=== PATIENT | female | born 1935 | race Caucasian/White ===

== ENCOUNTER 2017-05-27 10:27 | Emergency (ER) | payer MEDICARE, OTHER ==
[~2017-05-27] VITALS: Ht 160 cm; Wt 75.7 kg
[~2017-05-27 10:27] MED LIST: ADVA250A INH; CALC600T44 PO; CIPR500T4 PO; DUONSOL2 NEB; FURO1TAB93 PO; LISI-363 PO; METO50TA11 PO; MONT10TA2 PO; NORV10TA PO; OMEP20TA PO; OSTETAB3 PO; PROZ20CA11 PO; RIVA15 PO; SIMV40TA PO; TAB-TAB PO; WAL-10TA2 PO
[2017-05-27 10:38] VITALS: BP 129/72; PULSE 102; RESP 18; TEMP 97.6; O2SAT 96
[2017-05-27] MEDS ORDERED: MULT1TAB46 PO (11:02)
[2017-05-27] MEDS ORDERED: WARF-58 PO (11:02)
[2017-05-27] MEDS ORDERED: ALBU.5I NEB (11:02)
[2017-05-27] MEDS ORDERED: FLUO20CA12 PO (11:02)
[2017-05-27] MEDS ORDERED: OMEP20TA93 PO (11:02)
[2017-05-27] MEDS ORDERED: BUME2TAB PO (11:02)
[2017-05-27] MEDS ORDERED: DILT120C50 PO (11:02)
[2017-05-27] MEDS ORDERED: DOXY1CAP74 PO (11:02)
[2017-05-27] MEDS ORDERED: HUMIBIDDM PO (11:02)
[2017-05-27] MEDS ORDERED: CARV6.252 PO (11:02)
[2017-05-27] MEDS ORDERED: VITA1000 PO (11:02)
--- NOTE | 2017-05-27 12:09 | RADRPT ---
EXAM DATE/TIME: 05/27/2017 11:22 [facility] COMPARISON: No previous studies available for comparison. INDICATIONS : Left posterior shoulder pain, no known injury. MEDICAL HISTORY : None. SURGICAL HISTORY : bone and muscle resection left shoulder ENCOUNTER: Initial ACUITY: 3 weeks PAIN SCORE: 8/10 LOCATION: Left posterior shoulder FINDINGS: Multiple view examination of the left shoulder demonstrates no evidence of fracture or dislocation. T the distal clavicle has been resected previously. Pacemaker in good position.. There is normal range of motion between internal and external rotation. Bony mineralization is normal. CONCLUSION: Negative for an acute process.. Benson Villegas MD FACR on May 27, 2017 at 12:06 Board Certified Radiologist. This report was verified electronically.
[2017-05-27] MEDS ORDERED: TRAM50 PO (12:13)
--- NOTE | 2017-05-27 12:14 | PD ---
HPI Chief Complaint: Musculoskeletal Complaint Time Seen by Provider: 11:04 Travel History International Travel<30 days: No Contact w/Intl Traveler<30days: No Traveled to known affect area: No PFSH Past Medical History Arthritis: Yes (shoulders) Asthma: Yes Atrial Fibrillation: Yes Autoimmune Disease: No Blood Disorders: No Anxiety: No Depression: No Heart Rhythm Problems: Yes (EPISODE OF AFIB) Cancer: No Cardiovascular Problems: Yes (rapid pulse, afib, dizziness, asystole) High Cholesterol: Yes Chemotherapy: No Chest Pain: No Congestive Heart Failure: No COPD: Yes Cerebrovascular Accident: No Diabetes: No Diminished Hearing: No Endocrine: No Gastrointestinal Disorders: Yes GERD: Yes Glaucoma: No Genitourinary: No Headaches: Yes (regular headaches secondary to sinus issues) Hepatitis: No Hiatal Hernia: No Hypertension: Yes Immune Disorder: No Implanted Vascular Access Dvce: Yes Kidney Stones: No Musculoskeletal: Yes (shoulders-rotator cuffs ) Neurologic: No Psychiatric: No (HAVE ON PROZAC, R/T CHANGE OF LIFE) Reproductive: No (hysterectomy) Respiratory: Yes (COPD SLEEP APNEA) Immunizations Current: Yes Migraines: No Myocardial Infarction: No Radiation Therapy: No Renal Failure: No Seizures: No Sickle Cell Disease: No Sleep Apnea: Yes (CPAP AT HOME AND O2 AT HOME) Thyroid Disease: No Ulcer: No Tetanus Vaccination: < 5 Years Influenza Vaccination: Yes PNEUMOCCOCAL Vaccine (Year): 2010 ?: Not Past Surgical History Abdominal Surgery: Yes (above) AICD: No Appendectomy: Yes Arteriovenous Shunt: No Cardiac Surgery: Yes (pacer 04/07/13) Section: Yes ( 1956;1962) Cholecystectomy: No Ear Surgery: No Endocrine Surgery: No Eye Surgery: Yes (RT & LT EYES CATARACTS REMOVED ' ) Genitourinary Surgery: No Gynecologic Surgery: Yes (HYSTERECTOMY 02/12/1970 and c-sections x2) Hysterectomy: Yes Insulin Pump: No Joint Replacement: No Neurologic Surgery: No Oral Surgery: Yes (DENTAL EXTRACTIONS) Pacemaker: Yes (pacer 04/07/13) Thoracic Surgery: No Tonsillectomy: Yes Other Surgery: Yes (C-SECTIONS, BILAT SHOULDER SURGERY ,) Social History Alcohol Use: Yes (social) Tobacco Use: No (SMOKED FOR 30YEARS) Substance Use: No Allergies-Medications (Allergen,Severity, Reaction): Coded Allergies: codeine (Unverified Allergy, Severe, GI UPSET, 05/27/17) sulfamethoxazole (Unverified Allergy, Severe, CONFIRM REACTION: SIDE EFFECT VS ALLERGY., 05/27/17) trimethoprim (Unverified Allergy, Severe, CONFIRM REACTION: SIDE EFFECT VS ALLERGY., 05/27/17) lansoprazole (Unverified Allergy, Mild, DIARRHEA, 05/27/17) Reported Meds & Prescriptions Reported Meds & Active Scripts Active Reported Warfarin 3 Mg Tab 3 Mg PO DAILY Multi Vitamin Daily (Multiple Vitamin) 1 Tab Tab 1 Tab PO DAILY Vitamin D-1000 (Cholecalciferol) 1,000 Unit Tab 1,000 Units PO DAILY Doxycycline 40 Mg Cap 100 Mg PO DAILY Albuterol Neb (Albuterol Sulfate) 2.5 Mg/0.5 Ml Neb 2.5 Mg NEB Q4HR NEB Note: The Albuterol Sulfate Inhalation Solution is concentrated and must be diluted. Read complete instructions carefully before using. Mucinex DM (Dextromethorphan-Guaifenesin) 30-600 Mg Tab 2 Tab PO BID PRN Diltiazem CD 24 HR 120 Mg Caper 180 Mg PO DAILY Carvedilol 6.25 Mg Tab 6.25 Mg PO BID Bumetanide 2 Mg Tab 2 Mg PO DAILY Fluoxetine (Fluoxetine HCl) 20 Mg Capsule 20 Mg PO DAILY Omeprazole 20 Mg Tab 20 Mg PO DAILY Data Data Last Documented VS Vital Signs Date Time Temp Pulse Resp B/P (MAP) Pulse Ox O2 Delivery O2 Flow Rate FiO2 05/27/17 10:38 97.6 102 18 129/72 (91) 96 Orders Orders Shoulder, Complete (>2vws) (05/27/17 ) [facility] Medical Decision Making Medical Screen Exam Complete: Yes Emergency Medical Condition: Yes Differential Diagnosis Shoulder pain: Arthritis, rotator cuff injury, fracture Narrative Course 81-year-old female here with left shoulder pain for the last 3 weeks. The pain is reproducible to palpation of the proximal humerus and with range of motion. The extremity is neurovascularly intact. She has no cardiac symptoms. She has had previous surgery on the shoulder due to arthritis. X-rays negative for fracture. She will be put into a sling for comfort. Ultram as needed for pain. Follow-up with orthopedic. She agrees to this plan Diagnosis Primary Impression: Shoulder pain Qualified Codes: M25.512 - Pain in left shoulder Referrals: Ehsan Beck MD Orthopedist Additional Instructions: Sling as needed for comfort. Ultram as needed for pain. Follow-up with orthopedic. Scripts Tramadol (Ultram) 50 Mg Tab 50 MG PO Q6H Y for PAIN, #12 TAB 0 Refills Prov: Yasmine Mart 05/27/17 Disposition: 01 DISCHARGE HOME Condition: Stable Yasmine Mart May 27, 2017 12:14
== END 2017-05-27 12:26 | disposition home or self-care (01) ==
LOC: PHEFT 10:27
DX: M25.512 Pain in left shoulder (principal); M19.012 Primary osteoarthritis, left shoulder; M19.011 Primary osteoarthritis, right shoulder; I48.91 Unspecified atrial fibrillation; E78.00 Pure hypercholesterolemia, unspecified; J44.9 Chronic obstructive pulmonary disease, unspecified; Z87.891 Personal history of nicotine dependence; Z95.0 Presence of cardiac pacemaker
CPT/HCPCS: 73030; 99283

== ENCOUNTER 2017-05-29 06:04 | Observation (INO) | payer MEDICARE, OTHER ==
[2017-05-29] VITALS (9 sets, daily range): BP systolic 106–134; BP diastolic 53–85; PULSE 70–122; RESP 17–18; TEMP 98.1–98.5; O2SAT 95–98
[~2017-05-29] VITALS: Ht 160 cm; Wt 75.0 kg
[~2017-05-29 06:04] MED LIST changes: -ADVA250A INH; +ALBU.5I NEB; +BUME2TAB PO; -CALC600T44 PO; +CARV6.252 PO; -CIPR500T4 PO; +DILT120C50 PO; +DOXY1CAP74 PO; -DUONSOL2 NEB; +FLUO20CA12 PO; -FURO1TAB93 PO; +HUMIBIDDM PO; -LISI-363 PO; -METO50TA11 PO; -MONT10TA2 PO; +MULT1TAB46 PO; -NORV10TA PO; -OMEP20TA PO; +OMEP20TA93 PO; -OSTETAB3 PO; -PROZ20CA11 PO; -RIVA15 PO; -SIMV40TA PO; -TAB-TAB PO; +TRAM50 PO; +VITA1000 PO; -WAL-10TA2 PO; +WARF-58 PO
[2017-05-29] MEDS ORDERED: guaiFENesin E.R. 600 MG TAB PO ONE (06:30)
[2017-05-29] MEDS ORDERED: SODIUM CHLORIDE 0.9% FLUSH 10 ML FLUSH IVF PRN (06:30)
--- NOTE | 2017-05-29 06:39 | PD ---
HPI . Shortness of breath Chief Complaint: Respiratory Symptoms Time Seen by Provider: 06:15 Travel History International Travel<30 days: No Contact w/Intl Traveler<30days: No Traveled to known affect area: No History of Present Illness HPI This is a patient from [place] who is here visiting family he has a history of COPD on home oxygen who presents to us with acute exacerbation of shortness of breath. She states that she had a little bit of a cough last night but nothing significant. She awakened at about 2 AM with dyspnea. She had a coughing spell and the dyspnea became worse. She inadvertently left her nebulizer machine at home in [place]. She states that she has a cough productive of suarez sputum. She has no known fever. She was treated in route here by [facility] with Solu-Medrol and nebulizer treatment. She reports very little relief of her shortness of breath with this treatment. PFSH Past Medical History Arthritis: Yes (shoulders) Asthma: Yes Atrial Fibrillation: Yes Autoimmune Disease: No Blood Disorders: No Anxiety: No Depression: No Heart Rhythm Problems: Yes (EPISODE OF AFIB) Cancer: No Cardiovascular Problems: Yes (rapid pulse, afib, dizziness, asystole) High Cholesterol: Yes Chemotherapy: No Chest Pain: No Congestive Heart Failure: No COPD: Yes Cerebrovascular Accident: No Diabetes: No Diminished Hearing: No Endocrine: No Gastrointestinal Disorders: Yes GERD: Yes Glaucoma: No Genitourinary: No Headaches: Yes (regular headaches secondary to sinus issues) Hepatitis: No Hiatal Hernia: No Hypertension: Yes Immune Disorder: No Implanted Vascular Access Dvce: Yes Kidney Stones: No Musculoskeletal: Yes (shoulders-rotator cuffs ) Neurologic: No Psychiatric: No (HAVE ON PROZAC, R/T CHANGE OF LIFE) Reproductive: No (hysterectomy) Respiratory: Yes (COPD SLEEP APNEA) Immunizations Current: Yes Migraines: No Myocardial Infarction: No Radiation Therapy: No Renal Failure: No Seizures: No Sickle Cell Disease: No Sleep Apnea: Yes (CPAP AT HOME AND O2 AT HOME) Thyroid Disease: No Ulcer: No Tetanus Vaccination: > 5 Years Influenza Vaccination: Yes PNEUMOCCOCAL Vaccine (Year): 2010 Past Surgical History Abdominal Surgery: Yes (above) AICD: No Appendectomy: Yes Arteriovenous Shunt: No Cardiac Surgery: Yes (pacer 04/07/13) Section: Yes ( 1956;1962) Cholecystectomy: No Ear Surgery: No Endocrine Surgery: No Eye Surgery: Yes (RT & LT EYES CATARACTS REMOVED '09 ) Genitourinary Surgery: No Gynecologic Surgery: Yes (HYSTERECTOMY 02/12/1970 and c-sections x2) Hysterectomy: Yes Insulin Pump: No Joint Replacement: No Neurologic Surgery: No Oral Surgery: Yes (DENTAL EXTRACTIONS) Pacemaker: Yes (pacer 04/07/13) Thoracic Surgery: No Tonsillectomy: Yes Other Surgery: Yes (C-SECTIONS, BILAT SHOULDER SURGERY ,) Social History Alcohol Use: Yes (social) Tobacco Use: No (SMOKED FOR 30YEARS) Substance Use: No Allergies-Medications (Allergen,Severity, Reaction): Coded Allergies: codeine (Unverified Allergy, Severe, GI UPSET, 05/29/17) sulfamethoxazole (Unverified Allergy, Severe, CONFIRM REACTION: SIDE EFFECT VS ALLERGY., 05/29/17) trimethoprim (Unverified Allergy, Severe, CONFIRM REACTION: SIDE EFFECT VS ALLERGY., 05/29/17) lansoprazole (Unverified Allergy, Mild, DIARRHEA, 05/29/17) Reported Meds & Prescriptions Reported Meds & Active Scripts Active Ultram (Tramadol HCl) 50 Mg Tab 50 Mg PO Q6H PRN Reported Warfarin 3 Mg Tab 3 Mg PO DAILY Multi Vitamin Daily (Multiple Vitamin) 1 Tab Tab 1 Tab PO DAILY Vitamin D-1000 (Cholecalciferol) 1,000 Unit Tab 1,000 Units PO DAILY Albuterol Neb (Albuterol Sulfate) 2.5 Mg/0.5 Ml Neb 2.5 Mg NEB Q4HR NEB Note: The Albuterol Sulfate Inhalation Solution is concentrated and must be diluted. Read complete instructions carefully before using. Mucinex DM (Dextromethorphan-Guaifenesin) 30-600 Mg Tab 2 Tab PO BID PRN Diltiazem CD 24 HR 120 Mg Caper 180 Mg PO DAILY Carvedilol 6.25 Mg Tab 6.25 Mg PO BID Bumetanide 2 Mg Tab 2 Mg PO DAILY Fluoxetine (Fluoxetine HCl) 20 Mg Capsule 20 Mg PO DAILY Omeprazole 20 Mg Tab 20 Mg PO DAILY Review of Systems Except as stated in HPI: all other systems reviewed are Neg General / Constitutional: No: Fever, Chills Respiratory: Positive: Cough, Shortness of Breath Physical Exam Narrative GENERAL: Awake and alert and in no acute distress. She is able to speak to me without respiratory distress. SKIN: warm/dry. HEAD: Normocephalic. Atraumatic. EYES: Pupils equal and round. No scleral icterus. No injection or drainage. ENT: No nasal bleeding or discharge. Mucous membranes pink and moist. NECK: Trachea midline. Full range of motion without pain.. CARDIOVASCULAR: Regular rate and rhythm. Heart sounds normal. RESPIRATORY: No accessory muscle use. Diminished air movement with some coarse expiratory wheezing. Breath sounds equal bilaterally. MUSCULOSKELETAL: No obvious deformities. NEUROLOGICAL: Awake and alert. No obvious cranial nerve deficits. Motor grossly within normal limits. Normal speech. PSYCHIATRIC: Appropriate mood and affect; insight and judgment normal. Data Data Last Documented VS Vital Signs Date Time Temp Pulse Resp B/P (MAP) Pulse Ox O2 Delivery O2 Flow Rate FiO2 05/29/17 07:40 102 18 124/67 (86) 97 Nasal Cannula 2.00 05/29/17 06:18 98.5 Orders Orders Complete Blood Count With Diff (05/29/17 06:29) Basic Metabolic Panel (Bmp) (05/29/17 06:29) Electrocardiogram (05/29/17 06:29) Ecg Monitoring (05/29/17 06:29) Oximetry (05/29/17 06:29) Oxygen Administration (05/29/17 06:29) Chest, Single Ap (05/29/17 06:29) Sodium Chloride 0.9% Flush (Ns Flush) (05/29/17 06:30) Albuterol-Ipratropium Neb (Duoneb Neb) (05/29/17 06:30) Guaifenesin Er (Mucinex Er) (05/29/17 06:30) Troponin I (05/29/17 07:27) Prothrombin Time / Inr (Pt) (05/29/17 07:27) Act Partial Throm Time (Ptt) (05/29/17 07:27) Albuterol Neb (Albuterol Neb) (05/29/17 07:45) Nitroglycerin Sl (Nitrostat Sl) (05/29/17 07:45) Diltiazem Cd (Cardizem Cd) (05/29/17 08:30) Admit Order (Ed Use Only) (05/29/17 09:01) Labs Laboratory Tests Test 05/29/17 06:40 05/29/17 07:35 White Blood Count 6.9 TH/MM3 Red Blood Count 3.84 MIL/MM3 Hemoglobin 13.0 GM/DL Hematocrit 37.9 % Mean Corpuscular Volume 98.7 FL Mean Corpuscular Hemoglobin 33.9 PG Mean Corpuscular Hemoglobin Concent 34.4 % Red Cell Distribution Width 14.8 % Platelet Count 256 TH/MM3 Mean Platelet Volume 8.8 FL Neutrophils (%) (Auto) 46.6 % Lymphocytes (%) (Auto) 37.0 % Monocytes (%) (Auto) 12.2 % Eosinophils (%) (Auto) 3.0 % Basophils (%) (Auto) 1.2 % Neutrophils # (Auto) 3.2 TH/MM3 Lymphocytes # (Auto) 2.6 TH/MM3 Monocytes # (Auto) 0.8 TH/MM3 Eosinophils # (Auto) 0.2 TH/MM3 Basophils # (Auto) 0.1 TH/MM3 CBC Comment DIFF FINAL Differential Comment Blood Urea Nitrogen 28 MG/DL Creatinine 1.40 MG/DL Random Glucose 102 MG/DL Calcium Level 8.9 MG/DL Sodium Level 138 MEQ/L Potassium Level 3.8 MEQ/L Chloride Level 101 MEQ/L Carbon Dioxide Level 26.9 MEQ/L Anion Gap 10 MEQ/L Estimat Glomerular Filtration Rate 36 ML/MIN Troponin I LESS THAN 0.02 NG/ML Prothrombin Time 17.2 SEC Prothromb Time International Ratio 1.7 RATIO Activated Partial Thromboplast Time 27.9 SEC MDM Medical Decision Making Medical Screen Exam Complete: Yes Emergency Medical Condition: Yes Differential Diagnosis Differential diagnosis of dyspnea includes but is not limited to congestive heart failure, pneumonia, wheezing, pneumothorax, pulmonary embolism Narrative Course This is a patient with a history of COPD who is on home oxygen who presents with acute onset of increased shortness of breath. She also has a cough productive of suarez sputum but no fever. She has had Solu-Medrol per EMS. I have ordered stacked nebs. She will be workup for possible pneumonia with a chest x-ray and routine labs. Her care is being turned over to the oncoming provider at 7 AM pending her workup. Diagnosis Primary Impression: Dyspnea Qualified Codes: R06.00 - Dyspnea, unspecified Additional Impressions: Productive cough COPD (chronic obstructive pulmonary disease) Qualified Codes: J44.1 - Chronic obstructive pulmonary disease with (acute) exacerbation Condition: Stable Oeters,Lorri Sheila MD May 29, 2017 06:39
[2017-05-29] MEDS: RESP: ALBUTEROL 2.5 MG/IPRATROPIUM 0.5 MG NEB (SCH) INH ×2 (06:41→06:42)
[2017-05-29 06:54] LABS: AUTOMATED NEUTROPHIL # 3.2 TH/MM3 (1.8-7.7); BASOPHIL # 0.1 TH/MM3 (0-0.2); BASOPHIL % 1.2 % (0.0-2.0); EOSINOPHIL # 0.2 TH/MM3 (0-0.4); HEMATOCRIT 37.9 % (35.0-46.0); LYMPHOCYTE # 2.6 TH/MM3 (1.0-4.8); MEAN CELL VOLUME 98.7 FL (80.0-100.0); MEAN CORPUSCULAR HEMOGLOBIN 33.9 PG (27.0-34.0); MEAN CORPUSCULAR HGB CONC 34.4 % (32.0-36.0); MEAN PLATELET VOLUME 8.8 FL (7.0-11.0); MONO % 12.2 % (0.0-8.0); MONOCYTE # 0.8 TH/MM3 (0-0.9); NEUT % 46.6 % (16.0-70.0); PLATELET COUNT 256 TH/MM3 (150-450); RED BLOOD COUNT 3.84 MIL/MM3 (4.00-5.30); RED CELL DISTRIBUTION WIDTH 14.8 % (11.6-17.2); WHITE BLOOD COUNT 6.9 TH/MM3 (4.0-11.0)
--- NOTE | 2017-05-29 07:21 | PD ---
Physical Exam Narrative Received sign out from previous team to follow up labs, CXR and reevaluate. Please see previous provider's note for further details. 81yo F with PMH of COPD on 2L [place] home O2, afib on coumadin, pacemaker here with c/o sob and chest pain since 2am this morning. Pt was given solumedrol by [facility] and 3 duonebs prior to my evaluation. Pt said she feels a little better but still sob. She informs me that she had midsternal chest pain since 2am that radiated to her left arm. Said it is pressure like and she normally does not have chest pain when she has COPD exacerbation. Associated with nausea. 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 She said she saw Dr. Mas years ago year and he place pacemaker but she has no preference on who she sees. Pt denies any cardiac stress test. Denies any vomiting, abdominal pain, focal weakness or numbness. EKG and troponin added after my evaluation. Will give another nebulizer and sublingual nitro as well since pt is currently having chest pain. Pt is saturating at 92% on 2L NC and has mild end expiratory wheezing bilaterally. Pt 's heart rate is fluctuating between 90s to low 110s and pt has not taken her diltiazem 180mg PO yet so will give a dose now. Labs reviewed, no leukocytosis. H/H normal. Troponin negative. Pt reevaluated at bedside after the fourth nebulizer treatment and states she is feeling better. O2 sat is 99% on 2L NC. Lung exam revealed expiratory wheezing bilaterally. Pt said she still feel that her breathing is strained. I would like to admit patient to chest pain center for further evaluation of her chest pain which is not usually associated with her COPD. However, since pt is still wheezing and also has COPD exacerbation, will discuss with hospitalist. Discussed with Dr. Ellison and accepted to his service. Data Data Last Documented VS Vital Signs Date Time Temp Pulse Resp B/P (MAP) Pulse Ox O2 Delivery O2 Flow Rate FiO2 05/29/17 07:40 102 18 124/67 (86) 97 Nasal Cannula 2.00 05/29/17 06:18 98.5 Orders Orders Complete Blood Count With Diff (05/29/17 06:29) Basic Metabolic Panel (Bmp) (05/29/17 06:29) Electrocardiogram (05/29/17 06:29) Ecg Monitoring (05/29/17 06:29) Oximetry (05/29/17 06:29) Oxygen Administration (05/29/17 06:29) Chest, Single Ap (05/29/17 06:29) Sodium Chloride 0.9% Flush (Ns Flush) (05/29/17 06:30) Albuterol-Ipratropium Neb (Duoneb Neb) (05/29/17 06:30) Guaifenesin Er (Mucinex Er) (05/29/17 06:30) Troponin I (05/29/17 07:27) Prothrombin Time / Inr (Pt) (05/29/17 07:27) Act Partial Throm Time (Ptt) (05/29/17 07:27) Albuterol Neb (Albuterol Neb) (05/29/17 07:45) Nitroglycerin Sl (Nitrostat Sl) (05/29/17 07:45) Diltiazem Cd (Cardizem Cd) (05/29/17 08:30) Admit Order (Ed Use Only) (05/29/17 09:01) Labs Laboratory Tests Test 05/29/17 06:40 05/29/17 07:35 White Blood Count 6.9 TH/MM3 Red Blood Count 3.84 MIL/MM3 Hemoglobin 13.0 GM/DL Hematocrit 37.9 % Mean Corpuscular Volume 98.7 FL Mean Corpuscular Hemoglobin 33.9 PG Mean Corpuscular Hemoglobin Concent 34.4 % Red Cell Distribution Width 14.8 % Platelet Count 256 TH/MM3 Mean Platelet Volume 8.8 FL Neutrophils (%) (Auto) 46.6 % Lymphocytes (%) (Auto) 37.0 % Monocytes (%) (Auto) 12.2 % Eosinophils (%) (Auto) 3.0 % Basophils (%) (Auto) 1.2 % Neutrophils # (Auto) 3.2 TH/MM3 Lymphocytes # (Auto) 2.6 TH/MM3 Monocytes # (Auto) 0.8 TH/MM3 Eosinophils # (Auto) 0.2 TH/MM3 Basophils # (Auto) 0.1 TH/MM3 CBC Comment DIFF FINAL Differential Comment Blood Urea Nitrogen 28 MG/DL Creatinine 1.40 MG/DL Random Glucose 102 MG/DL Calcium Level 8.9 MG/DL Sodium Level 138 MEQ/L Potassium Level 3.8 MEQ/L Chloride Level 101 MEQ/L Carbon Dioxide Level 26.9 MEQ/L Anion Gap 10 MEQ/L Estimat Glomerular Filtration Rate 36 ML/MIN Troponin I LESS THAN 0.02 NG/ML Prothrombin Time 17.2 SEC Prothromb Time International Ratio 1.7 RATIO Activated Partial Thromboplast Time 27.9 SEC MDM Supervised Visit with KASSY: No Interpretation(s) EKG: Afib at 109bpm. LAD. No significant ST segment elevation or depression. Diagnosis Primary Impression: Chest pain Qualified Codes: R07.9 - Chest pain, unspecified Additional Impression: COPD exacerbation Admitting Information Admitting Physician Requests: Observation Condition: Stable Asuncion Covington DO May 29, 2017 07:21
[2017-05-29 07:41] LABS: BICARBONATE 26.9 MEQ/L (21.0-32.0); CALCIUM 8.9 MG/DL (8.5-10.1); CREATININE 1.4 MG/DL (0.50-1.00)
[2017-05-29] MEDS ORDERED: NITROGLYCERIN 0.4 MG SL 25 TABS/BTL SL PRN (07:45)
[2017-05-29] MEDS ORDERED: RESP: ALBUTEROL 2.5 MG/3 ML NEB (SCH) NEB ONE (07:45)
[2017-05-29 08:08] LABS: INTERNATIONAL NORMALIZED RATIO 1.7 RATIO; PROTHROMBIN TIME - PATIENT 17.2 SEC (9.8-11.6)
[2017-05-29] MEDS ORDERED: DILTIAZEM-CD 180 MG CAP ER PO ONE (08:30)
--- NOTE | 2017-05-29 09:19 | RADRPT ---
EXAM DATE/TIME: 05/29/2017 06:38 [facility] COMPARISON: No previous studies available for comparison. INDICATIONS : Short of breath MEDICAL HISTORY : Hypertension. Chronic obstructive pulmonary disease. Hypercholesterolemia. a-fib. SURGICAL HISTORY : Pacemaker. bone and muscle resection left shoulder ENCOUNTER: Initial ACUITY: 1 day PAIN SCORE: 0/10 LOCATION: chest FINDINGS: A single view of the chest demonstrates the lungs to be symmetrically aerated without evidence of mas s, infiltrate or effusion. The cardiomediastinal contours are unremarkable. Osseous structures are intact. Dual lead pacing device overlying the left chest. CONCLUSION: No acute disease. Michael Aponte Jr., MD on May 29, 2017 at 9:15 Board Certified Radiologist. This report was verified electronically.
[2017-05-29] MEDS ORDERED: ACETAMINOPHEN 325 MG TAB PO PRN (10:30)
[2017-05-29] MEDS ORDERED: SODIUM CHLORIDE 0.9% FLUSH 10 ML FLUSH IV FLUSH PRN (10:30)
[2017-05-29] MEDS ORDERED: MAGNESIUM HYDROXIDE SUSP 30 ML CUP PO PRN (10:30)
[2017-05-29] MEDS ORDERED: LACTULOSE SYRUP 20 GM/30 ML CUP PO PRN (10:30)
[2017-05-29] MEDS ORDERED: BISACODYL 10 MG SUPP RECTAL PRN (10:30)
[2017-05-29] MEDS ORDERED: SENNOSIDES 8.6 MG TAB PO PRN (10:30)
[2017-05-29] MEDS ORDERED: NALOXONE HCL 0.4 MG/ML AMP IV PUSH PRN (10:30)
[2017-05-29] MEDS ORDERED: ONDANSETRON HCL 4 MG/2 ML VIAL IVP PRN (10:30)
[2017-05-29] MEDS: LEVOFLOXACIN 750 MG PREMIX INJ 150 ML IV SCH (11:14)
[2017-05-29] MEDS: methylPREDNISolone SOD SUCC 40 MG/1 ML VIAL IV PUSH SCH ×2 (11:15→18:17)
[2017-05-29] MEDS ORDERED: HEPARIN SODIUM - SQ 10,000 UNITS/ML VIAL SQ SCH (12:00)
[2017-05-29 16:14] LABS: TROPONIN I LESS THAN 0.02 NG/ML (0.02-0.05)
[2017-05-29] MEDS ORDERED: DEXTROMETHORPHAN SYRUP 7.5MG/5ML UDC PO PRN (18:15)
[2017-05-29] MEDS ORDERED: traMADol HCL 50 MG TAB PO PRN (18:15)
[2017-05-29] MEDS ORDERED: RESP: ALBUTEROL 2.5 MG/IPRATROPIUM 0.5 MG NEB (PRN) NEB (18:15)
[2017-05-29] MEDS ORDERED: guaiFENesin/DEXTROMETHORPHAN 200 MG/20 MG/10 ML CUP PO PRN ×2 (18:45→19:00)
[2017-05-29] MEDS ORDERED: guaiFENesin E.R. 600 MG TAB PO PRN ×3 (18:45→19:00)
--- NOTE | 2017-05-29 19:21 | HHI.HP ---
HPI Service [facility] Hospitalists Primary Care Physician Non-Staff Admission Diagnosis Chest pain, COPD exacerbation Diagnoses: Chief Complaint: Shortness of breath, chest pain Travel History International Travel<30 Days: No Contact w/Intl Traveler <30 Da: No Traveled to Known Affected Are: No History of Present Illness This is a 81-year-old female with past medical history of COPD on home oxygen, atrial fibrillation on chronic articulation with warfarin, hypertension, depression/anxiety, osteoarthritis who presents to [facility] complaining of increasing shortness of breath and cough which started approximately 3 days ago. The patient states that she had a coughing spell and soon after had some chest pain which felt like a heavy sensation over the substernal region which radiated to the left arm. The patient states that the pain lasted for several hours and it subsided with medication that she was administered in the emergency department. The patient denies any aggravating factor. The patient is currently chest pain-free. However she states that she has been wheezing feeling more short of breath, with increased cough and sputum production of yellowish phlegm. The patient was in the emergency department, administered nebulizer. First set of troponin negative, chest x-ray without acute disease. Review of Systems As per HPI, other systems reviewed by me and negative Past Family Social History Past Medical History 1. Atrial fibrillation on chronic and correlation. 2. Hypertension. 3. COPD on home O2. 4. Osteoarthritis. 5. Cedillo's esophagus. 6. Depression/anxiety. 7. Endometrial cancer Past Surgical History 1. Tonsillectomy 2. Adenoidectomy 3. Appendectomy 4. Endometrial cancer treated with total abdominal hysterectomy with bilateral salpingo-oophorectomy 1969. 5. Bilateral pH ACO and intraocular lens implantation. 6. Liposuction plan 7. History of reduction of arms and face. 8. Facelift. 9. Bilateral shoulder surgery. 10. Surgery of the right shoulder for a rotator cuff tear. 11. 2 C-sections. Reported Medications Reported Meds & Active Scripts Active Ultram (Tramadol HCl) 50 Mg Tab 50 Mg PO Q6H PRN Reported Warfarin 3 Mg Tab 3 Mg PO DAILY Multi Vitamin Daily (Multiple Vitamin) 1 Tab Tab 1 Tab PO DAILY Vitamin D-1000 (Cholecalciferol) 1,000 Unit Tab 1,000 Units PO DAILY Albuterol Neb (Albuterol Sulfate) 2.5 Mg/0.5 Ml Neb 2.5 Mg NEB Q4HR NEB Note: The Albuterol Sulfate Inhalation Solution is concentrated and must be diluted. Read complete instructions carefully before using. Mucinex DM (Dextromethorphan-Guaifenesin) 30-600 Mg Tab 2 Tab PO BID PRN Diltiazem CD 24 HR 120 Mg Caper 180 Mg PO DAILY Carvedilol 6.25 Mg Tab 6.25 Mg PO BID Bumetanide 2 Mg Tab 2 Mg PO DAILY Fluoxetine (Fluoxetine HCl) 20 Mg Capsule 20 Mg PO DAILY Omeprazole 20 Mg Tab 20 Mg PO DAILY Allergies: Coded Allergies: codeine (Unverified Allergy, Severe, GI UPSET, 05/29/17) sulfamethoxazole (Unverified Allergy, Severe, CONFIRM REACTION: SIDE EFFECT VS ALLERGY., 05/29/17) trimethoprim (Unverified Allergy, Severe, CONFIRM REACTION: SIDE EFFECT VS ALLERGY., 05/29/17) lansoprazole (Unverified Allergy, Mild, DIARRHEA, 05/29/17) Active Ordered Medications Current Medications Medications (Trade) Dose Ordered Sig/Mandi Route Start Time Stop Time Status Last Admin (Nitrostat Sl) 0.4 mg Q5M PRN SL 05/29/17 07:45 (NS Flush) 2 ml UNSCH PRN IV FLUSH 05/29/17 10:30 (NS Flush) 2 ml BID IV FLUSH 05/29/17 21:00 (Tylenol) 650 mg Q4H PRN PO 05/29/17 10:30 (Zofran Inj) 4 mg Q6H PRN IVP 05/29/17 10:30 (Heparin Inj) 5,000 units Q8H SQ 05/29/17 12:00 05/29/17 11:11 (Narcan Inj) 0.4 mg UNSCH PRN IV PUSH 05/29/17 10:30 (Radha-Colace) 1 tab BID PO 05/29/17 21:00 (Milk Of Magnesia Liq) 30 ml Q12H PRN PO 05/29/17 10:30 (Senokot) 17.2 mg Q12H PRN PO 05/29/17 10:30 (Dulcolax Supp) 10 mg DAILY PRN RECTAL 05/29/17 10:30 (Lactulose Liq) 30 ml DAILY PRN PO 05/29/17 10:30 (SoluMEDROL INJ) 40 mg Q6HR IV PUSH 05/29/17 12:00 05/29/17 18:17 Levofloxacin/ Dextrose 150 ml @ 100 mls/hr Q48H IV 05/29/17 11:00 05/29/17 11:14 (Duoneb Neb) 1 ampule Q4HR WHILE AWAKE NEB NEB 05/29/17 20:00 (Duoneb Neb) 1 ampule Q2HR NEB PRN NEB 05/29/17 18:15 (Bumetanide) 2 mg DAILY PO 05/30/17 09:00 (Coreg) 6.25 mg BID PO 05/29/17 21:00 (Vitamin D3) 1,000 units DAILY PO 05/30/17 09:00 (Cardizem Cd) 180 mg DAILY PO 05/30/17 09:00 (PROzac) 20 mg DAILY PO 05/30/17 09:00 (Ultram) 50 mg Q6H PRN PO 05/29/17 18:15 (Coumadin) 3 mg DAILY@1600 PO 05/30/17 16:00 (Theragran) 1 tab DAILY PO 05/30/17 09:00 (Protonix) 20 mg DAILY PO 05/30/17 09:00 (Robitussin Dm 200-20 Mg/10 ml Liq) 30 ml BID PRN PO 05/29/17 19:00 (Mucinex Er) 600 mg BID PRN PO 05/29/17 19:00 Family History Patient's father is at age 57 from lung cancer. Mother at 87 years of senescence. Patient has a daughter and a son who are healthy. Social History The patient is a former smoker quit smoking in 1979. The patient drinks 1-2 glasses of wine a day. The patient denies illicit drug use. The patient is and she was born and currently lives in [place]. The patient is retired. Physical Exam Vital Signs Vital Signs Date Time Temp Pulse Resp B/P (MAP) Pulse Ox O2 Delivery O2 Flow Rate FiO2 05/29/17 17:42 98.1 107 18 128/69 (88) 96 05/29/17 15:12 109 18 106/53 (70) 95 Nasal Cannula 2.00 05/29/17 11:22 110 18 120/85 (97) 95 Nasal Cannula 2.00 05/29/17 07:40 102 18 124/67 (86) 97 Nasal Cannula 2.00 05/29/17 06:45 95 Nasal Cannula 2.00 05/29/17 06:45 98 Nasal Cannula 05/29/17 06:18 98.5 70 18 131/67 (88) 98 05/29/17 06:14 24 97 Nasal Cannula 2.00 Physical Exam GENERAL: This is a well-nourished, well-developed patient, in no apparent distress. SKIN: No rashes, ecchymoses or lesions. Cool and dry. HEAD: Atraumatic. Normocephalic. No temporal or scalp tenderness. EYES: Pupils equal round and reactive. Extraocular motions intact. No scleral icterus. No injection or drainage. ENT: Nose without bleeding, purulent drainage or septal hematoma. Throat without erythema, tonsillar hypertrophy or exudate. Uvula midline. Airway patent. NECK: Trachea midline. No JVD or lymphadenopathy. Supple, nontender, no meningeal signs. CARDIOVASCULAR: Regular rate and rhythm without murmurs, gallops, or rubs. RESPIRATORY: Decreased breath sounds in bilateral lung elizalde with diffuse expiratory wheezing, no rhonchi or rales auscultated. GASTROINTESTINAL: Abdomen soft, non-tender, nondistended. No hepato-splenomegaly , or palpable masses. No guarding. MUSCULOSKELETAL: Extremities without clubbing, cyanosis, or edema. No joint tenderness, effusion, or edema noted. No calf tenderness. Negative Homans sign bilaterally. NEUROLOGICAL: Awake and alert. Cranial nerves II through XII intact. Motor and sensory grossly within normal limits. Five out of 5 muscle strength in all muscle groups. Normal speech. Laboratory Laboratory Tests Test 05/29/17 06:40 05/29/17 07:35 05/29/17 13:25 White Blood Count 6.9 Red Blood Count 3.84 Hemoglobin 13.0 Hematocrit 37.9 Mean Corpuscular Volume 98.7 Mean Corpuscular Hemoglobin 33.9 Mean Corpuscular Hemoglobin Concent 34.4 Red Cell Distribution Width 14.8 Platelet Count 256 Mean Platelet Volume 8.8 Neutrophils (%) (Auto) 46.6 Lymphocytes (%) (Auto) 37.0 Monocytes (%) (Auto) 12.2 Eosinophils (%) (Auto) 3.0 Basophils (%) (Auto) 1.2 Neutrophils # (Auto) 3.2 Lymphocytes # (Auto) 2.6 Monocytes # (Auto) 0.8 Eosinophils # (Auto) 0.2 Basophils # (Auto) 0.1 CBC Comment DIFF FINAL Differential Comment Blood Urea Nitrogen 28 Creatinine 1.40 Random Glucose 102 Calcium Level 8.9 Sodium Level 138 Potassium Level 3.8 Chloride Level 101 Carbon Dioxide Level 26.9 Anion Gap 10 Estimat Glomerular Filtration Rate 36 Troponin I LESS THAN 0.02 LESS THAN 0.02 Prothrombin Time 17.2 Prothromb Time International Ratio 1.7 Activated Partial Thromboplast Time 27.9 Total Creatine Kinase 67 Result Diagram: 05/29/1763905/29/17639 Imaging Last Impressions Chest X-Ray 05/29/17628 Signed Impressions: Service Date/Time: Monday, May 29, 2017 06:38 - CONCLUSION: No acute disease. Michael Aponte Jr., MD Capghassan VTE Risk Assessment Caprini VTE Risk Assessment: Mod/High Risk (score >= 2) Caprini Risk Assessment Model Point Value = 1 Point Value = 2 Point Value = 3 Point Value = 5 Age 41-60 Minor surgery BMI > 25 kg/m2 Swollen legs Varicose veins or History of unexplained or recurrent spontaneous Oral contraceptives or hormone replacement Sepsis (< 1 month) Serious lung disease, including pneumonia (< 1 month) Abnormal pulmonary function Acute myocardial infarction Congestive heart failure (< 1 month) History of inflammatory bowel disease Medical patient at bed rest Age 61-74 Arthroscopic surgery Major open surgery (> 45 min) Laparoscopic surgery (> 45 min) Malignancy Confined to bed (> 72 hours) Immobilizing plaster cast Central venous access Age >= 75 History of VTE Family history of VTE Factor V Leiden Prothrombin [id number] Lupus anticoagulant Anticardiolipin antibodies Elevated serum homocysteine Heparin-induced thrombocytopenia Other congenital or acquired thrombophilia Stroke (< 1 month) Elective arthroplasty Hip, pelvis, or leg fracture Acute spinal cord injury (< 1 month) Prophylaxis Regimen Total Risk Factor Score Risk Level Prophylaxis Regimen 0-1 Low Early ambulation 2 Moderate Order ONE of the following: *Sequential Compression Device (SCD) *Heparin 5000 units SQ BID 3-4 Higher Order ONE of the following medications: *Heparin 5000 units SQ TID *Enoxaparin/Lovenox 40 mg SQ daily (WT < 150 kg, CrCl > 30 mL/min) *Enoxaparin/Lovenox 30 mg SQ daily (WT < 150 kg, CrCl > 10-29 mL/min) *Enoxaparin/Lovenox 30 mg SQ BID (WT < 150 kg, CrCl > 30 mL/min) AND/OR *Sequential Compression Device (SCD) 5 or more Highest Order ONE of the following medications: *Heparin 5000 units SQ TID (Preferred with Epidurals) *Enoxaparin/Lovenox 40 mg SQ daily (WT < 150 kg, CrCl > 30 mL/min) *Enoxaparin/Lovenox 30 mg SQ daily (WT < 150 kg, CrCl > 10-29 mL/min) *Enoxaparin/Lovenox 30 mg SQ BID (WT < 150 kg, CrCl > 30 mL/min) AND *Sequential Compression Device (SCD) Assessment and Plan Problem List: (1) COPD exacerbation ICD Code: J44.1 - Chronic obstructive pulmonary disease with (acute) exacerbation Plan: Placed the patient on outpatient observation Start the patient IV Solu-Medrol 60 mg IV every 6 hours. Start the patient IV Levaquin Consult pulmonology. The patient follows up with Dr. Britt. (2) Chronic respiratory failure ICD Code: J96.10 - Chronic respiratory failure, unspecified whether with hypoxia or hypercapnia Plan: Continue with supplemental oxygen to keep oxygen saturation more than 92% . The patient is usually on 2 L nasal cannula at home. (3) HTN (hypertension) ICD Code: I10 - Essential (primary) hypertension Plan: Blood pressure seems to be stable, continue home antihypertensive medications which include carvedilol, diltiazem CD. (4) Chest pain ICD Code: R07.9 - Chest pain, unspecified Plan: Patient describes substernal chest pain radiating to the left arm. Troponin negative 2. Consult cardiology (5) Atrial fibrillation ICD Code: I48.91 - Unspecified atrial fibrillation Plan: EKG reviewed by me shows atrial fibrillation at a ventricular rate of 109 bpm, no ST-T changes suggestive of active ischemia. Continue diltiazem and Coumadin. INR is slightly subtherapeutic at 1.7. We will consult pharmacy to help with dosing and INR monitoring. (6) Subtherapeutic international normalized ratio (INR) ICD Code: R79.1 - Abnormal coagulation profile Plan: Continue Coumadin. Consult pharmacy as above. Assessment and Plan GI prophylaxis: Continue PPI. DVT prophylaxis: SCDs, heparin subcutaneously given 1 given that patient's INR subtherapeutic. Discussed Condition With ED physician, patient. Problem Qualifiers (1) HTN (hypertension): Qualified Codes: I10 - Essential (primary) hypertension (2) Chest pain: Jakub Lundy MD May 29, 2017 19:21
[2017-05-29] MEDS: RESP: ALBUTEROL 2.5 MG/IPRATROPIUM 0.5 MG NEB (SCH) NEB (19:26)
--- NOTE | 2017-05-29 19:55 | EKG ---
Date Performed: 05/29/2017 Time Performed: 07:30:38 PTAGE: 81 years EKG: ATRIAL FIBRILLATION WITH RAPID VENTRICULAR RESPONSE BORDERLINE LEFT AXIS DEVIATION Since pr evious tracing, no significant change noted ABNORMAL RHYTHM ECG PREVIOUS TRACING : 04/07/2013 09.13 DOCTOR: Shayne Aldana Interpretating Date/Time 05/29/2017 19:52:33
[2017-05-29] MEDS: SODIUM CHLORIDE 0.9% FLUSH 10 ML FLUSH IV FLUSH SCH (22:05)
[2017-05-29] MEDS: CARVEDILOL 6.25 MG TAB PO SCH (22:05)
[2017-05-29] MEDS: DOCUSATE SODIUM 50 MG/SENNA 8.6 MG TAB PO SCH (22:06)
[2017-05-29 22:34] LABS: TROPONIN I LESS THAN 0.02 NG/ML (0.02-0.05)
[2017-05-30] VITALS (10 sets, daily range): BP systolic 116–128; BP diastolic 69–79; PULSE 100–123; RESP 16–18; TEMP 97.9–98.7; O2SAT 93–97
[2017-05-30] MEDS: methylPREDNISolone SOD SUCC 125 MG/2 ML VIAL IV PUSH SCH ×4 (00:44→17:24)
[2017-05-30] MEDS: RESP: ALBUTEROL 2.5 MG/IPRATROPIUM 0.5 MG NEB (SCH) NEB ×4 (07:31→20:13)
--- NOTE | 2017-05-30 08:26 | HHI.PR ---
Subjective Remarks Follow-up COPD exacerbation, chest pain. Patient reports chest pressure, cough , shortness of breath. States that she uses 2 L of oxygen at night at home, and also uses it as needed when she feels short of breath. States that she feels better today than she did yesterday. Objective Vitals Vital Signs Date Time Temp Pulse Resp B/P (MAP) Pulse Ox O2 Delivery O2 Flow Rate FiO2 05/30/17 03:22 98.0 104 17 116/72 (87) 95 05/30/17 00:56 97.9 102 17 120/70 (87) 95 05/29/17 23:55 122 05/29/17 20:38 98.4 113 17 134/75 (94) 05/29/17 20:00 98 Nasal Cannula 2.50 05/29/17 17:42 98.1 107 18 128/69 (88) 96 05/29/17 15:12 109 18 106/53 (70) 95 Nasal Cannula 2.00 05/29/17 11:22 110 18 120/85 (97) 95 Nasal Cannula 2.00 I/O 05/29/17 05/29/17 05/29/17 05/30/17 05/30/17 05/30/17 07:00 15:00 23:00 07:00 15:00 23:00 # Voids 1 Result Diagram: 05/29/17 0640 05/29/17 0640 Imaging Last Impressions Chest X-Ray 05/29/17 0629 Signed Impressions: Service Date/Time: Monday, May 29, 2017 06:38 - CONCLUSION: No acute disease. Michael Aponte Jr., MD Objective Remarks General: No acute distress. Heart: Irregular rhythm. Tachycardic. No murmur. Lungs: Diffuse expiratory wheezing. Breathing is nonlabored. Abdomen: Soft, nontender, nondistended. Extremities: No lower extremity edema. Psych: Alert and oriented. Procedures None Urinary Catheter: No Vascular Central Line Catheter: No A/P Problem List: (1) COPD exacerbation ICD Code: J44.1 - Chronic obstructive pulmonary disease with (acute) exacerbation (2) Chronic respiratory failure ICD Code: J96.10 - Chronic respiratory failure, unspecified whether with hypoxia or hypercapnia (3) HTN (hypertension) ICD Code: I10 - Essential (primary) hypertension (4) Chest pain ICD Code: R07.9 - Chest pain, unspecified (5) Atrial fibrillation ICD Code: I48.91 - Unspecified atrial fibrillation (6) Subtherapeutic international normalized ratio (INR) ICD Code: R79.1 - Abnormal coagulation profile Assessment and Plan 1. COPD exacerbation: Continue steroids, antibiotics, bronchodilators, supplemental oxygen. Pulmonology consultation is pending. 2. Chronic respiratory failure: Patient on home oxygen at night and as needed, usually for about an hour every day. Continue supplemental oxygen. 3. Hypertension: Continue home antihypertensive medications (carvedilol, diltiazem). 4. Atrial fibrillation: Continue diltiazem, carvedilol. On Coumadin for anticoagulation. INR is subtherapeutic. Rate is elevated, likely secondary to bronchodilators. 5. Chest pain: Patient reports substernal chest pressure that has radiated to the left arm. The discomfort is worse with activity, but this may be because she develops coughing fits with activity. Cardiology consultation is pending. Serial cardiac enzymes are negative. 6. GI prophylaxis: PPI. 7. Acute kidney injury: Repeat labs are pending this morning. Add gentle IV fluid hydration. 8. DVT prophylaxis: SCDs, Coumadin. Pharmacy to dose Coumadin. Discharge Planning Pending further clinical improvement. Problem Qualifiers (1) HTN (hypertension): Qualified Codes: I10 - Essential (primary) hypertension (2) Chest pain: Atul Scales MD May 30, 2017 08:26
[2017-05-30] MEDS ORDERED: NS + KCL 20 MEQ INJ 1,000 ML IV SCH (08:30)
[2017-05-30] MEDS: FLUoxetine HCL 20 MG CAP PO SCH (09:05)
[2017-05-30] MEDS: CARVEDILOL 6.25 MG TAB PO SCH (09:05)
[2017-05-30] MEDS: DILTIAZEM-CD 180 MG CAP ER PO SCH (09:05)
[2017-05-30] MEDS: CHOLECALCIFEROL (VIT D3) 1000 UNIT TAB PO SCH (09:06)
[2017-05-30] MEDS: MULTIVITAMIN TAB PO SCH (09:06)
[2017-05-30] MEDS: DOCUSATE SODIUM 50 MG/SENNA 8.6 MG TAB PO SCH ×2 (09:06→21:18)
[2017-05-30] MEDS: PANTOPRAZOLE SOD 20 MG DELAYED RELEASE TAB PO SCH (09:06)
[2017-05-30] MEDS: BUMETANIDE 1 MG TAB PO SCH (09:06)
[2017-05-30] MEDS: SODIUM CHLORIDE 0.9% FLUSH 10 ML FLUSH IV FLUSH SCH ×2 (09:07→21:18)
[2017-05-30 11:02] LABS: AUTOMATED NEUTROPHIL # 10.2 TH/MM3 (1.8-7.7); BASOPHIL % 0.1 % (0.0-2.0); EOSINOPHIL % 0.1 % (0.0-4.0); HEMATOCRIT 36.7 % (35.0-46.0); HEMOGLOBIN 12.6 GM/DL (11.6-15.3); LYMPH % 5.9 % (9.0-44.0); LYMPHOCYTE # 0.7 TH/MM3 (1.0-4.8); MEAN CELL VOLUME 100.9 FL (80.0-100.0); MEAN CORPUSCULAR HEMOGLOBIN 34.7 PG (27.0-34.0); MEAN CORPUSCULAR HGB CONC 34.4 % (32.0-36.0); MEAN PLATELET VOLUME 8.6 FL (7.0-11.0); MONO % 1.7 % (0.0-8.0); MONOCYTE # 0.2 TH/MM3 (0-0.9); NEUT % 92.2 % (16.0-70.0); PLATELET COUNT 239 TH/MM3 (150-450); RED BLOOD COUNT 3.63 MIL/MM3 (4.00-5.30); RED CELL DISTRIBUTION WIDTH 14.8 % (11.6-17.2); WHITE BLOOD COUNT 11.1 TH/MM3 (4.0-11.0)
[2017-05-30 11:05] LABS: INTERNATIONAL NORMALIZED RATIO 1.6 RATIO; PROTHROMBIN TIME - PATIENT 15.9 SEC (9.8-11.6)
[2017-05-30 11:20] LABS: ALBUMIN 3.1 GM/DL (3.4-5.0); ALT (GPT) 14 U/L (10-53); AST (GOT) 16 U/L (15-37); BICARBONATE 27.4 MEQ/L (21.0-32.0); BLOOD UREA NITROGEN 27 MG/DL (7-18); CALCIUM 8.7 MG/DL (8.5-10.1); CHLORIDE 101 MEQ/L (98-107); CREATININE 1.19 MG/DL (0.50-1.00); GLOMERULAR FILTRATION RATE 44 ML/MIN (>89); GLUCOSE,RANDOM 197 MG/DL (74-106); SODIUM (NA) 138 MEQ/L (136-145)
[2017-05-30 11:23] LABS: ALKALINE PHOSPHATASE 67 U/L (45-117); TOTAL BILIRUBIN ADULT 0.3 MG/DL (0.2-1.0); TOTAL PROTEIN 7.1 GM/DL (6.4-8.2)
--- NOTE | 2017-05-30 12:03 | MB ---
cc: Nahun Ryaa MD DATE: 05/30/2017 REASON FOR CONSULTATION: Chest pain. HISTORY OF PRESENT ILLNESS: The patient is a very pleasant 81-year-old woman [place] who presents with a central chest/epigastric pain with perhaps some pain in her left arm, though she admits to sleeping on it and having some degree of chronic left shoulder/arm pain. She presented to the emergency department and was ruled out for CT. She is currently asymptomatic, denying any residual chest pain, shortness of breath, lightheadedness or dizziness. PAST MEDICAL HISTORY: 1. Chronic atrial fibrillation, on warfarin. 2. History of permanent pacemaker. 3. COPD, on home oxygen. 4. Hypertension. 5. Depression. 6. Anxiety. 7. Osteoarthritis. CURRENT MEDICATIONS: 1. Warfarin. 2. Bumex. 3. Cardizem 180 mg daily. 4. Prozac. 5. Protonix 20 mg daily. 6. Carvedilol 6.25 mg b.i.d. ALLERGIES: CODEINE. LANSOPRAZOLE. SULFAMETHOXAZOLE/TRIMETHOPRIM. PHYSICAL EXAMINATION: VITAL SIGNS: Afebrile, pulse 114, respiratory rate 16, BP 126/69, sating 94 percent. GENERAL: Pleasant, well-appearing woman, in no distress. NECK: No JVD. LUNGS: Clear to auscultation bilaterally. CARDIOVASCULAR: Slightly irregular rate and rhythm with a slightly rapid rate. No murmurs appreciated. ABDOMEN: Benign. EXTREMITIES: No edema. LABORATORY DATA: Sodium 138, potassium 3.8, chloride 101, bicarbonate 26.9, BUN 20, creatinine 1.4, glucose 102. Cardiac enzymes are negative x3. INR is 1.6. White count 11.1, hematocrit 36.7, platelets 239. EKG shows atrial fibrillation at a rate of 109, with minor nonspecific ST changes. ASSESSMENT AND PLAN: 1. Chest pain. The patient had chest pain with mixed typical and atypical features. I will have her undergo a nuclear stress test to rule out significant coronary artery disease. 2. Atrial fibrillation. She is maintained on warfarin (although slightly subtherapeutic currently). I will increase her carvedilol slightly given she is slightly tachycardic. Further recommendations will be based on her nuclear stress test. Unfortunately, this will have to be done tomorrow. She has already had caffeine today. Thank you again for the opportunity to participate in this patient's care. MD ADIEL Galvez/MINDY , 11:27 AM , 12:02 PM
--- NOTE | 2017-05-30 13:22 | MB ---
cc: Lauri Burnett MD DATE: 05/30/2017 REASON FOR CONSULTATION: COPD exacerbation. HISTORY OF PRESENT ILLNESS: The patient is a 81-year-old female who is known to have COPD on home oxygen with atrial fibrillation, hypertension, came to the hospital because she was having increased shortness of breath and coughing that has been there for about 3 days. The patient was diagnosed with COPD exacerbation, started on intravenous steroids and antibiotics. She is much better today ,about 40% better. She continues to be coughing and short of breath. She continues to have some wheezing. 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 PAST MEDICAL HISTORY: Reviewed in detail, as mentioned in the HPI. PAST SURGICAL HISTORY: Reviewed in detail as well. MEDICATIONS: All reviewed in detail, outpatient and inpatient medications. REVIEW OF SYSTEMS: Negative except what is mentioned in the HPI. FAMILY HISTORY: Positive for lung cancer in her father and her mother at age 87 from old age. SOCIAL HISTORY: Ex-smoker, quit in 1979. She drinks wine, 1-2 glasses a day. PHYSICAL EXAMINATION: VITAL SIGNS: Shows temperature 98.7, pulse 105, respiratory rate 18, blood pressure 120/69, saturating 96% on room air. HEENT: Atraumatic, normocephalic. NECK: Trachea midline. LUNGS: Bilateral expiratory wheezing. CARDIOVASCULAR: Normal S1, S2. ABDOMEN: Soft, nontender, slightly obese. EXTREMITIES: No significant edema or cyanosis. NEUROLOGIC: Alert, oriented x 3. Moves all extremities. LABORATORY DATA: Reviewed. WBC 11.1, hemoglobin 12.6, platelets 239. Sodium 138, potassium 4.3, BUN 27, creatinine 1.19. IMAGING STUDIES: Chest x-ray did not show any acute disease. ASSESSMENT AND PLAN: 1. Acute chronic obstructive pulmonary disease exacerbation. 2. Atrial fibrillation. 3. Chronic hypoxia. I do believe overall the patient is doing well. She is improving. I agree with the intravenous steroids and the antibiotics. I would recommend to continue bronchodilators to be used on an as-needed basis. Wean off FiO2 for O2 saturation more than or equal to 89%. There is a good chance the patient will be able to go home in 1-2 days. She will need to have an outpatient followup. MD YOLI Obrien , 01:04 PM , 01:21 PM
[2017-05-30] MEDS ORDERED: WARFARIN SOD 3 MG TAB PO SCH (16:00)
[2017-05-30] MEDS: CARVEDILOL 12.5 MG TAB PO SCH (21:18)
[2017-05-31] MEDS: methylPREDNISolone SOD SUCC 125 MG/2 ML VIAL IV PUSH SCH ×3 (00:51→12:53)
[2017-05-31 04:07] VITALS: BP 123/63; PULSE 60; RESP 18; TEMP 98.1; O2SAT 98
[2017-05-31 05:23] LABS: AUTOMATED NEUTROPHIL # 11.4 TH/MM3 (1.8-7.7); BASOPHIL % 0.1 % (0.0-2.0); HEMATOCRIT 35.8 % (35.0-46.0); HEMOGLOBIN 12.1 GM/DL (11.6-15.3); LYMPH % 6.2 % (9.0-44.0); LYMPHOCYTE # 0.8 TH/MM3 (1.0-4.8); MEAN CELL VOLUME 100.6 FL (80.0-100.0); MEAN CORPUSCULAR HGB CONC 33.8 % (32.0-36.0); MEAN PLATELET VOLUME 8.7 FL (7.0-11.0); MONO % 1.8 % (0.0-8.0); MONOCYTE # 0.2 TH/MM3 (0-0.9); NEUT % 91.9 % (16.0-70.0); PLATELET COUNT 232 TH/MM3 (150-450); RED BLOOD COUNT 3.55 MIL/MM3 (4.00-5.30); RED CELL DISTRIBUTION WIDTH 14.9 % (11.6-17.2); WHITE BLOOD COUNT 12.4 TH/MM3 (4.0-11.0)
[2017-05-31 05:44] LABS: INTERNATIONAL NORMALIZED RATIO 1.5 RATIO; PROTHROMBIN TIME - PATIENT 15.4 SEC (9.8-11.6)
[2017-05-31 05:49] LABS: BICARBONATE 27.3 MEQ/L (21.0-32.0); CALCIUM 8.6 MG/DL (8.5-10.1); CREATININE 1.26 MG/DL (0.50-1.00); MAGNESIUM 2.3 MG/DL (1.5-2.5)
[2017-05-31 07:28] VITALS: O2SAT 98
[2017-05-31] MEDS: RESP: ALBUTEROL 2.5 MG/IPRATROPIUM 0.5 MG NEB (SCH) NEB ×2 (07:28→12:05)
[2017-05-31] MEDS ORDERED: REGADENOSON INJ 0.4 MG/5 ML SYR ONE (08:30)
[2017-05-31] MEDS: DILTIAZEM-CD 180 MG CAP ER PO SCH (10:02)
[2017-05-31] MEDS: MULTIVITAMIN TAB PO SCH (10:02)
[2017-05-31] MEDS: FLUoxetine HCL 20 MG CAP PO SCH (10:02)
--- NOTE | 2017-05-31 10:02 | RADRPT ---
EXAM DATE/TIME: 05/30/2017 15:53 [facility] COMPARISON: No previous studies available for comparison. INDICATIONS : Chest pain. Angina. DOSE: 30.1 mCi Tc99m Myoview at stress. 30.1 mCi Tc99m Myoview at rest. 0.4 mg Lexiscan STRESS SYMPTOMS: Shortness of breath. EJECTION FRACTION: 68% MEDICAL HISTORY : Hypertension. Gastroesophageal reflux disease. Chronic obstructive pulmonary disease. SURGICAL HISTORY : Pacemaker. Appendectomy. Hysterectomy. section, tonsillectomy. ENCOUNTER: Initial ACUITY: 1 day PAIN SCALE: 3/10 LOCATION: chest TECHNIQUE: The patient underwent pharmacologic stress with infusion of prescribed dose. Continuous ECG tracing was monitored during stress. Gated SPECT imaging was performed after stress and conventional SPECT i maging was performed at rest. The examination was performed on a SPECT/CT scanner, both attenuation and non-corrected datasets were reviewed. FINDINGS: The gated cineloop images demonstrate no focal wall motion noted. The left ventricular ejection fract ion is calculated at 68%. The cardiac SPECT stress and rest images demonstrate fixed defects involving the lateral wall and to a lesser degree the apex and inferolateral wall suggesting infarcts in the LCx and possibly LAD and R CA distributions. No reversible defects are noted to suggest ischemia. CONCLUSION: Fixed defects involving the lateral wall and to a lesser extent the apex and inferolateral wall sugge sting infarcts in the LCx and possibly LAD and RCA distributions. Clinical correlation is recommended . No reversible defects to suggest ischemia. No focal wall motion abnormality. RISK CATEGORY: Low risk (less than 1% annual mortality rate). Arian Robin MD on May 31, 2017 at 9:55 Board Certified Radiologist. This report was verified electronically.
[2017-05-31] MEDS: CARVEDILOL 12.5 MG TAB PO SCH (10:03)
[2017-05-31] MEDS: BUMETANIDE 1 MG TAB PO SCH (10:03)
[2017-05-31] MEDS: PANTOPRAZOLE SOD 20 MG DELAYED RELEASE TAB PO SCH (10:03)
[2017-05-31] MEDS: DOCUSATE SODIUM 50 MG/SENNA 8.6 MG TAB PO SCH (10:03)
[2017-05-31] MEDS: CHOLECALCIFEROL (VIT D3) 1000 UNIT TAB PO SCH (10:03)
[2017-05-31] MEDS: SODIUM CHLORIDE 0.9% FLUSH 10 ML FLUSH IV FLUSH SCH (10:04)
[2017-05-31] MEDS: LEVOFLOXACIN 750 MG PREMIX INJ 150 ML IV SCH (10:05)
--- NOTE | 2017-05-31 11:12 | PD.CARD.PN ---
Subjective Subjective Remarks Pt still notes epigastric pressure but no chest pain; now s/p non-ischemic nuc stress. Objective Medications Current Medications Medications (Trade) Dose Ordered Sig/Mandi Route Start Time Stop Time Status Last Admin (Nitrostat Sl) 0.4 mg Q5M PRN SL 05/29/17 07:45 (NS Flush) 2 ml UNSCH PRN IV FLUSH 05/29/17 10:30 (NS Flush) 2 ml BID IV FLUSH 05/29/17 21:00 05/31/17 10:04 (Tylenol) 650 mg Q4H PRN PO 05/29/17 10:30 (Zofran Inj) 4 mg Q6H PRN IVP 05/29/17 10:30 (Narcan Inj) 0.4 mg UNSCH PRN IV PUSH 05/29/17 10:30 (Radha-Colace) 1 tab BID PO 05/29/17 21:00 05/31/17 10:03 (Milk Of Magnesia Liq) 30 ml Q12H PRN PO 05/29/17 10:30 (Senokot) 17.2 mg Q12H PRN PO 05/29/17 10:30 (Dulcolax Supp) 10 mg DAILY PRN RECTAL 05/29/17 10:30 (Lactulose Liq) 30 ml DAILY PRN PO 05/29/17 10:30 Levofloxacin/ Dextrose 150 ml @ 100 mls/hr Q48H IV 05/29/17 11:00 05/31/17 10:05 (Duoneb Neb) 1 ampule Q4HR WHILE AWAKE NEB NEB 05/29/17 20:00 05/31/17 07:28 (Duoneb Neb) 1 ampule Q2HR NEB PRN NEB 05/29/17 18:15 05/30/17 00:21 (Bumetanide) 2 mg DAILY PO 05/30/17 09:00 05/31/17 10:03 (Vitamin D3) 1,000 units DAILY PO 05/30/17 09:00 05/31/17 10:03 (Cardizem Cd) 180 mg DAILY PO 05/30/17 09:00 05/31/17 10:02 (PROzac) 20 mg DAILY PO 05/30/17 09:00 05/31/17 10:02 (Ultram) 50 mg Q6H PRN PO 05/29/17 18:15 (Coumadin) 3 mg DAILY@1600 PO 05/30/17 16:00 05/30/17 17:25 (Theragran) 1 tab DAILY PO 05/30/17 09:00 05/31/17 10:02 (Protonix) 20 mg DAILY PO 05/30/17 09:00 05/31/17 10:03 (Robitussin Dm 200-20 Mg/10 ml Liq) 30 ml BID PRN PO 05/29/17 19:00 05/30/17 00:53 (Mucinex Er) 600 mg BID PRN PO 05/29/17 19:00 (SoluMEDROL INJ) 60 mg Q6HR IV PUSH 05/30/17 00:00 05/31/17 05:56 Pharmacy Profile Note 0 ml @ 0 mls/hr UNSCH OTHER 05/29/17 19:30 (Coreg) 12.5 mg BID PO 05/30/17 21:00 05/31/17 10:03 Vital Signs / I&O Vital Signs Date Time Temp Pulse Resp B/P (MAP) Pulse Ox O2 Delivery O2 Flow Rate FiO2 05/31/17 07:28 98 Nasal Cannula 2.00 05/31/17 04:07 98.1 60 18 123/63 (83) 98 05/30/17 23:22 98.1 113 18 123/79 (94) 97 05/30/17 20:57 98.4 123 18 128/76 (93) 96 05/30/17 20:39 122 05/30/17 20:15 94 Nasal Cannula 2.00 05/30/17 16:30 98.6 100 18 128/74 (92) 93 05/30/17 11:38 98.7 105 18 121/69 (86) 96 I/O 05/30/17 05/30/17 05/30/17 05/31/17 05/31/17 05/31/17 07:00 15:00 23:00 07:00 15:00 23:00 Intake Total 600 ml Balance 600 ml Intake Oral 600 ml # Voids 1 Physical Exam GENERAL: This is a well-nourished, well-developed patient, in no apparent distress. CARDIOVASCULAR: Regular rate and rhythm without murmurs, gallops, or rubs. RESPIRATORY: Clear to auscultation. Breath sounds equal bilaterally. No wheezes , rales, or rhonchi. GASTROINTESTINAL: Abdomen soft, non-tender, nondistended. Normal active bowel sounds MUSCULOSKELETAL: Extremities without clubbing, cyanosis, or edema. NEURO: Alert & Oriented x4 to person, place, time, situation. Moves all ext x4 Laboratory Laboratory Tests Test 05/31/17 05:01 White Blood Count 12.4 TH/MM3 Red Blood Count 3.55 MIL/MM3 Hemoglobin 12.1 GM/DL Hematocrit 35.8 % Mean Corpuscular Volume 100.6 FL Mean Corpuscular Hemoglobin 34.0 PG Mean Corpuscular Hemoglobin Concent 33.8 % Red Cell Distribution Width 14.9 % Platelet Count 232 TH/MM3 Mean Platelet Volume 8.7 FL Neutrophils (%) (Auto) 91.9 % Lymphocytes (%) (Auto) 6.2 % Monocytes (%) (Auto) 1.8 % Eosinophils (%) (Auto) 0.0 % Basophils (%) (Auto) 0.1 % Neutrophils # (Auto) 11.4 TH/MM3 Lymphocytes # (Auto) 0.8 TH/MM3 Monocytes # (Auto) 0.2 TH/MM3 Eosinophils # (Auto) 0.0 TH/MM3 Basophils # (Auto) 0.0 TH/MM3 CBC Comment DIFF FINAL Differential Comment Prothrombin Time 15.4 SEC Prothromb Time International Ratio 1.5 RATIO Blood Urea Nitrogen 37 MG/DL Creatinine 1.26 MG/DL Random Glucose 157 MG/DL Calcium Level 8.6 MG/DL Magnesium Level 2.3 MG/DL Sodium Level 140 MEQ/L Potassium Level 4.3 MEQ/L Chloride Level 104 MEQ/L Carbon Dioxide Level 27.3 MEQ/L Anion Gap 9 MEQ/L Estimat Glomerular Filtration Rate 41 ML/MIN Imaging Last Impressions Chest X-Ray 05/29/17 0629 Signed Impressions: Service Date/Time: Monday, May 29, 2017 06:38 - CONCLUSION: No acute disease. Michael Aponte Jr., MD Assessment and Plan Problem List: (1) Chest pain ICD Codes: R07.9 - Chest pain, unspecified Plan: atypical; s/p non-ischemic nuclear stress, she presses her abdm/ epigastric region when she notes her pressure, may need GI workup as outpt. (2) Atrial fibrillation ICD Codes: I48.91 - Unspecified atrial fibrillation Plan: Good rates, on warfarin Assessment and Plan Ok to d/c home from cardiac standpoint, would be happy to see her when she finishes moving to the area. Problem Qualifiers (1) Chest pain: Nahun Raya MD May 31, 2017 11:12
--- NOTE | 2017-05-31 12:05 | HHI.PR ---
Subjective Remarks better less sob no wheezing just had cardiac stress test Objective Vital Signs Date Time Temp Pulse Resp B/P (MAP) Pulse Ox O2 Delivery O2 Flow Rate FiO2 05/31/17 07:28 98 Nasal Cannula 2.00 05/31/17 04:07 98.1 60 18 123/63 (83) 98 05/30/17 23:22 98.1 113 18 123/79 (94) 97 05/30/17 20:57 98.4 123 18 128/76 (93) 96 05/30/17 20:39 122 05/30/17 20:15 94 Nasal Cannula 2.00 05/30/17 16:30 98.6 100 18 128/74 (92) 93 I/O 05/30/17 05/30/17 05/30/17 05/31/17 05/31/17 05/31/17 07:00 15:00 23:00 07:00 15:00 23:00 Intake Total 600 ml Balance 600 ml Intake Oral 600 ml # Voids 1 Result Diagram: 05/31/17 0501 05/31/17 0501 Objective Remarks PHYSICAL EXAMINATION: VITAL SIGNS: Shows temperature 98.7, pulse 105, respiratory rate 18, blood pressure 120/69, saturating 96% on room air. HEENT: Atraumatic, normocephalic. NECK: Trachea midline. LUNGS: mild Bilateral expiratory wheezing. CARDIOVASCULAR: Normal S1, S2. ABDOMEN: Soft, nontender, slightly obese. EXTREMITIES: No significant edema or cyanosis. NEUROLOGIC: Alert, oriented x 3. Moves all extremities. Assessment and Plan Assessment and Plan 1. Acute chronic obstructive pulmonary disease exacerbation. 2. Atrial fibrillation. 3. Chronic hypoxia. better I recommend to switch to oral steroids and abx ok to go home from my perspective she will need outpxt follow up I answered all her questions to her satisfaction . Lauri Burnett MD May 31, 2017 12:05
[2017-05-31 12:07] VITALS: O2SAT 95
[2017-05-31 12:39] VITALS: BP 120/58; PULSE 95; RESP 20; TEMP 97.8; O2SAT 96
[2017-05-31] MEDS ORDERED: IPRASOL INH (12:51)
[2017-05-31] MEDS ORDERED: CARV12.5 PO (12:51)
[2017-05-31] MEDS ORDERED: PRED5PAK PO (12:51)
[2017-05-31] MEDS ORDERED: LEVO750T3 PO (12:51)
[2017-05-31] MEDS ORDERED: ALBU0.08 NEB (12:51)
--- NOTE | 2017-05-31 12:51 | HHI.DCPOC ---
Discharge Care Plan Diagnosis: (1) Subtherapeutic international normalized ratio (INR) (2) COPD exacerbation (3) HTN (hypertension) (4) Chest pain (5) Atrial fibrillation Goals to Promote Your Health * To prevent worsening of your condition and complications * To maintain your health at the optimal level Directions to Meet Your Goals Take your medications as prescribed Follow your dietary instruction Follow activity as directed Keep your appointments as scheduled Take your immunizations and boosters as scheduled If your symptoms worsen call your PCP, if no PCP go to Urgent Care Center or Emergency Room Smoking is Dangerous to Your Health. Avoid second hand smoke Call the 24-hour hour crisis hotline for domestic abuse at Atul Scales MD May 31, 2017 12:51
--- NOTE | 2017-05-31 13:00 | HHI.PR ---
Subjective Remarks Follow-up chest pain, COPD exacerbation. Patient states that she feels better today. Breathing is better. She is currently on room air. Objective Vitals Vital Signs Date Time Temp Pulse Resp B/P (MAP) Pulse Ox O2 Delivery O2 Flow Rate FiO2 05/31/17 12:39 97.8 95 20 120/58 (78) 96 05/31/17 12:07 95 05/31/17 07:28 98 Nasal Cannula 2.00 05/31/17 04:07 98.1 60 18 123/63 (83) 98 05/30/17 23:22 98.1 113 18 123/79 (94) 97 05/30/17 20:57 98.4 123 18 128/76 (93) 96 05/30/17 20:39 122 05/30/17 20:15 94 Nasal Cannula 2.00 05/30/17 16:30 98.6 100 18 128/74 (92) 93 I/O 05/30/17 05/30/17 05/30/17 05/31/17 05/31/17 05/31/17 07:00 15:00 23:00 07:00 15:00 23:00 Intake Total 600 ml Balance 600 ml Intake Oral 600 ml # Voids 1 Result Diagram: 05/31/17 0501 05/31/17 0501 Imaging Last Impressions Chest X-Ray 05/29/17 0629 Signed Impressions: Service Date/Time: Monday, May 29, 2017 06:38 - CONCLUSION: No acute disease. Michael Aponte Jr., MD Objective Remarks General: No acute distress. Heart: Irregular rhythm. Tachycardic. No murmur. Lungs: Mild expiratory wheeze diffusely, improved from yesterday. Breathing is nonlabored. Abdomen: Soft, nontender, nondistended. Extremities: No lower extremity edema. Psych: Alert and oriented. Procedures None Urinary Catheter: No Vascular Central Line Catheter: No A/P Problem List: (1) COPD exacerbation ICD Code: J44.1 - Chronic obstructive pulmonary disease with (acute) exacerbation (2) Chronic respiratory failure ICD Code: J96.10 - Chronic respiratory failure, unspecified whether with hypoxia or hypercapnia (3) HTN (hypertension) ICD Code: I10 - Essential (primary) hypertension (4) Chest pain ICD Code: R07.9 - Chest pain, unspecified (5) Atrial fibrillation ICD Code: I48.91 - Unspecified atrial fibrillation (6) Subtherapeutic international normalized ratio (INR) ICD Code: R79.1 - Abnormal coagulation profile Assessment and Plan 1. COPD exacerbation: Continue steroids, antibiotics, bronchodilators, supplemental oxygen. Improved clinically. Appreciate pulmonology recommendations. 2. Chronic respiratory failure: Patient on home oxygen at night and as needed, usually for about an hour every day. Continue supplemental oxygen. Follow-up as outpatient with pulmonology. 3. Hypertension: Continue home antihypertensive medications (carvedilol, diltiazem). 4. Atrial fibrillation: Continue diltiazem, carvedilol. On Coumadin for anticoagulation. INR is subtherapeutic. Rate is improved with increased dose of Coreg. 5. Chest pain: Patient reports substernal chest pressure that has radiated to the left arm. The discomfort is worse with activity, but this may be because she develops coughing fits with activity. Serial cardiac enzymes are negative. Appreciate cardiology recommendations. Nuclear stress test done this morning. Cleared for discharge by cardiology. 6. GI prophylaxis: PPI. 7. Acute kidney injury: Slightly improved from admission. Follow-up as outpatient. 8. DVT prophylaxis: SCDs, Coumadin. Pharmacy to dose Coumadin. Discharge Planning Cleared for discharge by pulmonology, cardiology. Discharge home in stable condition. Heart healthy diet. Activity as tolerated. Follow-up as outpatient with PCP, pulmonology, cardiology. Problem Qualifiers (1) HTN (hypertension): Qualified Codes: I10 - Essential (primary) hypertension (2) Chest pain: Atul Scales MD May 31, 2017 13:00
[2017-05-31] MEDS ORDERED: WARFARIN SOD 5 MG TAB PO ONE (16:00)
[2017-06-01] MEDS ORDERED: WARFARIN SOD 4 MG TAB PO SCH (16:00)
== END 2017-05-31 16:45 | disposition home or self-care (01) ==
LOC: NEPE 06:04 → NEDA 09:02 → NEPFCDU 16:57
PROVIDERS: ADMIT Family Medicine; ATTEND Family Medicine
DX: J44.1 Chronic obstructive pulmonary disease with (acute) exacerbation (principal); J96.11 Chronic respiratory failure with hypoxia; I10 Essential (primary) hypertension; R07.2 Precordial pain; I48.2 Chronic atrial fibrillation; E78.00 Pure hypercholesterolemia, unspecified; K21.9 Gastro-esophageal reflux disease without esophagitis; G47.30 Sleep apnea, unspecified; R94.31 Abnormal electrocardiogram [ECG] [EKG]; M79.602 Pain in left arm; R79.1 Abnormal coagulation profile; N17.9 Acute kidney failure, unspecified; F41.9 Anxiety disorder, unspecified; F32.9 Major depressive disorder, single episode, unspecified; M19.90 Unspecified osteoarthritis, unspecified site; Z99.81 Dependence on supplemental oxygen; Z85.42 Personal history of malignant neoplasm of other parts of uterus; Z87.891 Personal history of nicotine dependence; Z79.01 Long term (current) use of anticoagulants; Z79.899 Other long term (current) drug therapy
CPT/HCPCS: 71045; 78452; 80048; 80053; 82550; 83735; 84484; 85025; 85610; 85730; 93005; 93017; 94640; 94664; 96365; 96375; 96376; 97162; 99285; A9502; G0378; G8987; G8988; J1644; J1956; J2785; J2920; J2930; J3480; J7613

== ENCOUNTER 2017-09-07 12:43 | Observation (INO) ==
--- NOTE | 2017-09-07 15:05 | ED ---
HPI General Chief complaint: Respiratory Symptoms Stated complaint: Coughing up blood/Vomitting Time Seen by Provider: 09/07/17 14:14 Source: patient Mode of arrival: ambulatory Limitations: no limitations History of Present Illness HPI narrative: 81-year-old female presents to the emergency department for evaluation of hemoptysis. Patient states she started coughing up blood on Thursday and has been worsening. She reports chronic cough and chronic shortness of breath due to COPD. She is on home O2 at night only. Patient reports some intermittent dizziness. No headache. She denies any pain at this time. No chest pain. No abdominal pain. No nausea, vomiting, diarrhea. Patient is on Coumadin for atrial fibrillation. Patient states she has never had hemoptysis in the past. She denies any syncope. No exacerbating or alleviating factors. Moderate severity. Onset (ago): day(s) (3) Relieving factors: none Exacerbating factors: none Associated symptoms: cough and shortness of breath Related Data Home Medications Medication Instructions Recorded Confirmed albuterol sulfate 2.5 mg INHALATION BID 09/07/17 09/07/17 alendronate [Fosamax] 70 mg PO QWEEK 09/07/17 09/07/17 bumetanide 2 mg PO DAILY 09/07/17 09/07/17 carvedilol 6.25 mg PO BID 09/07/17 09/07/17 cholecalciferol (vitamin D3) 1,000 unit PO DAILY 09/07/17 09/07/17 [Vitamin D3] diltiazem HCl 180 mg PO DAILY 09/07/17 09/07/17 doxycycline hyclate 100 mg PO DAILY 09/07/17 09/07/17 fluoxetine 20 mg PO DAILY 09/07/17 09/07/17 guaifenesin [Mucinex] 600 mg PO Q12H 09/07/17 09/07/17 multivitamin [Multiple Vitamins] 1 tab PO DAILY 09/07/17 09/07/17 omeprazole 20 mg PO BID 09/07/17 09/07/17 warfarin 5 mg PO DAILY 09/07/17 09/07/17 Allergies Allergy/AdvReac Type Severity Reaction Status Date / Time codeine Allergy Severe GI UPSET Unverified 05/29/17 06:14 sulfamethoxazole Allergy Severe CONFIRM Unverified 05/29/17 06:14 REACTION: SIDE EFFECT VS ALLERGY. trimethoprim Allergy Severe CONFIRM Unverified 05/29/17 06:14 REACTION: SIDE EFFECT VS ALLERGY. lansoprazole Allergy Mild DIARRHEA Unverified 05/29/17 06:14 Review of Systems ROS Unobtainable All other systems reviewed negative except as stated in HPI [facility] Medical History Medical History Asthma (Acute) Atrial fibrillation (Acute) [place] esophagus (Acute) COPD (chronic obstructive pulmonary disease) (Acute) H/O: hysterectomy (Acute) Hypertension (Acute) Pacemaker (Acute) Sleep apnea (Acute) Surgical History Surgical History H/O section (Acute) H/O shoulder surgery (Acute) Social History Social History Substance History: No History of Abuse Second Hand Smoke Exposure: No Smoking Status: Former smoker Tobacco Type: Cigarettes How Often Do You Have a Drink Containing Alcohol: 4 or more times a week Recent Travel in [facility] within the Last 8 Weeks: No Recent Out of Country Travel within the Last 8 Weeks: No Immunization History Tetanus Immunization: <5 Years Hx Influenza Vaccine This Season: Yes Exam Const General: cooperative, healthy appearing and comfortable Nutritional Appearance: average body habitus Orientation: alert, awake and oriented x3 HENMT Head: normal to inspection Ears: hearing grossly normal bilaterally, TM normal on the right and TM normal on the left Mouth: oral mucosae normal Eyes General: appearance normal, both eyes and all related structures Neck Neck: normal visual inspection Chest Chest: normal inspection of the chest Resp Effort & Inspection: normal respiratory effort, able to speak in complete sentences and cough Auscultation: wheezes Cardio Rate: regular rate Rhythm: abnormal rhythm Pulses: radial pulses present and dorsalis pedis present GI Inspection: normal to inspection Palpation: soft and nontender Skin General: no rashes or lesions noted Trauma: no lacerations or abrasions Neuro General: alert, awake and oriented x3 Speech: speech normal Motor: muscle tone normal throughout Sensory Exam: no sensory deficits noted Extrem General: normal to inspection Psych Appearance: grossly normal Mental Status: mental status grossly normal Speech and Movement: speech and movement normal Judgment: judgment good Course Initial Documented Vital Signs Temperature 97.5 F L 09/07/17 12:53 Pulse Rate 88 09/07/17 12:53 Respiratory Rate 18 09/07/17 12:53 Blood Pressure 129/57 L 09/07/17 12:53 Pulse Oximetry 96 09/07/17 12:53 Last Documented Vital Signs Temperature 97.5 F L 09/07/17 12:53 Pulse Rate 84 09/07/17 15:21 Respiratory Rate 19 09/07/17 14:26 Blood Pressure 115/56 L 09/07/17 14:26 Pulse Oximetry 98 09/07/17 14:56 Medical Decision Making MDM Narrative Medical decision making narrative: 81-year-old female presents to the emergency department for evaluation of hemoptysis. Patient has expiratory wheezes noted on exam. She reports chronic wheezing and shortness of breath due to COPD. Patient is given DuoNeb 1. She declined steroids. EKG, CBC, CMP, CK, troponin , magnesium, BNP, PTT, PT/INR, chest x-ray are ordered and pending. EKG shows atrial fibrillation, HR 85. CBC shows no acute abnormalities. CMP shows hypokalemia of 3.2, creatinine of 1.19. CK is 47. Troponin is less than 0.02. Magnesium is 2.0. BNP is 122. PTT is 33.2. PT/INR is 14.7/1.5. Chest x-ray shows stable chest with no acute disease. CTA is done which shows no evidence of PPE, patchy infiltrates in both lung bases, left greater than right suggestive of PNA. Resident, Dr. Warner, accepted admission. Differential Diagnosis Differential Diagnosis: Elevated INR level versus COPD exacerbation versus URI versus PE versus ACS Medical Records Medical records reviewed: Yes I reviewed the patient's medical records. Lab Data Result diagrams: 09/07/17 15:15 09/07/17 15:15 Lab Results 09/07/17 09/07/17 09/07/17 Range/Units 15:15 15:15 15:15 WBC 10.8 (4.0-11.0) th/mm3 RBC 3.85 L (4.00-5.30) mil/mm3 Hgb 13.1 (11.6-15.3) gm/dL Hct 39.7 (35.0-46.0) % MCV 103.1 H (80.0-100.0) fL MCH 34.0 (27.0-34.0) pg MCHC 33.0 (32.0-36.0) % RDW 13.7 (11.6-17.2) % Plt Count 295 (150-450) th/mm3 MPV 8.9 (7.0-11.0) fL Neut % (Auto) 71.2 H (16.0-70.0) % Lymph % (Auto) 17.8 (9.0-44.0) % Price % (Auto) 8.8 H (0.0-8.0) % Eos % (Auto) 1.6 (0.0-4.0) % Baso % (Auto) 0.6 (0.0-2.0) % Neut # (Auto) 7.7 (1.8-7.7) th/mm3 Lymph # (Auto) 1.9 (1.0-4.8) th/mm3 Price # (Auto) 0.9 (0.0-0.9) th/mm3 Eos # (Auto) 0.2 (0.0-0.4) th/mm3 Baso # (Auto) 0.1 (0.0-0.2) th/mm3 WBC Differential . Differential Comment Auto diff final PT 14.7 H (9.8-11.6) sec INR 1.5 Ratio APTT 33.2 H (24.3-30.1) sec Sodium 137 (136-145) meq/L Potassium 3.2 L (3.5-5.1) meq/L Chloride 98 (98-107) meq/L Carbon Dioxide 26.9 (21.0-32.0) meq/L Anion Gap 12 (5-15) meq/L BUN 18 (7-18) mg/dL Creatinine 1.19 H (0.50-1.00) mg/dL Estimated GFR 44 L (>89) mL/min Random Glucose 90 (74-106) mg/dL Calcium 9.1 (8.5-10.1) mg/dL Magnesium 2.0 (1.5-2.5) mg/dL Total Bilirubin 0.5 (0.2-1.0) mg/dL AST 15 (15-37) U/L ALT 15 (10-53) U/L Alkaline Phosphatase 75 (45-117) U/L Total Creatine Kinase 47 (26-192) U/L Troponin I Less than 0.02 L (0.02-0.05) ng/mL B-Natriuretic Peptide (0-100) pg/mL Total Protein 7.7 (6.4-8.2) g/dL Albumin 3.6 (3.4-5.0) g/dL 09/07/17 Range/Units 15:15 WBC (4.0-11.0) th/mm3 RBC (4.00-5.30) mil/mm3 Hgb (11.6-15.3) gm/dL Hct (35.0-46.0) % MCV (80.0-100.0) fL MCH (27.0-34.0) pg MCHC (32.0-36.0) % RDW (11.6-17.2) % Plt Count (150-450) th/mm3 MPV (7.0-11.0) fL Neut % (Auto) (16.0-70.0) % Lymph % (Auto) (9.0-44.0) % Price % (Auto) (0.0-8.0) % Eos % (Auto) (0.0-4.0) % Baso % (Auto) (0.0-2.0) % Neut # (Auto) (1.8-7.7) th/mm3 Lymph # (Auto) (1.0-4.8) th/mm3 Price # (Auto) (0.0-0.9) th/mm3 Eos # (Auto) (0.0-0.4) th/mm3 Baso # (Auto) (0.0-0.2) th/mm3 WBC Differential Differential Comment PT (9.8-11.6) sec INR Ratio APTT (24.3-30.1) sec Sodium (136-145) meq/L Potassium (3.5-5.1) meq/L Chloride (98-107) meq/L Carbon Dioxide (21.0-32.0) meq/L Anion Gap (5-15) meq/L BUN (7-18) mg/dL Creatinine (0.50-1.00) mg/dL Estimated GFR (>89) mL/min Random Glucose (74-106) mg/dL Calcium (8.5-10.1) mg/dL Magnesium (1.5-2.5) mg/dL Total Bilirubin (0.2-1.0) mg/dL AST (15-37) U/L ALT (10-53) U/L Alkaline Phosphatase (45-117) U/L Total Creatine Kinase (26-192) U/L Troponin I (0.02-0.05) ng/mL B-Natriuretic Peptide 122 H (0-100) pg/mL Total Protein (6.4-8.2) g/dL Albumin (3.4-5.0) g/dL Imaging Data Radiologist's impression: ITS Impressions Chest X-Ray 09/07/17 14:43 CONCLUSION: Stable chest with no acute disease Chest CTA 09/07/17 16:11 CONCLUSION: 1. No evidence of pulmonary embolism. 2. There are patchy infiltrates in both lung bases, left greater than right suggestive of pneumonia. 3. There is bilateral chronic interstitial lung disease with some bullous changes and bronchiectasis in the right upper lung. 4. Nonspecific mildly prominent lymph nodes are seen throughout the mediastinum. Discharge Plan Discharge Disposition Patient Disposition: 30 Still Patient Physicians Team ED Provider: Milady Wyatt ED Midlevel Provider: Marti Carter Primary Care Provider: Primary Care AdamiGermaine Rxs /Orders / Referrals /Forms Prescriptions: No Action omeprazole 20 mg Capsule,Delayed Release(Dr/Ec) 20 mg PO BID RF: 0 multivitamin [Multiple Vitamins] Tablet 1 tab PO DAILY RF: 0 carvedilol 6.25 mg Tablet 6.25 mg PO BID RF: 0 doxycycline hyclate 100 mg Capsule 100 mg PO DAILY RF: 0 bumetanide 2 mg Tablet 2 mg PO DAILY RF: 0 diltiazem HCl 180 mg Capsule,Extended Release 24 Hr 180 mg PO DAILY RF: 0 alendronate [Fosamax] 70 mg Tablet 70 mg PO QWEEK RF: 0 warfarin 5 mg Tablet 5 mg PO DAILY RF: 0 fluoxetine 20 mg Capsule 20 mg PO DAILY RF: 0 cholecalciferol (vitamin D3) [Vitamin D3] 1,000 unit Capsule 1,000 unit PO DAILY RF: 0 albuterol sulfate 2.5 mg/0.5 mL Solution For Nebulization 2.5 mg INHALATION BID RF: 0 guaifenesin [Mucinex] 600 mg Tablet Extended Release 12hr 600 mg PO Q12H RF: 0 Discharge Interventions Interventions: Vital Signs Last Done: 09/07/17 14:26 Status ED Status: With Doctor
--- NOTE | 2017-09-07 15:07 | XR ---
EXAM DATE: 09/07/2017 2:56 PM EDT AGE/SEX: 81 years / Female INDICATIONS: Coughing up blood. CLINICAL DATA: This is the patient's initial encounter. Patient reports that signs and symptoms have been present for 1 day and indicates a pain score of 0/10. MEDICAL/SURGICAL HISTORY: Hypertension. Asthma. Pacemaker. COMPARISON: [facility] [place], CHEST SINGLE AP, 05/29/2017. . FINDINGS: A pacing implement is present with control pack over left upper chest. Lungs are focally clear. No pl eural effusion is evident. Cardiac contours are stable. CONCLUSION: Stable chest with no acute disease Electronically signed by: Valente Madden MD 09/07/2017 3:06 PM EDT
[2017-09-07 15:52] LABS: Baso # (Auto) 0.1 th/mm3 (0.0-0.2); Baso % (Auto) 0.6 % (0.0-2.0); Eos # (Auto) 0.2 th/mm3 (0.0-0.4); Eos % (Auto) 1.6 % (0.0-4.0); Hematocrit 39.7 % (35.0-46.0); Hemoglobin 13.1 gm/dL (11.6-15.3); Lymph # (Auto) 1.9 th/mm3 (1.0-4.8); Lymph % (Auto) 17.8 % (9.0-44.0); Mean Corpuscular Volume 103.1 fL (80.0-100.0); Mean Platelet Volume 8.9 fL (7.0-11.0); Mono # (Auto) 0.9 th/mm3 (0.0-0.9); Mono % (Auto) 8.8 % (0.0-8.0); Neut # (Auto) 7.7 th/mm3 (1.8-7.7); Neut % (Auto) 71.2 % (16.0-70.0); Platelet Count 295 th/mm3 (150-450); Red Blood Count 3.85 mil/mm3 (4.00-5.30); Red Cell Distribution Width 13.7 % (11.6-17.2); White Blood Count 10.8 th/mm3 (4.0-11.0)
[2017-09-07 16:05] LABS: Activated Partial Thrombo Time 33.2 sec (24.3-30.1); INR 1.5 Ratio; Prothrombin Time 14.7 sec (9.8-11.6)
[2017-09-07 16:08] LABS: Albumin 3.6 g/dL (3.4-5.0); Anion Gap 12 meq/L (5-15); Aspartate Aminotransferase 15 U/L (15-37); Blood Urea Nitrogen 18 mg/dL (7-18); Calcium 9.1 mg/dL (8.5-10.1); Carbon Dioxide 26.9 meq/L (21.0-32.0); Chloride 98 meq/L (98-107); Glomerular Filtration Rate 44 mL/min (>89); Glucose,Random 90 mg/dL (74-106); Potassium 3.2 meq/L (3.5-5.1); Sodium 137 meq/L (136-145)
[2017-09-07 16:13] LABS: Alanine Aminotransferase 15 U/L (10-53); Alkaline Phosphatase 75 U/L (45-117); Total Protein 7.7 g/dL (6.4-8.2)
[2017-09-07 16:17] LABS: Creatine Kinase 47 U/L (26-192)
[2017-09-07] MEDS ORDERED: Azithromycin Inj 500 MG in Sodium Chlor 0.9% Inj 250 ML IV.SIG ONE (17:17)
--- NOTE | 2017-09-07 18:15 | P.HPFP ---
<Jose Warner - Last Filed: 09/07/17 22:16> History of Present Illness Primary Care Physician: No Primary Care Physician History of Present Illness: Mrs. Sims is a 81 y/o F presenting to the ED with hemoptysis. Patient states that she had a cough that started on Thursday. She took "red Robitussin" cough syrup, but this did not subside her symptoms. She then started to have chills, subjective fevers, and nausea with vomiting. Then early in the morning on Thursday she started having hemoptysis which she initially thought was the cough syrup. She quantifies the amount as less than a tablespoon of "really bright red blood." Since then her cough has continued with intermittent streaks of blood as well as her chills. When her sputum is not blood stained, she states it is a dark yellow/green. Today she had an episode where she coughed up "greater than a tablespoon" amount of blood." She reports that she does have COPD and has a cough at her baseline. Upon further discussion she does have a history of atrial fibrillation and is anticoagulated on Coumadin 3mg per day for months. She does report that her INR has been "hard to control" and has not had it checked since June when she moved to [place]. She does not have a PCP currently. On ROS, she states that she has had chest pressure everyday for "years." She scores the pressure at a 7/10 and describes the pressure dull going across her entire chest. Her pressure has increased over the last "month or so." She denies any radiation, diaphoresis, or other associated symptoms. She has been diagnosed with CHF and atrial fibrillation, but has not had any "heart attacks. " She has had a nuclear stress test that was negative "a couple months ago" while hospitalized at [facility]. - Diagnosis (1) Bilateral pneumonia (2) Chest pressure (3) COPD (chronic obstructive pulmonary disease) (4) Atrial fibrillation (5) Hypertension (6) CHF (congestive heart failure) (7) Acid reflux (8) Nutrition, metabolism, and development symptoms (9) DVT prophylaxis - Inpatient Certification If this patient has been admitted as an Inpatient: I certify that the inpatient services were ordered in accordance with Medicare regulations governing the order. This includes certification that hospital inpatient services are reasonable and necessary and in the case of services not specified as inpatient-only under 42 CFR 419.22(n), that they are appropriately provided as inpatient services in accordance to with the 2-midnight benchmark under 43 CFR 412.3(e) Review of Systems Constitutional: Reports chills, Reports fever(s) (subjective ) Eyes: Denies blurry vision, Denies double vision Ears, Nose, Mouth, and Throat: Denies nasal discharge, Denies sore throat Cardiovascular: Reports chest pain, Reports irregular heart rhythm, Reports shortness of breath Respiratory: Reports change in phlegm color, Reports cough, Reports coughing up blood, Reports shortness of breath Gastrointestinal: Reports constipation, Reports nausea, Reports vomiting, Denies abdominal pain, Denies vomiting blood Genitourinary: Denies blood in urine, Denies painful urination Musculoskeletal: Reports back pain, Reports body aches Skin/Breast: Denies rash, Denies sores Neurologic: Denies abnormal speech, Denies dizziness Psychiatric: Denies mood swings Hematologic/Lymphatic: Reports easy bruising PMFSH - History History Provided By: Patient - Medical History Medical History: Medical History (Last Reviewed 09/07/17 @ 15:02 by ROSARIO Cespedes) Asthma Atrial fibrillation Cedillo esophagus COPD (chronic obstructive pulmonary disease) H/O: hysterectomy Hypertension Pacemaker Sleep apnea - Surgical History Surgical History: Surgical History (Last Reviewed 09/07/17 @ 15:02 by ROSARIO Cespedes) H/O section H/O shoulder surgery - Tobacco History Second Hand Smoke Exposure: No Tobacco Use In Past 30 Days: No (Quit 1979; 15 years with <1/2 PPD) Smoking Status: Former smoker Tobacco Type: Cigarettes - Alcohol History How Often Do You Have a Drink Containing Alcohol: 4 or more times a week - Substance Use History Substance History: No History of Abuse - Travel History Recent Travel in the [place] Within the Last 8 Weeks: No Recent Travel Out of the Country Within the Last 8 Weeks: No - Immunization History Tetanus Immunization: <5 Years Hx Influenza Vaccine This Season: Yes Medications and Allergies Allergies Allergy/AdvReac Type Severity Reaction Status Date / Time codeine Allergy Severe GI UPSET Verified 09/07/17 18:46 sulfamethoxazole Allergy Severe CONFIRM Verified 09/07/17 18:46 REACTION: SIDE EFFECT VS ALLERGY. trimethoprim Allergy Severe CONFIRM Verified 09/07/17 18:46 REACTION: SIDE EFFECT VS ALLERGY. lansoprazole Allergy Mild DIARRHEA Verified 09/07/17 18:46 Home Medications Medication Instructions Recorded Confirmed Type albuterol sulfate 2.5 mg INHALATION BID 09/07/17 09/07/17 History alendronate [Fosamax] 70 mg PO QWEEK 09/07/17 09/07/17 History bumetanide 2 mg PO DAILY 09/07/17 09/07/17 History carvedilol 6.25 mg PO BID 09/07/17 09/07/17 History cholecalciferol (vitamin D3) 1,000 unit PO DAILY 09/07/17 09/07/17 History [Vitamin D3] diltiazem HCl 180 mg PO DAILY 09/07/17 09/07/17 History doxycycline hyclate 100 mg PO DAILY 09/07/17 09/07/17 History fluoxetine 20 mg PO DAILY 09/07/17 09/07/17 History guaifenesin [Mucinex] 600 mg PO Q12H 09/07/17 09/07/17 History multivitamin [Multiple Vitamins] 1 tab PO DAILY 09/07/17 09/07/17 History omeprazole 20 mg PO BID 09/07/17 09/07/17 History warfarin 5 mg PO DAILY 09/07/17 09/07/17 History Active Medications: Active Medications Azithromycin 500 mg/ Sodium (Chloride) 250 mls @ 250 mls/hr IV.SIG ONCE ONE Stop: 09/07/17 18:16 Exam Vital signs: Vital Signs 09/07/17 12:53 09/07/17 14:26 09/07/17 14:56 Temperature 97.5 F L Pulse Rate 88 83 Respiratory Rate 18 19 Blood Pressure 129/57 L 115/56 L Pulse Oximetry 96 98 98 09/07/17 15:21 Temperature Pulse Rate 84 Respiratory Rate Blood Pressure Pulse Oximetry Intake & Output 09/06/17 09/07/17 09/07/17 18:59 06:59 18:59 Weight 74.843 kg Narrative: GENERAL: Well-nourished, well-developed elderly female lying in bed in no acute distress. SKIN: Warm and dry. No rash. Senile purpura appreciated in all 4 extremities. HEENT: Atraumatic, normocephalic with extraocular motions intact. No rhinorrhea. Oropharynx clear without erythema or exudate. No palpable LAD, JVD , or thyroid abnormality appreciated. CARDIOVASCULAR: Irregular rate and rhythm without obvious MGR appreciated. 2+ pulses in all 4 extremities. RESPIRATORY: Inspiratory and expiratory wheezing bilaterally with crackles appreciated at the bilateral bases. No increased work of breathing on room air. Patient able to converse in full complete sentences. GASTROINTESTINAL: Abdomen soft, non-tender, nondistended with positive bowel sounds. No masses appreciated. MUSCULOSKELETAL: No cyanosis or edema. No calf tenderness. NEURO/PSYCH: Afocal. Awake, alert, and oriented x3. Normal speech and judgement. Results - Labs Result diagrams: 09/07/17 21:14 09/07/17 15:15 Abnormal lab results 09/07/17 09/07/17 09/07/17 Range/Units 15:15 15:15 15:15 RBC 3.85 L (4.00-5.30) mil/mm3 MCV 103.1 H (80.0-100.0) fL Neut % (Auto) 71.2 H (16.0-70.0) % Ballard % (Auto) 8.8 H (0.0-8.0) % PT 14.7 H (9.8-11.6) sec APTT 33.2 H (24.3-30.1) sec Potassium 3.2 L (3.5-5.1) meq/L Creatinine 1.19 H (0.50-1.00) mg/dL Estimated GFR 44 L (>89) mL/min Troponin I Less than 0.02 L (0.02-0.05) ng/mL B-Natriuretic Peptide (0-100) pg/mL 09/07/17 Range/Units 15:15 RBC (4.00-5.30) mil/mm3 MCV (80.0-100.0) fL Neut % (Auto) (16.0-70.0) % Ballard % (Auto) (0.0-8.0) % PT (9.8-11.6) sec APTT (24.3-30.1) sec Potassium (3.5-5.1) meq/L Creatinine (0.50-1.00) mg/dL Estimated GFR (>89) mL/min Troponin I (0.02-0.05) ng/mL B-Natriuretic Peptide 122 H (0-100) pg/mL Short CBC 09/07/17 Range/Units 15:15 WBC 10.8 (4.0-11.0) th/mm3 Hgb 13.1 (11.6-15.3) gm/dL Hct 39.7 (35.0-46.0) % Plt Count 295 (150-450) th/mm3 BMP 09/07/17 15:15 Sodium 137 Potassium 3.2 L Chloride 98 Carbon Dioxide 26.9 BUN 18 Creatinine 1.19 H Calcium 9.1 Cardiac Enzymes 09/07/17 Range/Units 15:15 Total Creatine Kinase 47 (26-192) U/L Troponin I Less than 0.02 L (0.02-0.05) ng/mL Liver Function 09/07/17 Range/Units 15:15 Total Bilirubin 0.5 (0.2-1.0) mg/dL AST 15 (15-37) U/L ALT 15 (10-53) U/L Alkaline Phosphatase 75 (45-117) U/L Albumin 3.6 (3.4-5.0) g/dL - Imaging Impressions Chest X-Ray 09/07/17 14:43 CONCLUSION: Stable chest with no acute disease Chest CTA 09/07/17 16:11 CONCLUSION: 1. No evidence of pulmonary embolism. 2. There are patchy infiltrates in both lung bases, left greater than right suggestive of pneumonia. 3. There is bilateral chronic interstitial lung disease with some bullous changes and bronchiectasis in the right upper lung. 4. Nonspecific mildly prominent lymph nodes are seen throughout the mediastinum. Caprini VTE Risk Assessment Caprini VTE Risk Assessment: Moderate/High Risk (score >= 2) Caprini Risk Assessment Model: Point Value = 1 Point Value = 2 Point Value = 3 Point Value = 5 Age 41-60 Minor surgery BMI > 25 kg/m2 Swollen legs Varicose veins or History of unexplained or recurrent spontaneous Oral contraceptives or hormone replacement Sepsis (< 1 month) Serious lung disease, including pneumonia (< 1 month) Abnormal pulmonary function Acute myocardial infarction Congestive heart failure (< 1 month) History of inflammatory bowel disease Medical patient at bed rest Age 61-74 Arthroscopic surgery Major open surgery (> 45 min) Laparoscopic surgery (> 45 min) Malignancy Confined to bed (> 72 hours) Immobilizing plaster cast Central venous access Age >= 75 History of VTE Family history of VTE Factor V Leiden Prothrombin [id number] Lupus anticoagulant Anticardiolipin antibodies Elevated serum homocysteine Heparin-induced thrombocytopenia Other congenital or acquired thrombophilia Stroke (< 1 month) Elective arthroplasty Hip, pelvis, or leg fracture Acute spinal cord injury (< 1 month) Prophylaxis Regimen: Total Risk Factor Score Risk Level Prophylaxis Regimen 0-1 Low Early ambulation 2 Moderate Order ONE of the following: *Sequential Compression Device (SCD) *Heparin 5000 units SQ BID 3-4 Higher Order ONE of the following medications: *Heparin 5000 units SQ TID *Enoxaparin/Lovenox 40 mg SQ daily (WT < 150 kg, CrCl > 30 mL/min) *Enoxaparin/Lovenox 30 mg SQ daily (WT < 150 kg, CrCl > 10-29 mL/min) *Enoxaparin/Lovenox 30 mg SQ BID (WT < 150 kg, CrCl > 30 mL/min) AND/OR *Sequential Compression Device (SCD) 5 or more Highest Order ONE of the following medications: *Heparin 5000 units SQ TID (Preferred with Epidurals) *Enoxaparin/Lovenox 40 mg SQ daily (WT < 150 kg, CrCl > 30 mL/min) *Enoxaparin/Lovenox 30 mg SQ daily (WT < 150 kg, CrCl > 10-29 mL/min) *Enoxaparin/Lovenox 30 mg SQ BID (WT < 150 kg, CrCl > 30 mL/min) AND *Sequential Compression Device (SCD) Assessment and Plan - Assessment (1) Bilateral pneumonia Code(s): J18.9 - Pneumonia, unspecified organism Status: Acute Plan: Patient presenting with hemoptysis and productive cough concerning for bilateral pneumonia on CT. Patient prophylactically treated with doxycycline by her beta tester monthly placing the patient at higher risk for atypical, MRSA, and Pseudomonal infections. -Upon admission patient did not meet SIRS/sepsis criteria -CXR shows stable chest with no acute disease. -Pulmonary CTA: No evidence of PE, patchy infiltrates in both lung bases (left greater than right) suggestive of pneumonia, bilateral chronic interstitial lung disease with some bilious changes and bronchiectasis in the right upper lung, nonspecific mildly prominent lymph nodes are seen throughout the mediastinum -WBC 10.8, neutrophil 71.2% -H/H 13.1/39.7, continue to trend for hemoptysis -Blood cultures: Pending -Sputum cultures pending -Legionella/pneumococcal urinary antigens: Pending -Flu/RSV: Pending Medications: -Vancomycin for gram positives and MRSA coverage. Pharmacy consulted. -Zosyn 3.375 g IV every 6 hours for coverage of gram negatives and Pseudomonas. -Azithromycin 500 mg p.o. daily to cover atypicals. -Mucinex twice daily for congestion. -Duonebs Q 6 hours scheduled and every 4 hours as needed for shortness of breath /wheezing -Supplemental O2 and pulse ox monitoring. -Acapella, incentive spirometer, respiratory CPT -Tylenol, Tessalon available as PRNs. (2) Chest pressure Code(s): R07.89 - Other chest pain Status: Acute Plan: Patient presenting to the ED complaining of chest pressure with increasing symptoms over the last month. -Previous ECHO on 11/2010 showed normal wall thickness and function. Ejection fraction 60-65%. Grade 1 diastolic dysfunction..Previous EKG on 8 showed atrial fibrillation without acute abnormality. Previous stress test negative per patient, 2017. -EKG showed atrial fibrillation with rate of [address] elevation/ depression's appreciated. No interval abnormalities. (Per medical team read) -CXR as above -Initial Trop less than 0.02. Trend Susan and EKGs x 2. If 2nd trop. is sig. increased, notify cardology and possibly start Heparin drip. -Supplemental O2. Daily aspirin. PPI.. -Nitroglycerin as needed for chest pain -Continue home carvedilol -Tele. -AM BMP + Mg to detect/correct electrolyte abnormalities that could lower arrythmia threshold. (3) COPD (chronic obstructive pulmonary disease) Code(s): J44.9 - Chronic obstructive pulmonary disease, unspecified Status: Chronic Plan: Patient with long-standing history of COPD. Patient states she was previously managed by beta tester. -Respiratory therapy consulted to assist with CPAP at night Medications: -Solu-Medrol 40 mg twice daily; plan to transition with prednisone taper -Hold home doxycycline -See plan as above for pneumonia (4) Atrial fibrillation Code(s): I48.91 - Unspecified atrial fibrillation Status: Chronic Plan: Patient with history of chronic atrial fibrillation -See above for chest pressure plan -INR subtherapeutic at 1.5; continue home medication at this time as hemoptysis seems to be subsiding, however we will continue to monitor bleeding with serial H/H Medications: -Continue home diltiazem, carvedilol, and Coumadin (5) Hypertension Code(s): I10 - Essential (primary) hypertension Status: Chronic Plan: Patient with history of chronic hypertension Medications: -Continue home carvedilol, bumetanide -Clonidine as needed for blood pressure greater than 180/110 (6) CHF (congestive heart failure) Code(s): I50.9 - Heart failure, unspecified Status: Chronic Plan: Patient with history of CHF previously managed by unknown contract processor -Per chart review, most recent echo as above Medications: -Continue home carvedilol, bumetanide (7) Acid reflux Code(s): K21.9 - Gastro-esophageal reflux disease without esophagitis Status: Chronic Plan: Patient with history of acid reflux disease Medications: -Continue home omeprazole (8) Nutrition, metabolism, and development symptoms Code(s): R63.8 - Other symptoms and signs concerning food and fluid intake Status: Acute Plan: -Fluids: Patient appears well-hydrated, monitor for overload with history of CHF /A. fib -Electrolytes: Within normal limits, continue to monitor -Diet: Heart healthy diet with sodium and fluid restriction -Prophylaxis: Clonidine as needed for blood pressure greater than 180/110, Tessalon Perles as needed for cough, Mucinex for congestion, DuoNeb's as needed for shortness of breath/wheezing, calcium carbonate as needed for reflux, Tylenol as needed for fever/pain, nitroglycerin as needed for chest pain -Physical therapy consulted -Respiratory therapy consulted to assist with CPAP (9) DVT prophylaxis Status: Acute Plan: -SCDs -Patient anticoagulated on Coumadin <Carmela Dallas - Last Filed: 09/08/17 11:18> History of Present Illness Primary Care Physician: No Primary Care Physician - Diagnosis (1) Bilateral pneumonia (2) Chest pressure (3) COPD (chronic obstructive pulmonary disease) (4) Atrial fibrillation (5) Hypertension (6) CHF (congestive heart failure) (7) Acid reflux (8) Nutrition, metabolism, and development symptoms (9) DVT prophylaxis - Inpatient Certification If this patient has been admitted as an Inpatient: I certify that the inpatient services were ordered in accordance with Medicare regulations governing the order. This includes certification that hospital inpatient services are reasonable and necessary and in the case of services not specified as inpatient-only under 42 CFR 419.22(n), that they are appropriately provided as inpatient services in accordance to with the 2-midnight benchmark under 43 CFR 412.3(e) FORMERLY [facility], [facility] - Medical History Medical History: Medical History (Last Reviewed 09/07/17 @ 15:02 by ROSARIO Cespedes) Asthma Atrial fibrillation Cedillo esophagus COPD (chronic obstructive pulmonary disease) H/O: hysterectomy Hypertension Pacemaker Sleep apnea - Surgical History Surgical History: Surgical History (Last Reviewed 09/07/17 @ 15:02 by ROSARIO Cespedes) H/O section H/O shoulder surgery Medications and Allergies Active Medications: Active Medications Acetaminophen (Tylenol) 650 mg PO Q4H PRN PRN Reason: TEMPERATURE > 101 F Albuterol (Duoneb Neb (Prn)) 1 ampul NEB Q4HR NEB PRN PRN Reason: SHORTNESS OF BREATH/WHEEZING Albuterol (Duoneb Neb (Mandi)) 1 ampul NEB Q6HR NEB [facility] Last Admin: 09/08/17 10:32 Dose: 1 ampul Azithromycin (Zithromax) 500 mg PO Q24H MANDI Benzonatate (Tessalon Perles) 200 mg PO Q8H PRN PRN Reason: COUGH Last Admin: 09/07/17 22:10 Dose: 200 mg Bumetanide (Bumex) 2 mg PO BID [facility] Last Admin: 09/08/17 09:24 Dose: 2 mg Carvedilol (Coreg) 6.25 mg PO BID [facility] Last Admin: 09/08/17 09:23 Dose: 6.25 mg Clonidine HCl (Catapres) 0.1 mg PO Q6H PRN PRN Reason: BP > 180/110 Diltiazem HCl (Cardizem Cd 24hr) 180 mg PO BID [facility] Last Admin: 09/08/17 09:25 Dose: 180 mg Fluoxetine HCl (Prozac) 20 mg PO DAILY [facility] Last Admin: 09/08/17 09:23 Dose: 20 mg Guaifenesin (Mucinex Er) 600 mg PO BID [facility] Last Admin: 09/08/17 09:23 Dose: 600 mg Vancomycin HCl 1,000 mg/ (Sodium Chloride) 250 mls @ 250 mls/hr IV.SIG Q24H [facility] Last Admin: 09/07/17 22:12 Dose: 250 mls/hr Piperacillin/Tazobactam/Dextrose (Zosyn 3.375 Gm Premix) 50 mls @ 100 mls/hr IV.SIG Q6H [facility] Last Admin: 09/08/17 06:39 Dose: 100 mls/hr Methylprednisolone Sodium Succinate (Solumedrol Inj) 40 mg IV.PUSH Q12H [facility] Last Admin: 09/08/17 09:22 Dose: 40 mg Miscellaneous Information ([facility]dered [facility] Info) 0 each OTHER ONCE ONE Stop: 09/10/17 22:46 Multivitamins (Theragran) 1 tab PO DAILY [facility] Last Admin: 09/08/17 09:24 Dose: 1 tab Nitroglycerin (Nitrostat Sl) 0.4 mg SL Q5M PRN PRN Reason: CHEST PAIN Ondansetron HCl (Zofran Inj) 4 mg IV.PUSH Q6H PRN PRN Reason: NAUSEA OR VOMITING Pantoprazole Sodium (Protonix) 20 mg PO BID [facility] Last Admin: 09/08/17 09:24 Dose: 20 mg Pharmacy Profile Note (Vancomycin Consult Pharmacy) 1 each OTHER [facility] Vitamin D (Vitamin D3) 1,000 unit PO DAILY [facility] Last Admin: 09/08/17 09:26 Dose: 1,000 unit Warfarin Sodium (Coumadin) 3 mg PO DAILY@1600 [facility] Last Admin: 09/07/17 22:10 Dose: 3 mg Exam Vital signs: Vital Signs 09/07/17 12:53 09/07/17 14:26 09/07/17 14:56 Temperature 97.5 F L Pulse Rate 88 83 Respiratory Rate 18 19 Blood Pressure 129/57 L 115/56 L Pulse Oximetry 96 98 98 09/07/17 15:21 09/07/17 18:45 09/07/17 19:59 Temperature 98.0 F Pulse Rate 84 89 93 H Respiratory Rate 19 15 Blood Pressure 126/62 131/70 Pulse Oximetry 96 96 09/07/17 23:39 09/08/17 03:06 09/08/17 04:01 Temperature 98.1 F 98.1 F Pulse Rate 83 90 78 Respiratory Rate 16 16 18 Blood Pressure 128/69 121/59 L Pulse Oximetry 93 L 96 09/08/17 04:06 09/08/17 07:10 09/08/17 07:47 Temperature 98.2 F Pulse Rate 79 109 H 94 H Respiratory Rate 18 14 Blood Pressure 126/65 Pulse Oximetry 96 09/08/17 10:36 Temperature Pulse Rate 106 H Respiratory Rate 16 Blood Pressure Pulse Oximetry Intake & Output 09/07/17 09/08/17 09/08/17 18:59 06:59 18:59 Intake Total 50 / 50 Output Total 400 / 400 Balance -350 / -350 Weight 74.843 kg Intake: IV 50 / 50 Zosyn 3.375 GM Premix 50 ML @ 50 / 50 100 mls/hr IV.SIG Q6H MANDI Rx#: [id number] Output: Urine 400 / 400 Results - Labs Result diagrams: 09/08/17 04:43 09/08/17 04:43 Abnormal lab results 09/07/17 09/07/17 09/07/17 Range/Units 15:15 15:15 15:15 RBC 3.85 L (4.00-5.30) mil/mm3 MCV 103.1 H (80.0-100.0) fL MCH (27.0-34.0) pg Neut % (Auto) 71.2 H (16.0-70.0) % Lymph % (Auto) (9.0-44.0) % Ballard % (Auto) 8.8 H (0.0-8.0) % Lymph # (Auto) (1.0-4.8) th/mm3 PT 14.7 H (9.8-11.6) sec APTT 33.2 H (24.3-30.1) sec Potassium 3.2 L (3.5-5.1) meq/L Creatinine 1.19 H (0.50-1.00) mg/dL Estimated GFR 44 L (>89) mL/min Random Glucose (74-106) mg/dL AST (15-37) U/L Troponin I Less than 0.02 L (0.02-0.05) ng/mL B-Natriuretic Peptide (0-100) pg/mL Albumin (3.4-5.0) g/dL Ur Leukocyte Esterase (Negative) Urine WBC (0-5) /hpf 09/07/17 09/07/17 09/07/17 Range/Units 15:15 16:15 20:51 RBC (4.00-5.30) mil/mm3 MCV (80.0-100.0) fL MCH (27.0-34.0) pg Neut % (Auto) (16.0-70.0) % Lymph % (Auto) (9.0-44.0) % Ballard % (Auto) (0.0-8.0) % Lymph # (Auto) (1.0-4.8) th/mm3 PT (9.8-11.6) sec APTT (24.3-30.1) sec Potassium (3.5-5.1) meq/L Creatinine (0.50-1.00) mg/dL Estimated GFR (>89) mL/min Random Glucose (74-106) mg/dL AST (15-37) U/L Troponin I Less than 0.02 L (0.02-0.05) ng/mL B-Natriuretic Peptide 122 H (0-100) pg/mL Albumin (3.4-5.0) g/dL Ur Leukocyte Esterase Trace H (Negative) Urine WBC 6 H (0-5) /hpf 09/08/17 09/08/17 09/08/17 Range/Units 00:43 04:43 04:43 RBC 3.58 L (4.00-5.30) mil/mm3 MCV 102.2 H (80.0-100.0) fL MCH 35.5 H (27.0-34.0) pg Neut % (Auto) 89.4 H (16.0-70.0) % Lymph % (Auto) 8.0 L (9.0-44.0) % Ballard % (Auto) (0.0-8.0) % Lymph # (Auto) 0.7 L (1.0-4.8) th/mm3 PT (9.8-11.6) sec APTT (24.3-30.1) sec Potassium (3.5-5.1) meq/L Creatinine (0.50-1.00) mg/dL Estimated GFR 59 L (>89) mL/min Random Glucose 139 H (74-106) mg/dL AST 12 L (15-37) U/L Troponin I Less than 0.02 L (0.02-0.05) ng/mL B-Natriuretic Peptide (0-100) pg/mL Albumin 3.2 L (3.4-5.0) g/dL Ur Leukocyte Esterase (Negative) Urine WBC (0-5) /hpf Short CBC 09/07/17 09/07/17 09/08/17 Range/Units 15:15 21:14 04:43 WBC 10.8 8.2 (4.0-11.0) th/mm3 Hgb 13.1 11.8 12.7 (11.6-15.3) gm/dL Hct 39.7 35.1 36.6 (35.0-46.0) % Plt Count 295 284 (150-450) th/mm3 BMP 09/07/17 09/08/17 15:15 04:43 Sodium 137 141 Potassium 3.2 L 3.7 Chloride 98 105 Carbon Dioxide 26.9 27.7 BUN 18 12 Creatinine 1.19 H 0.92 Calcium 9.1 8.6 Cardiac Enzymes 09/07/17 09/07/17 09/08/17 Range/Units 15:15 20:51 00:43 Total Creatine Kinase 47 39 45 (26-192) U/L Troponin I Less than 0.02 L Less than 0.02 L Less than 0.02 L (0.02-0.05) ng/mL Liver Function 09/07/17 09/08/17 Range/Units 15:15 04:43 Total Bilirubin 0.5 0.6 (0.2-1.0) mg/dL AST 15 12 L (15-37) U/L ALT 15 14 (10-53) U/L Alkaline Phosphatase 75 69 (45-117) U/L Albumin 3.6 3.2 L (3.4-5.0) g/dL Urine 09/07/17 Range/Units 16:15 Urine Color Yellow (Yellw/Straw) Urine Clarity Clear (Clear) Urine pH 6.0 (5.0-8.5) Ur Specific [place] 1.033 (1.002-1.035) Urine Protein Negative (Neg-Trace) mg/dL Urine Glucose (UA) Negative (Negative) mg/dL - Imaging Impressions Chest X-Ray 09/07/17 14:43 CONCLUSION: Stable chest with no acute disease Chest CTA 09/07/17 16:11 CONCLUSION: 1. No evidence of pulmonary embolism. 2. There are patchy infiltrates in both lung bases, left greater than right suggestive of pneumonia. 3. There is bilateral chronic interstitial lung disease with some bullous changes and bronchiectasis in the right upper lung. 4. Nonspecific mildly prominent lymph nodes are seen throughout the mediastinum. Caprini VTE Risk Assessment Caprini Risk Assessment Model: Point Value = 1 Point Value = 2 Point Value = 3 Point Value = 5 Age 41-60 Minor surgery BMI > 25 kg/m2 Swollen legs Varicose veins or History of unexplained or recurrent spontaneous Oral contraceptives or hormone replacement Sepsis (< 1 month) Serious lung disease, including pneumonia (< 1 month) Abnormal pulmonary function Acute myocardial infarction Congestive heart failure (< 1 month) History of inflammatory bowel disease Medical patient at bed rest Age 61-74 Arthroscopic surgery Major open surgery (> 45 min) Laparoscopic surgery (> 45 min) Malignancy Confined to bed (> 72 hours) Immobilizing plaster cast Central venous access Age >= 75 History of VTE Family history of VTE Factor V Leiden Prothrombin [id number] Lupus anticoagulant Anticardiolipin antibodies Elevated serum homocysteine Heparin-induced thrombocytopenia Other congenital or acquired thrombophilia Stroke (< 1 month) Elective arthroplasty Hip, pelvis, or leg fracture Acute spinal cord injury (< 1 month) Prophylaxis Regimen: Total Risk Factor Score Risk Level Prophylaxis Regimen 0-1 Low Early ambulation 2 Moderate Order ONE of the following: *Sequential Compression Device (SCD) *Heparin 5000 units SQ BID 3-4 Higher Order ONE of the following medications: *Heparin 5000 units SQ TID *Enoxaparin/Lovenox 40 mg SQ daily (WT < 150 kg, CrCl > 30 mL/min) *Enoxaparin/Lovenox 30 mg SQ daily (WT < 150 kg, CrCl > 10-29 mL/min) *Enoxaparin/Lovenox 30 mg SQ BID (WT < 150 kg, CrCl > 30 mL/min) AND/OR *Sequential Compression Device (SCD) 5 or more Highest Order ONE of the following medications: *Heparin 5000 units SQ TID (Preferred with Epidurals) *Enoxaparin/Lovenox 40 mg SQ daily (WT < 150 kg, CrCl > 30 mL/min) *Enoxaparin/Lovenox 30 mg SQ daily (WT < 150 kg, CrCl > 10-29 mL/min) *Enoxaparin/Lovenox 30 mg SQ BID (WT < 150 kg, CrCl > 30 mL/min) AND *Sequential Compression Device (SCD) Assessment and Plan - Assessment (1) Bilateral pneumonia Code(s): J18.9 - Pneumonia, unspecified organism Status: Acute (2) Chest pressure Code(s): R07.89 - Other chest pain Status: Acute (3) COPD (chronic obstructive pulmonary disease) Code(s): J44.9 - Chronic obstructive pulmonary disease, unspecified Status: Chronic (4) Atrial fibrillation Code(s): I48.91 - Unspecified atrial fibrillation Status: Chronic (5) Hypertension Code(s): I10 - Essential (primary) hypertension Status: Chronic (6) CHF (congestive heart failure) Code(s): I50.9 - Heart failure, unspecified Status: Chronic (7) Acid reflux Code(s): K21.9 - Gastro-esophageal reflux disease without esophagitis Status: Chronic (8) Nutrition, metabolism, and development symptoms Code(s): R63.8 - Other symptoms and signs concerning food and fluid intake Status: Acute (9) DVT prophylaxis Status: Acute - Attending Attestation I reviewed and agree with the findings presented, the assessment and plan. 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 Qualified Code(s): J43.9 - Emphysema, unspecified (4) Atrial fibrillation Qualifiers: Atrial fibrillation type: chronic Qualified Code(s): I48.2 - Chronic atrial fibrillation (5) Hypertension Qualifiers: Hypertension type: essential hypertension Qualified Code(s): I10 - Essential (primary) hypertension (6) CHF (congestive heart failure) Qualifiers: Heart failure type: diastolic Heart failure chronicity: unspecified Qualified Code(s): I50.30 - Unspecified diastolic (congestive) heart failure (7) Acid reflux Qualifiers: Esophagitis presence: without esophagitis Qualified Code(s): K21.9 - Gastro- esophageal reflux disease without esophagitis <Carmela Dallas - Last Filed: 09/08/17 11:18> (1) Bilateral pneumonia Qualifiers: Pneumonia type: due to unspecified organism Lung location: unspecified part of lung Qualified Code(s): J18.9 - Pneumonia, unspecified organism (3) 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 Qualified Code(s): J43.9 - Emphysema, unspecified (4) Atrial fibrillation Qualifiers: Atrial fibrillation type: chronic Qualified Code(s): I48.2 - Chronic atrial fibrillation (5) Hypertension Qualifiers: Hypertension type: essential hypertension Qualified Code(s): I10 - Essential (primary) hypertension (6) CHF (congestive heart failure) Qualifiers: Heart failure type: diastolic Heart failure chronicity: unspecified Qualified Code(s): I50.30 - Unspecified diastolic (congestive) heart failure (7) Acid reflux Qualifiers: Esophagitis presence: without esophagitis Qualified Code(s): K21.9 - Gastro- esophageal reflux disease without esophagitis
[2017-09-07] MEDS ORDERED: Piperacil/Tazo 4.5 GM Premix 4.5 GM/100 ML BAG IV.SIG SCH (19:15)
[2017-09-07] MEDS ORDERED: Vancomycin Consult Pharmacy OTHER ONE (19:27)
[2017-09-07] MEDS ORDERED: Benzonatate 100 MG Capsule PO PRN (19:59)
[2017-09-07] MEDS ORDERED: Non-Formulary Drug (Bumetanide [Bumetanide] 2 MG) PO SCH (21:00)
[2017-09-07] MEDS ORDERED: Non-Formulary Drug (Diltiazem Hcl [Diltiazem Hcl] 180 MG) PO SCH (21:00)
[2017-09-07] MEDS: Carvedilol 6.25 MG Tablet PO SCH (21:27)
[2017-09-07] MEDS: Pantoprazole Sodium 20 MG DR Tablet PO SCH (21:27)
[2017-09-07 21:49] LABS: Hematocrit 35.1 % (35.0-46.0); Hemoglobin 11.8 gm/dL (11.6-15.3)
[2017-09-07] MEDS: Vancomycin Inj 1,000 MG in Sodium Chlor 0.9% Inj 250 ML IV.SIG SCH (22:12)
[2017-09-07] MEDS ORDERED: Potassium Chloride 10 MEQ ER Capsule PO ONE (22:13)
[2017-09-07] MEDS ORDERED: Vancomycin Consult Pharmacy OTHER SCH (22:15)
[2017-09-07 22:21] LABS: Creatine Kinase 39 U/L (26-192)
[2017-09-08] MEDS: Piperacil/Tazo 3.375 GM Premix 50 ML IV.SIG SCH ×4 (00:13→16:49)
[2017-09-08] MEDS: dilTIAZem CD 180 MG Capsule PO SCH ×3 (00:13→21:38)
[2017-09-08] MEDS: MethylPREDNISolone Sod Succinate Inj 40 MG/ML Vial IV.PUSH SCH ×3 (00:13→21:40)
[2017-09-08] MEDS: guaiFENesin 600 MG ER Tablet PO SCH ×3 (00:13→21:37)
[2017-09-08 05:10] LABS: Baso % (Auto) 0.4 % (0.0-2.0); Eos % (Auto) 0.2 % (0.0-4.0); Hematocrit 36.6 % (35.0-46.0); Hemoglobin 12.7 gm/dL (11.6-15.3); Lymph # (Auto) 0.7 th/mm3 (1.0-4.8); Mean Corpuscular HGB Conc 34.7 % (32.0-36.0); Mean Corpuscular Hemoglobin 35.5 pg (27.0-34.0); Mean Corpuscular Volume 102.2 fL (80.0-100.0); Mean Platelet Volume 8.3 fL (7.0-11.0); Mono # (Auto) 0.2 th/mm3 (0.0-0.9); Neut # (Auto) 7.3 th/mm3 (1.8-7.7); Neut % (Auto) 89.4 % (16.0-70.0); Platelet Count 284 th/mm3 (150-450); Red Blood Count 3.58 mil/mm3 (4.00-5.30); Red Cell Distribution Width 13.2 % (11.6-17.2); White Blood Count 8.2 th/mm3 (4.0-11.0)
[2017-09-08 05:19] LABS: Alanine Aminotransferase 14 U/L (10-53); Albumin 3.2 g/dL (3.4-5.0); Anion Gap 8 meq/L (5-15); Aspartate Aminotransferase 12 U/L (15-37); Blood Urea Nitrogen 12 mg/dL (7-18); Calcium 8.6 mg/dL (8.5-10.1); Carbon Dioxide 27.7 meq/L (21.0-32.0); Chloride 105 meq/L (98-107); Glomerular Filtration Rate 59 mL/min (>89); Glucose,Random 139 mg/dL (74-106); Magnesium 2.1 mg/dL (1.5-2.5); Potassium 3.7 meq/L (3.5-5.1); Sodium 141 meq/L (136-145)
[2017-09-08 05:22] LABS: Creatine Kinase 45 U/L (26-192)
[2017-09-08 05:22] LABS: Alkaline Phosphatase 69 U/L (45-117); Total Protein 6.9 g/dL (6.4-8.2)
[2017-09-08 08:16] LABS: Bilirubin,Urine Negative (Negative); Clarity,Urine Clear (Clear); Color,Urine Yellow (Yellw/Straw); Glucose,Urine (UA) Negative (Negative); Leukocyte Esterase,Urine Trace (Negative); Nitrite,Urine Negative (Negative); Specific Gravity,Urine 1.033 (1.002-1.035); Squamous Epithelial Cell,Urine 1 /hpf (0-5)
[2017-09-08] MEDS: FLUoxetine 20 MG Capsule PO SCH (09:23)
[2017-09-08] MEDS: Carvedilol 6.25 MG Tablet PO SCH ×2 (09:23→21:38)
[2017-09-08] MEDS: Pantoprazole Sodium 20 MG DR Tablet PO SCH ×2 (09:24→21:37)
--- NOTE | 2017-09-08 12:27 | ECG ---
Date Performed: 09/07/2017 Time Performed: 17:27:52 PTAGE: 81 years EKG: ATRIAL FIBRILLATION WITH CONTROLLED V RATE POOR R WAVE PROGRESSION CANNOT EXCLUDE OLD ANTER OSEPTAL INFARCT Since the previous tracing, no significant change noted ABNORMAL ECG PREVIOUS TRACING : 05/29/2017 07.30 DOCTOR: Anthony Wolf Interpretating Date/Time 09/08/2017 12:25:25
--- NOTE | 2017-09-08 12:27 | ECG ---
Date Performed: 09/07/2017 Time Performed: 22:48:55 PTAGE: 81 years EKG: ATRIAL FIBRILLATION WITH VENTRICULAR DEMAND PACING BASELINE ARTIFACT POOR R WAVE PROGRESSIO N Since the PREVIOUS TRACING , no significant change noted PREVIOUS TRACIN09/07/2017 17.27 DOCTOR: Anthony Wolf Interpretating Date/Time 09/08/2017 12:25:53
--- NOTE | 2017-09-08 12:27 | ECG ---
Date Performed: 09/08/2017 Time Performed: 03:45:52 PTAGE: 81 years EKG: ATRIAL FIBRILLATION WITH CONTROLLED V RATE POOR R WAVE PROGRESSION CANNOT EXCLUDE OLD ANTER OSEPTAL INFARCT Since the PREVIOUS TRACING , no significant change noted PREVIOUS TRACIN09/07/2017 22.48 DOCTOR: Anthony Wolf Interpretating Date/Time 09/08/2017 12:26:24
--- NOTE | 2017-09-08 13:58 | P.PNADD ---
Addendum to Inpatient Note Reason for Addendum: Additional Documentation Additional information: Please see resident H/P for complete documentation regarding the patients history. Patient was admitted for hemoptysis thought to be secondary to underlying pnuemonia. She has chronic lung disease and start outpatient doxycycline prior to admission and continued to worsen. She states since admission she has improved. She states the SOB is better, she feels more comfortable. She does continue to cough and the sputum is streaked with scant amount of blood. No more episodes of large amounts of hemoptysis. Vital Signs Temp Pulse Resp BP Pulse Ox 09/08/17 12:04 95 H 09/08/17 11:47 98.6 F 84 18 115/68 94 L 09/08/17 10:36 106 H 16 09/08/17 07:47 94 H 09/08/17 07:10 98.2 F 109 H 14 126/65 96 09/08/17 04:06 79 18 09/08/17 04:01 78 18 09/08/17 03:06 98.1 F 90 16 121/59 L 96 09/07/17 23:39 98.1 F 83 16 128/69 93 L 09/07/17 19:59 98.0 F 93 H 15 131/70 96 09/07/17 18:45 89 19 126/62 96 09/07/17 15:21 84 09/07/17 14:56 98 09/07/17 14:26 83 19 115/56 L 98 Intake and Output 09/07/17 09/08/17 09/08/17 22:59 06:59 14:59 Intake Total 50 / 50 50 / 50 Output Total 400 / 400 Balance -400 / -400 50 / 50 50 / 50 Intake: IV 50 / 50 50 / 50 Zosyn 3.375 GM Premix 50 ML @ 50 / 50 50 / 50 100 mls/hr IV.SIG Q6H JEWELS Rx#: [id number] Output: Urine 400 / 400 Impressions Chest X-Ray 09/07/17 14:43 CONCLUSION: Stable chest with no acute disease Chest CTA 09/07/17 16:11 CONCLUSION: 1. No evidence of pulmonary embolism. 2. There are patchy infiltrates in both lung bases, left greater than right suggestive of pneumonia. 3. There is bilateral chronic interstitial lung disease with some bullous changes and bronchiectasis in the right upper lung. 4. Nonspecific mildly prominent lymph nodes are seen throughout the mediastinum. Abnormal Lab Results 09/07/17 09/07/17 09/07/17 15:15 15:15 15:15 WBC 10.8 RBC 3.85 L Hgb 13.1 Hct 39.7 MCV 103.1 H MCH 34.0 MCHC 33.0 RDW 13.7 Plt Count 295 MPV 8.9 Neut % (Auto) 71.2 H Lymph % (Auto) 17.8 [place] % (Auto) 8.8 H Eos % (Auto) 1.6 Baso % (Auto) 0.6 Neut # (Auto) 7.7 Lymph # (Auto) 1.9 [place] # (Auto) 0.9 Eos # (Auto) 0.2 Baso # (Auto) 0.1 WBC Differential . Differential Comment Auto diff final PT 14.7 H INR 1.5 APTT 33.2 H Sodium 137 Potassium 3.2 L Chloride 98 Carbon Dioxide 26.9 Anion Gap 12 BUN 18 Creatinine 1.19 H Estimated GFR 44 L Random Glucose 90 Lactic Acid Calcium 9.1 Magnesium 2.0 Total Bilirubin 0.5 AST 15 ALT 15 Alkaline Phosphatase 75 Total Creatine Kinase 47 Troponin I Less than 0.02 L B-Natriuretic Peptide Total Protein 7.7 Albumin 3.6 Urine Color Urine Clarity Urine pH Ur Specific [place] Urine Protein Urine Glucose (UA) Urine Ketones Urine Occult Blood Urine Nitrate Urine Bilirubin Urine Urobilinogen Ur Leukocyte Esterase Urine RBC Urine WBC Ur Squamous Epith Cells Micro UA Comment Urine Culture Comments 09/07/17 09/07/17 09/07/17 15:15 16:15 17:55 WBC RBC Hgb Hct MCV MCH MCHC RDW Plt Count MPV Neut % (Auto) Lymph % (Auto) [place] % (Auto) Eos % (Auto) Baso % (Auto) Neut # (Auto) Lymph # (Auto) [place] # (Auto) Eos # (Auto) Baso # (Auto) WBC Differential Differential Comment PT INR APTT Sodium Potassium Chloride Carbon Dioxide Anion Gap BUN Creatinine Estimated GFR Random Glucose Lactic Acid 1.3 Calcium Magnesium Total Bilirubin AST ALT Alkaline Phosphatase Total Creatine Kinase Troponin I B-Natriuretic Peptide 122 H Total Protein Albumin Urine Color Yellow Urine Clarity Clear Urine pH 6.0 Ur Specific [place] 1.033 Urine Protein Negative Urine Glucose (UA) Negative Urine Ketones Negative Urine Occult Blood Negative Urine Nitrate Negative Urine Bilirubin Negative Urine Urobilinogen Less than 2 Ur Leukocyte Esterase Trace H Urine RBC Less than 1 Urine WBC 6 H Ur Squamous Epith Cells 1 Micro UA Comment Cath-culture ind Urine Culture Comments Cath-cult indicated 09/07/17 09/07/17 09/08/17 20:51 21:14 00:43 WBC RBC Hgb 11.8 Hct 35.1 MCV MCH MCHC RDW Plt Count MPV Neut % (Auto) Lymph % (Auto) [place] % (Auto) Eos % (Auto) Baso % (Auto) Neut # (Auto) Lymph # (Auto) [place] # (Auto) Eos # (Auto) Baso # (Auto) WBC Differential Differential Comment PT INR APTT Sodium Potassium Chloride Carbon Dioxide Anion Gap BUN Creatinine Estimated GFR Random Glucose Lactic Acid Calcium Magnesium Total Bilirubin AST ALT Alkaline Phosphatase Total Creatine Kinase 39 45 Troponin I Less than 0.02 L Less than 0.02 L B-Natriuretic Peptide Total Protein Albumin Urine Color Urine Clarity Urine pH Ur Specific [place] Urine Protein Urine Glucose (UA) Urine Ketones Urine Occult Blood Urine Nitrate Urine Bilirubin Urine Urobilinogen Ur Leukocyte Esterase Urine RBC Urine WBC Ur Squamous Epith Cells Micro UA Comment Urine Culture Comments 09/08/17 09/08/17 04:43 04:43 WBC 8.2 RBC 3.58 L Hgb 12.7 Hct 36.6 MCV 102.2 H MCH 35.5 H MCHC 34.7 RDW 13.2 Plt Count 284 MPV 8.3 Neut % (Auto) 89.4 H Lymph % (Auto) 8.0 L [place] % (Auto) 2.0 Eos % (Auto) 0.2 Baso % (Auto) 0.4 Neut # (Auto) 7.3 Lymph # (Auto) 0.7 L [place] # (Auto) 0.2 Eos # (Auto) 0.0 Baso # (Auto) 0.0 WBC Differential . Differential Comment Auto diff final PT INR APTT Sodium 141 Potassium 3.7 Chloride 105 Carbon Dioxide 27.7 Anion Gap 8 BUN 12 Creatinine 0.92 Estimated GFR 59 L Random Glucose 139 H Lactic Acid Calcium 8.6 Magnesium 2.1 Total Bilirubin 0.6 AST 12 L ALT 14 Alkaline Phosphatase 69 Total Creatine Kinase Troponin I B-Natriuretic Peptide Total Protein 6.9 D Albumin 3.2 L Urine Color Urine Clarity Urine pH Ur Specific [place] Urine Protein Urine Glucose (UA) Urine Ketones Urine Occult Blood Urine Nitrate Urine Bilirubin Urine Urobilinogen Ur Leukocyte Esterase Urine RBC Urine WBC Ur Squamous Epith Cells Micro UA Comment Urine Culture Comments GENERAL: SKIN: Warm and dry, no rashes or lesions HEAD: Atraumatic. Normocephalic. EYES: Pupils equal and round. No scleral icterus. No injection or drainage. ENT: No nasal bleeding or discharge. Mucous membranes pink and moist. NECK: Trachea midline. No JVD. CARDIOVASCULAR: Regular rate and rhythm. RESPIRATORY: No accessory muscle use. She has bilateral expiratory wheezing, bilateral crackles scattered throughout, Breath sounds equal bilaterally. GASTROINTESTINAL: Abdomen soft, non-tender, nondistended. Hepatic and splenic margins not palpable. MUSCULOSKELETAL: Extremities without clubbing, cyanosis, or edema. No obvious deformities. NEUROLOGICAL: Awake and alert. No obvious cranial nerve deficits. Motor grossly within normal limits. Five out of 5 muscle strength in the arms and legs. Normal speech. PSYCHIATRIC: Appropriate mood and affect; insight and judgment normal. AP 1. Hemoptysis likely secondary to underlying CAP that has failed outpatient therapy. Due to underlying COPD she is at higher risk. Continue broad spectrum antibiotics -- vanc/zosyn/zithromax. Follow cultures. Supportive care with solumedrol, nebs, oxygen. She is on CPAP at night at home and did not receive this last night. Will need to make sure this is in place for the patient during her hospital stay. 2. Cardiac - Afib, HTN, CHF - this appears to be relatively stable. Continue her home meds. Her INR is subtherapeutic. At this time as her hemoptysis is resolving and H/H stable will cautiously titrate up the Coumadin to get patient in a therapeutic range. No evidence for ACS as patients cardiac enzymes and EKG showed nothing acute. Patient seen and dw the resident team -- Dr. Knutson, Dr. Boland and Dr. Warner
[2017-09-08] MEDS: Azithromycin 250 MG Tablet PO SCH (16:48)
[2017-09-08] MEDS: Vancomycin Inj 1,000 MG in Sodium Chlor 0.9% Inj 250 ML IV.SIG SCH (23:46)
[2017-09-09] MEDS: Piperacil/Tazo 3.375 GM Premix 50 ML IV.SIG SCH ×5 (01:01→23:00)
[2017-09-09] MEDS: Acetaminophen 325 MG Tablet PO PRN ×2 (01:06→15:11)
[2017-09-09 05:17] LABS: Baso % (Auto) 0.2 % (0.0-2.0); Hematocrit 39.5 % (35.0-46.0); Hemoglobin 13.2 gm/dL (11.6-15.3); Lymph # (Auto) 0.9 th/mm3 (1.0-4.8); Lymph % (Auto) 6.5 % (9.0-44.0); Mean Corpuscular HGB Conc 33.4 % (32.0-36.0); Mean Corpuscular Hemoglobin 34.1 pg (27.0-34.0); Mean Corpuscular Volume 102.3 fL (80.0-100.0); Mono # (Auto) 0.3 th/mm3 (0.0-0.9); Neut # (Auto) 12.2 th/mm3 (1.8-7.7); Neut % (Auto) 91.3 % (16.0-70.0); Platelet Count 315 th/mm3 (150-450); Red Blood Count 3.86 mil/mm3 (4.00-5.30); Red Cell Distribution Width 13.2 % (11.6-17.2); White Blood Count 13.3 th/mm3 (4.0-11.0)
[2017-09-09 05:41] LABS: Calcium 8.9 mg/dL (8.5-10.1); Carbon Dioxide 24.1 meq/L (21.0-32.0); Potassium 3.5 meq/L (3.5-5.1)
[2017-09-09] MEDS: guaiFENesin 600 MG ER Tablet PO SCH ×2 (09:56→21:15)
[2017-09-09] MEDS: Carvedilol 6.25 MG Tablet PO SCH ×2 (09:56→21:17)
[2017-09-09] MEDS: Pantoprazole Sodium 20 MG DR Tablet PO SCH ×2 (09:57→21:15)
[2017-09-09] MEDS: FLUoxetine 20 MG Capsule PO SCH (09:57)
[2017-09-09] MEDS: dilTIAZem CD 180 MG Capsule PO SCH ×2 (09:59→21:20)
[2017-09-09] MEDS: MethylPREDNISolone Sod Succinate Inj 40 MG/ML Vial IV.PUSH SCH ×2 (09:59→21:16)
[2017-09-09 10:22] LABS: INR 1.8 Ratio; Prothrombin Time 18.5 sec (9.8-11.6)
[2017-09-09] MEDS ORDERED: Sodium Chlor 0.9% Inj 500 ML IV.SIG SCH (15:17)
--- NOTE | 2017-09-09 15:23 | P.PNFP ---
Subjective Interval history: Patient seen and examined this afternoon. She states that she feels better, she just gets winded when she got up to go to the restroom. She is still feeling some chest pressure that she describes as different from her [place] in the past due to the location. She attributes this to the pna. She is also still coughing up some blood, but not as much as before. No fever chills, no chest pain, no abdominal pain, no trouble stooling. <Little Knutson G - 09/09/17 15:23> Results - Labs Result diagrams: 09/10/17 04:25 09/10/17 04:25 <Carmela Zimmer R - 09/10/17 07:50> Abnormal lab results 09/09/17 09/10/17 09/10/17 Range/Units 09:20 04:25 04:25 WBC 12.4 H (4.0-11.0) th/mm3 RBC 3.61 L (4.00-5.30) mil/mm3 MCV 101.5 H (80.0-100.0) fL MCH 34.6 H (27.0-34.0) pg Neut % (Auto) 92.0 H (16.0-70.0) % Lymph % (Auto) 5.7 L (9.0-44.0) % Neut # (Auto) 11.4 H (1.8-7.7) th/mm3 Lymph # (Auto) 0.7 L (1.0-4.8) th/mm3 PT 18.5 H (9.8-11.6) sec Potassium 3.4 L (3.5-5.1) meq/L BUN 27 H (7-18) mg/dL Creatinine 1.10 H (0.50-1.00) mg/dL Estimated GFR 48 L (>89) mL/min Random Glucose 152 H (74-106) mg/dL Short CBC 09/10/17 Range/Units 04:25 WBC 12.4 H (4.0-11.0) th/mm3 Hgb 12.5 (11.6-15.3) gm/dL Hct 36.6 (35.0-46.0) % Plt Count 317 (150-450) th/mm3 BMP 09/10/17 04:25 Sodium 143 Potassium 3.4 L Chloride 104 Carbon Dioxide 25.6 BUN 27 H Creatinine 1.10 H Calcium 8.8 <Carmela Zimmer - 09/10/17 07:50> Abnormal lab results 09/09/17 09/09/17 09/09/17 Range/Units 04:06 04:06 09:20 WBC 13.3 H D (4.0-11.0) th/mm3 RBC 3.86 L (4.00-5.30) mil/mm3 MCV 102.3 H (80.0-100.0) fL MCH 34.1 H (27.0-34.0) pg Neut % (Auto) 91.3 H (16.0-70.0) % Lymph % (Auto) 6.5 L (9.0-44.0) % Neut # (Auto) 12.2 H (1.8-7.7) th/mm3 Lymph # (Auto) 0.9 L (1.0-4.8) th/mm3 PT 18.5 H (9.8-11.6) sec BUN 22 H (7-18) mg/dL Creatinine 1.37 H (0.50-1.00) mg/dL Estimated GFR 37 L (>89) mL/min Random Glucose 151 H (74-106) mg/dL Short CBC 09/09/17 Range/Units 04:06 WBC 13.3 H D (4.0-11.0) th/mm3 Hgb 13.2 (11.6-15.3) gm/dL Hct 39.5 (35.0-46.0) % Plt Count 315 (150-450) th/mm3 [facility] 09/09/17 04:06 Sodium 141 Potassium 3.5 Chloride 104 Carbon Dioxide 24.1 BUN 22 H Creatinine 1.37 H Calcium 8.9 <Little Knutson G - 09/09/17 15:23> - Imaging Impressions Chest X-Ray 09/09/17 00:00 CONCLUSION: Mild basilar atelectasis. Cardiomegaly. <Carmela Zimmer - 09/10/17 07:50> Impressions Chest CTA 09/07/17 16:11 CONCLUSION: 1. No evidence of pulmonary embolism. 2. There are patchy infiltrates in both lung bases, left greater than right suggestive of pneumonia. 3. There is bilateral chronic interstitial lung disease with some bullous changes and bronchiectasis in the right upper lung. 4. Nonspecific mildly prominent lymph nodes are seen throughout the mediastinum. <Little Knutson G - 09/09/17 15:23> Physical Exam Vital signs: Vital Signs 09/09/17 08:25 09/09/17 09:00 09/09/17 09:05 Temperature 98.4 F Pulse Rate 92 H 86 Respiratory Rate 16 Blood Pressure 118/58 L Pulse Oximetry 95 96 09/09/17 12:02 09/09/17 16:00 09/09/17 16:14 Temperature 97.9 F 97.6 F Pulse Rate 92 H 92 H 92 H Respiratory Rate 24 18 24 Blood Pressure 115/64 135/61 Pulse Oximetry 96 96 09/09/17 20:00 09/09/17 20:17 09/09/17 23:27 Temperature 97.5 F L 98 F Pulse Rate 98 H 92 H 96 H Respiratory Rate 16 24 18 Blood Pressure 106/62 129/63 Pulse Oximetry 96 97 09/10/17 03:01 09/10/17 07:46 Temperature 98.2 F 98.0 F Pulse Rate 90 85 Respiratory Rate 16 16 Blood Pressure 121/61 138/63 Pulse Oximetry 97 96 Intake & Output 09/09/17 09/10/17 09/10/17 18:59 06:59 18:59 Intake Total 700 / 700 100 / 100 550 / 550 Balance 700 / 700 100 / 100 550 / 550 Intake: IV 700 / 700 100 / 100 550 / 550 Zosyn 3.375 GM Premix 50 ML @ 100 / 100 100 / 100 50 / 50 100 mls/hr IV.SIG Q6H [facility] Rx#: [id number] Vancomycin Inj 1,000 MG In NS 250 / 250 Inj 250 ML @ 250 mls/hr IV.SIG Q24H [facility] Rx#:[id number] Other: # Voids 4 Date of Last Bowel Movement 09/08/17 <Carmela Zimmer - 09/10/17 07:50> Vital Signs 09/08/17 16:00 09/08/17 16:24 09/08/17 16:41 Temperature 97.8 F Pulse Rate 101 H 98 H 99 H Respiratory Rate 16 16 Blood Pressure 147/87 H Pulse Oximetry 95 09/08/17 19:18 09/08/17 20:37 07/04/18 00:00 Temperature 97.8 F 97.9 F Pulse Rate 107 H 96 H 93 H Respiratory Rate 18 18 16 Blood Pressure 117/56 L 131/65 Pulse Oximetry 94 L 98 94 L 09/09/17 03:45 09/09/17 08:25 09/09/17 09:00 Temperature 98.4 F Pulse Rate 89 92 H 86 Respiratory Rate 18 16 Blood Pressure 118/58 L Pulse Oximetry 95 09/09/17 09:05 09/09/17 12:02 Temperature 97.9 F Pulse Rate 92 H Respiratory Rate 24 Blood Pressure 115/64 Pulse Oximetry 96 96 Intake & Output 09/08/17 09/09/17 09/09/17 18:59 06:59 18:59 Intake Total 150 / 150 50 / 50 700 / 700 Balance 150 / 150 50 / 50 700 / 700 Intake: IV 150 / 150 50 / 50 700 / 700 Zosyn 3.375 GM Premix 50 ML @ 150 / 150 50 / 50 100 / 100 100 mls/hr IV.SIG Q6H [facility] Rx#: [id number] Vancomycin Inj 1,000 MG In NS 250 / 250 Inj 250 ML @ 250 mls/hr IV.SIG Q24H [facility] Rx#:[id number] Other: Date of Last Bowel Movement 09/08/17 09/08/17 <Little Knutson - 09/09/17 15:23> Assessment and Plan - Assessment (1) Bilateral pneumonia Code(s): J18.9 - Pneumonia, unspecified organism Status: Acute (2) Acute kidney injury Code(s): N17.9 - Acute kidney failure, unspecified Status: Acute (3) Chest pressure Code(s): R07.89 - Other chest pain Status: Acute (4) COPD (chronic obstructive pulmonary disease) Code(s): J44.9 - Chronic obstructive pulmonary disease, unspecified Status: Chronic (5) Atrial fibrillation Code(s): I48.91 - Unspecified atrial fibrillation Status: Chronic (6) Hypertension Code(s): I10 - Essential (primary) hypertension Status: Chronic (7) CHF (congestive heart failure) Code(s): I50.9 - Heart failure, unspecified Status: Chronic (8) Acid reflux Code(s): K21.9 - Gastro-esophageal reflux disease without esophagitis Status: Chronic (9) Nutrition, metabolism, and development symptoms Code(s): R63.8 - Other symptoms and signs concerning food and fluid intake Status: Acute (10) DVT prophylaxis Status: Acute <Carmela Zimmer - 09/10/17 07:50> (1) Bilateral pneumonia Code(s): J18.9 - Pneumonia, unspecified organism Status: Acute Plan: Patient presenting with hemoptysis and productive cough concerning for bilateral pneumonia on CT. Patient prophylactically treated with doxycycline by her senior infrastructure architect monthly placing the patient at higher risk for atypical, MRSA, and Pseudomonal infections. -Upon admission patient did not meet SIRS/sepsis criteria -CXR shows stable chest with no acute disease. -Pulmonary CTA: No evidence of PE, patchy infiltrates in both lung bases (left greater than right) suggestive of pneumonia, bilateral chronic interstitial lung disease with some bilious changes and bronchiectasis in the right upper lung, nonspecific mildly prominent lymph nodes are seen throughout the mediastinum -WBC 10.8, neutrophil 71.2% -H/H 13.1/39.7, continue to trend for hemoptysis -Blood cultures: NGTD -Sputum cultures immature growth, re-incubating on 09/09 -Legionella/pneumococcal urinary antigens: negative -Flu/RSV: negative Medications: -Vancomycin for gram positives and MRSA coverage. Pharmacy consulted. ([facility] on 09/09 due to FRANK) -Zosyn 3.375 g IV every 6 hours for coverage of gram negatives and Pseudomonas. -Azithromycin 500 mg p.o. daily to cover atypicals. -Mucinex twice daily for congestion. -Duonebs Q 6 hours scheduled and every 4 hours as needed for shortness of breath /wheezing -Pulse ox monitoring. -Acapella, incentive spirometer, respiratory CPT -Tylenol, Tessalon available as PRNs. (2) Acute kidney injury Code(s): N17.9 - Acute kidney failure, unspecified Status: Acute Plan: Cr increased from 0.92 to 1.37. This is likely due to vancomycin -hold vanc -NS 500ml at 50mls/hr (3) Chest pressure Code(s): R07.89 - Other chest pain Status: Acute Plan: Patient presenting to the ED complaining of chest pressure with increasing symptoms over the last month. -Previous ECHO on 11/2010 showed normal wall thickness and function. Ejection fraction 60-65%. Grade 1 diastolic dysfunction..Previous EKG on 8 showed atrial fibrillation without acute abnormality. Previous stress test negative per patient, 2018. -EKG showed atrial fibrillation with rate of [address] elevation/ depression's appreciated. No interval abnormalities. No changes on subsequent EKGs -CXR as above -Troponins negative x 3 -Daily aspirin. PPI. -Nitroglycerin as needed for chest pain -Continue home carvedilol (4) COPD (chronic obstructive pulmonary disease) Code(s): J44.9 - Chronic obstructive pulmonary disease, unspecified Status: Chronic Plan: Patient with long-standing history of COPD. Patient states she was previously managed by senior infrastructure architect. -Respiratory therapy consulted to assist with CPAP at night Medications: -Solu-Medrol 40 mg twice daily; plan to transition with prednisone taper -Hold home doxycycline -See plan as above for pneumonia (5) Atrial fibrillation Code(s): I48.91 - Unspecified atrial fibrillation Status: Chronic Plan: Patient with history of chronic atrial fibrillation -See above for chest pressure plan -INR subtherapeutic at 1.5; continue home medication at this time as hemoptysis seems to be subsiding, however we will continue to monitor bleeding with serial H/H Medications: -Continue home diltiazem, carvedilol, and Coumadin (6) Hypertension Code(s): I10 - Essential (primary) hypertension Status: Chronic Plan: Patient with history of chronic hypertension Medications: -Continue home carvedilol, bumetanide -Clonidine as needed for blood pressure greater than 180/110 (7) CHF (congestive heart failure) Code(s): I50.9 - Heart failure, unspecified Status: Chronic Plan: Patient with history of CHF previously managed by unknown program proposals coordinator -Per chart review, most recent echo as above Medications: -Continue home carvedilol, bumetanide (8) Acid reflux Code(s): K21.9 - Gastro-esophageal reflux disease without esophagitis Status: Chronic Plan: Patient with history of acid reflux disease Medications: -Continue home omeprazole (9) Nutrition, metabolism, and development symptoms Code(s): R63.8 - Other symptoms and signs concerning food and fluid intake Status: Acute Plan: -Fluids: Patient appears well-hydrated, monitor for overload with history of CHF /A. fib -Electrolytes: Within normal limits, continue to monitor -Diet: Heart healthy diet with sodium and fluid restriction -Prophylaxis: Clonidine as needed for blood pressure greater than 180/110, Tessalon Perles as needed for cough, Mucinex for congestion, DuoNeb's as needed for shortness of breath/wheezing, calcium carbonate as needed for reflux, Tylenol as needed for fever/pain, nitroglycerin as needed for chest pain -Physical therapy consulted -Respiratory therapy consulted to assist with CPAP (10) DVT prophylaxis Status: Acute Plan: -SCDs -Patient anticoagulated on Coumadin <Little Knutson - 09/09/17 15:11> - Attending Attestation The exam, history, and the medical decision-making described in the above note were completed with the assistance of the resident physician. I reviewed and agree with the findings presented. I attest that I had a [id number] encounter with the patient on the same day, and personally performed and documented my assessment and findings in the medical record. 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 Qualified Code(s): J43.9 - Emphysema, unspecified (5) Atrial fibrillation Qualifiers: Atrial fibrillation type: chronic Qualified Code(s): I48.2 - Chronic atrial fibrillation (6) Hypertension Qualifiers: Hypertension type: essential hypertension Qualified Code(s): I10 - Essential (primary) hypertension (7) CHF (congestive heart failure) Qualifiers: Heart failure type: diastolic Heart failure chronicity: unspecified Qualified Code(s): I50.30 - Unspecified diastolic (congestive) heart failure (8) Acid reflux Qualifiers: Esophagitis presence: without esophagitis Qualified Code(s): K21.9 - Gastro- esophageal reflux disease without esophagitis <Carmela Zimmer R - Last Filed: 09/10/17 07:50> (1) Bilateral pneumonia Qualifiers: Pneumonia type: due to unspecified organism Lung location: unspecified part of lung Qualified Code(s): J18.9 - Pneumonia, unspecified organism (4) 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 Qualified Code(s): J43.9 - Emphysema, unspecified (5) Atrial fibrillation Qualifiers: Atrial fibrillation type: chronic Qualified Code(s): I48.2 - Chronic atrial fibrillation (6) Hypertension Qualifiers: Hypertension type: essential hypertension Qualified Code(s): I10 - Essential (primary) hypertension (7) CHF (congestive heart failure) Qualifiers: Heart failure type: diastolic Heart failure chronicity: unspecified Qualified Code(s): I50.30 - Unspecified diastolic (congestive) heart failure (8) Acid reflux Qualifiers: Esophagitis presence: without esophagitis Qualified Code(s): K21.9 - Gastro- esophageal reflux disease without esophagitis <Little Knutson - Last Filed: 09/09/17 15:11> (1) Bilateral pneumonia Qualifiers: Pneumonia type: due to unspecified organism Lung location: unspecified part of lung Qualified Code(s): J18.9 - Pneumonia, unspecified organism (4) 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 Qualified Code(s): J43.9 - Emphysema, unspecified (5) Atrial fibrillation Qualifiers: Atrial fibrillation type: chronic Qualified Code(s): I48.2 - Chronic atrial fibrillation (6) Hypertension Qualifiers: Hypertension type: essential hypertension Qualified Code(s): I10 - Essential (primary) hypertension (7) CHF (congestive heart failure) Qualifiers: Heart failure type: diastolic Heart failure chronicity: unspecified Qualified Code(s): I50.30 - Unspecified diastolic (congestive) heart failure (8) Acid reflux Qualifiers: Esophagitis presence: without esophagitis Qualified Code(s): K21.9 - Gastro- esophageal reflux disease without esophagitis <Carmela Zimmer - Last Filed: 09/10/17 07:50> (1) Bilateral pneumonia Qualifiers: Pneumonia type: due to unspecified organism Lung location: unspecified part of lung Qualified Code(s): J18.9 - Pneumonia, unspecified organism (4) 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 Qualified Code(s): J43.9 - Emphysema, unspecified (5) Atrial fibrillation Qualifiers: Atrial fibrillation type: chronic Qualified Code(s): I48.2 - Chronic atrial fibrillation (6) Hypertension Qualifiers: Hypertension type: essential hypertension Qualified Code(s): I10 - Essential (primary) hypertension (7) CHF (congestive heart failure) Qualifiers: Heart failure type: diastolic Heart failure chronicity: unspecified Qualified Code(s): I50.30 - Unspecified diastolic (congestive) heart failure (8) Acid reflux Qualifiers: Esophagitis presence: without esophagitis Qualified Code(s): K21.9 - Gastro- esophageal reflux disease without esophagitis
--- NOTE | 2017-09-09 16:19 | XR ---
EXAM DATE: 09/09/2017 3:49 PM EDT AGE/SEX: 81 years / Female INDICATIONS: Chest pain and pressure. CLINICAL DATA: This is the patient's initial encounter. Patient reports that signs and symptoms have been present for 1 week and indicates a pain score of 4/10. MEDICAL/SURGICAL HISTORY: Chronic obstructive pulmonary disease. Cardiovascular disease. Hyper tension. Asthma. Cedillo's esophagus Hysterectomy. Pacemaker. COMPARISON: [facility] [place] 1[place] SINGLE AP, 09/07/2017. . FINDINGS: Cardiomegaly present. Pacer leads overlie right H and right ventricle. Mild basilar atelectasis. No e ffusion or pneumothorax. CONCLUSION: Mild basilar atelectasis. Cardiomegaly. Electronically signed by: Slick Mcdonough MD 09/09/2017 4:18 PM EDT
[2017-09-09] MEDS: Azithromycin 250 MG Tablet PO SCH (19:00)
[2017-09-10 04:47] LABS: Baso % (Auto) 0.1 % (0.0-2.0); Hematocrit 36.6 % (35.0-46.0); Hemoglobin 12.5 gm/dL (11.6-15.3); Lymph # (Auto) 0.7 th/mm3 (1.0-4.8); Lymph % (Auto) 5.7 % (9.0-44.0); Mean Corpuscular HGB Conc 34.1 % (32.0-36.0); Mean Corpuscular Hemoglobin 34.6 pg (27.0-34.0); Mean Corpuscular Volume 101.5 fL (80.0-100.0); Mono # (Auto) 0.3 th/mm3 (0.0-0.9); Mono % (Auto) 2.2 % (0.0-8.0); Neut # (Auto) 11.4 th/mm3 (1.8-7.7); Platelet Count 317 th/mm3 (150-450); Red Blood Count 3.61 mil/mm3 (4.00-5.30); Red Cell Distribution Width 13.5 % (11.6-17.2); White Blood Count 12.4 th/mm3 (4.0-11.0)
[2017-09-10 05:10] LABS: Calcium 8.8 mg/dL (8.5-10.1); Carbon Dioxide 25.6 meq/L (21.0-32.0); Potassium 3.4 meq/L (3.5-5.1)
[2017-09-10 05:13] LABS: Vancomycin,Random 6.6 Comment
[2017-09-10] MEDS: Piperacil/Tazo 3.375 GM Premix 50 ML IV.SIG SCH ×2 (05:13→11:09)
[2017-09-10] MEDS: FLUoxetine 20 MG Capsule PO SCH (08:27)
[2017-09-10] MEDS: guaiFENesin 600 MG ER Tablet PO SCH (08:27)
[2017-09-10] MEDS: dilTIAZem CD 180 MG Capsule PO SCH (08:27)
[2017-09-10] MEDS: Carvedilol 6.25 MG Tablet PO SCH (08:27)
[2017-09-10] MEDS: Pantoprazole Sodium 20 MG DR Tablet PO SCH (08:27)
[2017-09-10] MEDS: MethylPREDNISolone Sod Succinate Inj 40 MG/ML Vial IV.PUSH SCH (11:08)
[2017-09-10 12:21] LABS: INR 2.3 Ratio; Prothrombin Time 22.9 sec (9.8-11.6)
--- NOTE | 2017-09-10 14:34 | P.PNFP ---
Subjective Interval history: Patient seen and examined. Patient has no complaints at this time. Denies chest pain, shortness of breath, fever, chills, nausea, vomiting, abdominal pain or leg pain. Patient is medically stable and would like to return home. Discussed plan to switch to PO antibiotics and to be placed on a steroid taper. She is agreeable with plan. <Maria Elena Boland - 09/10/17 17:38> Results - Labs Result diagrams: 09/10/17 04:25 09/10/17 04:25 <Carmela Zimmer - 09/11/17 16:37> Abnormal lab results 09/10/17 09/10/17 09/10/17 Range/Units 04:25 04:25 11:44 WBC 12.4 H (4.0-11.0) th/mm3 RBC 3.61 L (4.00-5.30) mil/mm3 MCV 101.5 H (80.0-100.0) fL MCH 34.6 H (27.0-34.0) pg Neut % (Auto) 92.0 H (16.0-70.0) % Lymph % (Auto) 5.7 L (9.0-44.0) % Neut # (Auto) 11.4 H (1.8-7.7) th/mm3 Lymph # (Auto) 0.7 L (1.0-4.8) th/mm3 PT 22.9 H (9.8-11.6) sec Potassium 3.4 L (3.5-5.1) meq/L BUN 27 H (7-18) mg/dL Creatinine 1.10 H (0.50-1.00) mg/dL Estimated GFR 48 L (>89) mL/min Random Glucose 152 H (74-106) mg/dL Short CBC 09/10/17 Range/Units 04:25 WBC 12.4 H (4.0-11.0) th/mm3 Hgb 12.5 (11.6-15.3) gm/dL Hct 36.6 (35.0-46.0) % Plt Count 317 (150-450) th/mm3 BMP 09/10/17 04:25 Sodium 143 Potassium 3.4 L Chloride 104 Carbon Dioxide 25.6 BUN 27 H Creatinine 1.10 H Calcium 8.8 <Maria Elena Boland - 09/10/17 14:34> - Imaging Impressions Chest X-Ray 09/09/17 00:00 CONCLUSION: Mild basilar atelectasis. Cardiomegaly. <Maria Elena Boland - 09/10/17 14:34> Physical Exam Vital signs: Intake & Output 09/10/17 09/11/17 09/11/17 18:59 06:59 18:59 Intake Total 1100 / 1100 Balance 1100 / 1100 Intake: IV 600 / 600 Zosyn 3.375 GM Premix 50 ML @ 100 / 100 100 mls/hr IV.SIG Q6H JEWELS Rx#: [id number] Oral 500 / 500 Other: # Voids 5 <Carmela Zimmer - 09/11/17 16:37> Vital Signs 09/09/17 16:00 09/09/17 16:14 09/09/17 20:00 Temperature 97.6 F 97.5 F L Pulse Rate 92 H 92 H 98 H Respiratory Rate 18 24 16 Blood Pressure 135/61 106/62 Pulse Oximetry 96 96 09/09/17 20:17 09/09/17 23:27 09/10/17 03:01 Temperature 98 F 98.2 F Pulse Rate 92 H 96 H 90 Respiratory Rate 24 18 16 Blood Pressure 129/63 121/61 Pulse Oximetry 97 97 09/10/17 07:46 09/10/17 11:28 Temperature 98.0 F 98.0 F Pulse Rate 85 87 Respiratory Rate 16 14 Blood Pressure 138/63 143/82 H Pulse Oximetry 96 97 Intake & Output 09/09/17 09/10/17 09/10/17 18:59 06:59 18:59 Intake Total 700 / 700 100 / 100 1100 / 1100 Balance 700 / 700 100 / 100 1100 / 1100 Intake: IV 700 / 700 100 / 100 600 / 600 Zosyn 3.375 GM Premix 50 ML @ 100 / 100 100 / 100 100 / 100 100 mls/hr IV.SIG Q6H JEWELS Rx#: [id number] Vancomycin Inj 1,000 MG In NS 250 / 250 Inj 250 ML @ 250 mls/hr IV.SIG Q24H JEWELS Rx#:[id number] Oral 500 / 500 Other: # Voids 4 5 Date of Last Bowel Movement 09/08/17 <Maria Elena Boland - 09/10/17 14:34> - Constitutional no acute distress <[facility] 09/10/17 14:34> - Routine HEENT Exam Head: Present: normocephalic, atraumatic <[facility] 09/10/17 14:34> Eye: Present: EOMI. Absent: scleral injection <[facility] 09/10/17 14: 34> - Routine Respiratory Exam Present: wheezes. Absent: accessory muscle use, crackles <[facility] 09/10/17 14:34> - Routine Cardiovascular Exam Present: RRR. Absent: murmur <[facility] 09/10/17 15:22> - Routine Abdominal Exam Present: soft, normoactive bowel sounds. Absent: tenderness <[facility] 09/10/17 15:22> - Routine Extremities Exam Present: pulses intact. Absent: edema, calf tenderness <[facility] 07/24 15:22> - Routine Skin Exam Present: dry, warm <[facility] 09/10/17 15:22> - Routine Neurological Exam Present: alert, oriented X3 <[facility] 09/10/17 15:22> Assessment and Plan - Assessment (1) Bilateral pneumonia Code(s): J18.9 - Pneumonia, unspecified organism Status: Acute (2) Acute kidney injury Code(s): N17.9 - Acute kidney failure, unspecified Status: Acute (3) Chest pressure Code(s): R07.89 - Other chest pain Status: Acute (4) COPD (chronic obstructive pulmonary disease) Code(s): J44.9 - Chronic obstructive pulmonary disease, unspecified Status: Chronic (5) Atrial fibrillation Code(s): I48.91 - Unspecified atrial fibrillation Status: Chronic (6) Hypertension Code(s): I10 - Essential (primary) hypertension Status: Chronic (7) CHF (congestive heart failure) Code(s): I50.9 - Heart failure, unspecified Status: Chronic (8) Acid reflux Code(s): K21.9 - Gastro-esophageal reflux disease without esophagitis Status: Chronic (9) Nutrition, metabolism, and development symptoms Code(s): R63.8 - Other symptoms and signs concerning food and fluid intake Status: Acute (10) DVT prophylaxis Status: Acute <Carmela Zimmer - 09/11/17 16:37> (1) Bilateral pneumonia Code(s): J18.9 - Pneumonia, unspecified organism Status: Acute Plan: Patient presenting with hemoptysis and productive cough concerning for bilateral pneumonia on CT. Patient prophylactically treated with doxycycline by her luster applicator monthly placing the patient at higher risk for atypical, MRSA, and Pseudomonal infections. -Upon admission patient did not meet SIRS/sepsis criteria -CXR shows stable chest with no acute disease. -Pulmonary CTA: No evidence of PE, patchy infiltrates in both lung bases (left greater than right) suggestive of pneumonia, bilateral chronic interstitial lung disease with some bilious changes and bronchiectasis in the right upper lung, nonspecific mildly prominent lymph nodes are seen throughout the mediastinum -WBC 10.8, neutrophil 71.2% -H/H stable -Blood cultures: NGTD -Sputum cultures immature growth, re-incubated on 09/09, NGTD -Legionella/pneumococcal urinary antigens: negative -Flu/RSV: negative Medications: -Vancomycin for gram positives and MRSA coverage. Pharmacy consulted. ([facility] on 09/09 due to FRANK) -Antibiotics: Zosyn 3.375 g IV every 6 hours for coverage of gram negatives and Pseudomonas. Azithromycin 500 mg p.o. daily to cover atypicals. Will switch IV antibiotics to PO. Amoxicillin 1g daily by mouth and Azithromycin 500 mg three times daily by mouth for discharge. -Mucinex twice daily for congestion. -Duonebs Q 6 hours scheduled and every 4 hours as needed for shortness of breath /wheezing -Pulse ox monitoring. -Acapella, incentive spirometer, respiratory CPT -Tylenol, Tessalon available as PRNs. (2) Acute kidney injury Code(s): N17.9 - Acute kidney failure, unspecified Status: Acute Plan: Cr decreased from 1.37 to 1.10. Currently resolving. -vancomycin held (3) Chest pressure Code(s): R07.89 - Other chest pain Status: Acute Plan: Patient presenting to the ED complaining of chest pressure with increasing symptoms over the last month. -Previous ECHO on 11/2010 showed normal wall thickness and function. Ejection fraction 60-65%. Grade 1 diastolic dysfunction..Previous EKG on 8 showed atrial fibrillation without acute abnormality. Previous stress test negative per patient, 2018. -EKG showed atrial fibrillation with rate of [address] elevation/ depression's appreciated. No interval abnormalities. No changes on subsequent EKGs -CXR as above -Troponins negative x 3 -Daily aspirin. PPI. -Nitroglycerin as needed for chest pain -Continue home carvedilol (4) COPD (chronic obstructive pulmonary disease) Code(s): J44.9 - Chronic obstructive pulmonary disease, unspecified Status: Chronic Plan: Patient with long-standing history of COPD. Patient states she was previously managed by luster applicator. -Respiratory therapy consulted to assist with CPAP at night Medications: -Solu-Medrol 40 mg twice daily; will transition with prednisone taper due to diffuse expiratory wheeze noted on exam -Hold home doxycycline -See plan as above for pneumonia (5) Atrial fibrillation Code(s): I48.91 - Unspecified atrial fibrillation Status: Chronic Plan: Patient with history of chronic atrial fibrillation -See above for chest pressure plan -INR subtherapeutic at 1.5; continue home medication at this time as hemoptysis seems to be subsiding, however we will continue to monitor bleeding with serial H/H Medications: -Continue home diltiazem, carvedilol, and Coumadin (6) Hypertension Code(s): I10 - Essential (primary) hypertension Status: Chronic Plan: Patient with history of chronic hypertension Medications: -Continue home carvedilol, bumetanide -Clonidine as needed for blood pressure greater than 180/110 (7) CHF (congestive heart failure) Code(s): I50.9 - Heart failure, unspecified Status: Chronic Plan: Patient with history of CHF previously managed by unknown emergency department manager -Per chart review, most recent echo as above Medications: -Continue home carvedilol, bumetanide (8) Acid reflux Code(s): K21.9 - Gastro-esophageal reflux disease without esophagitis Status: Chronic Plan: Patient with history of acid reflux disease Medications: -Continue home omeprazole (9) Nutrition, metabolism, and development symptoms Code(s): R63.8 - Other symptoms and signs concerning food and fluid intake Status: Acute Plan: -Fluids: Patient appears well-hydrated, monitor for overload with history of CHF /A. fib -Electrolytes: Within normal limits, continue to monitor -Diet: Heart healthy diet with sodium and fluid restriction -Prophylaxis: Clonidine as needed for blood pressure greater than 180/110, Tessalon Perles as needed for cough, Mucinex for congestion, DuoNeb's as needed for shortness of breath/wheezing, calcium carbonate as needed for reflux, Tylenol as needed for fever/pain, nitroglycerin as needed for chest pain -Physical therapy consulted -Respiratory therapy consulted to assist with CPAP (10) DVT prophylaxis Status: Acute Plan: -SCDs -Patient anticoagulated on Coumadin <Maria Elena Boland - 09/10/17 17:34> - Attending Attestation The exam, history, and the medical decision-making described in the above note were completed with the assistance of the resident physician. I reviewed and agree with the findings presented. I attest that I had a [id number] encounter with the patient on the same day, and personally performed and documented my assessment and findings in the medical record. 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 Qualified Code(s): J43.9 - Emphysema, unspecified (5) Atrial fibrillation Qualifiers: Atrial fibrillation type: chronic Qualified Code(s): I48.2 - Chronic atrial fibrillation (6) Hypertension Qualifiers: Hypertension type: essential hypertension Qualified Code(s): I10 - Essential (primary) hypertension (7) CHF (congestive heart failure) Qualifiers: Heart failure type: diastolic Heart failure chronicity: unspecified Qualified Code(s): I50.30 - Unspecified diastolic (congestive) heart failure (8) Acid reflux Qualifiers: Esophagitis presence: without esophagitis Qualified Code(s): K21.9 - Gastro- esophageal reflux disease without esophagitis <JeannettebernabelupesanjayCarmela R - Last Filed: 09/11/17 16:37> (1) Bilateral pneumonia Qualifiers: Pneumonia type: due to unspecified organism Lung location: unspecified part of lung Qualified Code(s): J18.9 - Pneumonia, unspecified organism (4) 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 Qualified Code(s): J43.9 - Emphysema, unspecified (5) Atrial fibrillation Qualifiers: Atrial fibrillation type: chronic Qualified Code(s): I48.2 - Chronic atrial fibrillation (6) Hypertension Qualifiers: Hypertension type: essential hypertension Qualified Code(s): I10 - Essential (primary) hypertension (7) CHF (congestive heart failure) Qualifiers: Heart failure type: diastolic Heart failure chronicity: unspecified Qualified Code(s): I50.30 - Unspecified diastolic (congestive) heart failure (8) Acid reflux Qualifiers: Esophagitis presence: without esophagitis Qualified Code(s): K21.9 - Gastro- esophageal reflux disease without esophagitis <Maria Elena Boland - Last Filed: 09/10/17 17:34> (1) Bilateral pneumonia Qualifiers: Pneumonia type: due to unspecified organism Lung location: unspecified part of lung Qualified Code(s): J18.9 - Pneumonia, unspecified organism (4) 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 Qualified Code(s): J43.9 - Emphysema, unspecified (5) Atrial fibrillation Qualifiers: Atrial fibrillation type: chronic Qualified Code(s): I48.2 - Chronic atrial fibrillation (6) Hypertension Qualifiers: Hypertension type: essential hypertension Qualified Code(s): I10 - Essential (primary) hypertension (7) CHF (congestive heart failure) Qualifiers: Heart failure type: diastolic Heart failure chronicity: unspecified Qualified Code(s): I50.30 - Unspecified diastolic (congestive) heart failure (8) Acid reflux Qualifiers: Esophagitis presence: without esophagitis Qualified Code(s): K21.9 - Gastro- esophageal reflux disease without esophagitis <Carmela Zimmer - Last Filed: 09/11/17 16:37> (1) Bilateral pneumonia Qualifiers: Pneumonia type: due to unspecified organism Lung location: unspecified part of lung Qualified Code(s): J18.9 - Pneumonia, unspecified organism (4) 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 Qualified Code(s): J43.9 - Emphysema, unspecified (5) Atrial fibrillation Qualifiers: Atrial fibrillation type: chronic Qualified Code(s): I48.2 - Chronic atrial fibrillation (6) Hypertension Qualifiers: Hypertension type: essential hypertension Qualified Code(s): I10 - Essential (primary) hypertension (7) CHF (congestive heart failure) Qualifiers: Heart failure type: diastolic Heart failure chronicity: unspecified Qualified Code(s): I50.30 - Unspecified diastolic (congestive) heart failure (8) Acid reflux Qualifiers: Esophagitis presence: without esophagitis Qualified Code(s): K21.9 - Gastro- esophageal reflux disease without esophagitis
[2017-09-10] MEDS ORDERED: Pharmacy Ordered Lab Info OTHER ONE (22:45)
--- NOTE | 2017-09-27 11:27 | P.DS ---
Date of admission: 09/07/17 17:36 Primary care physician: No Primary Care Physician Brief History from admission: Mrs. Sims is a 81 y/o F presenting to the ED with hemoptysis. Patient states that she had a cough that started on Thursday. She took "red Robitussin" cough syrup, but this did not subside her symptoms. She then started to have chills, subjective fevers, and nausea with vomiting. Then early in the morning on Thursday she started having hemoptysis which she initially thought was the cough syrup. She quantifies the amount as less than a tablespoon of "really bright red blood." Since then her cough has continued with intermittent streaks of blood as well as her chills. When her sputum is not blood stained, she states it is a dark yellow/green. Today she had an episode where she coughed up "greater than a tablespoon" amount of blood." She reports that she does have COPD and has a cough at her baseline. Upon further discussion she does have a history of atrial fibrillation and is anticoagulated on Coumadin 3mg per day for months. She does report that her INR has been "hard to control" and has not had it checked since June when she moved to [place]. She does not have a PCP currently. On ROS, she states that she has had chest pressure everyday for "years." She scores the pressure at a 7/10 and describes the pressure dull going across her entire chest. Her pressure has increased over the last "month or so." She denies any radiation, diaphoresis, or other associated symptoms. She has been diagnosed with CHF and atrial fibrillation, but has not had any "heart attacks. " She has had a nuclear stress test that was negative "a couple months ago" while hospitalized at [facility]. DS: Diagnosis - Discharge Diagnosis (1) Bilateral pneumonia Status: Acute (2) Acute kidney injury Status: Acute (3) Chest pressure Status: Acute (4) COPD (chronic obstructive pulmonary disease) Status: Chronic (5) Atrial fibrillation Status: Chronic (6) Hypertension Status: Chronic (7) CHF (congestive heart failure) Status: Chronic (8) Acid reflux Status: Chronic (9) Nutrition, metabolism, and development symptoms Status: Acute (10) DVT prophylaxis Status: Acute DS: Medications - Discharge Medications Prescriptions: prednisone See Taper PO DIRECTED #20 each warfarin [Coumadin] 3 mg PO DAILY@1600 30 Days tab DS: Summary Hospital Course: Mrs. Sims is a 81 y/o F with a PMH of COPD, A fib who presented to the ED with hemoptysis. Pulmonary CTA: No evidence of PE, patchy infiltrates in both lung bases (left greater than right) suggestive of pneumonia, bilateral chronic interstitial lung disease with some bilious changes and bronchiectasis in the right upper lung, nonspecific mildly prominent lymph nodes are seen throughout the mediastinum. She was started on Vancomycin for gram positives and MRSA coverage, Zosyn 3.375 g IV every 6 hours for coverage of gram negatives and Pseudomonas, and Azithromycin 500 mg p.o. daily to cover atypicals. Pt also had chest pressure on admission. ACS was ruled out. Pt developed FRANK on 09/09 due the Vancomycin, which was subsequently held, Cr was 1.10 on d/c. She was discharged home on 09/10 on po Amoxicillin 1g daily, Azithromycin 500 mg three times daily, and a prednisone taper. - Time Spent with Patient Total time spent providing and/or coordinating discharge services: - Quality: VTE Deep Vein Thrombosis/Pulmonary Embolism Present on Admission: No Results Procedures completed during hospitalization: none - Impressions ITS Impressions Chest CTA 09/07/17 16:11 CONCLUSION: 1. No evidence of pulmonary embolism. 2. There are patchy infiltrates in both lung bases, left greater than right suggestive of pneumonia. 3. There is bilateral chronic interstitial lung disease with some bullous changes and bronchiectasis in the right upper lung. 4. Nonspecific mildly prominent lymph nodes are seen throughout the mediastinum. Chest X-Ray 09/09/17 00:00 CONCLUSION: Mild basilar atelectasis. Cardiomegaly. Discharge Plan - Discharge Disposition Patient Disposition: Discharge Home - Discharge Condition Condition: Stable - Discharge Order Discharge Orders: Discharge Order (Routine); Ordered 09/10/17 Ordered By: Little Knutson - Discharge Details Anticipated Discharge Date: 09/10/17 - Physicians Team Primary Care Provider: Primary Care Que,Germaine Attending Provider: Carmela Zimmer
== END 2017-09-10 16:05 | disposition home or self-care (01) ==
LOC: NEPGCP 12:43 → NEPC 12:43 → NEDA 12:43 → NEPGCP 19:38
PROVIDERS: ADMIT Family Medicine; ATTEND Family Medicine

== ENCOUNTER 2018-02-18 15:35 | Inpatient (IN) ==
[2018-02-18] MEDS ORDERED: MethylPREDNISolone Sod Succinate Inj 125 MG/2 ML Vial IV.PUSH ONE (16:00)
[2018-02-18] MEDS ORDERED: Azithromycin Inj 500 MG in Sodium Chlor 0.9% Inj 250 ML IV.SIG STA (16:02)
[2018-02-18] MEDS ORDERED: Sod Chloride 0.9% Inj 400 ML IV.SIG SCH (16:15)
[2018-02-18] MEDS ORDERED: Sod Chloride 0.9% Inj 1,000 ML IV.SIG SCH ×2 (16:15)
[2018-02-18 16:40] LABS: Baso % (Auto) 0.1 % (0.0-2.0); Hematocrit 37.4 % (35.0-46.0); Hemoglobin 12.7 gm/dL (11.6-15.3); Lymph # (Auto) 0.9 th/mm3 (1.0-4.8); Lymph % (Auto) 4.6 % (9.0-44.0); Mean Corpuscular HGB Conc 33.9 % (32.0-36.0); Mean Corpuscular Hemoglobin 35.4 pg (27.0-34.0); Mean Corpuscular Volume 104.3 fL (80.0-100.0); Mean Platelet Volume 8.1 fL (7.0-11.0); Mono # (Auto) 1.1 th/mm3 (0.0-0.9); Mono % (Auto) 5.3 % (0.0-8.0); Neut # (Auto) 18.5 th/mm3 (1.8-7.7); Platelet Count 227 th/mm3 (150-450); Red Blood Count 3.58 mil/mm3 (4.00-5.30); Red Cell Distribution Width 14.2 % (11.6-17.2); White Blood Count 20.5 th/mm3 (4.0-11.0)
[2018-02-18 16:49] LABS: INR 2.2 Ratio
[2018-02-18 17:05] LABS: Alanine Aminotransferase 14 U/L (10-53); Albumin 3.1 g/dL (3.4-5.0); Anion Gap 9 meq/L (5-15); Aspartate Aminotransferase 16 U/L (15-37); Blood Urea Nitrogen 19 mg/dL (7-18); Calcium 8.3 mg/dL (8.5-10.1); Carbon Dioxide 26.5 meq/L (21.0-32.0); Chloride 104 meq/L (98-107); Glomerular Filtration Rate 40 mL/min (>89); Glucose,Random 114 mg/dL (74-106); Potassium 3.7 meq/L (3.5-5.1); Sodium 139 meq/L (136-145)
--- NOTE | 2018-02-18 17:05 | ED ---
HPI General Chief Complaint: Respiratory Symptoms Stated Complaint: Spitting up blood, cough Time Seen by Provider: 02/18/18 15:52 Source: patient and family Limitations: no limitations History of Present Illness Patient is a 82-year-old female, past medical history significant for COPD, who presents with complaint of hemoptysis, cough, shortness of breath over the last several days. She has not had a fever and is not sure if she has had chills or not. She did recently take a long trip and cruise. No chest pain. No new leg swelling that she is aware of. No abdominal pain, nausea, vomiting, diarrhea. MD Complaint: Reports shortness of breath and cough Onset (ago): day(s) Severity: moderate Consistency/Duration: constant Relieving factors: nothing Exacerbating factors: nothing Known history of: Reports COPD Associated symptoms: Reports cough Treatment prior to arrival: Reports none Related Data Home oxygen amount: 2 liters Home Medications Medication Instructions Recorded Confirmed albuterol sulfate 2.5 mg INHALATION BID 09/07/17 02/18/18 alendronate [Fosamax] 70 mg PO QWEEK 09/07/17 02/18/18 bumetanide 2 mg PO DAILY 09/07/17 02/18/18 carvedilol 6.25 mg PO BID 09/07/17 02/18/18 cholecalciferol (vitamin D3) 1,000 unit PO DAILY 09/07/17 02/18/18 [Vitamin D3] diltiazem HCl 180 mg PO DAILY 09/07/17 02/18/18 fluoxetine 20 mg PO DAILY 09/07/17 02/18/18 guaifenesin [Mucinex] 600 mg PO Q12H 09/07/17 02/18/18 multivitamin [Multiple Vitamins] 1 tab PO DAILY 09/07/17 02/18/18 omeprazole 20 mg PO BID 09/07/17 02/18/18 warfarin [Coumadin] 3 mg PO DAILY 02/18/18 02/18/18 Allergies Allergy/AdvReac Type Severity Reaction Status Date / Time codeine Allergy Severe GI UPSET Verified 02/18/18 16:08 sulfamethoxazole Allergy Severe CONFIRM Verified 02/18/18 16:08 REACTION: SIDE EFFECT VS ALLERGY. trimethoprim Allergy Severe CONFIRM Verified 02/18/18 16:08 REACTION: SIDE EFFECT VS ALLERGY. lansoprazole Allergy Mild DIARRHEA Verified 02/18/18 16:08 Review of Systems ROS: all other systems reviewed are negative [facility] Medical History Medical History Asthma (Acute) Atrial fibrillation (Acute) [place] esophagus (Acute) COPD (chronic obstructive pulmonary disease) (Acute) H/O: hysterectomy (Acute) Hypertension (Acute) Pacemaker (Acute) Sleep apnea (Acute) Surgical History Surgical History H/O section (Acute) H/O shoulder surgery (Acute) Social History Social History Substance History: No History of Abuse Second Hand Smoke Exposure: Yes Smoking Status: Former smoker Tobacco Type: Cigarettes How Often Do You Have a Drink Containing Alcohol: 4 or more times a week Recent Travel in [facility] within the Last 8 Weeks: No Recent Out of Country Travel within the Last 8 Weeks: No Immunization History Tetanus Immunization: <5 Years Exam Narrative Exam Narrative: GENERAL: Well-appearing female in no acute distress SKIN: Focused skin assessment warm/dry. HEAD: Atraumatic. Normocephalic. EYES: Pupils equal and round. No scleral icterus. No injection or drainage. ENT: No nasal bleeding or discharge. Mucous membranes pink and moist. NECK: Trachea midline. No JVD. CARDIOVASCULAR: Tachycardic and irregular. No murmur appreciated. Intact and equal peripheral pulses. RESPIRATORY: No accessory muscle use. Coarse wheezes throughout with some rhonchi. GASTROINTESTINAL: Abdomen soft, non-tender, nondistended. Hepatic and splenic margins not palpable. MUSCULOSKELETAL: No obvious deformities. No clubbing. No cyanosis. No edema. NEUROLOGICAL: Awake and alert. No obvious cranial nerve deficits. Motor grossly within normal limits. Normal speech. PSYCHIATRIC: Appropriate mood and affect; insight and judgment normal. Course Initial Documented Vital Signs Temperature 97 F L 02/18/18 15:44 Pulse Rate 117 H 02/18/18 15:44 Respiratory Rate 24 02/18/18 15:44 Blood Pressure 135/56 L 02/18/18 15:44 Pulse Oximetry 90 L 02/18/18 15:44 Last Documented Vital Signs Temperature 97 F L 02/18/18 15:44 Pulse Rate 106 H 02/18/18 19:02 Respiratory Rate 20 02/18/18 19:02 Blood Pressure 122/64 02/18/18 19:02 Pulse Oximetry 95 02/18/18 19:02 Medical Decision Making MDM Narrative Medical decision making narrative: Patient is an 82-year-old female who presents with complaint of hemoptysis and dyspnea. She has coarse wheezes with rhonchi on exam and is both tachypneic and tachycardic. Sepsis protocol was initiated and she was given fluids and antibiotics to cover for presumed pneumonia. Chest x-ray does show increased interstitial markings concerning for consolidation. Patient started to feel better after fluids and DuoNeb. CTA ordered to rule out pulmonary embolism which showed consolidation but no embolism. She has been admitted for further evaluation and management. Medical Screen Exam Complete: Yes Emergency Medical Condition: Yes Differential Diagnosis Differential Diagnosis: Differential diagnosis includes but is not limited to COPD exacerbation, pneumonia, pulmonary embolism. Medical Records Medical records reviewed: Yes I reviewed the patient's medical records. Lab Data Lab results reviewed: Yes I reviewed the patient's lab results. Result diagrams: 02/18/18 16:20 02/18/18 16:20 Lab Results 02/18/18 02/18/18 02/18/18 Range/Units 16:20 16:20 16:20 WBC 20.5 H (4.0-11.0) th/mm3 RBC 3.58 L (4.00-5.30) mil/mm3 Hgb 12.7 (11.6-15.3) gm/dL Hct 37.4 (35.0-46.0) % MCV 104.3 H (80.0-100.0) fL MCH 35.4 H (27.0-34.0) pg MCHC 33.9 (32.0-36.0) % RDW 14.2 (11.6-17.2) % Plt Count 227 (150-450) th/mm3 MPV 8.1 (7.0-11.0) fL Prelim Diff (Auto) Slide review pending Neut % (Auto) 90.0 H (16.0-70.0) % Lymph % (Auto) 4.6 L (9.0-44.0) % [place] % (Auto) 5.3 (0.0-8.0) % Eos % (Auto) 0.0 (0.0-4.0) % Baso % (Auto) 0.1 (0.0-2.0) % Neut # (Auto) 18.5 H (1.8-7.7) th/mm3 Lymph # (Auto) 0.9 L (1.0-4.8) th/mm3 [place] # (Auto) 1.1 H (0.0-0.9) th/mm3 Eos # (Auto) 0.0 (0.0-0.4) th/mm3 Baso # (Auto) 0.0 (0.0-0.2) th/mm3 WBC Differential Manual diff final Seg Neuts % (Manual) 68 (16-70) % Band Neuts % (Manual) 19 H (0-6) % Lymphocytes % (Manual) 4 L (9-44) % Monocytes % (Manual) 5 (0-8) % Metamyelocytes % (Man) 4 H (0-1) % Abs Neuts (Manual) 18.7 H (1.8-7.7) th/mm3 Differential Comment . Toxic Vacuolation Present H (None) Platelet Estimate Normal (Normal) Platelet Morphology Normal (Normal) RBC Morphology Normal (Normal) PT 22.0 H (9.8-11.6) sec INR 2.2 Ratio Sodium 139 (136-145) meq/L Potassium 3.7 (3.5-5.1) meq/L Chloride 104 (98-107) meq/L Carbon Dioxide 26.5 (21.0-32.0) meq/L Anion Gap 9 (5-15) meq/L BUN 19 H (7-18) mg/dL Creatinine 1.28 H (0.50-1.00) mg/dL Estimated GFR 40 L (>89) mL/min Random Glucose 114 H (74-106) mg/dL Lactic Acid (0.4-2.0) mmol/L Calcium 8.3 L (8.5-10.1) mg/dL Total Bilirubin 0.7 (0.2-1.0) mg/dL AST 16 (15-37) U/L ALT 14 (10-53) U/L Alkaline Phosphatase 59 (45-117) U/L Troponin I Less than 0.02 L (0.02-0.05) ng/mL B-Natriuretic Peptide (0-100) pg/mL Total Protein 6.7 (6.4-8.2) g/dL Albumin 3.1 L (3.4-5.0) g/dL 02/18/18 02/18/18 Range/Units 16:20 16:25 WBC (4.0-11.0) th/mm3 RBC (4.00-5.30) mil/mm3 Hgb (11.6-15.3) gm/dL Hct (35.0-46.0) % MCV (80.0-100.0) fL MCH (27.0-34.0) pg MCHC (32.0-36.0) % RDW (11.6-17.2) % Plt Count (150-450) th/mm3 MPV (7.0-11.0) fL Prelim Diff (Auto) Neut % (Auto) (16.0-70.0) % Lymph % (Auto) (9.0-44.0) % [place] % (Auto) (0.0-8.0) % Eos % (Auto) (0.0-4.0) % Baso % (Auto) (0.0-2.0) % Neut # (Auto) (1.8-7.7) th/mm3 Lymph # (Auto) (1.0-4.8) th/mm3 [place] # (Auto) (0.0-0.9) th/mm3 Eos # (Auto) (0.0-0.4) th/mm3 Baso # (Auto) (0.0-0.2) th/mm3 WBC Differential Seg Neuts % (Manual) (16-70) % Band Neuts % (Manual) (0-6) % Lymphocytes % (Manual) (9-44) % Monocytes % (Manual) (0-8) % Metamyelocytes % (Man) (0-1) % Abs Neuts (Manual) (1.8-7.7) th/mm3 Differential Comment Toxic Vacuolation (None) Platelet Estimate (Normal) Platelet Morphology (Normal) RBC Morphology (Normal) PT (9.8-11.6) sec INR Ratio Sodium (136-145) meq/L Potassium (3.5-5.1) meq/L Chloride (98-107) meq/L Carbon Dioxide (21.0-32.0) meq/L Anion Gap (5-15) meq/L BUN (7-18) mg/dL Creatinine (0.50-1.00) mg/dL Estimated GFR (>89) mL/min Random Glucose (74-106) mg/dL Lactic Acid 2.5 H (0.4-2.0) mmol/L Calcium (8.5-10.1) mg/dL Total Bilirubin (0.2-1.0) mg/dL AST (15-37) U/L ALT (10-53) U/L Alkaline Phosphatase (45-117) U/L Troponin I (0.02-0.05) ng/mL B-Natriuretic Peptide 410 H (0-100) pg/mL Total Protein (6.4-8.2) g/dL Albumin (3.4-5.0) g/dL Imaging Data Attestation: I personally reviewed and interpreted this imaging study as follows : My impression: Increased interstitial markings. Radiologist's impression: Chest CTA 02/18/18 16:00 CONCLUSION: Scratch that new infiltrate with consolidative changes probably right lower lobe. Negative for central pulmonary emboli No pleural effusion Inflammatory process suspected. Chest X-Ray 02/18/18 16:00 CONCLUSION: Increased interstitial markings bilaterally suggestive of pulmonary edema versus pneumonia. ECG Data EKG Prior to Arrival: No Attestation: I personally reviewed and interpreted this ECG as follows: (Atrial fibrillation at a rate of [address] or T wave changes.) Discharge Plan Discharge Disposition Patient Disposition: ED Admit(ED Internal Use Only) Discharge Condition Condition: Stable Discharge Order Discharge Orders: ED Use Only Admit Order (Routine); Ordered 02/18/18 Ordered By: Jemma Alarcon Discharge Details Diagnosis: Pneumonia, Sepsis, Acute exacerbation of chronic obstructive pulmonary disease (COPD) Physicians Team ED Provider: Jemma Alarcon Primary Care Provider: UNKNOWN, Rxs /Orders / Referrals /Forms Prescriptions: No Action omeprazole 20 mg Capsule,Delayed Release(Dr/Ec) 20 mg PO BID RF: 0 multivitamin [Multiple Vitamins] Tablet 1 tab PO DAILY RF: 0 carvedilol 6.25 mg Tablet 6.25 mg PO BID RF: 0 bumetanide 2 mg Tablet 2 mg PO DAILY RF: 0 diltiazem HCl 180 mg Capsule,Extended Release 24 Hr 180 mg PO DAILY RF: 0 alendronate [Fosamax] 70 mg Tablet 70 mg PO QWEEK RF: 0 fluoxetine 20 mg Capsule 20 mg PO DAILY RF: 0 cholecalciferol (vitamin D3) [Vitamin D3] 1,000 unit Capsule 1,000 unit PO DAILY RF: 0 albuterol sulfate 2.5 mg/0.5 mL Solution For Nebulization 2.5 mg INHALATION BID RF: 0 guaifenesin [Mucinex] 600 mg Tablet Extended Release 12hr 600 mg PO Q12H RF: 0 warfarin [Coumadin] 3 mg Tablet 3 mg PO DAILY RF: 0 Status ED Status: With Doctor
[2018-02-18 17:07] LABS: Lymphocytes 4 % (9-44); Metamyelocytes 4 % (0-1); Monocytes 5 % (0-8)
[2018-02-18 17:08] LABS: Platelet Estimate Normal (Normal); Platelet Morphology Normal (Normal); RBC Morphology Normal (Normal); Toxic Vacuolation Present
[2018-02-18 17:09] LABS: Alkaline Phosphatase 59 U/L (45-117); Total Protein 6.7 g/dL (6.4-8.2)
--- NOTE | 2018-02-18 17:28 | XR ---
EXAM DATE: 02/18/2018 5:23 PM EST AGE/SEX: 82 years / Female INDICATIONS: . Coughing up blood. Shortness of breath. CLINICAL DATA: This is the patient's initial encounter. Patient reports that signs and symptoms have been present for 1 day and indicates a pain score of 0/10. MEDICAL/SURGICAL HISTORY: Chronic obstructive pulmonary disease. Hypertension. Pacemaker. COMPARISON: C, CHEST 1V SINGLE AP, 09/07/2017. . FINDINGS: There appears to be some increased interstitial markings bilaterally compared to the prior study. The heart size is upper limits of normal but stable. No definite pleural effusions are demonstrated. The re is a pacemaker overlying the left chest. The bony structures are stable and grossly intact. CONCLUSION: Increased interstitial markings bilaterally suggestive of pulmonary edema versus pneumonia. Electronically signed by: Quincy Bryant MD Board Certified Radiologist 02/18/2018 5:27 PM EST
--- NOTE | 2018-02-18 19:57 | CT ---
EXAM DATE: 02/18/2018 7:52 PM EST AGE/SEX: 82 years / Female INDICATIONS: Shortness of breath, cough. CLINICAL DATA: This is the patient's initial encounter. Patient reports that signs and symptoms have been present for 1 day and indicates a pain score of 0/10. MEDICAL/SURGICAL HISTORY: Asthma. Chronic obstructive pulmonary disease. A-Fib. Pacemaker. Hyst erectomy. RADIATION DOSE: 10.95 CTDI (mGy) COMPARISON: POI, CT CHEST W/O CONTRAST, 10/21/2017. . TECHNIQUE: Volumetric scanning was performed using a multi-row detector CT scanner during bolus infu jose of 50 ml Omnipaque 350 (iohexol) nonionic water-soluble contrast as a single exam dose. The suresh a was post processed with a variety of visualization algorithms including full volume maximum intensi ty projection and sliding thin slab reformation. Using automated exposure control and adjustment of t he mA and/or kV according to patient size, radiation dose was kept as low as reasonably achievable to obtain optimal diagnostic quality images. DICOM format image data is available electronically for r eview and comparison. FINDINGS: Pulmonary Arteries: Pacemaker implanted in the left chest. Chronic interstitial changes in both lung s with patchy consolidation in the right lower lobe and right upper lobe, worse in the lower lobe. Mo derate emphysematous changes with minimal bleb. Stable noncalcified nodule anteriorly in the right mi ddle lobe. No significant pleural effusion. There is no evidence for central pulmonary emboli. Mediastinum: There is no axillary or mediastinal adenopathy. Minimal right hilar adenopathy is prese nt, nonspecific. Mild/moderate LAD calcifications. CONCLUSION: Scratch that new infiltrate with consolidative changes probably right lower lobe. Negative for central pulmonary emboli No pleural effusion Inflammatory process suspected. Electronically signed by: Benson Villegas MD Board Certified Radiologist 02/18/2018 7:56 PM EST
[2018-02-18] MEDS ORDERED: Bisacodyl 10 MG Supp RECTAL PRN (20:32)
[2018-02-18] MEDS: Sod Chloride 0.9% Inj 1,000 ML IV.CONT SCH (21:44)
[2018-02-18] MEDS: Carvedilol 6.25 MG Tablet PO SCH (21:44)
[2018-02-19] MEDS: MethylPREDNISolone Sod Succinate Inj 40 MG/ML Vial IV.PUSH SCH ×4 (00:24→16:23)
--- NOTE | 2018-02-19 01:24 | P.HPIM ---
History of Present Illness Service: [facility] hospitalists . Primary Care Physician: UNKNOWN Chief Complaint: Cough with blood-tinged sputum and shortness of breath History of Present Illness: Ms. Sims is a very pleasant 82-year-old female with a history of COPD, asthma , atrial fibrillation, Cedillo's esophagus, sleep apnea, and hypertension who presented to the emergency room on 02/18/2018 complaining of a nearly week-long history of shortness of breath progressively worsening and accompanied by cough with hemoptysis. The patient was found to have pneumonia on chest x-ray and was admitted to the hospitalist service for medical medical management. The patient is seen in her hospital room on 7 N. She reports that she has been in good health up until about a week ago when she started to get short of breath with exertion. Her shortness of breath progressed over time and became accompanied by cough with yellow sputum. She reports that over the past couple of days she has noted some blood in her sputum. She is on 2 L of supplemental oxygen via nasal cannula at home due to COPD. She denies any fever, chills, nausea, vomiting, or diarrhea. She reports feeling better since arriving in the emergency room and receiving breathing treatments, IV antibiotics, a and IV steroids. . Inpatient Certification: I certify that the inpatient services were ordered in accordance with Medicare regulations governing the order. This includes certification that hospital inpatient services are reasonable and necessary and in the case of services not specified as inpatient-only under 42 CFR 419.22(n), that they are appropriately provided as inpatient services in accordance to with the 2-midnight benchmark under 43 CFR 412.3(e) Estimated Total Length of Stay (Days): 3 Plans for Post Hospital Care: Not yet determined Review of Systems All other systems reviewed negative except as stated in [facility]PI [facility] - History History Provided By: Patient - Medical History Medical History: Medical History (Last Updated 02/19/18 @ 00:39 by ROSARIO Us) History of hysterectomy Asthma Atrial fibrillation Cedillo esophagus COPD (chronic obstructive pulmonary disease) Hypertension Sleep apnea - Surgical History Surgical History: Surgical History (Last Updated 02/19/18 @ 00:39 by ROSARIO Us) History of section History of shoulder surgery Pacemaker - Family History Family History: Family History (Last Updated 02/19/18 @ 03:29 by ROSARIO Us) Mother Heart disease Father Black lung disease Other Diabetes mellitus - Tobacco History Second Hand Smoke Exposure: No Smoking Status: Former smoker Tobacco Type: Cigarettes - Alcohol History How Often Do You Have a Drink Containing Alcohol: 4 or more times a week - Substance Use History Substance History: No History of Abuse - Travel History Recent Travel in the [place] Within the Last 8 Weeks: No Recent Travel Out of the Country Within the Last 8 Weeks: No - Immunization History Tetanus Immunization: <5 Years Hx Influenza Vaccine This Season: Yes Medications and Allergies Active Medications: Active Medications Acetaminophen (Tylenol) 650 mg PO Q4H PRN PRN Reason: Temp > 100.4 Al Hydroxide/Mg Hydroxide (Milk Of Magnesia Liq) 30 ml PO Q12H PRN PRN Reason: Mild Constipation Albuterol (Albuterol Neb (Prn)) 2.5 mg NEB Q2HR NEB PRN PRN Reason: SHORTNESS OF BREATH Albuterol (Duoneb Neb (Mandi)) 1 ampul NEB Q4HR NEB MANDI Last Admin: 02/18/18 23:47 Dose: 1 ampul Azithromycin (Zithromax) 500 mg PO DAILY [facility] Stop: 02/21/18 09:01 Bisacodyl (Dulcolax Supp) 10 mg RECTAL DAILY PRN PRN Reason: SEVERE CONSITIPATION Bumetanide (Bumex) 2 mg PO DAILY [facility] Carvedilol (Coreg) 6.25 mg PO BID [facility] Last Admin: 02/18/18 21:44 Dose: 6.25 mg Diltiazem HCl (Cardizem Cd 24hr) 180 mg PO DAILY [facility] Fluoxetine HCl (Prozac) 20 mg PO DAILY [facility] Sodium Chloride (Ns Inj) 1,000 mls @ 0 mls/hr IV.SIG .Q0M MANDI Last Infusion: 02/18/18 21:08 Dose: Infused Sodium Chloride (Ns Inj) 1,000 mls @ 0 mls/hr IV.SIG .Q0M MANDI Last Infusion: 02/18/18 21:08 Dose: Infused Sodium Chloride (Ns Inj) 400 mls @ 0 mls/hr IV.SIG .Q0M MANDI Sodium Chloride (Ns Inj) 1,000 mls @ 100 mls/hr IV.CONT .Q10H MANDI Last Admin: 02/18/18 21:44 Dose: 100 mls/hr Lactulose (Lactulose Liq) 30 ml PO DAILY PRN PRN Reason: SEVERE CONSITIPATION Levofloxacin (Levaquin) 750 mg PO Q48H [facility] Methylprednisolone Sodium Succinate (Solumedrol Inj) 60 mg IV.PUSH Q6H [facility] Last Admin: 02/19/18 00:24 Dose: 60 mg Ondansetron HCl (Zofran Inj) 4 mg IV.PUSH Q6H PRN PRN Reason: NAUSEA OR VOMITING Pantoprazole Sodium (Protonix) 20 mg PO BID [facility] Sennosides (Senokot) 17.2 mg PO Q12H PRN PRN Reason: Moderate Constipation Sodium Chloride (Ns Flush) 2 ml IV.FLUSH BID [facility] Last Admin: 02/18/18 21:44 Dose: 2 ml Sodium Chloride (Ns Flush) 2 ml IV.FLUSH PRN PRN PRN Reason: FLUSH AFTER USING IV ACCESS Allergies Allergy/AdvReac Type Severity Reaction Status Date / Time codeine Allergy Severe GI UPSET Verified 02/18/18 16:08 sulfamethoxazole Allergy Severe CONFIRM Verified 02/18/18 16:08 REACTION: SIDE EFFECT VS ALLERGY. trimethoprim Allergy Severe CONFIRM Verified 02/18/18 16:08 REACTION: SIDE EFFECT VS ALLERGY. lansoprazole Allergy Mild DIARRHEA Verified 02/18/18 16:08 Home Medications Medication Instructions Recorded Confirmed Type albuterol sulfate 2.5 mg INHALATION BID 09/07/17 02/18/18 History alendronate [Fosamax] 70 mg PO QWEEK 09/07/17 02/18/18 History bumetanide 2 mg PO DAILY 09/07/17 02/18/18 History carvedilol 6.25 mg PO BID 09/07/17 02/18/18 History cholecalciferol (vitamin D3) 1,000 unit PO DAILY 09/07/17 02/18/18 History [Vitamin D3] diltiazem HCl 180 mg PO DAILY 09/07/17 02/18/18 History fluoxetine 20 mg PO DAILY 09/07/17 02/18/18 History guaifenesin [Mucinex] 600 mg PO Q12H 09/07/17 02/18/18 History multivitamin [Multiple Vitamins] 1 tab PO DAILY 09/07/17 02/18/18 History omeprazole 20 mg PO BID 09/07/17 02/18/18 History warfarin [Coumadin] 3 mg PO DAILY 02/18/18 02/18/18 History Exam Vital signs: Vital Signs 02/18/18 15:44 02/18/18 16:05 02/18/18 16:15 Temperature 97 F L Pulse Rate 117 H 115 H 120 H Respiratory Rate 24 18 Blood Pressure 135/56 L 109/69 Pulse Oximetry 90 L 92 L 92 L 02/18/18 16:48 02/18/18 16:49 02/18/18 18:40 Temperature Pulse Rate 109 H 114 H 106 H Respiratory Rate 15 18 18 Blood Pressure 118/56 L 120/59 L Pulse Oximetry 97 95 93 L 02/18/18 19:02 02/18/18 21:04 02/18/18 21:43 Temperature 97.6 F Pulse Rate 106 H 102 H 113 H Respiratory Rate 20 19 18 Blood Pressure 122/64 134/58 L 122/73 Pulse Oximetry 95 95 92 L 02/18/18 22:08 02/18/18 23:48 02/19/18 00:00 Temperature 98.5 F Pulse Rate 113 H 104 H 71 Respiratory Rate 18 20 18 Blood Pressure 140/90 Pulse Oximetry 91 L 95 Intake & Output 02/18/18 02/18/18 02/19/18 06:59 18:59 06:59 Intake Total 350 / 350 1999 Balance 350 / 350 1999 Weight 72.575 kg Intake: IV 350 / 350 1999 Azithromycin Inj 500 MG In NS 250 / 250 Inj 250 ML @ 250 mls/hr IV.SIG STAT STA Rx#:[id number] NS Inj 1,000 ML @ Wide Open IV. 1999 SIG .Q0M [facility] Rx#:[id number] Rocephin Inj 2,000 MG In NS Inj 100 / 100 100 ML @ 200 mls/hr IV.SIG STAT STA Rx#:[id number] Narrative: GENERAL: This is a well-nourished, well-developed patient, in no apparent distress. SKIN: No rashes, ecchymoses or lesions. Cool and dry. HEAD: Atraumatic. Normocephalic. EYES: No scleral icterus. No injection or drainage. ENT: Nose without bleeding, purulent drainage. NECK: Trachea midline. No JVD. CARDIOVASCULAR: Irregularly irregular without murmurs, gallops, or rubs. RESPIRATORY: Patient is not utilizing any accessory muscles. Respirations are even and unlabored. She has expiratory wheezing auscultated scattered in upper airways and bilateral coarse rhonchi throughout bases. GASTROINTESTINAL: Abdomen soft, non-tender, nondistended. No guarding. MUSCULOSKELETAL: Extremities without clubbing, cyanosis, or edema. No calf tenderness. NEUROLOGICAL: Awake and alert. Motor and sensory grossly within normal limits. Normal speech. . Results - Labs CBC & Chem 7: 02/18/18 16:20 02/18/18 16:20 Labs: Short CBC 02/18/18 Range/Units 16:20 WBC 20.5 H (4.0-11.0) th/mm3 Hgb 12.7 (11.6-15.3) gm/dL Hct 37.4 (35.0-46.0) % Plt Count 227 (150-450) th/mm3 BMP 02/18/18 16:20 Sodium 139 Potassium 3.7 Chloride 104 Carbon Dioxide 26.5 BUN 19 H Creatinine 1.28 H Calcium 8.3 L Cardiac Enzymes 02/18/18 Range/Units 16:20 Troponin I Less than 0.02 L (0.02-0.05) ng/mL Liver Function 02/18/18 Range/Units 16:20 Total Bilirubin 0.7 (0.2-1.0) mg/dL AST 16 (15-37) U/L ALT 14 (10-53) U/L Alkaline Phosphatase 59 (45-117) U/L Albumin 3.1 L (3.4-5.0) g/dL - Imaging Impressions Chest CTA 02/18/18 16:00 CONCLUSION: Scratch that new infiltrate with consolidative changes probably right lower lobe. Negative for central pulmonary emboli No pleural effusion Inflammatory process suspected. Chest X-Ray 02/18/18 16:00 CONCLUSION: Increased interstitial markings bilaterally suggestive of pulmonary edema versus pneumonia. Caprini VTE Risk Assessment Caprini VTE Risk Assessment: Moderate/High Risk (score >= 2) Caprini Risk Assessment Model: Point Value = 1 Point Value = 2 Point Value = 3 Point Value = 5 Age 41-60 Minor surgery BMI > 25 kg/m2 Swollen legs Varicose veins or History of unexplained or recurrent spontaneous Oral contraceptives or hormone replacement Sepsis (< 1 month) Serious lung disease, including pneumonia (< 1 month) Abnormal pulmonary function Acute myocardial infarction Congestive heart failure (< 1 month) History of inflammatory bowel disease Medical patient at bed rest Age 61-74 Arthroscopic surgery Major open surgery (> 45 min) Laparoscopic surgery (> 45 min) Malignancy Confined to bed (> 72 hours) Immobilizing plaster cast Central venous access Age >= 75 History of VTE Family history of VTE Factor V Leiden Prothrombin [id number] Lupus anticoagulant Anticardiolipin antibodies Elevated serum homocysteine Heparin-induced thrombocytopenia Other congenital or acquired thrombophilia Stroke (< 1 month) Elective arthroplasty Hip, pelvis, or leg fracture Acute spinal cord injury (< 1 month) Prophylaxis Regimen: Total Risk Factor Score Risk Level Prophylaxis Regimen 0-1 Low Early ambulation 2 Moderate Order ONE of the following: *Sequential Compression Device (SCD) *Heparin 5000 units SQ BID 3-4 Higher Order ONE of the following medications: *Heparin 5000 units SQ TID *Enoxaparin/Lovenox 40 mg SQ daily (WT < 150 kg, CrCl > 30 mL/min) *Enoxaparin/Lovenox 30 mg SQ daily (WT < 150 kg, CrCl > 10-29 mL/min) *Enoxaparin/Lovenox 30 mg SQ BID (WT < 150 kg, CrCl > 30 mL/min) AND/OR *Sequential Compression Device (SCD) 5 or more Highest Order ONE of the following medications: *Heparin 5000 units SQ TID (Preferred with Epidurals) *Enoxaparin/Lovenox 40 mg SQ daily (WT < 150 kg, CrCl > 30 mL/min) *Enoxaparin/Lovenox 30 mg SQ daily (WT < 150 kg, CrCl > 10-29 mL/min) *Enoxaparin/Lovenox 30 mg SQ BID (WT < 150 kg, CrCl > 30 mL/min) AND *Sequential Compression Device (SCD) Assessment and Plan - Plan Ms. Sims is a very pleasant 82-year-old female with a history of COPD, asthma , atrial fibrillation, Cedillo's esophagus, sleep apnea, and hypertension who presented to the emergency room on 02/18/2018 complaining of a nearly week-long history of shortness of breath progressively worsening and accompanied by cough with hemoptysis. The patient was found to have pneumonia on chest x-ray and was admitted to the hospitalist service for medical medical management. Right lower lobe pneumonia -Chest x-ray shows increased interstitial markings bilaterally suggestive of pulmonary edema versus pneumonia -recently reviewed chest x-ray and findings seem consistent with pneumonia -Chest CTA is negative for central pulmonary emboli, new infiltrate with consolidative changes in right lower lobe, no pleural effusion, inflammatory process suspected -Negative for influenza a and B -Antibiotics: Levaquin and azithromycin p.o. -Await results of blood cultures and adjust treatments as needed -Solu-Medrol 60 mg IV push every 6 hours -Supplemental oxygen as needed titrated to maintain oxygen saturation greater than 92% -Monitor vital signs and pulse oximetry at least every 4 hours Leukocytosis -WBC 20.5 with left shift secondary to pneumonia -Monitor white blood count routinely -anticipate return to normal with adequate treatment Atrial fibrillation on Coumadin with therapeutic INR of 2.2 -Pharmacy consultation for Coumadin therapeutic monitoring and dosing -Continue home medications: Coumadin, carvedilol, and diltiazem -Continuous cardiac telemetry to monitor rate and rhythm DVT prophylaxis -on Coumadin with therapeutic level H&P: Quality - VTE Deep Vein Thrombosis/Pulmonary Embolism Present on Admission: No
[2018-02-19] MEDS ORDERED: Warfarin Consult Pharmacy OTHER PRN (03:42)
[2018-02-19 05:47] LABS: Baso % (Auto) 0.1 % (0.0-2.0); Hematocrit 34.1 % (35.0-46.0); Hemoglobin 11.4 gm/dL (11.6-15.3); Lymph # (Auto) 0.8 th/mm3 (1.0-4.8); Lymph % (Auto) 4.3 % (9.0-44.0); Mean Corpuscular HGB Conc 33.4 % (32.0-36.0); Mean Corpuscular Hemoglobin 35.4 pg (27.0-34.0); Mean Corpuscular Volume 105.8 fL (80.0-100.0); Mean Platelet Volume 8.5 fL (7.0-11.0); Mono # (Auto) 0.3 th/mm3 (0.0-0.9); Mono % (Auto) 1.6 % (0.0-8.0); Neut # (Auto) 16.7 th/mm3 (1.8-7.7); Platelet Count 183 th/mm3 (150-450); Red Blood Count 3.22 mil/mm3 (4.00-5.30); Red Cell Distribution Width 13.7 % (11.6-17.2); White Blood Count 17.7 th/mm3 (4.0-11.0)
[2018-02-19 06:36] LABS: Alanine Aminotransferase 12 U/L (10-53); Albumin 2.6 g/dL (3.4-5.0); Alkaline Phosphatase 51 U/L (45-117); Anion Gap 10 meq/L (5-15); Aspartate Aminotransferase 13 U/L (15-37); Blood Urea Nitrogen 15 mg/dL (7-18); Calcium 7.7 mg/dL (8.5-10.1); Carbon Dioxide 23.4 meq/L (21.0-32.0); Chloride 112 meq/L (98-107); Glomerular Filtration Rate 67 mL/min (>89); Glucose,Random 147 mg/dL (74-106); Potassium 3.8 meq/L (3.5-5.1); Sodium 145 meq/L (136-145)
[2018-02-19] MEDS: Acetaminophen 325 MG Tablet PO PRN (08:46)
[2018-02-19] MEDS: Azithromycin 250 MG Tablet PO SCH (08:46)
[2018-02-19] MEDS: Carvedilol 6.25 MG Tablet PO SCH ×2 (08:47→21:33)
[2018-02-19] MEDS: FLUoxetine 20 MG Capsule PO SCH (08:47)
[2018-02-19] MEDS: Sod Chloride 0.9% Inj 1,000 ML IV.CONT SCH ×2 (08:47→16:24)
[2018-02-19] MEDS: dilTIAZem CD 180 MG Capsule PO SCH (08:47)
[2018-02-19] MEDS: Pantoprazole Sodium 20 MG DR Tablet PO SCH ×2 (08:47→21:33)
--- NOTE | 2018-02-19 10:52 | ECG ---
Date Performed: 02/18/2018 Time Performed: 17:37:36 PTAGE: 82 years EKG: ATRIAL FIBRILLATION WITH RAPID VENTRICULAR RESPONSE LEFT AXIS DEVIATION LOW QRS VOLTAGE IN PRECORDIAL LEADS POSSIBLE ANTERIOR MYOCARDIAL INFARCTION ABNORMAL ECG PREVIOUS TRACING : 09/08/2017 03.45 No significant change from previous tracing noted. DOCTOR: Jim Doyle Interpretating Date/Time 02/19/2018 10:50:43
--- NOTE | 2018-02-19 13:53 | MB ---
cc: Dev Krishnamurthy MD DATE: 02/19/2018 REASON FOR CONSULTATION: Cough and hemoptysis. HISTORY OF PRESENT ILLNESS: This is an 82-year-old lady with a past history of asthma and chronic bronchitis as well as Cedillo esophagus and obstructive sleep apnea who has been on anticoagulation for a history of chronic atrial fibrillation. The patient also has hypertension. She has been experiencing shortness of breath, cough, congestion and mild hemoptysis and came to the emergency room where a chest CT was done which showed increased interstitial markings as well as a right lower lobe infiltrate, but no lung masses. The patient also stated that she vomited twice and it was dark material. The patient denies any significant chest pains. She has had no fevers, chills or recent weight loss and denies leg or calf muscle pains. PAST MEDICAL HISTORY: Significant for asthma, chronic bronchitis, obstructive lung disease, obstructive sleep apnea for which she uses CPAP mask nightly, history of hypertension and atrial fibrillation. PAST SURGICAL HISTORY: Includes , permanent pacemaker placement and shoulder repair. She had a hysterectomy in the past. HABITS: The patient smoked remotely a pack a day for about 20 years and quit, but she was exposed to secondhand smoke all her life from her parents and her , who , and her sister as well. Alcohol use, occasional. ALLERGIES: SULFA. FAMILY HISTORY: Significant for chronic lung disease. REVIEW OF SYSTEMS: The patient has no chest pain. She has had hemoptysis. The patient has had no weight loss. She denies any headaches or blackouts. She has some sinus drainage. She has wheezing and cough. She has nausea and had vomiting. She has had reflux symptoms and abdominal pain. No urinary symptoms. Denies any joint pains. She has mild leg swelling. MEDICATION LIST: Included: 1. Bumex 2 mg daily. 2. Carvedilol 6.25 mg b.i.d. 3. Diltiazem 180 mg a day. 4. Fluoxetine 20 mg daily. 5. Mucinex 600 mg b.i.d. 6. Omeprazole 20 mg b.i.d. 7. Coumadin 3 mg a day. 8. Fosamax 70 mg weekly. PHYSICAL EXAMINATION: GENERAL: This is a moderately obese elderly lady in no acute distress. Mild pallor. No cyanosis or icterus. No lymphadenopathy. VITAL SIGNS: Blood pressure 130/70, pulse 95, respirations 16, temperature 97.8. HEENT: Head is normocephalic. Pupils are reactive and equal. Tongue is moist. Throat is mildly injected. Nasal mucosa is clear. NECK: Supple. No bruits, thyroid enlargement or lymphadenopathy. CHEST: Equal movements with distant breath sounds and a few coarse wheezes throughout both lung elizalde. HEART: Irregular. S1 and S2 with no definite murmur. No S3. ABDOMEN: Protuberant with mild epigastric tenderness. Bowel sounds are active. EXTREMITIES: Mild varicosities and decreased peripheral pulses. No edema. NEUROLOGIC: Reflexes are 1+ with no gross motor deficits. Cranial nerves are grossly intact. SKIN: No lesions noted. IMPRESSION: 1. Hemoptysis, etiology to be determined. 2. Pulmonary edema versus right basal pneumonia. 3. Atrial fibrillation, chronic. 4. Hypertension. 5. Chronic obstructive pulmonary disease with chronic bronchitis and asthma with acute exacerbation. 6. Obstructive sleep apnea syndrome. PLAN: The patient is presently off anticoagulation. We will continue with antibiotic coverage for possible pneumonia, which includes Zithromax 500 mg daily and Rocephin 2 grams IV daily. Sputum will be sent for cytology and cultures. Nebulized DuoNeb solution added t.i.d. p.r.n. PFTs to be done at the bedside. If the hemoptysis subsides, we could observe her. If there is persistent hemoptysis, we will schedule her for a bronchoscopy to evaluate the lower airways. This was discussed with the patient. For the sleep apnea, she will continue using her CPAP mask from home. We will also add Symbicort 160/4.5 two puffs twice daily. O2 supplementation at 2 liters nasal cannula. Thank you, Dr. Machado, for this consultation. MD FRANCISCA Martin/lynette , 12:48 PM , 01:06 PM
[2018-02-19] MEDS: levoFLOXacin 750 MG Tablet PO SCH (21:33)
[2018-02-20] MEDS: MethylPREDNISolone Sod Succinate Inj 40 MG/ML Vial IV.PUSH SCH ×5 (01:08→21:03)
[2018-02-20] MEDS: Sod Chloride 0.9% Inj 1,000 ML IV.CONT SCH ×3 (06:21→22:28)
[2018-02-20 07:51] LABS: INR 1.9 Ratio; Prothrombin Time 19.5 sec (9.8-11.6)
[2018-02-20 07:52] LABS: Baso % (Auto) 0.1 % (0.0-2.0); Eos % (Auto) 0.1 % (0.0-4.0); Hematocrit 32.9 % (35.0-46.0); Hemoglobin 11.2 gm/dL (11.6-15.3); Lymph # (Auto) 0.7 th/mm3 (1.0-4.8); Lymph % (Auto) 5.9 % (9.0-44.0); Mean Corpuscular HGB Conc 34.2 % (32.0-36.0); Mean Corpuscular Hemoglobin 35.7 pg (27.0-34.0); Mean Corpuscular Volume 104.4 fL (80.0-100.0); Mean Platelet Volume 8.8 fL (7.0-11.0); Mono # (Auto) 0.3 th/mm3 (0.0-0.9); Mono % (Auto) 2.3 % (0.0-8.0); Neut # (Auto) 11.3 th/mm3 (1.8-7.7); Neut % (Auto) 91.6 % (16.0-70.0); Platelet Count 185 th/mm3 (150-450); Red Blood Count 3.15 mil/mm3 (4.00-5.30); Red Cell Distribution Width 14.1 % (11.6-17.2); White Blood Count 12.4 th/mm3 (4.0-11.0)
[2018-02-20 08:10] LABS: Calcium 7.4 mg/dL (8.5-10.1); Potassium 3.4 meq/L (3.5-5.1)
[2018-02-20 08:20] LABS: Albumin 2.6 g/dL (3.4-5.0); Calcium-Albumin Corrected 8.5 mg/dL (8.5-10.1)
[2018-02-20] MEDS: Azithromycin 250 MG Tablet PO SCH (09:14)
[2018-02-20] MEDS: dilTIAZem CD 180 MG Capsule PO SCH (09:14)
[2018-02-20] MEDS: Carvedilol 6.25 MG Tablet PO SCH ×2 (09:15→20:40)
[2018-02-20] MEDS: Pantoprazole Sodium 20 MG DR Tablet PO SCH ×2 (09:15→20:40)
[2018-02-20] MEDS: FLUoxetine 20 MG Capsule PO SCH (09:15)
[2018-02-20] MEDS: Acetaminophen 325 MG Tablet PO PRN ×2 (12:16→22:28)
--- NOTE | 2018-02-20 15:00 | P.PN ---
Subjective Interval history: She has some dark sputum now. On O2 2 l Had some SOB last nite. Physical Exam Vital signs: Vital Signs 02/19/18 16:00 02/19/18 16:37 02/19/18 20:00 Temperature 97.6 F 98.2 F Pulse Rate 108 H 81 102 H Respiratory Rate 17 16 17 Blood Pressure 129/78 143/58 H Pulse Oximetry 92 L 96 02/19/18 21:53 02/20/18 00:00 02/20/18 08:00 Temperature 98.2 F 97.6 F Pulse Rate 93 H 112 H 104 H Respiratory Rate 20 18 17 Blood Pressure 142/70 H 155/99 H Pulse Oximetry 94 L 96 93 L 02/20/18 08:28 02/20/18 12:00 Temperature 98.1 F Pulse Rate 123 H 110 H Respiratory Rate 23 18 Blood Pressure 132/76 Pulse Oximetry 94 L 90 L Intake & Output 02/19/18 02/20/18 02/20/18 18:59 06:59 18:59 Intake Total 1300 / 1300 1580 / 1580 Balance 1300 / 1300 1580 / 1580 Weight 79 kg 79 kg Intake: IV 1300 / 1300 1000 / 1000 NS Inj 1,000 ML @ 100 mls/hr IV 1300 / 1300 1000 / 1000 .CONT .Q10H [facility] Rx#:[id number] Oral 580 / 580 Other: # Voids 3 Weight On Admission 79.4 kg Narrative: GENERAL: This is a well-nourished, well-developed patient, in no apparent distress. SKIN: No rashes, ecchymoses or lesions. Cool and dry. HEAD: Atraumatic. Normocephalic. EYES: No scleral icterus. No injection or drainage. ENT: Nose without bleeding, purulent drainage. NECK: Trachea midline. No JVD. CARDIOVASCULAR: Irregularly irregular without murmurs, gallops, or rubs. RESPIRATORY: She has expiratory wheezing in upper chest . GASTROINTESTINAL: Abdomen soft, non-tender, nondistended. No guarding. MUSCULOSKELETAL: Extremities without clubbing, cyanosis, or edema. No calf tenderness. NEUROLOGICAL: Awake and alert. Motor and sensory grossly within normal limits. Normal speech. . Results - Labs CBC & Chem 7: 02/20/18 07:20 02/20/18 07:20 Laboratory Results - last 24 hr 02/20/18 02/20/18 02/20/18 07:00 07:20 07:20 WBC 12.4 H RBC 3.15 L Hgb 11.2 L Hct 32.9 L MCV 104.4 H MCH 35.7 H MCHC 34.2 RDW 14.1 Plt Count 185 MPV 8.8 Neut % (Auto) 91.6 H Lymph % (Auto) 5.9 L [place] % (Auto) 2.3 Eos % (Auto) 0.1 Baso % (Auto) 0.1 Neut # (Auto) 11.3 H Lymph # (Auto) 0.7 L [place] # (Auto) 0.3 Eos # (Auto) 0.0 Baso # (Auto) 0.0 WBC Differential . Differential Comment Auto diff final PT 19.5 H INR 1.9 Sodium 144 Potassium 3.4 L Chloride 112 H Carbon Dioxide 23.0 Anion Gap 9 BUN 17 Creatinine 0.80 Estimated GFR 69 L Random Glucose 148 H Calcium 7.4 L* Calcium Adj for Albumin 8.5 Albumin 2.6 L Microbiology 02/18/18 16:25 Blood - Peripheral Aerobic Blood Culture - Preliminary No growth in 2 days 02/18/18 16:25 Blood - Peripheral Anaerobic Blood Culture - Preliminary No growth in 2 days 02/18/18 16:20 Blood - Peripheral Aerobic Blood Culture - Preliminary No growth in 2 days 02/18/18 16:20 Blood - Peripheral Anaerobic Blood Culture - Preliminary No growth in 2 days Assessment and Plan - Assessment (1) Hemoptysis Code(s): R04.2 - Hemoptysis Status: Acute (2) Bilateral pneumonia Code(s): J18.9 - Pneumonia, unspecified organism Status: Acute (3) Hypertension Code(s): I10 - Essential (primary) hypertension Status: Chronic (4) COPD (chronic obstructive pulmonary disease) Code(s): J44.9 - Chronic obstructive pulmonary disease, unspecified Status: Chronic (5) Atrial fibrillation Code(s): I48.91 - Unspecified atrial fibrillation Status: Chronic (6) CHF (congestive heart failure) Code(s): I50.9 - Heart failure, unspecified Status: Chronic (7) Acid reflux Code(s): K21.9 - Gastro-esophageal reflux disease without esophagitis Status: Chronic (8) DVT prophylaxis Status: Acute - Plan 1. Hold coumadin. 2. Will schedule Bronchoscopy on thursday 3. Continue Antibiotics. 4. O2 2 L. 5. Coag Profile in am and CBC 6. Symbicort 160/4.5 mcg, 2puffs BID (2) Bilateral pneumonia Qualifiers: Pneumonia type: due to unspecified organism Lung location: unspecified part of lung Qualified Code(s): J18.9 - Pneumonia, unspecified organism (3) Hypertension Qualifiers: Hypertension type: essential hypertension Qualified Code(s): I10 - Essential (primary) hypertension (4) 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 Qualified Code(s): J43.9 - Emphysema, unspecified (5) Atrial fibrillation Qualifiers: Atrial fibrillation type: chronic Qualified Code(s): I48.2 - Chronic atrial fibrillation (6) CHF (congestive heart failure) Qualifiers: Heart failure type: diastolic Heart failure chronicity: unspecified Qualified Code(s): I50.30 - Unspecified diastolic (congestive) heart failure (7) Acid reflux Qualifiers: Esophagitis presence: without esophagitis Qualified Code(s): K21.9 - Gastro- esophageal reflux disease without esophagitis
--- NOTE | 2018-02-20 15:25 | P.PN ---
Subjective Interval history: In bed , still with some sob, wheezing. No fever ro chills. Still with streaks of blood when she is coughing. However says cough is less. No n/v/d/c. Physical Exam Vital signs: Vital Signs 02/19/18 16:00 02/19/18 16:37 02/19/18 20:00 Temperature 97.6 F 98.2 F Pulse Rate 108 H 81 102 H Respiratory Rate 17 16 17 Blood Pressure 129/78 143/58 H Pulse Oximetry 92 L 96 02/19/18 21:53 02/20/18 00:00 02/20/18 08:00 Temperature 98.2 F 97.6 F Pulse Rate 93 H 112 H 104 H Respiratory Rate 20 18 17 Blood Pressure 142/70 H 155/99 H Pulse Oximetry 94 L 96 93 L 02/20/18 08:28 02/20/18 12:00 Temperature 98.1 F Pulse Rate 123 H 110 H Respiratory Rate 23 18 Blood Pressure 132/76 Pulse Oximetry 94 L 90 L Intake & Output 02/19/18 02/20/18 02/20/18 18:59 06:59 18:59 Intake Total 1300 / 1300 1580 / 1580 Balance 1300 / 1300 1580 / 1580 Weight 79 kg 79 kg Intake: IV 1300 / 1300 1000 / 1000 NS Inj 1,000 ML @ 100 mls/hr IV 1300 / 1300 1000 / 1000 .CONT .Q10H [facility] Rx#:[id number] Oral 580 / 580 Other: # Voids 3 Weight On Admission 79.4 kg Narrative: GENERAL: This is a very pleasant 82 yo female, well-nourished, well-developed, with some sob. SKIN: No rashes, ecchymoses or lesions. Cool and dry. CARDIOVASCULAR: Irregularly irregular without murmurs, gallops, or rubs. RESPIRATORY: Decreased breath sounds, expiratory wheezing in upper chest left side > right side. GASTROINTESTINAL: Abdomen soft, non-tender, nondistended. No guarding. MUSCULOSKELETAL: Extremities without clubbing, cyanosis, or edema. No calf tenderness. NEUROLOGICAL: Awake and alert. Motor and sensory grossly within normal limits. Normal speech. . Results - Labs CBC & Chem 7: 02/20/18 07:20 02/20/18 07:20 Laboratory Results - last 24 hr 02/20/18 02/20/18 02/20/18 07:00 07:20 07:20 WBC 12.4 H RBC 3.15 L Hgb 11.2 L Hct 32.9 L MCV 104.4 H MCH 35.7 H MCHC 34.2 RDW 14.1 Plt Count 185 MPV 8.8 Neut % (Auto) 91.6 H Lymph % (Auto) 5.9 L [place] % (Auto) 2.3 Eos % (Auto) 0.1 Baso % (Auto) 0.1 Neut # (Auto) 11.3 H Lymph # (Auto) 0.7 L [place] # (Auto) 0.3 Eos # (Auto) 0.0 Baso # (Auto) 0.0 WBC Differential . Differential Comment Auto diff final PT 19.5 H INR 1.9 Sodium 144 Potassium 3.4 L Chloride 112 H Carbon Dioxide 23.0 Anion Gap 9 BUN 17 Creatinine 0.80 Estimated GFR 69 L Random Glucose 148 H Calcium 7.4 L* Calcium Adj for Albumin 8.5 Albumin 2.6 L Microbiology 02/18/18 16:25 Blood - Peripheral Aerobic Blood Culture - Preliminary No growth in 2 days 02/18/18 16:25 Blood - Peripheral Anaerobic Blood Culture - Preliminary No growth in 2 days 02/18/18 16:20 Blood - Peripheral Aerobic Blood Culture - Preliminary No growth in 2 days 02/18/18 16:20 Blood - Peripheral Anaerobic Blood Culture - Preliminary No growth in 2 days Assessment and Plan - Plan Ms. Sims is a very pleasant 82-year-old female with a history of COPD, asthma , atrial fibrillation, Cedillo's esophagus, sleep apnea, and hypertension who presented to the emergency room on 02/18/2018 complaining of a nearly week-long history of shortness of breath progressively worsening and accompanied by cough with hemoptysis. The patient was found to have pneumonia on chest x-ray and was admitted to the hospitalist service for medical medical management. Right lower lobe pneumonia -Chest x-ray shows increased interstitial markings bilaterally suggestive of pulmonary edema versus pneumonia -recently reviewed chest x-ray and findings seem consistent with pneumonia -Chest CTA is negative for central pulmonary emboli, new infiltrate with consolidative changes in right lower lobe, no pleural effusion, inflammatory process suspected -Negative for influenza a and B. Sputum cultures -Antibiotics: Levaquin and azithromycin p.o. -Await results of blood cultures and adjust treatments as needed -Solu-Medrol 60 mg IV push every 6 hours, will taper as tolerated -Supplemental oxygen as needed titrated to maintain oxygen saturation greater than 92% -Monitor vital signs and pulse oximetry at least every 4 hours - Add IS/ EZPAP/ Acapella - Plan for bronchoscopy on Thursday or Thursday Leukocytosis -WBC 20.5 with left shift secondary to pneumonia -Monitor white blood count routinely -anticipate return to normal with adequate treatment Atrial fibrillation on Coumadin with therapeutic INR of 2.2 -Pharmacy consultation for Coumadin therapeutic monitoring and dosing -Continue home medications: carvedilol, and diltiazem DC Coumadin in light of procedure. Monitor INR Also patient says she doesn't want to take Coumadin anymore. Discussed regarding other options for antoicoagualtion patient decided for Eliquis, Will start Eliquis after procedure -Continuous cardiac telemetry to monitor rate and rhythm DVT prophylaxis -SCD/TEDS was on coumadin, will give eliquis after procedure Plan for bronch on Thursday or Thursday Discussed with the patient, nurse, Dr Yessy lyles DC plan: pending improvement and clearance from pulm. Plan for bronch on Thu or Thu
[2018-02-20 16:39] LABS: Baso % (Auto) 0.1 % (0.0-2.0); Hemoglobin 11.4 gm/dL (11.6-15.3); Lymph # (Auto) 0.8 th/mm3 (1.0-4.8); Mean Corpuscular HGB Conc 33.5 % (32.0-36.0); Mean Corpuscular Hemoglobin 35.3 pg (27.0-34.0); Mean Corpuscular Volume 105.2 fL (80.0-100.0); Mean Platelet Volume 8.7 fL (7.0-11.0); Mono # (Auto) 0.4 th/mm3 (0.0-0.9); Mono % (Auto) 2.7 % (0.0-8.0); Neut # (Auto) 13.9 th/mm3 (1.8-7.7); Neut % (Auto) 92.2 % (16.0-70.0); Platelet Count 189 th/mm3 (150-450); Red Blood Count 3.23 mil/mm3 (4.00-5.30); Red Cell Distribution Width 13.9 % (11.6-17.2); White Blood Count 15.1 th/mm3 (4.0-11.0)
[2018-02-20 16:48] LABS: INR 1.9 Ratio; Prothrombin Time 19.6 sec (9.8-11.6)
[2018-02-20 17:22] LABS: Lymphocytes 5 % (9-44); Monocytes 5 % (0-8); Myelocytes 2 % (0-0); Platelet Estimate Normal (Normal); Platelet Morphology Normal (Normal); RBC Morphology Normal (Normal)
[2018-02-20] MEDS: Magnesium Oxide 400 MG Tablet PO SCH (17:36)
[2018-02-20] MEDS: Dextrose 5%/NaCl 0.45% Inj 1,000 ML IV.CONT SCH (17:43)
[2018-02-20] MEDS: Budesonide-Formoterol 160/4.5 MCG 6 GM Inhaler INH SCH (20:40)
[2018-02-21] MEDS: MethylPREDNISolone Sod Succinate Inj 40 MG/ML Vial IV.PUSH SCH ×4 (04:16→22:15)
[2018-02-21] MEDS: Carvedilol 6.25 MG Tablet PO SCH ×2 (08:18→20:23)
[2018-02-21] MEDS: dilTIAZem CD 180 MG Capsule PO SCH (08:18)
[2018-02-21] MEDS: FLUoxetine 20 MG Capsule PO SCH (08:18)
[2018-02-21] MEDS: Pantoprazole Sodium 20 MG DR Tablet PO SCH ×2 (08:18→20:23)
[2018-02-21] MEDS: Azithromycin 250 MG Tablet PO SCH (08:19)
[2018-02-21] MEDS: Magnesium Oxide 400 MG Tablet PO SCH (08:19)
[2018-02-21] MEDS: Budesonide-Formoterol 160/4.5 MCG 6 GM Inhaler INH SCH ×2 (08:20→20:24)
[2018-02-21 09:32] LABS: Baso % (Auto) 0.1 % (0.0-2.0); Hematocrit 34.1 % (35.0-46.0); Hemoglobin 11.9 gm/dL (11.6-15.3); Lymph # (Auto) 0.8 th/mm3 (1.0-4.8); Lymph % (Auto) 8.9 % (9.0-44.0); Mean Corpuscular HGB Conc 34.8 % (32.0-36.0); Mean Corpuscular Hemoglobin 36.3 pg (27.0-34.0); Mean Corpuscular Volume 104.2 fL (80.0-100.0); Mean Platelet Volume 8.8 fL (7.0-11.0); Mono # (Auto) 0.3 th/mm3 (0.0-0.9); Mono % (Auto) 2.9 % (0.0-8.0); Neut # (Auto) 8.2 th/mm3 (1.8-7.7); Neut % (Auto) 88.1 % (16.0-70.0); Platelet Count 189 th/mm3 (150-450); Red Blood Count 3.28 mil/mm3 (4.00-5.30); White Blood Count 9.3 th/mm3 (4.0-11.0)
[2018-02-21 09:41] LABS: INR 1.7 Ratio; Prothrombin Time 17.4 sec (9.8-11.6)
[2018-02-21 09:54] LABS: Calcium 7.5 mg/dL (8.5-10.1); Carbon Dioxide 21.1 meq/L (21.0-32.0); Potassium 3.7 meq/L (3.5-5.1)
[2018-02-21 10:33] LABS: Lymphocytes 6 % (9-44); Metamyelocytes 1 % (0-1); Monocytes 3 % (0-8); Myelocytes 2 % (0-0)
[2018-02-21 10:34] LABS: Platelet Estimate Normal (Normal); Platelet Morphology Normal (Normal)
[2018-02-21] MEDS: Sod Chloride 0.9% Inj 1,000 ML IV.CONT SCH ×3 (10:39→20:24)
--- NOTE | 2018-02-21 10:43 | P.PN ---
Subjective Interval history: She feels a little bit improved today however still with shortness of breath and wheezing. Did cough today with chunks of blood x2. No fever chills overnight. Plan for bronchoscopy tomorrow. Says she is using incentive spirometry and Acapella and feels is helping. Physical Exam Vital signs: Vital Signs 02/20/18 12:00 02/20/18 16:00 02/20/18 16:19 Temperature 98.1 F 97.7 F Pulse Rate 110 H 116 H 105 H Respiratory Rate 18 17 22 Blood Pressure 132/76 134/86 Pulse Oximetry 90 L 91 L 02/20/18 20:00 02/20/18 20:17 02/20/18 22:32 Temperature 98.3 F Pulse Rate 96 H 79 Respiratory Rate 22 18 Blood Pressure 134/80 Pulse Oximetry 93 L 96 93 L 02/20/18 23:48 02/21/18 00:00 02/21/18 03:22 Temperature 97.1 F L Pulse Rate 63 122 H 107 H Respiratory Rate 16 18 18 Blood Pressure 144/89 H Pulse Oximetry 95 02/21/18 08:00 02/21/18 09:39 Temperature 97.1 F L Pulse Rate 94 H 94 H Respiratory Rate 16 20 Blood Pressure 163/77 H Pulse Oximetry 98 Intake & Output 02/20/18 02/21/18 02/21/18 18:59 06:59 18:59 Intake Total 2710 / 2710 250 / 250 Balance 2710 / 2710 250 / 250 Weight 80.3 kg Intake: IV 1750 / 1750 250 / 250 NS Inj 1,000 ML @ 100 mls/hr IV 1750 / 1750 250 / 250 .CONT .Q10H [facility] Rx#:[id number] Oral 960 / 960 Other: # Voids 6 Narrative: GENERAL: This is a very pleasant 82 yo female, well-nourished, well-developed, with some sob. SKIN: No rashes, ecchymoses or lesions. Cool and dry. CARDIOVASCULAR: Irregularly irregular without murmurs, gallops, or rubs. RESPIRATORY: Decreased breath sounds, expiratory wheezing in upper chest left side > right side. GASTROINTESTINAL: Abdomen soft, non-tender, nondistended. No guarding. MUSCULOSKELETAL: Extremities without clubbing, cyanosis, or edema. No calf tenderness. NEUROLOGICAL: Awake and alert. Motor and sensory grossly within normal limits. Normal speech. . Results - Labs CBC & Chem 7: 02/21/18 08:03 02/21/18 08:03 Laboratory Results - last 24 hr 02/20/18 02/20/18 02/21/18 15:23 15:23 08:03 WBC 15.1 H RBC 3.23 L Hgb 11.4 L Hct 34.0 L MCV 105.2 H MCH 35.3 H MCHC 33.5 RDW 13.9 Plt Count 189 MPV 8.7 Prelim Diff (Auto) Slide review pending Neut % (Auto) 92.2 H Lymph % (Auto) 5.0 L [place] % (Auto) 2.7 Eos % (Auto) 0.0 Baso % (Auto) 0.1 Neut # (Auto) 13.9 H Lymph # (Auto) 0.8 L [place] # (Auto) 0.4 Eos # (Auto) 0.0 Baso # (Auto) 0.0 WBC Differential Manual diff final Seg Neuts % (Manual) 80 H Band Neuts % (Manual) 8 H Lymphocytes % (Manual) 5 L Monocytes % (Manual) 5 Metamyelocytes % (Man) Myelocytes % (Man) 2 H Abs Neuts (Manual) 13.6 H Differential Comment . Platelet Estimate Normal Platelet Morphology Normal RBC Morphology Normal PT 19.6 H 17.4 H INR 1.9 1.7 Sodium Potassium Chloride Carbon Dioxide Anion Gap BUN Creatinine Estimated GFR Random Glucose Calcium Magnesium 02/21/18 02/21/18 08:03 08:03 WBC 9.3 RBC 3.28 L Hgb 11.9 Hct 34.1 L MCV 104.2 H MCH 36.3 H MCHC 34.8 RDW 14.0 Plt Count 189 MPV 8.8 Prelim Diff (Auto) Slide review pending Neut % (Auto) 88.1 H Lymph % (Auto) 8.9 L [place] % (Auto) 2.9 Eos % (Auto) 0.0 Baso % (Auto) 0.1 Neut # (Auto) 8.2 H Lymph # (Auto) 0.8 L [place] # (Auto) 0.3 Eos # (Auto) 0.0 Baso # (Auto) 0.0 WBC Differential Manual diff final Seg Neuts % (Manual) 86 H Band Neuts % (Manual) 2 Lymphocytes % (Manual) 6 L Monocytes % (Manual) 3 Metamyelocytes % (Man) 1 Myelocytes % (Man) 2 H Abs Neuts (Manual) 8.5 H Differential Comment . Platelet Estimate Normal Platelet Morphology Normal RBC Morphology PT INR Sodium 144 Potassium 3.7 Chloride 114 H Carbon Dioxide 21.1 Anion Gap 9 BUN 16 Creatinine 0.81 Estimated GFR 68 L Random Glucose 145 H Calcium 7.5 L Magnesium 2.0 Microbiology 02/18/18 16:25 Blood - Peripheral Aerobic Blood Culture - Preliminary No growth in 2 days 02/18/18 16:25 Blood - Peripheral Anaerobic Blood Culture - Preliminary No growth in 2 days 02/18/18 16:20 Blood - Peripheral Aerobic Blood Culture - Preliminary No growth in 2 days 02/18/18 16:20 Blood - Peripheral Anaerobic Blood Culture - Preliminary No growth in 2 days Assessment and Plan - Plan Ms. Sims is a very pleasant 82-year-old female with a history of COPD, asthma , atrial fibrillation, Cedillo's esophagus, sleep apnea, and hypertension who presented to the emergency room on 02/18/2018 complaining of a nearly week-long history of shortness of breath progressively worsening and accompanied by cough with hemoptysis. The patient was found to have pneumonia on chest x-ray and was admitted to the hospitalist service for medical medical management. Right lower lobe pneumonia -Chest x-ray shows increased interstitial markings bilaterally suggestive of pulmonary edema versus pneumonia -recently reviewed chest x-ray and findings seem consistent with pneumonia -Chest CTA is negative for central pulmonary emboli, new infiltrate with consolidative changes in right lower lobe, no pleural effusion, inflammatory process suspected -Negative for influenza a and B. Sputum cultures -Antibiotics: Levaquin and azithromycin p.o. -Await results of blood cultures and adjust treatments as needed -Solu-Medrol 60 mg IV push every 6 hours, will taper as tolerated -Supplemental oxygen as needed titrated to maintain oxygen saturation greater than 92% -Monitor vital signs and pulse oximetry at least every 4 hours - Add IS/ EZPAP/ Acapella - Plan for bronchoscopy on Thursday or Thursday Leukocytosis -WBC 20.5 with left shift secondary to pneumonia -Monitor white blood count routinely -anticipate return to normal with adequate treatment Atrial fibrillation on Coumadin with therapeutic INR of 2.2 -Pharmacy consultation for Coumadin therapeutic monitoring and dosing -Continue home medications: carvedilol, and diltiazem DC Coumadin in light of procedure. Monitor INR Also patient says she doesn't want to take Coumadin anymore. Discussed regarding other options for antoicoagualtion patient decided for Eliquis, Will start Eliquis after procedure -Continuous cardiac telemetry to monitor rate and rhythm DVT prophylaxis -SCD/TEDS was on coumadin, will give eliquis after procedure Plan for bronch on Thursday or Thursday Discussed with the patient, nurse, Dr Yessy lyles DC plan: pending improvement and clearance from puleric. Plan for bronch on Thu or Thu N.p.o. after midnight
[2018-02-21 11:16] LABS: Immunoglobulin G 650 mg/dL (650-1610)
[2018-02-21 11:26] LABS: Immunoglobulin M 132 mg/dL (39-238)
--- NOTE | 2018-02-21 15:36 | P.PN ---
Subjective Interval history: She is better. Less cough and hemoptysis. No fever. Will go for bronchoscopy in am. Physical Exam Vital signs: Vital Signs 02/20/18 16:00 02/20/18 16:19 02/20/18 20:00 Temperature 97.7 F 98.3 F Pulse Rate 116 H 105 H 96 H Respiratory Rate 17 22 22 Blood Pressure 134/86 134/80 Pulse Oximetry 91 L 93 L 02/20/18 20:17 02/20/18 22:32 02/20/18 23:48 Temperature Pulse Rate 79 63 Respiratory Rate 18 16 Blood Pressure Pulse Oximetry 96 93 L 02/21/18 00:00 02/21/18 03:22 02/21/18 08:00 Temperature 97.1 F L 97.1 F L Pulse Rate 122 H 107 H 94 H Respiratory Rate 18 18 16 Blood Pressure 144/89 H 163/77 H Pulse Oximetry 95 98 02/21/18 09:39 02/21/18 12:00 02/21/18 12:32 Temperature 97.8 F Pulse Rate 94 H 75 89 Respiratory Rate 20 19 20 Blood Pressure 141/77 H Pulse Oximetry 90 L Intake & Output 02/20/18 02/21/18 02/21/18 18:59 06:59 18:59 Intake Total 2710 / 2710 250 / 250 Balance 2710 / 2710 250 / 250 Weight 80.3 kg Intake: IV 1750 / 1750 250 / 250 NS Inj 1,000 ML @ 100 mls/hr IV 1750 / 1750 250 / 250 .CONT .Q10H [facility] Rx#:[id number] Oral 960 / 960 Other: # Voids 6 Narrative: GENERAL: This is a very pleasant 82 yo female, well-nourished. SKIN: No rashes, ecchymoses or lesions. Cool and dry. CARDIOVASCULAR: Irregularly irregular without murmurs, gallops, or rubs. RESPIRATORY: Decreased breath sounds, expiratory wheezing in upper chest . bilateral. Abdomen : Benign. MUSCULOSKELETAL: Extremities without clubbing, cyanosis, or edema. No calf tenderness. NEUROLOGICAL: Awake and alert. Motor and sensory grossly within normal limits. Normal speech. . Results - Labs CBC & Chem 7: 02/21/18 08:03 02/21/18 08:03 Laboratory Results - last 24 hr 02/20/18 02/20/18 02/21/18 15:23 15:23 08:03 WBC 15.1 H RBC 3.23 L Hgb 11.4 L Hct 34.0 L MCV 105.2 H MCH 35.3 H MCHC 33.5 RDW 13.9 Plt Count 189 MPV 8.7 Prelim Diff (Auto) Slide review pending Neut % (Auto) 92.2 H Lymph % (Auto) 5.0 L [place] % (Auto) 2.7 Eos % (Auto) 0.0 Baso % (Auto) 0.1 Neut # (Auto) 13.9 H Lymph # (Auto) 0.8 L [place] # (Auto) 0.4 Eos # (Auto) 0.0 Baso # (Auto) 0.0 WBC Differential Manual diff final Seg Neuts % (Manual) 80 H Band Neuts % (Manual) 8 H Lymphocytes % (Manual) 5 L Monocytes % (Manual) 5 Metamyelocytes % (Man) Myelocytes % (Man) 2 H Abs Neuts (Manual) 13.6 H Differential Comment . Platelet Estimate Normal Platelet Morphology Normal RBC Morphology Normal PT 19.6 H 17.4 H INR 1.9 1.7 Sodium Potassium Chloride Carbon Dioxide Anion Gap BUN Creatinine Estimated GFR Random Glucose Calcium Magnesium IgG IgM 02/21/18 02/21/18 02/21/18 08:03 08:03 08:03 WBC 9.3 RBC 3.28 L Hgb 11.9 Hct 34.1 L MCV 104.2 H MCH 36.3 H MCHC 34.8 RDW 14.0 Plt Count 189 MPV 8.8 Prelim Diff (Auto) Slide review pending Neut % (Auto) 88.1 H Lymph % (Auto) 8.9 L [place] % (Auto) 2.9 Eos % (Auto) 0.0 Baso % (Auto) 0.1 Neut # (Auto) 8.2 H Lymph # (Auto) 0.8 L [place] # (Auto) 0.3 Eos # (Auto) 0.0 Baso # (Auto) 0.0 WBC Differential Manual diff final Seg Neuts % (Manual) 86 H Band Neuts % (Manual) 2 Lymphocytes % (Manual) 6 L Monocytes % (Manual) 3 Metamyelocytes % (Man) 1 Myelocytes % (Man) 2 H Abs Neuts (Manual) 8.5 H Differential Comment . Platelet Estimate Normal Platelet Morphology Normal RBC Morphology PT INR Sodium 144 Potassium 3.7 Chloride 114 H Carbon Dioxide 21.1 Anion Gap 9 BUN 16 Creatinine 0.81 Estimated GFR 68 L Random Glucose 145 H Calcium 7.5 L Magnesium 2.0 IgG 650 IgM 132 Microbiology 02/18/18 16:25 Blood - Peripheral Aerobic Blood Culture - Preliminary No growth in 3 days 02/18/18 16:25 Blood - Peripheral Anaerobic Blood Culture - Preliminary No growth in 3 days 02/18/18 16:20 Blood - Peripheral Aerobic Blood Culture - Preliminary No growth in 3 days 02/18/18 16:20 Blood - Peripheral Anaerobic Blood Culture - Preliminary No growth in 3 days Assessment and Plan - Assessment (1) Hemoptysis Code(s): R04.2 - Hemoptysis Status: Acute (2) Bilateral pneumonia Code(s): J18.9 - Pneumonia, unspecified organism Status: Acute (3) Hypertension Code(s): I10 - Essential (primary) hypertension Status: Chronic (4) COPD (chronic obstructive pulmonary disease) Code(s): J44.9 - Chronic obstructive pulmonary disease, unspecified Status: Chronic (5) Atrial fibrillation Code(s): I48.91 - Unspecified atrial fibrillation Status: Chronic (6) CHF (congestive heart failure) Code(s): I50.9 - Heart failure, unspecified Status: Chronic (7) Acid reflux Code(s): K21.9 - Gastro-esophageal reflux disease without esophagitis Status: Chronic (8) DVT prophylaxis Status: Acute - Plan 1. Hold coumadin. 2. Will schedule Bronchoscopy on thursday at 11 am 3. Continue Antibiotics. 4. O2 2 L.N/C 5. Continue Duoneb nebs qid PRN 6. Symbicort 160/4.5 mcg, 2puffs BID 7. Labs in am. (2) Bilateral pneumonia Qualifiers: Pneumonia type: due to unspecified organism Lung location: unspecified part of lung Qualified Code(s): J18.9 - Pneumonia, unspecified organism (3) Hypertension Qualifiers: Hypertension type: essential hypertension Qualified Code(s): I10 - Essential (primary) hypertension (4) 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 Qualified Code(s): J43.9 - Emphysema, unspecified (5) Atrial fibrillation Qualifiers: Atrial fibrillation type: chronic Qualified Code(s): I48.2 - Chronic atrial fibrillation (6) CHF (congestive heart failure) Qualifiers: Heart failure type: diastolic Heart failure chronicity: unspecified Qualified Code(s): I50.30 - Unspecified diastolic (congestive) heart failure (7) Acid reflux Qualifiers: Esophagitis presence: without esophagitis Qualified Code(s): K21.9 - Gastro- esophageal reflux disease without esophagitis
[2018-02-21] MEDS: Dextrose 5%/NaCl 0.45% Inj 1,000 ML IV.CONT SCH (17:28)
[2018-02-21] MEDS: levoFLOXacin 750 MG Tablet PO SCH (20:23)
[2018-02-21] MEDS: Acetaminophen 325 MG Tablet PO PRN (22:15)
[2018-02-22] MEDS: MethylPREDNISolone Sod Succinate Inj 40 MG/ML Vial IV.PUSH SCH ×4 (04:42→21:04)
[2018-02-22] MEDS: Sod Chloride 0.9% Inj 1,000 ML IV.CONT SCH ×2 (05:24→14:42)
[2018-02-22 06:15] LABS: Baso % (Auto) 0.1 % (0.0-2.0); Eos % (Auto) 0.1 % (0.0-4.0); Hematocrit 35.6 % (35.0-46.0); Hemoglobin 11.8 gm/dL (11.6-15.3); Lymph # (Auto) 0.8 th/mm3 (1.0-4.8); Lymph % (Auto) 9.6 % (9.0-44.0); Mean Corpuscular HGB Conc 33.2 % (32.0-36.0); Mean Corpuscular Volume 105.4 fL (80.0-100.0); Mean Platelet Volume 8.7 fL (7.0-11.0); Mono # (Auto) 0.2 th/mm3 (0.0-0.9); Mono % (Auto) 2.8 % (0.0-8.0); Neut # (Auto) 7.1 th/mm3 (1.8-7.7); Neut % (Auto) 87.4 % (16.0-70.0); Platelet Count 185 th/mm3 (150-450); Red Blood Count 3.38 mil/mm3 (4.00-5.30); Red Cell Distribution Width 13.8 % (11.6-17.2); White Blood Count 8.1 th/mm3 (4.0-11.0)
[2018-02-22 06:32] LABS: INR 1.7 Ratio
[2018-02-22 06:34] LABS: Prothrombin Time 17.7 sec (9.8-11.6)
[2018-02-22 06:38] LABS: Calcium 7.2 mg/dL (8.5-10.1); Carbon Dioxide 23.3 meq/L (21.0-32.0); Potassium 3.3 meq/L (3.5-5.1)
[2018-02-22 06:50] LABS: Albumin 2.6 g/dL (3.4-5.0); Calcium-Albumin Corrected 8.3 mg/dL (8.5-10.1)
[2018-02-22] MEDS: FLUoxetine 20 MG Capsule PO SCH (08:10)
[2018-02-22] MEDS: dilTIAZem CD 180 MG Capsule PO SCH (08:10)
[2018-02-22] MEDS: Pantoprazole Sodium 20 MG DR Tablet PO SCH ×2 (08:10→20:42)
[2018-02-22] MEDS: Magnesium Oxide 400 MG Tablet PO SCH (08:10)
[2018-02-22] MEDS: Budesonide-Formoterol 160/4.5 MCG 6 GM Inhaler INH SCH ×2 (08:11→20:43)
[2018-02-22] MEDS: Carvedilol 6.25 MG Tablet PO SCH ×2 (08:11→20:42)
[2018-02-22] MEDS ORDERED: Sodium Chlor 0.9% Inj 500 ML IV.CONT ONE (08:15)
[2018-02-22] MEDS ORDERED: Chlorhexidine Gluconate 2% 1 Pack (2 Cloths) TOPICAL ONE (08:15)
--- NOTE | 2018-02-22 09:15 | P.PN ---
Subjective Interval history: Plan for bronch Was seen after she returned from bronch. Still with wheezing Still with coughing streaks of blood No fevers or chills. No n/v/d/c. No chest pain Physical Exam Vital signs: Vital Signs 02/21/18 09:39 02/21/18 12:00 02/21/18 12:32 Temperature 97.8 F Pulse Rate 94 H 75 89 Respiratory Rate 20 19 20 Blood Pressure 141/77 H Pulse Oximetry 90 L 02/21/18 16:00 02/21/18 16:10 02/21/18 19:27 Temperature 97 F L Pulse Rate 90 102 H 61 Respiratory Rate 16 20 18 Blood Pressure 163/131 H Pulse Oximetry 93 L 95 02/21/18 20:00 02/21/18 23:17 02/22/18 00:00 Temperature 97.8 F 97.2 F L Pulse Rate 131 H 78 95 H Respiratory Rate 20 22 18 Blood Pressure 127/93 H 141/65 H Pulse Oximetry 94 L 95 02/22/18 08:00 Temperature Pulse Rate Respiratory Rate 16 Blood Pressure 164/77 H Pulse Oximetry Intake & Output 02/21/18 02/22/18 02/22/18 18:59 06:59 18:59 Intake Total 250 / 250 2040 / 2040 Balance 250 / 250 2040 / 2040 Weight 80 kg Intake: IV 250 / 250 1800 / 1800 NS Inj 1,000 ML @ 100 mls/hr IV 250 / 250 1800 / 1800 .CONT .Q10H [facility] Rx#:[id number] Oral 240 / 240 Other: # Voids 1 Date of Last Bowel Movement 02/21/18 Narrative: GENERAL: This is a very pleasant 82 yo female, well-nourished, well-developed, with some sob. SKIN: No rashes, ecchymoses or lesions. Cool and dry. CARDIOVASCULAR: Irregularly irregular without murmurs, gallops, or rubs. RESPIRATORY: Decreased breath sounds, expiratory wheezing in upper chest left side > right side. GASTROINTESTINAL: Abdomen soft, non-tender, nondistended. No guarding. MUSCULOSKELETAL: Extremities without clubbing, cyanosis, or edema. No calf tenderness. NEUROLOGICAL: Awake and alert. Motor and sensory grossly within normal limits. Normal speech. . Results - Labs CBC & Chem 7: 02/23/18 04:42 02/23/18 04:12 Laboratory Results - last 24 hr 02/21/18 02/21/18 02/21/18 08:03 08:03 08:03 WBC 9.3 RBC 3.28 L Hgb 11.9 Hct 34.1 L MCV 104.2 H MCH 36.3 H MCHC 34.8 RDW 14.0 Plt Count 189 MPV 8.8 Prelim Diff (Auto) Slide review pending Neut % (Auto) 88.1 H Lymph % (Auto) 8.9 L [place] % (Auto) 2.9 Eos % (Auto) 0.0 Baso % (Auto) 0.1 Neut # (Auto) 8.2 H Lymph # (Auto) 0.8 L [place] # (Auto) 0.3 Eos # (Auto) 0.0 Baso # (Auto) 0.0 WBC Differential Manual diff final Seg Neuts % (Manual) 86 H Band Neuts % (Manual) 2 Lymphocytes % (Manual) 6 L Monocytes % (Manual) 3 Metamyelocytes % (Man) 1 Myelocytes % (Man) 2 H Abs Neuts (Manual) 8.5 H Differential Comment . Platelet Estimate Normal Platelet Morphology Normal PT 17.4 H INR 1.7 Sodium 144 Potassium 3.7 Chloride 114 H Carbon Dioxide 21.1 Anion Gap 9 BUN 16 Creatinine 0.81 Estimated GFR 68 L Random Glucose 145 H Calcium 7.5 L Calcium Adj for Albumin Magnesium 2.0 Albumin IgG IgM 02/21/18 02/22/18 02/22/18 08:03 04:34 04:34 WBC 8.1 RBC 3.38 L Hgb 11.8 Hct 35.6 MCV 105.4 H MCH 35.0 H MCHC 33.2 RDW 13.8 Plt Count 185 MPV 8.7 Prelim Diff (Auto) Slide review pending Neut % (Auto) 87.4 H Lymph % (Auto) 9.6 [place] % (Auto) 2.8 Eos % (Auto) 0.1 Baso % (Auto) 0.1 Neut # (Auto) 7.1 Lymph # (Auto) 0.8 L [place] # (Auto) 0.2 Eos # (Auto) 0.0 Baso # (Auto) 0.0 WBC Differential Seg Neuts % (Manual) Band Neuts % (Manual) Lymphocytes % (Manual) Monocytes % (Manual) Metamyelocytes % (Man) Myelocytes % (Man) Abs Neuts (Manual) Differential Comment . Platelet Estimate Platelet Morphology PT 17.7 H INR 1.7 Sodium Potassium Chloride Carbon Dioxide Anion Gap BUN Creatinine Estimated GFR Random Glucose Calcium Calcium Adj for Albumin Magnesium Albumin IgG 650 IgM 132 02/22/18 04:34 WBC RBC Hgb Hct MCV MCH MCHC RDW Plt Count MPV Prelim Diff (Auto) Neut % (Auto) Lymph % (Auto) [place] % (Auto) Eos % (Auto) Baso % (Auto) Neut # (Auto) Lymph # (Auto) [place] # (Auto) Eos # (Auto) Baso # (Auto) WBC Differential Seg Neuts % (Manual) Band Neuts % (Manual) Lymphocytes % (Manual) Monocytes % (Manual) Metamyelocytes % (Man) Myelocytes % (Man) Abs Neuts (Manual) Differential Comment Platelet Estimate Platelet Morphology PT INR Sodium 142 Potassium 3.3 L Chloride 110 H Carbon Dioxide 23.3 Anion Gap 9 BUN 18 Creatinine 0.82 Estimated GFR 67 L Random Glucose 132 H Calcium 7.2 L* Calcium Adj for Albumin 8.3 L Magnesium Albumin 2.6 L IgG IgM Microbiology 02/18/18 16:25 Blood - Peripheral Aerobic Blood Culture - Preliminary No growth in 3 days 02/18/18 16:25 Blood - Peripheral Anaerobic Blood Culture - Preliminary No growth in 3 days 02/18/18 16:20 Blood - Peripheral Aerobic Blood Culture - Preliminary No growth in 3 days 02/18/18 16:20 Blood - Peripheral Anaerobic Blood Culture - Preliminary No growth in 3 days Assessment and Plan - Plan Ms. Sims is a very pleasant 82-year-old female with a history of COPD, asthma , atrial fibrillation, Cedillo's esophagus, sleep apnea, and hypertension who presented to the emergency room on 02/18/2018 complaining of a nearly week-long history of shortness of breath progressively worsening and accompanied by cough with hemoptysis. The patient was found to have pneumonia on chest x-ray and was admitted to the hospitalist service for medical medical management. Right lower lobe pneumonia -Chest x-ray shows increased interstitial markings bilaterally suggestive of pulmonary edema versus pneumonia -recently reviewed chest x-ray and findings seem consistent with pneumonia -Chest CTA is negative for central pulmonary emboli, new infiltrate with consolidative changes in right lower lobe, no pleural effusion, inflammatory process suspected -Negative for influenza a and B. Sputum cultures -Antibiotics: Levaquin and azithromycin p.o. -Await results of blood cultures and adjust treatments as needed -Solu-Medrol 60 mg IV push every 6 hours, will taper as tolerated -Supplemental oxygen as needed titrated to maintain oxygen saturation greater than 92% -Monitor vital signs and pulse oximetry at least every 4 hours - Add IS/ EZPAP/ Acapella - Plan for bronchoscopy on Thursday or Thursday Leukocytosis -WBC 20.5 with left shift secondary to pneumonia -Monitor white blood count routinely -anticipate return to normal with adequate treatment Atrial fibrillation on Coumadin with therapeutic INR of 2.2 -Pharmacy consultation for Coumadin therapeutic monitoring and dosing -Continue home medications: carvedilol, and diltiazem DC Coumadin in light of procedure. Monitor INR Also patient says she doesn't want to take Coumadin anymore. Discussed regarding other options for antoicoagualtion patient decided for Eliquis, Will start Eliquis after procedure -Continuous cardiac telemetry to monitor rate and rhythm DVT prophylaxis -SCD/TEDS was on coumadin, will give eliquis after procedure Plan for bronch 02/22 Discussed with the patient, nurse, Dr Yessy lyles DC plan: pending improvement and clearance from pul. Bronch on 02/22/[address] Yessy Chang coumadin , patient doesn't want coumadin. Plan to start on eliquis after bronch
[2018-02-22] MEDS ORDERED: Potassium Chlor 20 mEq Premix 20 MEQ/100 ML PIGGYBACK IV.SIG ONE (10:00)
[2018-02-22 10:48] LABS: Lymphocytes 20 % (9-44); Metamyelocytes 2 % (0-1); Platelet Estimate Normal (Normal); Platelet Morphology Normal (Normal)
[2018-02-22] MEDS ORDERED: Potassium Bicarbonate 25 MEQ Effervescent Tablet PO ONE (11:00)
[2018-02-22] MEDS ORDERED: Sugammadex Inj 200 MG/2 ML Vial IV.PUSH ONE (11:05)
[2018-02-22] MEDS ORDERED: Famotidine PF Inj 20 MG/2 ML Vial ONE (11:05)
[2018-02-22] MEDS ORDERED: fentaNYL Citrate Inj 100 MCG/2 ML Ampul ONE (11:05)
--- NOTE | 2018-02-22 12:22 | XR ---
EXAM DATE: 02/22/2018 12:15 PM EST AGE/SEX: 82 years / Female INDICATIONS: Post bronchoscopy. CLINICAL DATA: This is the patient's initial encounter. Patient reports that signs and symptoms have been present for 1 day and indicates a pain score of 0/10. MEDICAL/SURGICAL HISTORY: . Chronic obstructive pulmonary disease. Hypertension. Pacemaker. COMPARISON: [facility] – [place], CHEST 2V PA&LAT, 02/18/2018. . FINDINGS: The heart is enlarged. Infiltrates are noted throughout the right lung and within the left lung base consistent with probable pneumonia. Clinical correlation is recommended. Left subclavian dual lead pa cemaker has its tips in right atrium and right ventricle. CONCLUSION: 1. Infiltrates are noted throughout the right lung and within the left lung base consistent with pro bable pneumonia. Clinical correlation is recommended. 2. Cardiomegaly. Electronically signed by: Arian Robin MD Board Certified Radiologist 02/22/2018 12:20 PM EST
--- NOTE | 2018-02-22 12:23 | MP ---
cc: Dev Krishnamurthy MD DATE OF OPERATION: 02/22/2018 PROCEDURE: Fiberoptic bronchoscopy with brushings and washings. PREOPERATIVE DIAGNOSIS: Hemoptysis with bilateral lung infiltrates. POSTOPERATIVE DIAGNOSIS: Hemoptysis with bilateral lung infiltrates with bleeding from right lower lobe. ANESTHESIA: General with intubation. SURGEON: Ehsan Krishnamurthy. PROCEDURE AND FINDINGS: The patient was intubated under general anesthesia following which, the Olympus IP 180 bronchoscope was used to visualize the bronchi. The scope was advanced via the endotracheal tube into the trachea. The trachea and evin appeared normal. Scope was then advanced into the right mainstem and right upper lobe segmental bronchi. These bronchi demonstrated few mucoid secretions and mild endobronchitis, but no endobronchial lesions were seen. Next, the scope was advanced through the right middle lobe segmental bronchi. The right middle lobe bronchi demonstrated no endobronchial lesions, but there were a few bloody secretions noted, which were suctioned out and saline washings were done. There was moderate endobronchitis noted. Next, the scope was advanced through the right lower lobe of segmental bronchi and there was some old dark blood from the right lower lobe bronchi with some mucoid secretions and there were no endobronchial lesions seen here. There was mucosal edema and ridging noted and brushings were done from the right lower lobe bronchi for cytology. Saline washings and lavage were done as well. The bleeding was controlled with iced saline and saline washings. The scope was then advanced into the left mainstem and left upper lobe segmental bronchi. These bronchi demonstrated no gross endobronchial lesions. There were few mucoid secretions, which were suctioned out. Next, the left lower lobe segmental bronchi was visualized and demonstrated mild endobronchitis with mucoid secretions and there were no endobronchial lesions seen here. Saline washings and lavage were carried out and the procedure was then terminated. The patient tolerated the procedure well. Dev Krishnamurthy MD VJD/astrid , 11:45 AM , 11:54 AM
[2018-02-22] MEDS: Dextrose 5%/NaCl 0.45% Inj 1,000 ML IV.CONT SCH (14:41)
[2018-02-22] MEDS: Acetaminophen 325 MG Tablet PO PRN (20:45)
[2018-02-23] MEDS: Sod Chloride 0.9% Inj 1,000 ML IV.CONT SCH ×3 (00:47→20:34)
[2018-02-23] MEDS: MethylPREDNISolone Sod Succinate Inj 40 MG/ML Vial IV.PUSH SCH ×4 (03:50→21:17)
[2018-02-23 07:05] LABS: Baso % (Auto) 0.2 % (0.0-2.0); Hematocrit 36.3 % (35.0-46.0); Hemoglobin 12.3 gm/dL (11.6-15.3); Lymph # (Auto) 0.7 th/mm3 (1.0-4.8); Mean Corpuscular HGB Conc 33.8 % (32.0-36.0); Mean Corpuscular Hemoglobin 35.2 pg (27.0-34.0); Mean Corpuscular Volume 104.2 fL (80.0-100.0); Mean Platelet Volume 8.8 fL (7.0-11.0); Mono # (Auto) 0.3 th/mm3 (0.0-0.9); Mono % (Auto) 3.8 % (0.0-8.0); Neut # (Auto) 6.2 th/mm3 (1.8-7.7); Platelet Count 196 th/mm3 (150-450); Red Blood Count 3.48 mil/mm3 (4.00-5.30); Red Cell Distribution Width 13.5 % (11.6-17.2); White Blood Count 7.2 th/mm3 (4.0-11.0)
[2018-02-23 07:09] LABS: INR 1.5 Ratio
[2018-02-23 07:36] LABS: Calcium 7.3 mg/dL (8.5-10.1); Carbon Dioxide 29.4 meq/L (21.0-32.0); Potassium 3.3 meq/L (3.5-5.1)
[2018-02-23 08:02] LABS: Albumin 2.6 g/dL (3.4-5.0); Calcium-Albumin Corrected 8.4 mg/dL (8.5-10.1)
[2018-02-23 08:30] LABS: Lymphocytes 9 % (9-44); Monocytes 5 % (0-8); Myelocytes 2 % (0-0); Platelet Estimate Normal (Normal); Platelet Morphology Normal (Normal)
[2018-02-23] MEDS: Carvedilol 6.25 MG Tablet PO SCH ×2 (09:09→20:33)
[2018-02-23] MEDS: Magnesium Oxide 400 MG Tablet PO SCH (09:09)
[2018-02-23] MEDS: dilTIAZem CD 180 MG Capsule PO SCH (09:09)
[2018-02-23] MEDS: Pantoprazole Sodium 20 MG DR Tablet PO SCH ×2 (09:09→20:33)
[2018-02-23] MEDS: FLUoxetine 20 MG Capsule PO SCH (09:09)
[2018-02-23] MEDS: Budesonide-Formoterol 160/4.5 MCG 6 GM Inhaler INH SCH ×2 (09:10→20:38)
--- NOTE | 2018-02-23 13:17 | P.PN ---
Subjective Interval history: In the chair, eating. Feels a littl eimprpved. Still with wheezing. No fever or chills. Not coughing blood anymore. No n/v/d/c. Reports some chest pressure, will check trops. Says she follows with Dr Mijares cardio as OP and last seen 3 month ago, all tests were good. Has an appointment with Dr Mijares after [place]. Otherwise no concerns Physical Exam Vital signs: Vital Signs 02/22/18 15:34 02/22/18 16:00 02/22/18 19:45 Temperature 97.1 F L Pulse Rate 88 90 95 H Respiratory Rate 19 18 20 Blood Pressure 145/67 H Pulse Oximetry 90 L 92 L 96 02/22/18 20:00 02/22/18 23:14 02/23/18 00:00 Temperature 97.6 F 97.2 F L Pulse Rate 109 H 99 H 81 Respiratory Rate 17 22 17 Blood Pressure 138/66 151/68 H Pulse Oximetry 95 96 02/23/18 03:14 02/23/18 08:00 02/23/18 09:57 Temperature 97.4 F L Pulse Rate 91 H 96 H 93 H Respiratory Rate 18 19 18 Blood Pressure 147/71 H Pulse Oximetry 95 96 02/23/18 12:00 Temperature 97.9 F Pulse Rate 91 H Respiratory Rate 18 Blood Pressure 140/85 Pulse Oximetry 95 Intake & Output 02/22/18 02/23/18 02/23/18 18:59 06:59 18:59 Intake Total 300 / 300 830 / 830 Balance 300 / 300 830 / 830 Weight 80 kg Intake: IV 300 / 300 250 / 250 NS Inj 1,000 ML @ 100 mls/hr IV 200 / 200 .CONT .Q10H JEWELS Rx#:[id number] NS Inj 500 ML @ 30 mls/hr IV. 250 / 250 CONT .[id number] ONE Rx#:[id number] KCl 20 mEq Premix Inj 20 meq In 100 / 100 100 ml @ 50 mls/hr IV.SIG ONCE ONE Rx#:[id number] Oral 580 / 580 Other: # Voids 3 Date of Last Bowel Movement 02/21/18 Narrative: GENERAL: This is a very pleasant 82 yo female, well-nourished, well-developed, with some sob. SKIN: No rashes, ecchymoses or lesions. Cool and dry. CARDIOVASCULAR: Irregularly irregular without murmurs, gallops, or rubs. RESPIRATORY: Decreased breath sounds, expiratory wheezing in upper chest left side > right side. GASTROINTESTINAL: Abdomen soft, non-tender, nondistended. No guarding. MUSCULOSKELETAL: Extremities without clubbing, cyanosis, or edema. No calf tenderness. NEUROLOGICAL: Awake and alert. Motor and sensory grossly within normal limits. Normal speech. . Results - Labs CBC & Chem 7: 02/23/18 04:42 02/23/18 04:12 Laboratory Results - last 24 hr 02/23/18 02/23/18 02/23/18 04:12 04:42 04:42 WBC 7.2 RBC 3.48 L Hgb 12.3 Hct 36.3 MCV 104.2 H MCH 35.2 H MCHC 33.8 RDW 13.5 Plt Count 196 MPV 8.8 Prelim Diff (Auto) Slide review pending Neut % (Auto) 86.0 H Lymph % (Auto) 10.0 Day % (Auto) 3.8 Eos % (Auto) 0.0 Baso % (Auto) 0.2 Neut # (Auto) 6.2 Lymph # (Auto) 0.7 L Day # (Auto) 0.3 Eos # (Auto) 0.0 Baso # (Auto) 0.0 WBC Differential Manual diff final Seg Neuts % (Manual) 80 H Band Neuts % (Manual) 4 Lymphocytes % (Manual) 9 Monocytes % (Manual) 5 Myelocytes % (Man) 2 H Abs Neuts (Manual) 6.2 Differential Comment . Platelet Estimate Normal Platelet Morphology Normal PT 15.0 H INR 1.5 Sodium 141 Potassium 3.3 L Chloride 106 Carbon Dioxide 29.4 Anion Gap 6 BUN 19 H Creatinine 0.82 Estimated GFR 67 L Random Glucose 141 H Calcium 7.3 L* Calcium Adj for Albumin 8.4 L Albumin 2.6 L Microbiology 02/18/18 16:25 Blood - Peripheral Aerobic Blood Culture - Final No growth in 5 days 02/18/18 16:25 Blood - Peripheral Anaerobic Blood Culture - Final No growth in 5 days 02/18/18 16:20 Blood - Peripheral Aerobic Blood Culture - Final No growth in 5 days 02/18/18 16:20 Blood - Peripheral Anaerobic Blood Culture - Final No growth in 5 days 02/22/18 11:34 Bronchial Washings - Bronchial Fungal Smear - Final No fungal elements seen 02/22/18 11:34 Bronchial - Bronchial Gram Stain - Final Assessment and Plan - Plan Ms. Sims is a very pleasant 82-year-old female with a history of COPD, asthma , atrial fibrillation, Cedillo's esophagus, sleep apnea, and hypertension who presented to the emergency room on 02/18/2018 complaining of a nearly week-long history of shortness of breath progressively worsening and accompanied by cough with hemoptysis. The patient was found to have pneumonia on chest x-ray and was admitted to the hospitalist service for medical medical management. Right lower lobe pneumonia -Chest x-ray shows increased interstitial markings bilaterally suggestive of pulmonary edema versus pneumonia -recently reviewed chest x-ray and findings seem consistent with pneumonia -Chest CTA is negative for central pulmonary emboli, new infiltrate with consolidative changes in right lower lobe, no pleural effusion, inflammatory process suspected -Negative for influenza a and B. Sputum cultures -Antibiotics: Levaquin and azithromycin p.o. -Await results of blood cultures and adjust treatments as needed -Solu-Medrol 60 mg IV push every 6 hours, will taper as tolerated -Supplemental oxygen as needed titrated to maintain oxygen saturation greater than 92% -Monitor vital signs and pulse oximetry at least every 4 hours - Add IS/ EZPAP/ Acapella - Plan for bronchoscopy on Thursday or Thursday Leukocytosis -WBC 20.5 with left shift secondary to pneumonia -Monitor white blood count routinely -anticipate return to normal with adequate treatment -S/P bronch 02/22/[address] Krishnamurthy bronch lavage and also found old blood. No biopsy was done as risk of bleeding. Atrial fibrillation on Coumadin with therapeutic INR of 2.2 -Pharmacy consultation for Coumadin therapeutic monitoring and dosing -Continue home medications: carvedilol, and diltiazem DC Coumadin in light of procedure. Monitor INR Also patient says she doesn't want to take Coumadin anymore. Discussed regarding other options for antoicoagualtion patient decided for Eliquis, Will start Eliquis after procedure -Continuous cardiac telemetry to monitor rate and rhythm Check trops and do EKG as patient complains of chest pressure 02/23/18 DVT prophylaxis -SCD/TEDS was on coumadin, will give eliquis after procedure Plan for bronch 02/22 Discussed with the patient, nurse, Dr Krishnamurthy pulm DC plan: pending improvement and clearance from pulm. Bronch on 02/22/[address] Yessy MCKEON coumadin , patient doesn't want coumadin. Plan to start on eliquis after bronch and DC on eliquis.
[2018-02-23] MEDS: Dextrose 5%/NaCl 0.45% Inj 1,000 ML IV.CONT SCH (14:36)
--- NOTE | 2018-02-23 19:03 | P.PN ---
Subjective Interval history: Breathing better , S/P Bronchoscopy. No further hemoptysis. CXR is stable Physical Exam Vital signs: Vital Signs 02/22/18 19:45 02/22/18 20:00 02/22/18 23:14 Temperature 97.6 F Pulse Rate 95 H 109 H 99 H Respiratory Rate 20 17 22 Blood Pressure 138/66 Pulse Oximetry 96 95 02/23/18 00:00 02/23/18 03:14 02/23/18 08:00 Temperature 97.2 F L 97.4 F L Pulse Rate 81 91 H 96 H Respiratory Rate 17 18 19 Blood Pressure 151/68 H 147/71 H Pulse Oximetry 96 95 02/23/18 09:57 02/23/18 12:00 02/23/18 16:00 Temperature 97.9 F 97.6 F Pulse Rate 93 H 91 H 93 H Respiratory Rate 18 16 Blood Pressure 140/85 161/72 H Pulse Oximetry 96 95 94 L Intake & Output 02/22/18 02/23/18 02/23/18 18:59 06:59 18:59 Intake Total 300 / 300 830 / 830 Balance 300 / 300 830 / 830 Weight 80 kg Intake: IV 300 / 300 250 / 250 NS Inj 1,000 ML @ 100 mls/hr IV 200 / 200 .CONT .Q10H JEWELS Rx#:[id number] NS Inj 500 ML @ 30 mls/hr IV. 250 / 250 CONT .[id number] ONE Rx#:[id number] KCl 20 mEq Premix Inj 20 meq In 100 / 100 100 ml @ 50 mls/hr IV.SIG ONCE ONE Rx#:[id number] Oral 580 / 580 Other: # Voids 3 Date of Last Bowel Movement 02/21/18 Narrative: GENERAL: This is a elderly female, well-nourished, well-developed,with some sob. SKIN: No rashes, ecchymoses or lesions. Cool and dry. CARDIOVASCULAR: Irregularly irregular without murmurs, gallops, or rubs. RESPIRATORY: Decreased breath sounds, expiratory wheezing upper chest. GASTROINTESTINAL: Abdomen soft, non-tender, nondistended. No guarding. MUSCULOSKELETAL: Extremities without clubbing, cyanosis, or edema. No calf tenderness. NEUROLOGICAL: Awake and alert. Motor and sensory grossly within normal limits. Normal speech. . Results - Labs CBC & Chem 7: 02/23/18 04:42 02/23/18 04:12 Laboratory Results - last 24 hr 02/23/18 02/23/18 02/23/18 04:12 04:42 04:42 WBC 7.2 RBC 3.48 L Hgb 12.3 Hct 36.3 MCV 104.2 H MCH 35.2 H MCHC 33.8 RDW 13.5 Plt Count 196 MPV 8.8 Prelim Diff (Auto) Slide review pending Neut % (Auto) 86.0 H Lymph % (Auto) 10.0 [place]yer % (Auto) 3.8 Eos % (Auto) 0.0 Baso % (Auto) 0.2 Neut # (Auto) 6.2 Lymph # (Auto) 0.7 L [place]yer # (Auto) 0.3 Eos # (Auto) 0.0 Baso # (Auto) 0.0 WBC Differential Manual diff final Seg Neuts % (Manual) 80 H Band Neuts % (Manual) 4 Lymphocytes % (Manual) 9 Monocytes % (Manual) 5 Myelocytes % (Man) 2 H Abs Neuts (Manual) 6.2 Differential Comment . Platelet Estimate Normal Platelet Morphology Normal PT 15.0 H INR 1.5 Sodium 141 Potassium 3.3 L Chloride 106 Carbon Dioxide 29.4 Anion Gap 6 BUN 19 H Creatinine 0.82 Estimated GFR 67 L Random Glucose 141 H Calcium 7.3 L* Calcium Adj for Albumin 8.4 L Troponin I Albumin 2.6 L 02/23/18 13:53 WBC RBC Hgb Hct MCV MCH MCHC RDW Plt Count MPV Prelim Diff (Auto) Neut % (Auto) Lymph % (Auto) Sawyer % (Auto) Eos % (Auto) Baso % (Auto) Neut # (Auto) Lymph # (Auto) Sawyer # (Auto) Eos # (Auto) Baso # (Auto) WBC Differential Seg Neuts % (Manual) Band Neuts % (Manual) Lymphocytes % (Manual) Monocytes % (Manual) Myelocytes % (Man) Abs Neuts (Manual) Differential Comment Platelet Estimate Platelet Morphology PT INR Sodium Potassium Chloride Carbon Dioxide Anion Gap BUN Creatinine Estimated GFR Random Glucose Calcium Calcium Adj for Albumin Troponin I Less than 0.02 L Albumin Microbiology 02/22/18 11:34 Bronchial - Bronchial Gram Stain - Final 02/22/18 11:34 Bronchial - Bronchial Bronchial Culture - Preliminary Light growth normal respiratory jesus at 24 hours 02/18/18 16:25 Blood - Peripheral Aerobic Blood Culture - Final No growth in 5 days 02/18/18 16:25 Blood - Peripheral Anaerobic Blood Culture - Final No growth in 5 days 02/18/18 16:20 Blood - Peripheral Aerobic Blood Culture - Final No growth in 5 days 02/18/18 16:20 Blood - Peripheral Anaerobic Blood Culture - Final No growth in 5 days 02/22/18 11:34 Bronchial Washings - Bronchial Fungal Smear - Final No fungal elements seen Assessment and Plan - Assessment (1) Hemoptysis Code(s): R04.2 - Hemoptysis Status: Acute (2) Bilateral pneumonia Code(s): J18.9 - Pneumonia, unspecified organism Status: Acute (3) Hypertension Code(s): I10 - Essential (primary) hypertension Status: Chronic (4) COPD (chronic obstructive pulmonary disease) Code(s): J44.9 - Chronic obstructive pulmonary disease, unspecified Status: Chronic (5) Atrial fibrillation Code(s): I48.91 - Unspecified atrial fibrillation Status: Chronic (6) CHF (congestive heart failure) Code(s): I50.9 - Heart failure, unspecified Status: Chronic (7) Acid reflux Code(s): K21.9 - Gastro-esophageal reflux disease without esophagitis Status: Chronic (8) DVT prophylaxis Status: Acute - Plan 1. Continue Eliquis 5 mg 2. Continue Bumex 2 mg daily 3. Continue Antibiotics. 4. O2 2 L.N/C 5. Continue Duoneb nebs qid PRN 6. Symbicort 160/4.5 mcg, 2puffs BID 7. Labs in am. 8. Home soon. (2) Bilateral pneumonia Qualifiers: Pneumonia type: due to unspecified organism Lung location: unspecified part of lung Qualified Code(s): J18.9 - Pneumonia, unspecified organism (3) Hypertension Qualifiers: Hypertension type: essential hypertension Qualified Code(s): I10 - Essential (primary) hypertension (4) 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 Qualified Code(s): J43.9 - Emphysema, unspecified (5) Atrial fibrillation Qualifiers: Atrial fibrillation type: chronic Qualified Code(s): I48.2 - Chronic atrial fibrillation (6) CHF (congestive heart failure) Qualifiers: Heart failure type: diastolic Heart failure chronicity: unspecified Qualified Code(s): I50.30 - Unspecified diastolic (congestive) heart failure (7) Acid reflux Qualifiers: Esophagitis presence: without esophagitis Qualified Code(s): K21.9 - Gastro- esophageal reflux disease without esophagitis
[2018-02-23] MEDS: Acetaminophen 325 MG Tablet PO PRN (20:33)
[2018-02-23] MEDS: levoFLOXacin 750 MG Tablet PO SCH (20:33)
[2018-02-24] MEDS: Acetaminophen 325 MG Tablet PO PRN (02:11)
[2018-02-24] MEDS: MethylPREDNISolone Sod Succinate Inj 40 MG/ML Vial IV.PUSH SCH ×2 (04:14→09:58)
[2018-02-24 05:10] LABS: INR 1.6 Ratio
[2018-02-24] MEDS: Sod Chloride 0.9% Inj 1,000 ML IV.CONT SCH (06:23)
[2018-02-24 08:18] VITALS: PULSE 88; RESP 17; O2SAT 97
[2018-02-24] MEDS: Magnesium Oxide 400 MG Tablet PO SCH (09:57)
[2018-02-24] MEDS: Pantoprazole Sodium 20 MG DR Tablet PO SCH (09:57)
[2018-02-24] MEDS: FLUoxetine 20 MG Capsule PO SCH (09:58)
[2018-02-24] MEDS: Budesonide-Formoterol 160/4.5 MCG 6 GM Inhaler INH SCH (09:58)
[2018-02-24] MEDS: dilTIAZem CD 180 MG Capsule PO SCH (09:58)
[2018-02-24] MEDS: Carvedilol 6.25 MG Tablet PO SCH (09:58)
[2018-02-24 12:13] VITALS: BP 153/81; TEMP 97.8
--- NOTE | 2018-02-24 13:50 | P.PN ---
Subjective Interval history: Off o2 doing well. No further SOB or hemoptysis. Physical Exam Vital signs: Vital Signs 02/23/18 16:00 02/23/18 19:25 02/23/18 19:26 Temperature 97.6 F Pulse Rate 93 H 101 H Respiratory Rate 16 20 Blood Pressure 161/72 H Pulse Oximetry 94 L 97 02/23/18 20:00 02/23/18 23:43 02/24/18 00:10 Temperature 97.1 F L 97.1 F L Pulse Rate 90 88 96 H Respiratory Rate 18 18 Blood Pressure 145/68 H 170/80 H 164/81 H Pulse Oximetry 97 98 02/24/18 04:22 02/24/18 07:37 02/24/18 07:38 Temperature 97.1 F L Pulse Rate 86 105 H Respiratory Rate 18 20 Blood Pressure 165/83 H Pulse Oximetry 97 96 02/24/18 08:00 02/24/18 12:00 Temperature 97.2 F L 97.8 F Pulse Rate 88 88 Respiratory Rate 17 17 Blood Pressure 170/85 H 153/81 H Pulse Oximetry 97 97 Intake & Output 02/23/18 02/24/18 02/24/18 18:59 06:59 18:59 Intake Total 720 / 720 580 / 580 Balance 720 / 720 580 / 580 Weight 80 kg Intake: Oral 720 / 720 580 / 580 Other: # Voids 4 3 Narrative: GENERAL: This is a elderly female, well-nourished, well-developed,with some sob. SKIN: No rashes, ecchymoses or lesions. warm and dry. CARDIOVASCULAR: Irregularly irregular without murmurs, gallops, or rubs. RESPIRATORY: Decreased breath sounds, expiratory wheezing upper chest. GASTROINTESTINAL: Abdomen soft, non-tender, nondistended. No guarding. MUSCULOSKELETAL: Extremities without clubbing, cyanosis, or edema. No calf tenderness. NEUROLOGICAL: Awake and alert. Motor and sensory grossly within normal limits. Normal speech. . Results - Labs CBC & Chem 7: 02/23/18 04:42 02/23/18 04:12 Laboratory Results - last 24 hr 02/23/18 02/24/18 13:53 04:13 PT 16.0 H INR 1.6 Troponin I Less than 0.02 L Microbiology 02/22/18 11:34 Bronchial Washings - Bronchial Acid Fast Bacilli Smear - Final No acid fast bacilli seen 02/22/18 11:34 Bronchial - Bronchial Gram Stain - Final 02/22/18 11:34 Bronchial - Bronchial Bronchial Culture - Final Light growth normal respiratory jesus 02/18/18 16:25 Blood - Peripheral Aerobic Blood Culture - Final No growth in 5 days 02/18/18 16:25 Blood - Peripheral Anaerobic Blood Culture - Final No growth in 5 days 02/18/18 16:20 Blood - Peripheral Aerobic Blood Culture - Final No growth in 5 days 02/18/18 16:20 Blood - Peripheral Anaerobic Blood Culture - Final No growth in 5 days 02/22/18 11:34 Bronchial Washings - Bronchial Fungal Smear - Final No fungal elements seen Assessment and Plan - Assessment (1) Hemoptysis Code(s): R04.2 - Hemoptysis Status: Acute (2) Bilateral pneumonia Code(s): J18.9 - Pneumonia, unspecified organism Status: Acute (3) Hypertension Code(s): I10 - Essential (primary) hypertension Status: Chronic (4) COPD (chronic obstructive pulmonary disease) Code(s): J44.9 - Chronic obstructive pulmonary disease, unspecified Status: Chronic (5) Atrial fibrillation Code(s): I48.91 - Unspecified atrial fibrillation Status: Chronic (6) CHF (congestive heart failure) Code(s): I50.9 - Heart failure, unspecified Status: Chronic (7) Acid reflux Code(s): K21.9 - Gastro-esophageal reflux disease without esophagitis Status: Chronic (8) DVT prophylaxis Status: Acute - Plan 1. Continue Eliquis 5 mg 2. Continue Bumex 2 mg daily 3. Continue Antibiotics for 3 days. 4. Home today 5. Continue Duoneb nebs qid PRN 6. Symbicort 160/4.5 mcg, 2puffs BID 7 F/U As OP in 2 weeks (2) Bilateral pneumonia Qualifiers: Pneumonia type: due to unspecified organism Lung location: unspecified part of lung Qualified Code(s): J18.9 - Pneumonia, unspecified organism (3) Hypertension Qualifiers: Hypertension type: essential hypertension Qualified Code(s): I10 - Essential (primary) hypertension (4) 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 Qualified Code(s): J43.9 - Emphysema, unspecified (5) Atrial fibrillation Qualifiers: Atrial fibrillation type: chronic Qualified Code(s): I48.2 - Chronic atrial fibrillation (6) CHF (congestive heart failure) Qualifiers: Heart failure type: diastolic Heart failure chronicity: unspecified Qualified Code(s): I50.30 - Unspecified diastolic (congestive) heart failure (7) Acid reflux Qualifiers: Esophagitis presence: without esophagitis Qualified Code(s): K21.9 - Gastro- esophageal reflux disease without esophagitis
--- NOTE | 2018-02-24 15:27 | ECG ---
Date Performed: 02/23/2018 Time Performed: 17:46:30 PTAGE: 82 years EKG: ATRIAL FIBRILLATION POSSIBLE ANTERIOR MYOCARDIAL INFARCTION , OF INDETERMINATE AGE Since th e previous tracing, no significant change noted ABNORMAL ECG PREVIOUS TRACING : 02/18/2018 17.37 DOCTOR: Timothy Ortez Interpretating Date/Time 02/24/2018 15:25:51
== END 2018-02-24 14:02 | disposition home or self-care (01) ==
LOC: NEPE 15:35 → NEDA 19:56 → N07 21:22
PROVIDERS: ADMIT Hospitalist; ATTEND Hospitalist

== ENCOUNTER 2018-02-26 14:04 | Observation (INO) ==
--- NOTE | 2018-02-26 14:26 | ED ---
HPI General Chief complaint: Nausea/Vomiting/Diarrhea Stated complaint: SOB Complaint Time Seen by Provider: 02/26/18 14:15 History of Present Illness HPI narrative: This is an 82-year-old female with history of CHF, atrial fibrillation on Eliquis, COPD, hypertension, recently hospitalized for pneumonia , discharged 2 days ago. She presents via EMS for evaluation. She reports that today she was feeling weak and tired she has been having nausea and vomiting which started today. She continues to have some hemoptysis but it seems to be improved in comparison to when she was being treated for pneumonia. She reports that she has been constipated for the past 3 days. She reports occasional lower abdominal pain. She denies any chest pain, she does have chronic shortness of breath. She uses 2 L of oxygen at home as needed. She received Zofran, Solu-Medrol, DuoNeb treatment via EMS. No other complaints. Related Data Home Medications Medication Instructions Recorded Confirmed albuterol sulfate 2.5 mg INHALATION BID 09/07/17 02/26/18 alendronate [Fosamax] 70 mg PO QWEEK 09/07/17 02/26/18 bumetanide 2 mg PO DAILY 09/07/17 02/26/18 carvedilol 6.25 mg PO BID 09/07/17 02/26/18 cholecalciferol (vitamin D3) 1,000 unit PO DAILY 09/07/17 02/26/18 [Vitamin D3] diltiazem HCl 180 mg PO DAILY 09/07/17 02/26/18 fluoxetine 20 mg PO DAILY 09/07/17 02/26/18 guaifenesin [Mucinex] 600 mg PO Q12H 09/07/17 02/26/18 multivitamin [Multiple Vitamins] 1 tab PO DAILY 09/07/17 02/26/18 omeprazole 20 mg PO BID 09/07/17 02/26/18 Previous Rx's Medication Instructions Recorded apixaban [Eliquis] 5 mg PO BID #60 tab 02/23/18 budesonide-formoterol [Symbicort] 2 puff INH BID #30 g 02/23/18 prednisone 20 mg PO BID 4 Days #16 tab 02/23/18 Allergies Allergy/AdvReac Type Severity Reaction Status Date / Time codeine Allergy Severe GI UPSET Verified 02/26/18 14:15 sulfamethoxazole Allergy Severe CONFIRM Verified 02/26/18 14:15 REACTION: SIDE EFFECT VS ALLERGY. trimethoprim Allergy Severe CONFIRM Verified 02/26/18 14:15 REACTION: SIDE EFFECT VS ALLERGY. lansoprazole Allergy Mild DIARRHEA Verified 02/26/18 14:15 Review of Systems ROS: all other systems reviewed are negative [facility] Family History Family History Mother Heart disease Father Black lung disease Other Diabetes mellitus Social History Social History Substance History: No History of Abuse Second Hand Smoke Exposure: No Smoking Status: Former smoker Tobacco Type: Cigarettes How Often Do You Have a Drink Containing Alcohol: 2 to 4 times a month Recent Travel in [facility] within the Last 8 Weeks: No Recent Out of Country Travel within the Last 8 Weeks: No Immunization History Tetanus Immunization: <5 Years Exam Narrative Exam Narrative: GENERAL: Well-developed well-nourished female no acute distress SKIN: Warm and dry. HEAD: Atraumatic. Normocephalic. EYES: Pupils equal and round. No scleral icterus. No injection or drainage. ENT: No nasal bleeding or discharge. Mucous membranes pink and moist. NECK: Trachea midline. No JVD. CARDIOVASCULAR: Regular rate and rhythm. No murmur appreciated. RESPIRATORY: No accessory muscle use. Mild wheezing bilaterally. GASTROINTESTINAL: Abdomen soft, non-tender, nondistended. Hepatic and splenic margins not palpable. MUSCULOSKELETAL: No obvious deformities. No clubbing. No cyanosis. No edema. NEUROLOGICAL: Awake and alert. No obvious cranial nerve deficits. Motor grossly within normal limits. Normal speech. PSYCHIATRIC: Appropriate mood and affect; insight and judgment normal. Course Initial Documented Vital Signs Temperature 97.9 F 02/26/18 14:15 Pulse Rate 79 02/26/18 14:15 Respiratory Rate 18 02/26/18 14:15 Blood Pressure 124/69 02/26/18 14:15 Pulse Oximetry 91 L 02/26/18 14:15 Last Documented Vital Signs Temperature 97.9 F 02/26/18 14:15 Pulse Rate 89 02/26/18 16:00 Respiratory Rate 19 02/26/18 16:00 Blood Pressure 129/63 02/26/18 16:00 Pulse Oximetry 96 02/26/18 16:00 Medical Decision Making MDM Narrative Medical decision making narrative: The patient was placed on ECG monitoring pulse oximetry. Lab work, chest x-ray obtained. CBC reveals leukocytosis with WBC count of 17.4 with 83.5% neutrophils, she is on prednisone. Chest x-ray reveals no acute abnormalities. CMP reveals a potassium of 2.8, BUN of 29, creatinine 1.11, GFR 47 which is decreased from a GFR of 67 from 3 days ago. She was given 500 L normal saline, 40 mEq oral potassium chloride and 10 mEq of IV potassium. CT abdomen pelvis reveals posterior bibasilar atelectasis and/or infiltrates, tiny left pleural effusion, no acute abnormalities. The patient will be admitted for further treatment. Medical Screen Exam Complete: Yes Emergency Medical Condition: Yes Differential Diagnosis Differential Diagnosis: Pneumonia, gastroenteritis, dehydration, electrolyte abnormality, sepsis, bronchitis, COPD exacerbation Lab Data Result diagrams: 02/26/18 14:30 02/26/18 14:30 Lab Results 02/26/18 02/26/18 02/26/18 Range/Units 14:30 14:30 14:30 WBC 17.4 H (4.0-11.0) th/mm3 RBC 3.98 L (4.00-5.30) mil/mm3 Hgb 14.2 (11.6-15.3) gm/dL Hct 40.9 (35.0-46.0) % MCV 103.0 H (80.0-100.0) fL MCH 35.8 H (27.0-34.0) pg MCHC 34.7 (32.0-36.0) % RDW 13.5 (11.6-17.2) % Plt Count 256 D (150-450) th/mm3 MPV 8.5 (7.0-11.0) fL Neut % (Auto) 83.5 H (16.0-70.0) % Lymph % (Auto) 11.9 (9.0-44.0) % Dewey % (Auto) 4.3 (0.0-8.0) % Eos % (Auto) 0.1 (0.0-4.0) % Baso % (Auto) 0.2 (0.0-2.0) % Neut # (Auto) 14.5 H (1.8-7.7) th/mm3 Lymph # (Auto) 2.1 (1.0-4.8) th/mm3 Dewey # (Auto) 0.7 (0.0-0.9) th/mm3 Eos # (Auto) 0.0 (0.0-0.4) th/mm3 Baso # (Auto) 0.0 (0.0-0.2) th/mm3 WBC Differential . Differential Comment Auto diff final PT 12.5 H (9.8-11.6) sec INR 1.2 Ratio APTT 24.5 (23.4-31.7) sec Sodium 140 (136-145) meq/L Potassium 2.8 L* (3.5-5.1) meq/L Chloride 97 L (98-107) meq/L Carbon Dioxide 33.8 H (21.0-32.0) meq/L Anion Gap 9 (5-15) meq/L BUN 29 H (7-18) mg/dL Creatinine 1.11 H (0.50-1.00) mg/dL Estimated GFR 47 L (>89) mL/min Random Glucose 106 (74-106) mg/dL Calcium 7.7 L (8.5-10.1) mg/dL Magnesium 2.5 (1.5-2.5) mg/dL Total Bilirubin 0.7 (0.2-1.0) mg/dL AST 19 (15-37) U/L ALT 28 (10-53) U/L Alkaline Phosphatase 83 (45-117) U/L Total Creatine Kinase 55 (26-192) U/L Troponin I Less than 0.02 L (0.02-0.05) ng/mL Total Protein 6.1 L (6.4-8.2) g/dL Albumin 2.8 L (3.4-5.0) g/dL Lipase 122 (73-393) U/L Blood Type Antibody Screen 02/26/18 Range/Units 14:30 WBC (4.0-11.0) th/mm3 RBC (4.00-5.30) mil/mm3 Hgb (11.6-15.3) gm/dL Hct (35.0-46.0) % MCV (80.0-100.0) fL MCH (27.0-34.0) pg MCHC (32.0-36.0) % RDW (11.6-17.2) % Plt Count (150-450) th/mm3 MPV (7.0-11.0) fL Neut % (Auto) (16.0-70.0) % Lymph % (Auto) (9.0-44.0) % Dewey % (Auto) (0.0-8.0) % Eos % (Auto) (0.0-4.0) % Baso % (Auto) (0.0-2.0) % Neut # (Auto) (1.8-7.7) th/mm3 Lymph # (Auto) (1.0-4.8) th/mm3 Dewey # (Auto) (0.0-0.9) th/mm3 Eos # (Auto) (0.0-0.4) th/mm3 Baso # (Auto) (0.0-0.2) th/mm3 WBC Differential Differential Comment PT (9.8-11.6) sec INR Ratio APTT (23.4-31.7) sec Sodium (136-145) meq/L Potassium (3.5-5.1) meq/L Chloride (98-107) meq/L Carbon Dioxide (21.0-32.0) meq/L Anion Gap (5-15) meq/L BUN (7-18) mg/dL Creatinine (0.50-1.00) mg/dL Estimated GFR (>89) mL/min Random Glucose (74-106) mg/dL Calcium (8.5-10.1) mg/dL Magnesium (1.5-2.5) mg/dL Total Bilirubin (0.2-1.0) mg/dL AST (15-37) U/L ALT (10-53) U/L Alkaline Phosphatase (45-117) U/L Total Creatine Kinase (26-192) U/L Troponin I (0.02-0.05) ng/mL Total Protein (6.4-8.2) g/dL Albumin (3.4-5.0) g/dL Lipase (73-393) U/L Blood Type O Positive Antibody Screen Negative Imaging Data Radiologist's impression: Chest X-Ray 02/26/18 14:22 CONCLUSION: . Lungs remain clear. No failure Abdomen/Pelvis CT 02/26/18 15:54 CONCLUSION: 1. Moderate-sized hiatal hernia. 2. Posterior bibasilar atelectasis and/or infiltrates. 3. Tiny left pleural effusion. 4. Degenerative changes and scoliosis are noted throughout the thoracolumbar spine. 5. Grade I anterolisthesis of L3 in relation to L4. 6. Multiple chronic compression deformity is are noted involving T9, T10, T11, T12, L1, L2, and L3. 7. 7 mm lower pole right renal cyst. Discharge Plan Discharge Disposition Patient Disposition: ED Admit(ED Internal Use Only) Discharge Condition Condition: Stable Discharge Order Discharge Orders: ED Use Only Admit Order (Routine); Ordered 02/26/18 Ordered By: Kyree Galindo Discharge Details Diagnosis: Hypokalemia, Dehydration Physicians Team ED Provider: Adiel Bethea ED Midlevel Provider: Kyree Galindo Primary Care Provider: UNKNOWN, Rxs /Orders / Referrals /Forms Prescriptions: No Action omeprazole 20 mg Capsule,Delayed Release(Dr/Ec) 20 mg PO BID RF: 0 multivitamin [Multiple Vitamins] Tablet 1 tab PO DAILY RF: 0 carvedilol 6.25 mg Tablet 6.25 mg PO BID RF: 0 bumetanide 2 mg Tablet 2 mg PO DAILY RF: 0 diltiazem HCl 180 mg Capsule,Extended Release 24 Hr 180 mg PO DAILY RF: 0 alendronate [Fosamax] 70 mg Tablet 70 mg PO QWEEK RF: 0 fluoxetine 20 mg Capsule 20 mg PO DAILY RF: 0 cholecalciferol (vitamin D3) [Vitamin D3] 1,000 unit Capsule 1,000 unit PO DAILY RF: 0 albuterol sulfate 2.5 mg/0.5 mL Solution For Nebulization 2.5 mg INHALATION BID RF: 0 guaifenesin [Mucinex] 600 mg Tablet Extended Release 12hr 600 mg PO Q12H RF: 0 budesonide-formoterol [Symbicort] 160-4.5 mcg/actuation Hfa Aerosol Inhaler 2 puff INH BID Qty: 30 RF: 0 apixaban [Eliquis] 2.5 mg Tablet 5 mg PO BID Qty: 60 RF: 0 prednisone 10 mg Tablet 20 mg PO BID 4 Days Qty: 16 RF: 0 Status ED Status: With Doctor
[2018-02-26 15:13] LABS: Baso % (Auto) 0.2 % (0.0-2.0); Eos % (Auto) 0.1 % (0.0-4.0); Hematocrit 40.9 % (35.0-46.0); Hemoglobin 14.2 gm/dL (11.6-15.3); Lymph # (Auto) 2.1 th/mm3 (1.0-4.8); Lymph % (Auto) 11.9 % (9.0-44.0); Mean Corpuscular HGB Conc 34.7 % (32.0-36.0); Mean Corpuscular Hemoglobin 35.8 pg (27.0-34.0); Mean Platelet Volume 8.5 fL (7.0-11.0); Mono # (Auto) 0.7 th/mm3 (0.0-0.9); Mono % (Auto) 4.3 % (0.0-8.0); Neut # (Auto) 14.5 th/mm3 (1.8-7.7); Neut % (Auto) 83.5 % (16.0-70.0); Platelet Count 256 th/mm3 (150-450); Red Blood Count 3.98 mil/mm3 (4.00-5.30); Red Cell Distribution Width 13.5 % (11.6-17.2); White Blood Count 17.4 th/mm3 (4.0-11.0)
--- NOTE | 2018-02-26 15:26 | XR ---
EXAM DATE: 02/26/2018 2:52 PM EST AGE/SEX: 82 years / Female INDICATIONS: Shortness of breath. Patient was recently in hospital with pneumonia and lung infection . CLINICAL DATA: This is the patient's initial encounter. Patient reports that signs and symptoms have been present for 1 day and indicates a pain score of 5/10. MEDICAL/SURGICAL HISTORY: Chronic obstructive pulmonary disease. Asthma. Pacemaker. [place] [facility] [place]/2018. . FINDINGS: A single AP view of the chest demonstrates the lungs to be symmetrically aerated without evidence of mass, infiltrate or effusion. Pacemaker implanted in the left chest The cardiomediastinal contours ar e unremarkable. Osseous structures are intact. CONCLUSION: . Lungs remain clear. No failure Electronically signed by: Benson Villegas MD Board Certified Radiologist 02/26/2018 3:25 PM EST
[2018-02-26 15:27] LABS: Activated Partial Thrombo Time 24.5 sec (23.4-31.7); INR 1.2 Ratio; Prothrombin Time 12.5 sec (9.8-11.6)
[2018-02-26 15:43] LABS: Alanine Aminotransferase 28 U/L (10-53); Albumin 2.8 g/dL (3.4-5.0); Alkaline Phosphatase 83 U/L (45-117); Anion Gap 9 meq/L (5-15); Aspartate Aminotransferase 19 U/L (15-37); Blood Urea Nitrogen 29 mg/dL (7-18); Calcium 7.7 mg/dL (8.5-10.1); Carbon Dioxide 33.8 meq/L (21.0-32.0); Chloride 97 meq/L (98-107); Glomerular Filtration Rate 47 mL/min (>89); Glucose,Random 106 mg/dL (74-106); Lipase 122 U/L (73-393); Magnesium 2.5 mg/dL (1.5-2.5); Sodium 140 meq/L (136-145); Total Protein 6.1 g/dL (6.4-8.2)
[2018-02-26 15:44] LABS: Creatine Kinase 55 U/L (26-192)
[2018-02-26 15:48] LABS: Potassium 2.8 meq/L (3.5-5.1)
[2018-02-26] MEDS ORDERED: Potassium Chlor 10 mEq Premix 10 MEQ/100 ML PIGGYBACK IV.SIG ONE (15:52)
[2018-02-26] MEDS ORDERED: Sodium Chlor 0.9% Inj 500 ML IV.SIG SCH (16:00)
--- NOTE | 2018-02-26 17:12 | CT ---
EXAM DATE: 02/26/2018 4:59 PM EST AGE/SEX: 82 years / Female INDICATIONS: Abdomen pain, vomiting blood CLINICAL DATA: This is the patient's initial encounter. Patient reports that signs and symptoms have been present for 2 days and indicates a pain score of 8/10. MEDICAL/SURGICAL HISTORY: Hypertension. Asthma. Chronic obstructive pulmonary disease. Sapello tts Esophagus Hysterectomy. section. ORAL CONTRAST: No oral contrast ingested. RADIATION DOSE: 8.48 CTDI (mGy) COMPARISON: No prior exams available for comparison. TECHNIQUE: Multiple contiguous axial images were obtained through the abdomen and pelvis following b olus infusion of 100ML ml Omnipaque 350 (iohexol) nonionic water-soluble contrast as a single exam dose. No oral contrast ingested. Using automated exposure control and adjustment of the mA and/or kV according to patient size, radiation dose was kept as low as reasonably achievable to obtain optimal diagnostic quality images. DICOM format image data is available electronically for review and chasidy rison. FINDINGS: Lower Lungs: Posterior bibasilar atelectasis and/or infiltrates are noted. Tiny left pleural effusion is noted. Liver: The liver has a homogeneous density without space-occupying lesion. There is no dilation of th e biliary tree. Spleen: Homogeneous density without enlargement. Pancreas: Unremarkable without mass or calcification. Kidneys: Normal in size and shape. No evidence of mass or hydronephrosis. There is a 7 mm cyst withi n the lower pole of the right kidney. Adrenal Glands: Unremarkable. Aorta: The aorta and proximal iliac vessels are grossly unremarkable without aneurysmal dilation. Bowel/Mesentery: There is a moderate-sized hiatal hernia. The bowel loops are grossly unremarkable. The cecum and sigmoid colon have a normal configuration. Abdominal Wall: Intact. Retroperitoneum: No evidence of adenopathy in the retrocrural, para-aortic, or deep pelvic regions. Bladder: Contours are smooth. Reproductive Organs: No abnormal masses or calcifications seen. Inguinal: The inguinal region is unremarkable without evidence of adenopathy. Bony Structures: Degenerative changes and scoliosis are noted throughout the thoracolumbar spine. Th ere is grade I anterolisthesis of L3 in relation to L4. Multiple chronic compression deformity is are noted involving T9, T10, T11, T12, L1, L2, and L3. CONCLUSION: 1. Moderate-sized hiatal hernia. 2. Posterior bibasilar atelectasis and/or infiltrates. 3. Tiny left pleural effusion. 4. Degenerative changes and scoliosis are noted throughout the thoracolumbar spine. 5. Grade I anterolisthesis of L3 in relation to L4. 6. Multiple chronic compression deformity is are noted involving T9, T10, T11, T12, L1, L2, and L3. 7. 7 mm lower pole right renal cyst. Electronically signed by: Arian Robin MD Board Certified Radiologist 02/26/2018 5:11 PM EST
--- NOTE | 2018-02-26 18:38 | P.HP ---
History of Present Illness Primary Care Physician: UNKNOWN History of Present Illness: 82-year-old white female being admitted for intractable nausea vomiting with subsequent hypokalemia Patient was just discharged home 2 days ago (after being hospitalized for PNA). However she started developing worsening weakness today coupled with nausea and postprandial vomiting, unable to keep down even liquids. Reports that the coughing that she has had has eased off in intensity since discharge but still has hemoptysis. Denies any fevers or chills. Denies having any chest pain. Says she has some abdominal soreness and thinks it may be due to some constipation, has not had a bowel movement in days, denies diarrhea. Patient says upon the day of discharge she picked up her prescribed medications including her prednisone and her Eliquis. She did not pickup any abx. In the emergency department vital signs were stable but she was noted to have low potassium of 2.8. Chest x-ray which I independently reviewed was clear. CT abd was done also which was negative for PE but showed possible infiltrates per the radiology read, my interpretation is that there are no acute infiltrates suggestive of pneumonia. lipase and lfts neg. Inpatient Certification: I certify that the inpatient services were ordered in accordance with Medicare regulations governing the order. This includes certification that hospital inpatient services are reasonable and necessary and in the case of services not specified as inpatient-only under 42 CFR 419.22(n), that they are appropriately provided as inpatient services in accordance to with the 2-midnight benchmark under 43 CFR 412.3(e) Estimated Total Length of Stay (Days): 2 Plans for Post Hospital Care: Not yet determined Review of Systems All other systems reviewed negative except as stated in HPI PMFSH - History History Provided By: Patient, Permit Technician / EMT - Medical History Medical History: Medical History (Last Reviewed 02/26/18 @ 18:38 by Howard Hall MD) Asthma Atrial fibrillation Cedillo esophagus COPD (chronic obstructive pulmonary disease) History of hysterectomy Hypertension Sleep apnea - Surgical History Surgical History: Surgical History (Last Reviewed 02/26/18 @ 18:38 by Howard Hall MD) History of section History of shoulder surgery Pacemaker - Family History Family History: Family History (Last Reviewed 02/26/18 @ 18:39 by Howard Hall MD) Mother Heart disease Father Black lung disease Other Diabetes mellitus - Social History I have reviewed the patient's Social History: Yes - Tobacco History Second Hand Smoke Exposure: No Smoking Status: Former smoker Tobacco Type: Cigarettes - Alcohol History How Often Do You Have a Drink Containing Alcohol: 2 to 4 times a month - Substance Use History Substance History: No History of Abuse - Travel History Recent Travel in the [place] Within the Last 8 Weeks: No Recent Travel Out of the Country Within the Last 8 Weeks: No - Immunization History Tetanus Immunization: <5 Years Medications and Allergies Active Medications: Active Medications Potassium Chloride/Sodium Chloride (Ns + Kcl 40 Meq Inj) 1,000 mls @ 42 mls/hr IV.CONT .[id number] JEWELS Sodium Chloride (Ns Flush) 2 ml IV.FLUSH BID JEWELS Sodium Chloride (Ns Flush) 2 ml IV.FLUSH PRN PRN PRN Reason: FLUSH AFTER USING IV ACCESS Allergies Allergy/AdvReac Type Severity Reaction Status Date / Time codeine Allergy Severe GI UPSET Verified 02/26/18 14:15 sulfamethoxazole Allergy Severe CONFIRM Verified 02/26/18 14:15 REACTION: SIDE EFFECT VS ALLERGY. trimethoprim Allergy Severe CONFIRM Verified 02/26/18 14:15 REACTION: SIDE EFFECT VS ALLERGY. lansoprazole Allergy Mild DIARRHEA Verified 02/26/18 14:15 Home Medications Medication Instructions Recorded Confirmed Type albuterol sulfate 2.5 mg INHALATION BID 09/07/17 02/26/18 History alendronate [Fosamax] 70 mg PO QWEEK 09/07/17 02/26/18 History bumetanide 2 mg PO DAILY 09/07/17 02/26/18 History carvedilol 6.25 mg PO BID 09/07/17 02/26/18 History cholecalciferol (vitamin D3) 1,000 unit PO DAILY 09/07/17 02/26/18 History [Vitamin D3] diltiazem HCl 180 mg PO DAILY 09/07/17 02/26/18 History fluoxetine 20 mg PO DAILY 09/07/17 02/26/18 History guaifenesin [Mucinex] 600 mg PO Q12H 09/07/17 02/26/18 History multivitamin [Multiple Vitamins] 1 tab PO DAILY 09/07/17 02/26/18 History omeprazole 20 mg PO BID 09/07/17 02/26/18 History Exam Vital signs: Vital Signs 02/26/18 14:15 02/26/18 16:00 02/26/18 17:29 Temperature 97.9 F Pulse Rate 79 89 80 Respiratory Rate 18 19 20 Blood Pressure 124/69 129/63 125/63 Pulse Oximetry 91 L 96 98 Intake & Output 02/25/18 02/26/18 02/26/18 18:59 06:59 18:59 Intake Total 600 / 600 Balance 600 / 600 Weight 72.575 kg Intake: IV 600 / 600 KCl 10 mEq Premix Inj 10 meq In 100 / 100 100 ml @ 100 mls/hr IV.SIG ONCE ONE Rx#:[id number] NS Inj 500 ML @ 1000 mls/hr IV. 500 / 500 SIG BOLUS JEWELS Rx#:[id number] Narrative: VS: afebrile GENERAL: Elderly female, well-nourished, no acute distress SKIN: Warm and dry. EYES: No scleral icterus. No injection or drainage. ENT: No nasal bleeding or discharge. Dry mucous membranes, hyperemic oropharynx. CARDIOVASCULAR: Regular rate and rhythm. no murmurs RESPIRATORY: No accessory muscle use. Clear to auscultation. Breath sounds equal bilaterally. GASTROINTESTINAL: Abdomen soft, mild tenderness diffusely, nondistended Extremities: No clubbing, cyanosis, or edema. No obvious deformities. MUSCULOSKELETAL: adequate muscle bulk and tone for age and habitus NEUROLOGICAL: Awake and alert. No obvious cranial nerve deficits. No facial droop nor slurred speech noted. PSYCHIATRIC: Appropriate mood and affect; insight and judgment normal. Results - Labs CBC & Chem 7: 02/26/18 14:30 02/26/18 14:30 Labs: Laboratory Results - last 24 hr 02/26/18 02/26/18 02/26/18 14:30 14:30 14:30 WBC 17.4 H RBC 3.98 L Hgb 14.2 Hct 40.9 MCV 103.0 H MCH 35.8 H MCHC 34.7 RDW 13.5 Plt Count 256 D MPV 8.5 Neut % (Auto) 83.5 H Lymph % (Auto) 11.9 Whitman % (Auto) 4.3 Eos % (Auto) 0.1 Baso % (Auto) 0.2 Neut # (Auto) 14.5 H Lymph # (Auto) 2.1 Whitman # (Auto) 0.7 Eos # (Auto) 0.0 Baso # (Auto) 0.0 WBC Differential . Differential Comment Auto diff final PT 12.5 H INR 1.2 APTT 24.5 Sodium 140 Potassium 2.8 L* Chloride 97 L Carbon Dioxide 33.8 H Anion Gap 9 BUN 29 H Creatinine 1.11 H Estimated GFR 47 L Random Glucose 106 Calcium 7.7 L Magnesium 2.5 Total Bilirubin 0.7 AST 19 ALT 28 Alkaline Phosphatase 83 Total Creatine Kinase 55 Troponin I Less than 0.02 L Total Protein 6.1 L Albumin 2.8 L Lipase 122 Blood Type Antibody Screen 02/26/18 14:30 WBC RBC Hgb Hct MCV MCH MCHC RDW Plt Count MPV Neut % (Auto) Lymph % (Auto) Whitman % (Auto) Eos % (Auto) Baso % (Auto) Neut # (Auto) Lymph # (Auto) Whitman # (Auto) Eos # (Auto) Baso # (Auto) WBC Differential Differential Comment PT INR APTT Sodium Potassium Chloride Carbon Dioxide Anion Gap BUN Creatinine Estimated GFR Random Glucose Calcium Magnesium Total Bilirubin AST ALT Alkaline Phosphatase Total Creatine Kinase Troponin I Total Protein Albumin Lipase Blood Type O Positive Antibody Screen Negative - Imaging Impressions Chest X-Ray 02/26/18 14:22 CONCLUSION: . Lungs remain clear. No failure Abdomen/Pelvis CT 02/26/18 15:54 CONCLUSION: 1. Moderate-sized hiatal hernia. 2. Posterior bibasilar atelectasis and/or infiltrates. 3. Tiny left pleural effusion. 4. Degenerative changes and scoliosis are noted throughout the thoracolumbar spine. 5. Grade I anterolisthesis of L3 in relation to L4. 6. Multiple chronic compression deformity is are noted involving T9, T10, T11, T12, L1, L2, and L3. 7. 7 mm lower pole right renal cyst. Caprini VTE Risk Assessment Caprini VTE Risk Assessment: Moderate/High Risk (score >= 2) Caprini Risk Assessment Model: Point Value = 1 Point Value = 2 Point Value = 3 Point Value = 5 Age 41-60 Minor surgery BMI > 25 kg/m2 Swollen legs Varicose veins or History of unexplained or recurrent spontaneous Oral contraceptives or hormone replacement Sepsis (< 1 month) Serious lung disease, including pneumonia (< 1 month) Abnormal pulmonary function Acute myocardial infarction Congestive heart failure (< 1 month) History of inflammatory bowel disease Medical patient at bed rest Age 61-74 Arthroscopic surgery Major open surgery (> 45 min) Laparoscopic surgery (> 45 min) Malignancy Confined to bed (> 72 hours) Immobilizing plaster cast Central venous access Age >= 75 History of VTE Family history of VTE Factor V Leiden Prothrombin [id number] Lupus anticoagulant Anticardiolipin antibodies Elevated serum homocysteine Heparin-induced thrombocytopenia Other congenital or acquired thrombophilia Stroke (< 1 month) Elective arthroplasty Hip, pelvis, or leg fracture Acute spinal cord injury (< 1 month) Prophylaxis Regimen: Total Risk Factor Score Risk Level Prophylaxis Regimen 0-1 Low Early ambulation 2 Moderate Order ONE of the following: *Sequential Compression Device (SCD) *Heparin 5000 units SQ BID 3-4 Higher Order ONE of the following medications: *Heparin 5000 units SQ TID *Enoxaparin/Lovenox 40 mg SQ daily (WT < 150 kg, CrCl > 30 mL/min) *Enoxaparin/Lovenox 30 mg SQ daily (WT < 150 kg, CrCl > 10-29 mL/min) *Enoxaparin/Lovenox 30 mg SQ BID (WT < 150 kg, CrCl > 30 mL/min) AND/OR *Sequential Compression Device (SCD) 5 or more Highest Order ONE of the following medications: *Heparin 5000 units SQ TID (Preferred with Epidurals) *Enoxaparin/Lovenox 40 mg SQ daily (WT < 150 kg, CrCl > 30 mL/min) *Enoxaparin/Lovenox 30 mg SQ daily (WT < 150 kg, CrCl > 10-29 mL/min) *Enoxaparin/Lovenox 30 mg SQ BID (WT < 150 kg, CrCl > 30 mL/min) AND *Sequential Compression Device (SCD) Assessment and Plan - Plan 82-year-old white female being admitted for intractable nausea vomiting and hyperkalemia. She does not seem to be presenting with any worsening respiratory symptoms in my opinion. post-prandial n/v lfts and lipase wnl, abd ct neg for obvious cause -viral gastritis vs PUD vs gastroparesis vs constipation -PPI -trial of reglan x1 -phenergan IM over zofran since Zofran has a constipating effect -will consider GI consultation for EGD if failes clear liquid diet -UDS pending -bowel movement regimen Hypokalemia -Secondary to vomiting, Mg wnl Replace p.o. and IV Recheck in a.m. COPD recent RLL PNA hemoptysis - decreasing in amount since discharge - levaquin and azithromycin for now -Ordering pro-calcitonin, if negative, can DC antibiotics -Home Symbicort and albuterol continue home Prednisone taper -I am truly skeptical of a residual dx of PNA as I do not see infiltrate suggestive of pneumonia Mild FRANK - IVFs above - bmp in AM HTN A. fib Stable, continue home diltiazem, coreg, and Eliquis leukocytosis Likely secondary to steroids eliquis
[2018-02-26] MEDS: Pantoprazole Inj 40 MG Vial IV.PUSH SCH (19:39)
[2018-02-26] MEDS ORDERED: Pantoprazole Sodium 20 MG DR Tablet PO SCH (21:00)
[2018-02-26] MEDS: RESP: Albuterol Concentrated 2.5 MG/0.5 ML Neb NEB SCH (22:15)
[2018-02-26] MEDS ORDERED: Mineral Oil Enema 118 ML Bottle RECTAL ONE (22:15)
[2018-02-26] MEDS: guaiFENesin 600 MG ER Tablet PO SCH (22:37)
[2018-02-26] MEDS: predniSONE 20 MG Tablet PO SCH (22:37)
[2018-02-26] MEDS: Budesonide-Formoterol 160/4.5 MCG 6 GM Inhaler INH SCH (22:38)
[2018-02-26] MEDS: Carvedilol 6.25 MG Tablet PO SCH (22:45)
[2018-02-27 03:24] LABS: Amphetamine Screen,Urine Neg (Neg); Barbiturate Screen,Urine Neg (Neg); Cannabinoid Screen,Urine Neg (Neg); Cocaine Screen,Urine Neg (Neg)
[2018-02-27 03:25] LABS: Bilirubin,Urine Negative (Negative); Clarity,Urine Clear (Clear); Color,Urine Yellow (Yellw/Straw); Glucose,Urine (UA) Negative (Negative); Hyaline Casts,Urine 5 /lpf (0-3); Leukocyte Esterase,Urine Negative (Negative); Nitrite,Urine Negative (Negative); Squamous Epithelial Cell,Urine 1 /hpf (0-5)
[2018-02-27 03:46] LABS: Opiate Screen,Urine Neg (Neg)
[2018-02-27] MEDS: RESP: Albuterol Concentrated 2.5 MG/0.5 ML Neb NEB SCH ×4 (05:12→20:06)
[2018-02-27 06:15] LABS: Calcium 7.5 mg/dL (8.5-10.1); Carbon Dioxide 32.3 meq/L (21.0-32.0)
--- NOTE | 2018-02-27 07:59 | P.PN ---
Subjective Interval history: Follow-up for COPD, pneumonia, nausea/vomiting. Patient reports her nausea and vomiting has improved and she has been tolerating oral intake. She reports continued intractable dry nonproductive cough with wheezing and some shortness of breath. Denies fevers but does report occasional chills. She does not feel ready for discharge. She denies any other medical complaints at this time. Physical Exam Vital signs: Vital Signs 02/26/18 14:15 02/26/18 16:00 02/26/18 17:29 Temperature 97.9 F Pulse Rate 79 89 80 Respiratory Rate 18 19 20 Blood Pressure 124/69 129/63 125/63 Pulse Oximetry 91 L 96 98 02/26/18 20:00 02/26/18 21:59 02/26/18 23:57 Temperature 98.3 F 97.7 F Pulse Rate 83 85 72 Respiratory Rate 18 18 Blood Pressure 101/70 95/54 L 132/61 Pulse Oximetry 94 L 92 L 02/27/18 00:00 02/27/18 04:00 Temperature 97.5 F L Pulse Rate 78 78 Respiratory Rate 18 Blood Pressure 134/85 Pulse Oximetry 96 Intake & Output 02/26/18 02/27/18 02/27/18 18:59 06:59 18:59 Intake Total 600 / 600 760 / 760 Balance 600 / 600 760 / 760 Weight 72.575 kg 73 kg Intake: IV 600 / 600 KCl 10 mEq Premix Inj 10 meq In 100 / 100 100 ml @ 100 mls/hr IV.SIG ONCE ONE Rx#:[id number] NS Inj 500 ML @ 1000 mls/hr IV. 500 / 500 SIG BOLUS JEWELS Rx#:[id number] Oral 760 / 760 Other: # Voids 1 Date of Last Bowel Movement 02/26/18 Narrative: GENERAL: Well-nourished, well-developed pleasant elderly female patient in [facility]. SKIN: Warm and dry. No rash. HEENT: Normocephalic. Atraumatic. Pupils equal and round. Mucous membranes pink and moist. CARDIOVASCULAR: Regular rate and rhythm. No murmur appreciated. RESPIRATORY: No accessory muscle use. Diffuse expiratory wheezing with scattered rhonchi. Breath sounds equal bilaterally. GASTROINTESTINAL: Abdomen soft, non-tender, nondistended. Normoactive bowel sounds x4. MUSCULOSKELETAL: No obvious deformities. Extremities without clubbing, cyanosis , or edema. NEUROLOGICAL: Awake and alert. No obvious cranial nerve deficits. Moving all extremities spontaneously. Normal speech. PSYCHIATRIC: Appropriate mood and affect; insight and judgment normal. Results - Labs CBC & Chem 7: 02/26/18 14:30 02/27/18 04:17 Laboratory Results - last 24 hr 02/26/18 02/26/18 02/26/18 14:30 14:30 14:30 WBC 17.4 H RBC 3.98 L Hgb 14.2 Hct 40.9 MCV 103.0 H MCH 35.8 H MCHC 34.7 RDW 13.5 Plt Count 256 D MPV 8.5 Neut % (Auto) 83.5 H Lymph % (Auto) 11.9 [place] % (Auto) 4.3 Eos % (Auto) 0.1 Baso % (Auto) 0.2 Neut # (Auto) 14.5 H Lymph # (Auto) 2.1 [place] # (Auto) 0.7 Eos # (Auto) 0.0 Baso # (Auto) 0.0 WBC Differential . Differential Comment Auto diff final PT 12.5 H INR 1.2 APTT 24.5 Sodium 140 Potassium 2.8 L* Chloride 97 L Carbon Dioxide 33.8 H Anion Gap 9 BUN 29 H Creatinine 1.11 H Estimated GFR 47 L Random Glucose 106 Calcium 7.7 L Magnesium 2.5 Total Bilirubin 0.7 AST 19 ALT 28 Alkaline Phosphatase 83 Total Creatine Kinase 55 Troponin I Less than 0.02 L Total Protein 6.1 L Albumin 2.8 L Lipase 122 Urine Color Urine Clarity Urine pH Ur Specific [place] Urine Protein Urine Glucose (UA) Urine Ketones Urine Occult Blood Urine Nitrate Urine Bilirubin Urine Urobilinogen Ur Leukocyte Esterase Urine RBC Urine WBC Ur Squamous Epith Cells Hyaline Casts Micro UA Comment Ur Microscopic Review Urine Culture Comments Urine Opiates Screen Ur Barbiturates Screen Ur Amphetamines Screen U Benzodiazepines Scrn Urine Cocaine Screen U Cannabinoids Screen Blood Type Antibody Screen 02/26/18 02/27/18 02/27/18 14:30 02:54 02:54 WBC RBC Hgb Hct MCV MCH MCHC RDW Plt Count MPV Neut % (Auto) Lymph % (Auto) [place] % (Auto) Eos % (Auto) Baso % (Auto) Neut # (Auto) Lymph # (Auto) [place] # (Auto) Eos # (Auto) Baso # (Auto) WBC Differential Differential Comment PT INR APTT Sodium Potassium Chloride Carbon Dioxide Anion Gap BUN Creatinine Estimated GFR Random Glucose Calcium Magnesium Total Bilirubin AST ALT Alkaline Phosphatase Total Creatine Kinase Troponin I Total Protein Albumin Lipase Urine Color Yellow Urine Clarity Clear Urine pH 5.0 Ur Specific [place] 1.040 H Urine Protein Negative Urine Glucose (UA) Negative Urine Ketones Negative Urine Occult Blood Negative Urine Nitrate Negative Urine Bilirubin Negative Urine Urobilinogen 2.0 H Ur Leukocyte Esterase Negative Urine RBC Less than 1 Urine WBC 1 Ur Squamous Epith Cells 1 Hyaline Casts 5 Micro UA Comment Culture not ind Ur Microscopic Review Not Reportable Urine Culture Comments Culture not ind Urine Opiates Screen Neg Ur Barbiturates Screen Neg Ur Amphetamines Screen Neg U Benzodiazepines Scrn Neg Urine Cocaine Screen Neg U Cannabinoids Screen Neg Blood Type O Positive Antibody Screen Negative 02/27/18 04:17 WBC RBC Hgb Hct MCV MCH MCHC RDW Plt Count MPV Neut % (Auto) Lymph % (Auto) [place] % (Auto) Eos % (Auto) Baso % (Auto) Neut # (Auto) Lymph # (Auto) [place] # (Auto) Eos # (Auto) Baso # (Auto) WBC Differential Differential Comment PT INR APTT Sodium 143 Potassium 4.0 D Chloride 102 Carbon Dioxide 32.3 H Anion Gap 9 BUN 30 H Creatinine 1.12 H Estimated GFR 47 L Random Glucose 160 H Calcium 7.5 L Magnesium Total Bilirubin AST ALT Alkaline Phosphatase Total Creatine Kinase Troponin I Total Protein Albumin Lipase Urine Color Urine Clarity Urine pH Ur Specific [place] Urine Protein Urine Glucose (UA) Urine Ketones Urine Occult Blood Urine Nitrate Urine Bilirubin Urine Urobilinogen Ur Leukocyte Esterase Urine RBC Urine WBC Ur Squamous Epith Cells Hyaline Casts Micro UA Comment Ur Microscopic Review Urine Culture Comments Urine Opiates Screen Ur Barbiturates Screen Ur Amphetamines Screen U Benzodiazepines Scrn Urine Cocaine Screen U Cannabinoids Screen Blood Type Antibody Screen - Imaging Impressions Chest X-Ray 02/26/18 14:22 CONCLUSION: . Lungs remain clear. No failure Abdomen/Pelvis CT 02/26/18 15:54 CONCLUSION: 1. Moderate-sized hiatal hernia. 2. Posterior bibasilar atelectasis and/or infiltrates. 3. Tiny left pleural effusion. 4. Degenerative changes and scoliosis are noted throughout the thoracolumbar spine. 5. Grade I anterolisthesis of L3 in relation to L4. 6. Multiple chronic compression deformity is are noted involving T9, T10, T11, T12, L1, L2, and L3. 7. 7 mm lower pole right renal cyst. Assessment and Plan - Plan 82-year-old female with history of asthma/COPD, A. fib, HTN, SEBASTIAN, recent hospitalization for pneumonia/COPD, presents with nausea/vomiting and continued cough/wheezing/shortness of breath. Nausea/vomiting: Suspect gastroenteritis vs secondary to forceful coughing. -CT abd/pelvis reviewed, no acute intra-abdominal findings -supportive treatment with IVF, antiemetics, antitussives prn -diet as tolerated Acute COPD Exacerbation with Suspected Pneumonia: patient with +wheezing/SOB -CXR reviewed, no acute findings; however abd/pelvis CT shows posterior bibasilar atelectasis and/or infiltrates -Continue antibiotics with IV Levaquin and IV Azithro -Give steroids with IV Solumedrol 40mg q8h -Continue symbicort -Continue albuterol nebs q6h -Continue mucinex bid, tessalon perrles q8h -O2 as needed (patient wears O2 prn and with CPAP at home) -Monitor for improvement Afib/HTN: chronic -continue patient's Eliquis, coreg, cardizem -monitor BP, adjust antihypertensives as needed SEBASTIAN: chronic -continue patient's CPAP with O2 prn All other chronic medical conditions stable, continue home medications as appropriate. DVT Prophylaxis: on Eliquis Discharge Planning: Discharge pending further clinical improvement. Not yet ready for discharge.
[2018-02-27] MEDS: Budesonide-Formoterol 160/4.5 MCG 6 GM Inhaler INH SCH ×2 (10:02→21:50)
[2018-02-27] MEDS: predniSONE 20 MG Tablet PO SCH (10:03)
[2018-02-27] MEDS: Carvedilol 6.25 MG Tablet PO SCH ×2 (10:03→21:01)
[2018-02-27] MEDS: dilTIAZem CD 180 MG Capsule PO SCH (10:03)
[2018-02-27] MEDS: guaiFENesin 600 MG ER Tablet PO SCH ×2 (10:03→21:01)
[2018-02-27] MEDS: FLUoxetine 20 MG Capsule PO SCH (10:03)
[2018-02-27] MEDS: MethylPREDNISolone Sod Succinate Inj 40 MG/ML Vial IV.PUSH SCH ×2 (15:39→23:41)
[2018-02-27] MEDS: Benzonatate 100 MG Capsule PO SCH ×2 (15:39→23:42)
[2018-02-27] MEDS: Azithromycin Inj 500 MG in Sodium Chlor 0.9% Inj 250 ML IV.SIG SCH (21:00)
[2018-02-27] MEDS: Pantoprazole Inj 40 MG Vial IV.PUSH SCH (21:00)
--- NOTE | 2018-02-28 00:57 | ECG ---
Date Performed: 02/26/2018 Time Performed: 14:33:49 PTAGE: 82 years EKG: ATRIAL FIBRILLATION MARKED LEFT AXIS DEVIATION POSSIBLE ANTERIOR MYOCARDIAL INFARCTION ABNO RMAL ECG PREVIOUS TRACING : 02/23/2018 17.46 Since the previous tracing, no significant change noted DOCTOR: Ignacio Morelos Interpretating Date/Time 02/28/2018 00:56:12
[2018-02-28] MEDS: Benzonatate 100 MG Capsule PO SCH ×3 (06:40→23:08)
[2018-02-28] MEDS: MethylPREDNISolone Sod Succinate Inj 40 MG/ML Vial IV.PUSH SCH ×3 (06:40→23:07)
[2018-02-28] MEDS: RESP: Albuterol Concentrated 2.5 MG/0.5 ML Neb NEB SCH ×4 (06:52→20:36)
--- NOTE | 2018-02-28 08:51 | P.PN ---
Subjective Interval history: Follow-up for COPD exacerbation, pneumonia, nausea/vomiting. Patient reports feeling slightly better today. She reports continued cough, now productive of yellow mixed with streaky blood-tinged sputum. She states the hemoptysis is much improved compared to previously. She reports continued diffuse wheezing, denies any significant shortness of breath. She does report diffuse chest discomfort with coughing, but none while at rest. Denies fevers but does report chills. Denies any further nausea or vomiting. She is tolerating oral intake. She does not feel ready for discharge. Physical Exam Vital signs: Vital Signs 02/27/18 09:02 02/27/18 10:00 02/27/18 12:00 Temperature 98.7 F Pulse Rate 68 89 78 Respiratory Rate 18 16 Blood Pressure 139/77 Pulse Oximetry 100 95 02/27/18 15:32 02/27/18 16:00 02/27/18 20:00 Temperature 98.9 F 97.8 F Pulse Rate 76 81 82 Respiratory Rate 16 16 17 Blood Pressure 123/58 L 114/60 Pulse Oximetry 95 97 02/27/18 20:07 02/28/18 00:00 02/28/18 03:42 Temperature 98.0 F 97.7 F Pulse Rate 76 87 78 Respiratory Rate 16 18 18 Blood Pressure 139/73 157/86 H Pulse Oximetry 96 96 95 02/28/18 07:36 02/28/18 08:02 Temperature 97.9 F Pulse Rate 87 Respiratory Rate 16 14 Blood Pressure 162/85 H Pulse Oximetry 96 Intake & Output 02/27/18 02/28/18 02/28/18 18:59 06:59 18:59 Intake Total 946 / 946 760 / 760 Balance 946 / 946 760 / 760 Weight 75.1 kg Intake: IV 946 / 946 400 / 400 NS + KCl 40 mEq Inj 1,000 ML @ 946 / 946 42 mls/hr IV.CONT .[id number] JEWELS Rx#:[id number] Azithromycin Inj 500 MG In NS 250 / 250 Inj 250 ML @ 250 mls/hr IV.SIG Q24H JEWELS Rx#:[id number] Levaquin 750 mg Premix Inj 150 150 / 150 ML @ 100 mls/hr IV.SIG Q48H JEWELS Rx#:[id number] Oral 360 / 360 Other: # Voids 2 2 Date of Last Bowel Movement 02/26/18 02/26/18 # Bowel Movements 0 Narrative: GENERAL: Well-nourished, well-developed pleasant elderly female patient in [facility]. SKIN: Warm and dry. No rash. HEENT: Normocephalic. Atraumatic. Pupils equal and round. Mucous membranes pink and moist. CARDIOVASCULAR: Regular rate and rhythm. No murmur appreciated. RESPIRATORY: No accessory muscle use. Diffuse expiratory wheezing with scattered rhonchi, minimally improved. Breath sounds equal bilaterally. GASTROINTESTINAL: Abdomen soft, non-tender, nondistended. Normoactive bowel sounds x4. MUSCULOSKELETAL: No obvious deformities. Extremities without clubbing, cyanosis , or edema. NEUROLOGICAL: Awake and alert. No obvious cranial nerve deficits. Moving all extremities spontaneously. Normal speech. PSYCHIATRIC: Appropriate mood and affect; insight and judgment normal. Results - Labs CBC & Chem 7: 02/26/18 14:30 02/27/18 04:17 Laboratory Results - last 24 hr 02/27/18 04:17 Procalcitonin 0.12 H - Imaging Chest X-Ray 02/26/18 14:22 CONCLUSION: . Lungs remain clear. No failure Abdomen/Pelvis CT 02/26/18 15:54 CONCLUSION: 1. Moderate-sized hiatal hernia. 2. Posterior bibasilar atelectasis and/or infiltrates. 3. Tiny left pleural effusion. 4. Degenerative changes and scoliosis are noted throughout the thoracolumbar spine. 5. Grade I anterolisthesis of L3 in relation to L4. 6. Multiple chronic compression deformity is are noted involving T9, T10, T11, T12, L1, L2, and L3. 7. 7 mm lower pole right renal cyst. Assessment and Plan - Plan 82-year-old female with history of asthma/COPD, A. fib, HTN, SEBASTIAN, recent hospitalization for pneumonia/COPD, presents with nausea/vomiting and continued cough/wheezing/shortness of breath. Nausea/vomiting: Suspect gastroenteritis vs secondary to forceful coughing. -CT abd/pelvis reviewed, no acute intra-abdominal findings -supportive treatment with IVF, antiemetics, antitussives prn -diet as tolerated -Symptoms resolved, tolerating oral intake Acute COPD Exacerbation with Suspected Pneumonia: patient with +wheezing/SOB -CXR reviewed, no acute findings; however abd/pelvis CT shows posterior bibasilar atelectasis and/or infiltrates -Continue antibiotics with IV Levaquin and IV Azithro -Give steroids with IV Solumedrol 40mg q8h -Continue symbicort -Continue albuterol nebs q6h -Continue mucinex bid, tessalon perrles q8h -O2 as needed (patient wears O2 prn and with CPAP at home) -Incentive spirometer, Acapella -Check sputum culture, although sputum culture from previous admission with normal respiratory jesus -Slowly improving, not yet ready for discharge Afib/HTN: chronic -continue patient's Eliquis, coreg, cardizem -monitor BP, adjust antihypertensives as needed SEBASTIAN: chronic -continue patient's CPAP with O2 prn All other chronic medical conditions stable, continue home medications as appropriate. DVT Prophylaxis: on Eliquis Discharge Planning: Discharge pending further clinical improvement. Not yet ready for discharge, hopefully tomorrow.
[2018-02-28] MEDS: dilTIAZem CD 180 MG Capsule PO SCH (09:26)
[2018-02-28] MEDS: guaiFENesin 600 MG ER Tablet PO SCH ×2 (09:26→21:08)
[2018-02-28] MEDS: FLUoxetine 20 MG Capsule PO SCH (09:26)
[2018-02-28] MEDS: Carvedilol 6.25 MG Tablet PO SCH ×2 (09:26→21:09)
[2018-02-28] MEDS: Budesonide-Formoterol 160/4.5 MCG 6 GM Inhaler INH SCH ×2 (10:22→21:09)
--- NOTE | 2018-02-28 18:36 | P.DS ---
DS: Providers Date of admission: 02/26/18 17:32 Primary care physician: UNKNOWN Brief History from admission: 82-year-old white female being admitted for intractable nausea vomiting with subsequent hypokalemia Patient was just discharged home 2 days ago (after being hospitalized for PNA). However she started developing worsening weakness today coupled with nausea and postprandial vomiting, unable to keep down even liquids. Reports that the coughing that she has had has eased off in intensity since discharge but still has hemoptysis. Denies any fevers or chills. Denies having any chest pain. Says she has some abdominal soreness and thinks it may be due to some constipation, has not had a bowel movement in days, denies diarrhea. Patient says upon the day of discharge she picked up her prescribed medications including her prednisone and her Eliquis. She did not pickup any abx. In the emergency department vital signs were stable but she was noted to have low potassium of 2.8. Chest x-ray which I independently reviewed was clear. CT abd was done also which was negative for PE but showed possible infiltrates per the radiology read, my interpretation is that there are no acute infiltrates suggestive of pneumonia. lipase and lfts neg. DS: Summary cancel Time Spent with Patient Total time spent providing and/or coordinating discharge services: >30 minutes Quality: VTE Deep Vein Thrombosis/Pulmonary Embolism Present on Admission: No Results Impressions ITS Impressions Chest X-Ray 02/26/18 14:22 CONCLUSION: . Lungs remain clear. No failure Abdomen/Pelvis CT 02/26/18 15:54 CONCLUSION: 1. Moderate-sized hiatal hernia. 2. Posterior bibasilar atelectasis and/or infiltrates. 3. Tiny left pleural effusion. 4. Degenerative changes and scoliosis are noted throughout the thoracolumbar spine. 5. Grade I anterolisthesis of L3 in relation to L4. 6. Multiple chronic compression deformity is are noted involving T9, T10, T11, T12, L1, L2, and L3. 7. 7 mm lower pole right renal cyst. Discharge Plan Discharge Condition Condition: Stable Physicians Team Primary Care Provider: UNKNOWN, Attending Provider: Ellen Calixto Rxs /Orders / Referrals /Forms Prescriptions: No Action omeprazole 20 mg Capsule,Delayed Release(Dr/Ec) 20 mg PO BID RF: 0 multivitamin [Multiple Vitamins] Tablet 1 tab PO DAILY RF: 0 carvedilol 6.25 mg Tablet 6.25 mg PO BID RF: 0 bumetanide 2 mg Tablet 2 mg PO DAILY RF: 0 diltiazem HCl 180 mg Capsule,Extended Release 24 Hr 180 mg PO DAILY RF: 0 alendronate [Fosamax] 70 mg Tablet 70 mg PO QWEEK RF: 0 fluoxetine 20 mg Capsule 20 mg PO DAILY RF: 0 cholecalciferol (vitamin D3) [Vitamin D3] 1,000 unit Capsule 1,000 unit PO DAILY RF: 0 albuterol sulfate 2.5 mg/0.5 mL Solution For Nebulization 2.5 mg INHALATION BID RF: 0 guaifenesin [Mucinex] 600 mg Tablet Extended Release 12hr 600 mg PO Q12H RF: 0 budesonide-formoterol [Symbicort] 160-4.5 mcg/actuation Hfa Aerosol Inhaler 2 puff INH BID Qty: 30 RF: 0 apixaban [Eliquis] 2.5 mg Tablet 5 mg PO BID Qty: 60 RF: 0 Referrals: UNKNOWN, [Primary Care Provider] - See Instructions Discharge Interventions Interventions: Discharge Planning - Case Management Last Done: 02/27/18 12:37 Status ED Status: Left Department
[2018-02-28] MEDS: Azithromycin Inj 500 MG in Sodium Chlor 0.9% Inj 250 ML IV.SIG SCH ×2 (20:10→21:07)
[2018-02-28] MEDS: Pantoprazole Inj 40 MG Vial IV.PUSH SCH (21:07)
[2018-03-01] MEDS: RESP: Albuterol Concentrated 2.5 MG/0.5 ML Neb NEB SCH ×4 (03:47→21:08)
[2018-03-01] MEDS: MethylPREDNISolone Sod Succinate Inj 40 MG/ML Vial IV.PUSH SCH ×3 (06:24→23:32)
[2018-03-01] MEDS: Benzonatate 100 MG Capsule PO SCH ×3 (06:26→23:32)
--- NOTE | 2018-03-01 08:22 | P.PN ---
Subjective Interval history: Follow-up for COPD exacerbation, pneumonia, nausea/vomiting. The patient reports overall continues to improve. She reports no further nausea or vomiting , and is tolerating oral intake. She is requesting her diet to be advanced from clear liquids to soft foods. She reports she did have a large episode of diarrhea this morning. She denies any abdominal pain. She also reports her breathing continues to improve, however still has some slight wheezing. She reports some mild dyspnea with exertion, but denies any shortness of breath while at rest. Reports continued cough. Denies fevers or chills. She has no other medical complaints at this time. She is hoping to be discharged on 03/02 in the morning if she continues to improve. Physical Exam Vital signs: Vital Signs 02/28/18 11:44 02/28/18 12:56 02/28/18 15:00 Temperature 98.5 F Pulse Rate 84 96 H 96 H Respiratory Rate 16 14 Blood Pressure 137/71 Pulse Oximetry 96 02/28/18 16:00 02/28/18 20:00 02/28/18 20:38 Temperature 98.1 F 98.3 F Pulse Rate 72 76 89 Respiratory Rate 12 18 17 Blood Pressure 138/81 133/60 Pulse Oximetry 97 96 99 03/01/18 00:00 03/01/18 03:38 03/01/18 03:50 Temperature 98.5 F 98.4 F Pulse Rate 76 66 73 Respiratory Rate 20 16 17 Blood Pressure 139/66 133/64 Pulse Oximetry 96 95 Intake & Output 02/28/18 03/01/18 03/01/18 18:59 06:59 18:59 Intake Total 650 / 650 1730 / 1730 Balance 650 / 650 1730 / 1730 Weight 75.1 kg Intake: IV 1250 / 1250 NS + KCl 40 mEq Inj 1,000 ML @ 1000 / 1000 42 mls/hr IV.CONT .[id number] JEWELS Rx#:[id number] Azithromycin Inj 500 MG In NS 250 / 250 Inj 250 ML @ 250 mls/hr IV.SIG Q24H JEWELS Rx#:[id number] Oral 650 / 650 480 / 480 Other: # Voids 3 3 Date of Last Bowel Movement 02/28/18 02/28/18 Narrative: GENERAL: Well-nourished, well-developed pleasant elderly female patient in NAD. SKIN: Warm and dry. No rash. HEENT: Normocephalic. Atraumatic. Pupils equal and round. Mucous membranes pink and moist. CARDIOVASCULAR: Regular rate and rhythm. No murmur appreciated. RESPIRATORY: No accessory muscle use. Mild expiratory wheezing, no rhonchi today, improving with more air movement at bilateral bases today. Breath sounds equal bilaterally. GASTROINTESTINAL: Abdomen soft, non-tender, nondistended. Normoactive bowel sounds x4. MUSCULOSKELETAL: No obvious deformities. Extremities without clubbing, cyanosis , or edema. NEUROLOGICAL: Awake and alert. No obvious cranial nerve deficits. Moving all extremities spontaneously. Normal speech. PSYCHIATRIC: Appropriate mood and affect; insight and judgment normal. Results - Labs CBC & Chem 7: 02/26/18 14:30 02/27/18 04:17 - Imaging Chest X-Ray 02/26/18 14:22 CONCLUSION: . Lungs remain clear. No failure Abdomen/Pelvis CT 02/26/18 15:54 CONCLUSION: 1. Moderate-sized hiatal hernia. 2. Posterior bibasilar atelectasis and/or infiltrates. 3. Tiny left pleural effusion. 4. Degenerative changes and scoliosis are noted throughout the thoracolumbar spine. 5. Grade I anterolisthesis of L3 in relation to L4. 6. Multiple chronic compression deformity is are noted involving T9, T10, T11, T12, L1, L2, and L3. 7. 7 mm lower pole right renal cyst. Assessment and Plan - Plan 82-year-old female with history of asthma/COPD, A. fib, HTN, SEBASTIAN, recent hospitalization for pneumonia/COPD, presents with nausea/vomiting and continued cough/wheezing/shortness of breath. Nausea/vomiting: Suspect gastroenteritis vs secondary to forceful coughing. -CT abd/pelvis reviewed, no acute intra-abdominal findings -supportive treatment with IVF, antiemetics, antitussives prn -advance diet as tolerated -Symptoms resolved, tolerating oral intake -Patient with episode of diarrhea overnight, check stool studies if any further diarrhea Acute COPD Exacerbation with Suspected Pneumonia: patient with +wheezing/SOB -CXR reviewed, no acute findings; however abd/pelvis CT shows posterior bibasilar atelectasis and/or infiltrates -Continue antibiotics with IV Levaquin (renally dosed per pharmacy) and IV Azithro -Give steroids with IV Solumedrol 40mg q8h -Continue symbicort bid -Continue albuterol nebs q6h -Continue mucinex bid, tessalon perrles q8h -O2 as needed (patient wears O2 prn and with CPAP at home) -Incentive spirometer, Acapella -Check sputum culture, although sputum culture from previous admission with normal respiratory jesus -Slowly improving, not yet ready for discharge Afib/HTN: chronic -continue patient's Eliquis, coreg, cardizem -monitor BP, adjust antihypertensives as needed SEBASTIAN: chronic -continue patient's CPAP with O2 prn All other chronic medical conditions stable, continue home medications as appropriate. DVT Prophylaxis: on Eliquis Discharge Planning: Discharge pending further clinical improvement. Not yet ready for discharge, hopefully tomorrow 03/02. PT recommending HHC, case management consulted.
[2018-03-01] MEDS: Carvedilol 6.25 MG Tablet PO SCH ×2 (09:39→20:50)
[2018-03-01] MEDS: guaiFENesin 600 MG ER Tablet PO SCH ×2 (09:39→20:50)
[2018-03-01] MEDS: dilTIAZem CD 180 MG Capsule PO SCH (09:40)
[2018-03-01] MEDS: FLUoxetine 20 MG Capsule PO SCH (09:40)
[2018-03-01] MEDS: Budesonide-Formoterol 160/4.5 MCG 6 GM Inhaler INH SCH ×2 (09:40→20:52)
--- NOTE | 2018-03-01 13:42 | P.DCO ---
- Diagnosis (1) Bilateral pneumonia Status: Acute (2) Hypertension Status: Chronic (3) COPD (chronic obstructive pulmonary disease) Status: Chronic (4) Atrial fibrillation Status: Chronic (5) CHF (congestive heart failure) Status: Chronic - Physical Therapy Order: Evaluate and treat, Improve ambulation, Strength and gait training - Home Health Nursing Order: Medical education, Signs/symptoms of disease process, Oxygen administration education, Nursing assessment with vital signs - Case Management Consult Case Management Consult-Home Health: Yes - Certification I have seen patient Donya Sims on 03/01/18. My clinical findings support the need for the requested home health care services because: Limited mobility due to disease progression, Patient has SOB, Deconditioned with increased weakness, Limited ability to care for self I certify that my clinical findings support that this patient is homebound because: Hx COPD - exertion dyspnea/weakness, Unsteady gait/balance, Unsafe to leave home unassisted (1) Bilateral pneumonia Qualifiers: Pneumonia type: due to unspecified organism Lung location: unspecified part of lung Qualified Code(s): J18.9 - Pneumonia, unspecified organism (2) Hypertension Qualifiers: Hypertension type: essential hypertension Qualified Code(s): I10 - Essential (primary) hypertension (3) 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 Qualified Code(s): J43.9 - Emphysema, unspecified (4) Atrial fibrillation Qualifiers: Atrial fibrillation type: chronic Qualified Code(s): I48.2 - Chronic atrial fibrillation (5) CHF (congestive heart failure) Qualifiers: Heart failure type: diastolic Heart failure chronicity: unspecified Qualified Code(s): I50.30 - Unspecified diastolic (congestive) heart failure
[2018-03-01] MEDS: Pantoprazole Inj 40 MG Vial IV.PUSH SCH (20:50)
[2018-03-01] MEDS: Azithromycin Inj 500 MG in Sodium Chlor 0.9% Inj 250 ML IV.SIG SCH (20:51)
[2018-03-02] MEDS: RESP: Albuterol Concentrated 2.5 MG/0.5 ML Neb NEB SCH ×2 (03:58→09:32)
[2018-03-02] MEDS: Benzonatate 100 MG Capsule PO SCH (06:44)
[2018-03-02] MEDS: MethylPREDNISolone Sod Succinate Inj 40 MG/ML Vial IV.PUSH SCH (06:44)
[2018-03-02 07:36] LABS: Baso % (Auto) 0.1 % (0.0-2.0); Hematocrit 35.7 % (35.0-46.0); Hemoglobin 12.3 gm/dL (11.6-15.3); Lymph # (Auto) 0.4 th/mm3 (1.0-4.8); Lymph % (Auto) 3.1 % (9.0-44.0); Mean Corpuscular HGB Conc 34.4 % (32.0-36.0); Mean Corpuscular Hemoglobin 35.5 pg (27.0-34.0); Mean Corpuscular Volume 103.1 fL (80.0-100.0); Mono # (Auto) 0.3 th/mm3 (0.0-0.9); Mono % (Auto) 2.4 % (0.0-8.0); Neut # (Auto) 11.9 th/mm3 (1.8-7.7); Neut % (Auto) 94.4 % (16.0-70.0); Platelet Count 203 th/mm3 (150-450); Red Blood Count 3.46 mil/mm3 (4.00-5.30); Red Cell Distribution Width 13.4 % (11.6-17.2); White Blood Count 12.6 th/mm3 (4.0-11.0)
[2018-03-02 07:57] LABS: Calcium 7.7 mg/dL (8.5-10.1); Carbon Dioxide 27.2 meq/L (21.0-32.0)
[2018-03-02 08:02] VITALS: O2SAT 97
[2018-03-02] MEDS: guaiFENesin 600 MG ER Tablet PO SCH (08:32)
[2018-03-02] MEDS: Carvedilol 6.25 MG Tablet PO SCH (08:32)
[2018-03-02] MEDS: dilTIAZem CD 180 MG Capsule PO SCH (08:32)
[2018-03-02] MEDS: Budesonide-Formoterol 160/4.5 MCG 6 GM Inhaler INH SCH (08:33)
[2018-03-02] MEDS: FLUoxetine 20 MG Capsule PO SCH (08:33)
--- NOTE | 2018-03-02 12:00 | P.PNIM ---
Subjective Interval history: Patient is seen lying quietly in bed. She tells me that she thinks her breathing is significantly better today with no wheezing. Denies any fever or chills. No nausea vomiting or diarrhea. She would like to go home if possible. Physical Exam Vital signs: Last Vital Signs Temp 97.9 F 03/02/18 08:00 Pulse 80 03/02/18 09:54 Resp 20 03/02/18 09:54 BP 178/84 H 03/02/18 08:00 Pulse Ox 97 03/02/18 08:00 Intake & Output 02/28/18 03/01/18 03/02/18 03/03/18 06:59 06:59 06:59 06:59 Intake Total 1706 / 1706 2380 / 2380 400 / 400 Balance 1706 / 1706 2380 / 2380 400 / 400 Weight 75.1 kg 75.1 kg Narrative: GENERAL: Well-nourished, well-developed pleasant elderly female patient in [facility]. SKIN: Warm and dry. No rash. HEENT: Normocephalic. Atraumatic. Pupils equal and round. Mucous membranes pink and moist. CARDIOVASCULAR: Regular rate and rhythm. RESPIRATORY: No accessory muscle use. Mild expiratory wheezing, no rhonchi. Breath sounds equal bilaterally. GASTROINTESTINAL: Abdomen soft, non-tender, nondistended. Normoactive bowel sounds x4. MUSCULOSKELETAL: No obvious deformities. Extremities without clubbing, cyanosis , or edema. NEUROLOGICAL: Awake and alert. No obvious cranial nerve deficits. Moving all extremities spontaneously. Normal speech. PSYCHIATRIC: Appropriate mood and affect; insight and judgment normal. Results Labs CBC & Chem 7: 03/02/18 06:15 03/02/18 06:15 Labs: Microbiology 02/28/18 14:27 Sputum - Expectorated Sputum Gram Stain - Final 02/28/18 14:27 Sputum - Expectorated Sputum Sputum Culture - Final Heavy growth normal respiratory jesus Assessment and Plan Plan 82-year-old female with history of asthma/COPD, A. fib, HTN, SEBASTIAN, recent hospitalization for pneumonia/COPD, presents with nausea/vomiting and continued cough/wheezing/shortness of breath. Nausea/vomiting: Suspect gastroenteritis vs secondary to forceful coughing. -CT abd/pelvis reviewed, no acute intra-abdominal findings -supportive treatment with IVF, antiemetics, antitussives prn -advance diet as tolerated -Symptoms resolved, tolerating oral intake -Patient with episode of diarrhea overnight, check stool studies if any further diarrhea; no further diarrhea Acute COPD Exacerbation with Suspected Pneumonia: patient with +wheezing/SOB -CXR reviewed, no acute findings; however abd/pelvis CT shows posterior bibasilar atelectasis and/or infiltrates -Continue antibiotics with IV Levaquin (renally dosed per pharmacy) and IV Azithro; will discharge on equivalent orals -Give steroids with IV Solumedrol 40mg q8h -Continue symbicort bid -Continue albuterol nebs q6h -Continue mucinex bid, tessalon perrles q8h -O2 as needed (patient wears O2 prn and with CPAP at home) -Incentive spirometer, Acapella -Check sputum culture, although sputum culture from previous admission with normal respiratory jesus Afib/HTN: chronic -continue patient's Eliquis, coreg, cardizem -monitor BP, adjust antihypertensives as needed SEBASTIAN: chronic -continue patient's CPAP with O2 prn All other chronic medical conditions stable, continue home medications as appropriate. DVT Prophylaxis: on Eliquis Progress Note: Quality VTE Deep Vein Thrombosis/Pulmonary Embolism Present on Admission: No
[2018-03-02 12:13] VITALS: BP 128/67; PULSE 85; RESP 16; TEMP 98.2
--- NOTE | 2018-03-02 12:19 | P.DS ---
DS: Providers Date of admission: 02/26/18 17:32 Primary care physician: UNKNOWN DS: Summary 82-year-old female with history of asthma/COPD, A. fib, HTN, SEBASTIAN, recent hospitalization for pneumonia/COPD, presents with nausea/vomiting and continued cough/wheezing/shortness of breath. Nausea/vomiting: Secondary to forceful coughing. Acute, resolved. CT abd/ pelvis reviewed, no acute intra-abdominal findings Acute COPD Exacerbation with pneumonia. patient with +wheezing/SOB and admit. CXR reviewed, no acute findings; however abd/pelvis CT shows posterior bibasilar atelectasis and/or infiltrates. Treated with IV Levaquin (renally dosed per pharmacy) and IV Azithro; discharged on equivalent orals. IV Solu- Medrol. Continued home Symbicort and DuoNeb's. Check sputum culture, although sputum culture from previous admission with normal respiratory jesus; heavy normal respiratory jesus only. Time Spent with Patient Total time spent providing and/or coordinating discharge services: <30 min Quality: VTE Deep Vein Thrombosis/Pulmonary Embolism Present on Admission: No Exam Narrative Exam Narrative: GENERAL: Well-nourished, well-developed pleasant elderly female patient in [facility]. SKIN: Warm and dry. No rash. HEENT: Normocephalic. Atraumatic. Pupils equal and round. Mucous membranes pink and moist. CARDIOVASCULAR: Regular rate and rhythm. RESPIRATORY: No accessory muscle use. Mild expiratory wheezing, no rhonchi. Breath sounds equal bilaterally. GASTROINTESTINAL: Abdomen soft, non-tender, nondistended. Normoactive bowel sounds x4. MUSCULOSKELETAL: No obvious deformities. Extremities without clubbing, cyanosis , or edema. NEUROLOGICAL: Awake and alert. No obvious cranial nerve deficits. Moving all extremities spontaneously. Normal speech. PSYCHIATRIC: Appropriate mood and affect; insight and judgment normal. Results Labs on day of discharge: Labs from last 24 hours 03/02/18 03/02/18 06:15 06:15 WBC 12.6 H RBC 3.46 L Hgb 12.3 Hct 35.7 MCV 103.1 H MCH 35.5 H MCHC 34.4 RDW 13.4 Plt Count 203 MPV 8.0 Neut % (Auto) 94.4 H Lymph % (Auto) 3.1 L [place] % (Auto) 2.4 Eos % (Auto) 0.0 Baso % (Auto) 0.1 Neut # (Auto) 11.9 H Lymph # (Auto) 0.4 L [place] # (Auto) 0.3 Eos # (Auto) 0.0 Baso # (Auto) 0.0 WBC Differential . Differential Comment Auto diff final Sodium 140 Potassium 4.0 Chloride 106 Carbon Dioxide 27.2 Anion Gap 7 BUN 22 H Creatinine 0.84 Estimated GFR 65 L Random Glucose 151 H Calcium 7.7 L Impressions ITS Impressions Chest X-Ray 02/26/18 14:22 CONCLUSION: . Lungs remain clear. No failure Abdomen/Pelvis CT 02/26/18 15:54 CONCLUSION: 1. Moderate-sized hiatal hernia. 2. Posterior bibasilar atelectasis and/or infiltrates. 3. Tiny left pleural effusion. 4. Degenerative changes and scoliosis are noted throughout the thoracolumbar spine. 5. Grade I anterolisthesis of L3 in relation to L4. 6. Multiple chronic compression deformity is are noted involving T9, T10, T11, T12, L1, L2, and L3. 7. 7 mm lower pole right renal cyst. Discharge Plan Discharge Disposition Patient Disposition: /Home Health Service Discharge Condition Condition: Stable Discharge Order Discharge Orders: Discharge Order (Routine); Ordered 03/02/18 Ordered By: Alma Agarwal ED Use Only Admit Order (Routine); Ordered 02/26/18 Ordered By: Kyree Galindo Discharge Details Anticipated Discharge Date: 03/02/18 Physicians Team ED Provider: Adiel Bethea ED Midlevel Provider: Kyree Galindo Primary Care Provider: UNKNOWN, Attending Provider: Brooke Falcon Rxs /Orders / Referrals /Forms Prescriptions: New azithromycin 250 mg tablet 250 mg PO DAILY 4 Days Qty: 4 RF: 0 levofloxacin [Levaquin] 750 mg tablet 750 mg PO DAILY 10 Days Qty: 10 RF: 0 Continue omeprazole 20 mg Capsule,Delayed Release(Dr/Ec) 20 mg PO BID RF: 0 multivitamin [Multiple Vitamins] Tablet 1 tab PO DAILY RF: 0 carvedilol 6.25 mg Tablet 6.25 mg PO BID RF: 0 bumetanide 2 mg Tablet 2 mg PO DAILY RF: 0 diltiazem HCl 180 mg Capsule,Extended Release 24 Hr 180 mg PO DAILY RF: 0 alendronate [Fosamax] 70 mg Tablet 70 mg PO QWEEK RF: 0 fluoxetine 20 mg Capsule 20 mg PO DAILY RF: 0 cholecalciferol (vitamin D3) [Vitamin D3] 1,000 unit Capsule 1,000 unit PO DAILY RF: 0 albuterol sulfate 2.5 mg/0.5 mL Solution For Nebulization 2.5 mg INHALATION BID RF: 0 guaifenesin [Mucinex] 600 mg Tablet Extended Release 12hr 600 mg PO Q12H RF: 0 budesonide-formoterol [Symbicort] 160-4.5 mcg/actuation Hfa Aerosol Inhaler 2 puff INH BID Qty: 30 RF: 0 apixaban [Eliquis] 2.5 mg Tablet 5 mg PO BID Qty: 60 RF: 0 Referrals: Primary Care Provider [Outside] - See Instructions Post Discharge Care Plan Care Plan Goals: Discharge Care Plan Goals for COPD You have been diagnosed with chronic obstructive pulmonary disease (COPD). This is a name given to a group of diseases that limit the flow of air in and out of your lungs. This makes it harder to breathe. With COPD, you are also more likely to get lung infections. COPD includes chronic bronchitis and emphysema. COPD is most often caused by heavy, long-term cigarette smoking. Directions to Meet your Goals: 1. Quit smoking: * If you smoke, quit. It is the best thing you can do for your COPD and your overall health. * Join a stop-smoking program. There are even telephone, text message, and Internet programs to help you quit. * Ask your doctor about medicines or other methods to help you quit. * Ask family members to quit smoking as well. * Don't allow people to smoke in your home, in your car, or when they are around you. 2. Protect yourself from infection: * Wash your hands often. Do your best to keep your hands away from your face. Most germs are spread from your hands to your mouth. * Get a flu shot every year. Also ask your provider about pneumonia vaccines. * Avoid crowds. It's especially important to do this in the winter when more people have colds and flu. * To stay healthy, get enough sleep, exercise regularly, and eat a balanced diet. You should: -Get about 8 hours of sleep every night. -Try to exercise for at least 30 minutes on most days. -Have healthy foods including fruits and vegetables, 100% whole grains, lean meats and fish, and low-fat dairy products. -Try to stay away from foods high in fats and sugar. 3. Take your medicines: * Take your medicines exactly as directed. Don't skip doses. 4. Manage you stress: Stress can make COPD worse. Use this stress management technique: * Find a quiet place and sit or lie in a comfortable position. * Close your eyes and perform breathing exercises for several minutes. 5. Pulmonary rehabilitation: * Pulmonary rehab can help you feel better. These programs include exercise, breathing techniques, information about COPD, counseling, and help for smokers. * Ask your doctor or your local hospital about programs in your area. 6. When to call your doctor: Call doctor immediately if you have any of the following: Shortness of breath, wheezing, or coughing Increased mucus Yellow, green, bloody, or smelly mucus Fever or chills Tightness in your chest that does not go away with rest or medicine An irregular heartbeat or a feeling that your heart is beating very fast Swollen ankles 7. Follow-up: Do Not miss your follow-up appointment. Keep up with all your appointments and yearly check ups Discharge Care Plan Goals for Pneumonia You have been diagnosed with pneumonia. This is a serious lung infection. Most cases of pneumonia are caused by bacteria. Pneumonia most often occurs in older adults, young children, and people with chronic health problems. Directions to Meet your Goals: 1. Home care: * Take your medicine exactly as directed. Dont skip doses. Continue taking your antibiotics as until they are all gone, even if you start to feel better. This will prevent the pneumonia from coming back. * Drink at least 8 glasses of water daily, unless directed otherwise. This helps to loosen and thin secretions so that you can cough them up. * Use a cool-mist humidifier in your bedroom. Be sure to clean the humidifier daily. * Dont use medicines to suppress your cough unless your cough is dry, painful, or interferes with your sleep. Coughing up mucus is normal. You may use an expectorant if your doctor says its okay. * You can use warm compresses or a heating pad on the lowest setting to relieve chest discomfort. Use several times a day for 15-20 minutes at a time. To prevent injury to your skin, set the temperature to warm, not hot. Dont put the compress or pad directly on your skin. Make certain it has a cover or wrap it in a towel. This is to prevent skin chatman. * Get plenty of rest until your fever, shortness of breath, and chest pain go away. * Plan to get a flu shot every year. The flu is a common cause of pneumonia. Getting a flu shot every year can help prevent both the flu and pneumonia. 2. Getting the pneumococcal vaccine: * Talk with your doctor about getting the pneumococcal vaccine. Pneumococcal pneumonia is caused by bacteria that spread from person to person. It can cause minor problems, such as ear infections. But it can also turn into life- threatening illnesses of the lungs (pneumonia), the covering of the brain and spinal cord (meningitis), and the blood (bacteremia). * Make sure to ask your doctor if you should have the vaccine. Children under 2 years of age, adults over age 65, people with certain health conditions, and smokers are at the highest risk of pneumococcal disease. This vaccine can help prevent pneumococcal disease in both adults and children. 3. Follow-up care: Do Not miss your follow-up appointment. Keep up with all your appointments and yearly check ups 4. When to call your doctor: Call your doctor immediately if you have any of the following: Fever of 100.4F (38C) or higher, or as directed by your healthcare provider Mucus from the lungs (sputum) thats yellow, green, bloody, or smells bad Vomiting Any symptoms that get worse 5. Call 911: Call 911 right away if you have any of the following: Chest pain Trouble breathing Blue lips or fingernails Status ED Status: Left Department
== END 2018-03-02 15:13 | disposition home health service (06) ==
LOC: NEPC 14:04 → NEDA 17:32 → INTOOBSV 17:32 → NEPHCDU 18:21
PROVIDERS: ADMIT Internal Medicine; ATTEND Internal Medicine
CPT/HCPCS: 71010; 71045; 74177; 80048; 80053; 80307; 81001; 82550; 83690; 83735; 84145; 84484; 85025; 85610; 85730; 86850; 86900; 86901; 87070; 87205; 90765; 93005; 94150; 94640; 94664; 94665; 94667; 96361; 96365; 96366; 96367; 96368; 96372; 96375; 96376; 97110; 97161; 97530; 99285; C9113; G0378; G8987; G8988; J0456; J1956; J2550; J2765; J2920; J3480; J7040; J7050; J7506; J7512; Q9967

== ENCOUNTER 2018-03-18 15:21 | Inpatient (IN) ==
--- NOTE | 2018-03-18 15:46 | ED ---
HPI General Chief Complaint: Arrhythmia / Palpitations Stated Complaint: cardiac/ dr sent Time Seen by Provider: 03/18/18 15:39 Source: patient Mode of arrival: EMS Limitations: no limitations History of Present Illness HPI narrative: patient states that she was discharged 2 days ago for double pneumonia and now returns c/o dizziness, irregular palpitations, and sesation of almost passing out as well. 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 KAHN complaint: Reports "heart racing" and palpitations Onset (ago): day(s) Severity: similar to previous episodes Context: Reports occurred during rest Arrhythmia history: Reports atrial fibrillation Related Data Home Medications Medication Instructions Recorded Confirmed albuterol sulfate 2.5 mg INHALATION BID 09/07/17 03/18/18 alendronate [Fosamax] 70 mg PO QWEEK 09/07/17 03/18/18 bumetanide 2 mg PO DAILY 09/07/17 03/18/18 carvedilol 6.25 mg PO BID 09/07/17 03/18/18 cholecalciferol (vitamin D3) 1,000 unit PO DAILY 09/07/17 03/18/18 [Vitamin D3] fluoxetine 20 mg PO DAILY 09/07/17 03/18/18 guaifenesin [Mucinex] 600 mg PO Q12H 09/07/17 03/18/18 multivitamin [Multiple Vitamins] 1 tab PO DAILY 09/07/17 03/18/18 omeprazole 20 mg PO BID 09/07/17 03/18/18 diltiazem HCl 180 mg PO DAILY 03/18/18 03/18/18 Previous Rx's Medication Instructions Recorded apixaban [Eliquis] 5 mg PO BID #60 tab 02/23/18 budesonide-formoterol [Symbicort] 2 puff INH BID #30 g 02/23/18 Allergies Allergy/AdvReac Type Severity Reaction Status Date / Time codeine Allergy Severe GI UPSET Verified 03/18/18 15:49 sulfamethoxazole Allergy Severe CONFIRM Verified 03/18/18 15:49 REACTION: SIDE EFFECT VS ALLERGY. trimethoprim Allergy Severe CONFIRM Verified 03/18/18 15:49 REACTION: SIDE EFFECT VS ALLERGY. lansoprazole Allergy Mild DIARRHEA Verified 03/18/18 15:49 Review of Systems ROS: all other systems reviewed are negative PMFSH History History Provided By: Patient Medical History Medical History Pneumonia (Acute) Asthma (Acute) Atrial fibrillation (Acute) [place] esophagus (Acute) COPD (chronic obstructive pulmonary disease) (Acute) History of hysterectomy (Acute) Hypertension (Acute) Sleep apnea (Acute) Surgical History Surgical History H/O hysterectomy for benign disease (Acute) History of section (Acute) History of shoulder surgery (Acute) Pacemaker (Acute) Family History Family History Mother Heart disease Father Black lung disease Other Diabetes mellitus Social History Social History Substance History: No History of Abuse Second Hand Smoke Exposure: No Smoking Status: Former smoker Tobacco Type: Cigarettes How Often Do You Have a Drink Containing Alcohol: 4 or more times a week Recent Travel in [facility] within the Last 8 Weeks: No Recent Out of Country Travel within the Last 8 Weeks: No Exam Narrative Exam Narrative: GENERAL: Elderly female patient in no apparent distress. SKIN: Warm and dry. HEAD: Atraumatic. Normocephalic. EYES: Pupils equal and round. No scleral icterus. No injection or drainage. ENT: No nasal bleeding or discharge. Mucous membranes pink and moist. NECK: Trachea midline. No JVD. CARDIOVASCULAR: Irregularly irregular tachycardic rate with RESPIRATORY: No accessory muscle use. Rhonchi appreciated.. tidal volume adequate bilaterally. GASTROINTESTINAL: Abdomen soft, non-tender, nondistended. No rebound or guarding MUSCULOSKELETAL: Extremities without clubbing, cyanosis, or edema. No obvious deformities. NEUROLOGICAL: Awake and alert. No obvious cranial nerve deficits. Motor grossly within normal limits. Five out of 5 muscle strength in the arms and legs. Normal speech. PSYCHIATRIC: Appropriate mood and affect; insight and judgment normal. Course Initial Documented Vital Signs Temperature 98.0 F 03/18/18 15:30 Pulse Rate 143 H 03/18/18 15:30 Respiratory Rate 34 H 03/18/18 15:30 Blood Pressure 137/93 H 03/18/18 15:30 Pulse Oximetry 87 L 03/18/18 15:30 Last Documented Vital Signs Temperature 98.0 F 03/18/18 15:30 Pulse Rate 138 H 03/18/18 19:22 Respiratory Rate 18 01/10/19 19:22 Blood Pressure 149/61 H 03/18/18 19:22 Pulse Oximetry 100 03/18/18 19:22 Critical Care Time Critical Care Time: Yes Total Critical Care Time: 30 Attestation: Aggregate critical care time was 30 minutes. Time to perform other separately billable procedures was not included in the critical care time. My time did not include minutes spent treating any other patients simultaneously or on activities that did not directly contribute to the patient's treatment. The services I provided to this patient were to treat and/or prevent clinically significant deterioration I provided critical care services requiring my management, as noted below: Chart data review, documentation time, medication orders and management, vital sign assessments/reviewing monitor data, ordering and reviewing lab tests, ordering and interpreting/reviewing x-rays and diagnostic studies, care of the patient and discussion of the patient with the admitting physicians. Medical Decision Making MDM Narrative Medical Screen Exam Complete: Yes Emergency Medical Condition: Yes Medical Records Medical records reviewed: Yes I reviewed the patient's medical records. chart reviewed noted admitted by [facility]....h/o copd, afib, htn, recent hospitlaziation for pneumonia/copd on feb 26, 2018. treated with levaquin and azithromycin IV. Patient CBC shows no leukocytosis, no anemia, normal platelet count, no left shift. Coagulation profile within normal limits Electrodes are within normal limits Normal kidney liver and pancreatic functions. First set of cardiac enzymes negative Beta natruretic peptide 216 Chest x-ray read by radiologist as cardiac silhouette size at upper limits of normal, no focal consolidation or pleural effusion. despite repeat cardizem rate uncontrolled patient placed on cardizem drip Lab Data Result diagrams: 03/18/18 16:00 03/18/18 16:00 Lab Results 03/18/18 03/18/18 03/18/18 Range/Units 16:00 16:00 16:00 WBC 5.4 (4.0-11.0) th/mm3 RBC 3.31 L (4.00-5.30) mil/mm3 Hgb 12.0 (11.6-15.3) gm/dL Hct 34.5 L (35.0-46.0) % MCV 104.0 H (80.0-100.0) fL MCH 36.1 H (27.0-34.0) pg MCHC 34.7 (32.0-36.0) % RDW 14.4 (11.6-17.2) % Plt Count 302 D (150-450) th/mm3 MPV 7.9 (7.0-11.0) fL Neut % (Auto) 56.1 (16.0-70.0) % Lymph % (Auto) 29.2 (9.0-44.0) % [place] % (Auto) 12.1 H (0.0-8.0) % Eos % (Auto) 2.2 (0.0-4.0) % Baso % (Auto) 0.4 (0.0-2.0) % Neut # (Auto) 3.0 (1.8-7.7) th/mm3 Lymph # (Auto) 1.6 (1.0-4.8) th/mm3 [place] # (Auto) 0.7 (0.0-0.9) th/mm3 Eos # (Auto) 0.1 (0.0-0.4) th/mm3 Baso # (Auto) 0.0 (0.0-0.2) th/mm3 WBC Differential . Differential Comment Auto diff final PT (9.8-11.6) sec INR Ratio APTT (23.4-31.7) sec Sodium (136-145) meq/L Potassium (3.5-5.1) meq/L Chloride (98-107) meq/L Carbon Dioxide (21.0-32.0) meq/L Anion Gap (5-15) meq/L BUN (7-18) mg/dL Creatinine (0.50-1.00) mg/dL Estimated GFR (>89) mL/min Random Glucose (74-106) mg/dL Calcium (8.5-10.1) mg/dL Total Bilirubin (0.2-1.0) mg/dL AST (15-37) U/L ALT (10-53) U/L Alkaline Phosphatase (45-117) U/L Total Creatine Kinase (26-192) U/L Troponin I (0.02-0.05) ng/mL B-Natriuretic Peptide 216 H (0-100) pg/mL Total Protein (6.4-8.2) g/dL Albumin (3.4-5.0) g/dL Lipase 89 (73-393) U/L 03/18/18 03/18/18 Range/Units 16:00 16:00 WBC (4.0-11.0) th/mm3 RBC (4.00-5.30) mil/mm3 Hgb (11.6-15.3) gm/dL Hct (35.0-46.0) % MCV (80.0-100.0) fL MCH (27.0-34.0) pg MCHC (32.0-36.0) % RDW (11.6-17.2) % Plt Count (150-450) th/mm3 MPV (7.0-11.0) fL Neut % (Auto) (16.0-70.0) % Lymph % (Auto) (9.0-44.0) % [place] % (Auto) (0.0-8.0) % Eos % (Auto) (0.0-4.0) % Baso % (Auto) (0.0-2.0) % Neut # (Auto) (1.8-7.7) th/mm3 Lymph # (Auto) (1.0-4.8) th/mm3 [place] # (Auto) (0.0-0.9) th/mm3 Eos # (Auto) (0.0-0.4) th/mm3 Baso # (Auto) (0.0-0.2) th/mm3 WBC Differential Differential Comment PT 11.3 (9.8-11.6) sec INR 1.1 Ratio APTT 30.6 (23.4-31.7) sec Sodium 139 (136-145) meq/L Potassium 3.5 (3.5-5.1) meq/L Chloride 103 (98-107) meq/L Carbon Dioxide 28.3 (21.0-32.0) meq/L Anion Gap 8 (5-15) meq/L BUN 15 (7-18) mg/dL Creatinine 1.10 H (0.50-1.00) mg/dL Estimated GFR 48 L (>89) mL/min Random Glucose 98 (74-106) mg/dL Calcium 8.1 L (8.5-10.1) mg/dL Total Bilirubin 0.3 (0.2-1.0) mg/dL AST 15 (15-37) U/L ALT 17 (10-53) U/L Alkaline Phosphatase 89 (45-117) U/L Total Creatine Kinase 36 (26-192) U/L Troponin I Less than 0.02 L (0.02-0.05) ng/mL B-Natriuretic Peptide (0-100) pg/mL Total Protein 6.7 (6.4-8.2) g/dL Albumin 3.1 L (3.4-5.0) g/dL Lipase (73-393) U/L Imaging Data Radiologist's impression: Chest X-Ray 03/18/18 15:41 CONCLUSION: Cardiac silhouette size is at upper limits of normal and appears more pronounced compared to the prior exam. No focal consolidation or pleural effusion. Discharge Plan Discharge Disposition Patient Disposition: ED Admit(ED Internal Use Only) Discharge Condition Condition: Stable Discharge Order Discharge Orders: ED Use Only Admit Order (Routine); Ordered 03/18/18 Ordered By: Nic Ratliff Discharge Details Diagnosis: Atrial fibrillation with RVR Physicians Team ED Provider: Nic Ratliff Primary Care Provider: Naa Maza Attending Provider: Fredy Cantrell Other Providers: Matthew Cleary Discharge Interventions Interventions: Vital Signs Last Done: 03/18/18 15:33 ED Discharge Assessment Last Done: 03/18/18 20:04 Status ED Status: Admitted Patient
[2018-03-18 16:21] LABS: Baso % (Auto) 0.4 % (0.0-2.0); Eos # (Auto) 0.1 th/mm3 (0.0-0.4); Eos % (Auto) 2.2 % (0.0-4.0); Hematocrit 34.5 % (35.0-46.0); Lymph # (Auto) 1.6 th/mm3 (1.0-4.8); Lymph % (Auto) 29.2 % (9.0-44.0); Mean Corpuscular HGB Conc 34.7 % (32.0-36.0); Mean Corpuscular Hemoglobin 36.1 pg (27.0-34.0); Mean Platelet Volume 7.9 fL (7.0-11.0); Mono # (Auto) 0.7 th/mm3 (0.0-0.9); Mono % (Auto) 12.1 % (0.0-8.0); Neut % (Auto) 56.1 % (16.0-70.0); Platelet Count 302 th/mm3 (150-450); Red Blood Count 3.31 mil/mm3 (4.00-5.30); Red Cell Distribution Width 14.4 % (11.6-17.2); White Blood Count 5.4 th/mm3 (4.0-11.0)
[2018-03-18 16:29] LABS: Activated Partial Thrombo Time 30.6 sec (23.4-31.7); INR 1.1 Ratio; Prothrombin Time 11.3 sec (9.8-11.6)
--- NOTE | 2018-03-18 16:44 | XR ---
EXAM DATE: 03/18/2018 4:38 PM EST AGE/SEX: 82 years / Female INDICATIONS: Patient presents with shortness of breath, and atrial fibrillation. CLINICAL DATA: This is the patient's initial encounter. Patient reports that signs and symptoms have been present for 1 day and indicates a pain score of 7/10. MEDICAL/SURGICAL HISTORY: Chronic obstructive pulmonary disease. Asthma. Pacemaker. COMPARISON: [facility] – [place], CHEST 1V SINGLE AP, 02/26/2018. . FINDINGS: A single AP view of the chest demonstrates the lungs to be symmetrically aerated without evidence of mass, focal consolidation, or effusion. The cardiomediastinal contours are at upper limits of normal . Left chest pacemaker. Degenerative changes of the spine. CONCLUSION: Cardiac silhouette size is at upper limits of normal and appears more pronounced compared to the prio r exam. No focal consolidation or pleural effusion. Electronically signed by: Kinsey Mccormick MD Board Certified Radiologist 03/18/2018 4:42 PM EST
[2018-03-18 16:51] LABS: Alanine Aminotransferase 17 U/L (10-53); Albumin 3.1 g/dL (3.4-5.0); Anion Gap 8 meq/L (5-15); Aspartate Aminotransferase 15 U/L (15-37); Blood Urea Nitrogen 15 mg/dL (7-18); Calcium 8.1 mg/dL (8.5-10.1); Carbon Dioxide 28.3 meq/L (21.0-32.0); Chloride 103 meq/L (98-107); Glomerular Filtration Rate 48 mL/min (>89); Glucose,Random 98 mg/dL (74-106); Potassium 3.5 meq/L (3.5-5.1); Sodium 139 meq/L (136-145)
[2018-03-18 16:55] LABS: Alkaline Phosphatase 89 U/L (45-117); Total Protein 6.7 g/dL (6.4-8.2)
[2018-03-18 16:57] LABS: Creatine Kinase 36 U/L (26-192)
[2018-03-18] MEDS: dilTIAZem Inj 125 MG in Sodium Chlor 0.9% Inj 100 ML IV.CONT PRN (18:41)
--- NOTE | 2018-03-18 18:42 | P.HPIM ---
History of Present Illness Primary Care Physician: Naa Maza MD Chief Complaint: Fast heart rate History of Present Illness: The patient is an 82-year-old female with past medical history of atrial fibrillation and COPD who is presenting to the hospital after being referred by her lead manufacturing engineer. The patient says she went to her lead manufacturing engineer today for a follow-up after recent hospitalization for pneumonia and was found to have a very fast heart rate. She was sent to the hospital at that time. She was found to be in atrial fibrillation with RVR. The patient says that over the past few days she has been feeling very shaky. She has felt palpitations. She describes feeling incredibly dizzy, even while sitting down. She states that she has a pacemaker and follows up with a government teacher. She says she was recently switched from Coumadin to Eliquis. She is not sure if she has been taking her diltiazem and carvedilol as prescribed. She states she is on home oxygen and uses it only at night and with her CPAP. She denies any chest pain or worsening shortness of breath. Inpatient Certification Inpatient Certification: I certify that the inpatient services were ordered in accordance with Medicare regulations governing the order. This includes certification that hospital inpatient services are reasonable and necessary and in the case of services not specified as inpatient-only under 42 CFR 419.22(n), that they are appropriately provided as inpatient services in accordance to with the 2-midnight benchmark under 43 CFR 412.3(e) Review of Systems Review of Systems: all other systems reviewed are negative [facility] Medical History Medical History Pneumonia (Acute) Asthma (Acute) Atrial fibrillation (Acute) Cedillo esophagus (Acute) COPD (chronic obstructive pulmonary disease) (Acute) History of hysterectomy (Acute) Hypertension (Acute) Sleep apnea (Acute) Surgical History Surgical History H/O hysterectomy for benign disease (Acute) History of section (Acute) History of shoulder surgery (Acute) Pacemaker (Acute) Family History Family History Mother Heart disease Father Black lung disease Other Diabetes mellitus Social History Social History Substance History: No History of Abuse Second Hand Smoke Exposure: No Smoking Status: Former smoker Tobacco Type: Cigarettes How Often Do You Have a Drink Containing Alcohol: 4 or more times a week Recent Travel in [facility] within the Last 8 Weeks: No Recent Out of Country Travel within the Last 8 Weeks: No Immunization History Tetanus Immunization: Unsure Medications and Allergies Allergies Allergy/AdvReac Type Severity Reaction Status Date / Time codeine Allergy Severe GI UPSET Verified 03/18/18 15:49 sulfamethoxazole Allergy Severe CONFIRM Verified 03/18/18 15:49 REACTION: SIDE EFFECT VS ALLERGY. trimethoprim Allergy Severe CONFIRM Verified 03/18/18 15:49 REACTION: SIDE EFFECT VS ALLERGY. lansoprazole Allergy Mild DIARRHEA Verified 03/18/18 15:49 Home Medications Medication Instructions Recorded Confirmed Type albuterol sulfate 2.5 mg INHALATION BID 09/07/17 03/18/18 History alendronate [Fosamax] 70 mg PO QWEEK 09/07/17 03/18/18 History bumetanide 2 mg PO DAILY 09/07/17 03/18/18 History carvedilol 6.25 mg PO BID 09/07/17 03/18/18 History cholecalciferol (vitamin D3) 1,000 unit PO DAILY 09/07/17 03/18/18 History [Vitamin D3] fluoxetine 20 mg PO DAILY 09/07/17 03/18/18 History guaifenesin [Mucinex] 600 mg PO Q12H 09/07/17 03/18/18 History multivitamin [Multiple Vitamins] 1 tab PO DAILY 09/07/17 03/18/18 History omeprazole 20 mg PO BID 09/07/17 03/18/18 History diltiazem HCl 180 mg PO DAILY 03/18/18 03/18/18 History Active Medications: Active Medications Apixaban (Eliquis) 5 mg PO BID JEWELS Budesonide/Formoterol Fumarate (Symbicort 160/4.5 Mcg Inh) 2 puff INH BID JEWELS Carvedilol (Coreg) 6.25 mg PO BID JEWELS Fluoxetine HCl (Prozac) 20 mg PO DAILY JEWELS Diltiazem HCl 125 mg/ Sodium (Chloride) 125 mls @ 5 mls/hr IV.CONT TITRATE PRN ; Protocol PRN Reason: Per Protocol Non-Formulary Medication (Bumetanide [Bumetanide]) 2 mg PO DAILY JEWELS Non-Formulary Medication (Cholecalciferol (Vitamin D3) [Vitamin D3]) 1,000 unit PO DAILY JEWELS Non-Formulary Medication (Multivitamin [Multiple Vitamins]) 1 tab PO DAILY JEWELS Non-Formulary Medication (Omeprazole [Omeprazole]) 20 mg PO BID JEWELS Non-Formulary Medication (Diltiazem Hcl [Diltiazem Hcl]) 180 mg PO DAILY JEWELS Sodium Chloride (Ns Flush) 2 ml IV.FLUSH UNSCH PRN PRN Reason: FLUSH AFTER USING IV ACCESS Last Admin: 03/18/18 15:59 Dose: 2 ml Physical Exam Vital signs: Vital Signs 03/18/18 15:30 03/18/18 15:33 03/18/18 15:45 Temperature 98.0 F Pulse Rate 143 H 138 H 186 H Respiratory Rate 34 H 16 Blood Pressure 137/93 H 141/94 H Pulse Oximetry 87 L 95 03/18/18 16:39 Temperature Pulse Rate 119 H Respiratory Rate 20 Blood Pressure 111/56 L Pulse Oximetry 97 Intake & Output 03/17/18 03/18/18 03/18/18 18:59 06:59 18:59 Weight 70.76 kg Narrative: General: NAD HEENT: NC, AT Cardiac: Tachycardic, irregularly irregular Lungs: Scattered rhonchi Abdomen: Soft, NT, ND Extremities: No edema Neuro: No gross deficits Psych: Mood and affect appropriate Results Labs CBC & Chem 7: 03/18/18 16:00 03/18/18 16:00 Imaging Impressions Chest X-Ray 03/18/18 15:41 CONCLUSION: Cardiac silhouette size is at upper limits of normal and appears more pronounced compared to the prior exam. No focal consolidation or pleural effusion. Caprini VTE Risk Assessment Caprini VTE Risk Assessment: Moderate/High Risk (score >= 2) Caprini Risk Assessment Model: Point Value = 1 Point Value = 2 Point Value = 3 Point Value = 5 Age 41-60 Minor surgery BMI > 25 kg/m2 Swollen legs Varicose veins or History of unexplained or recurrent spontaneous Oral contraceptives or hormone replacement Sepsis (< 1 month) Serious lung disease, including pneumonia (< 1 month) Abnormal pulmonary function Acute myocardial infarction Congestive heart failure (< 1 month) History of inflammatory bowel disease Medical patient at bed rest Age 61-74 Arthroscopic surgery Major open surgery (> 45 min) Laparoscopic surgery (> 45 min) Malignancy Confined to bed (> 72 hours) Immobilizing plaster cast Central venous access Age >= 75 History of VTE Family history of VTE Factor V Leiden Prothrombin [id number] Lupus anticoagulant Anticardiolipin antibodies Elevated serum homocysteine Heparin-induced thrombocytopenia Other congenital or acquired thrombophilia Stroke (< 1 month) Elective arthroplasty Hip, pelvis, or leg fracture Acute spinal cord injury (< 1 month) Prophylaxis Regimen: Total Risk Factor Score Risk Level Prophylaxis Regimen 0-1 Low Early ambulation 2 Moderate Order ONE of the following: *Sequential Compression Device (SCD) *Heparin 5000 units SQ BID 3-4 Higher Order ONE of the following medications: *Heparin 5000 units SQ TID *Enoxaparin/Lovenox 40 mg SQ daily (WT < 150 kg, CrCl > 30 mL/min) *Enoxaparin/Lovenox 30 mg SQ daily (WT < 150 kg, CrCl > 10-29 mL/min) *Enoxaparin/Lovenox 30 mg SQ BID (WT < 150 kg, CrCl > 30 mL/min) AND/OR *Sequential Compression Device (SCD) 5 or more Highest Order ONE of the following medications: *Heparin 5000 units SQ TID (Preferred with Epidurals) *Enoxaparin/Lovenox 40 mg SQ daily (WT < 150 kg, CrCl > 30 mL/min) *Enoxaparin/Lovenox 30 mg SQ daily (WT < 150 kg, CrCl > 10-29 mL/min) *Enoxaparin/Lovenox 30 mg SQ BID (WT < 150 kg, CrCl > 30 mL/min) AND *Sequential Compression Device (SCD) Assessment and Plan Plan Atrial fibrillation with RVR The pt has a pacemaker. The patient received IV diltiazem and a diltiazem drip was ordered in the emergency department. The patient has been having symptoms of shakiness, dizziness and palpitations over the past few days. Heart rate still elevated between 120s and 140s. -Continue Cardizem drip. -Resume home regimen of Coreg and Cardizem p.o. It is unclear if the patient has been taking her medications as prescribed. -telemetry. -consult cardiology. -continue Eliquis. PNA/COPD/SEBASTIAN Follows with pulmonology, on home oxygen. Recently completed course of antibiotics. -oxygen as needed. -encourage ambulation. -incentive spirometry. Renal insufficiency May be pre-renal. -hold Bumex. Appears euvolemic. PPx: Eliquis
[2018-03-18] MEDS ORDERED: Sod Chloride 0.9% Inj 1,000 ML IV.CONT SCH (18:45)
--- NOTE | 2018-03-18 19:07 | ECG ---
Date Performed: 03/18/2018 Time Performed: 15:52:56 PTAGE: 82 years EKG: ATRIAL FIBRILLATION WITH RAPID VENTRICULAR RESPONSE LOW QRS VOLTAGE IN PRECORDIAL LEADS POS SIBLE ANTERIOR MYOCARDIAL INFARCTION ABNORMAL RHYTHM ECG Compared to prior electrocardiogram, rate wood s increased. PREVIOUS TRACING : 02/26/2018 14.33 DOCTOR: Nilton Krishnamurthy Interpretating Date/Time 03/18/2018 19:05:25
--- NOTE | 2018-03-18 21:04 | P.CONCA ---
History of Present Illness Service: Cardiology Consult date: 03/18/18 Requesting Physician: Fredy Cantrell Reason for Consult: a fib with RVR Primary Care Provider: Naa Maza MD Chief Complaint: Fast heart rate History of Present Illness: This is a very pleasant 82 year old female who was treated for pneumonia. She had a follow up with her spring encaser today who found her to be in a fib with RVR and sent her to the ER for evaluation. She is a patient who is followed by Matthew Mas (Dr Shahnaz smalls). Patient states that she has had dizziness for past few days, but no falls. Denies any chest pain, but has had some shortness of breath. She does have past medical history of Atrial Fibrillation and COPD. She was started on Cardizem drip in ER which has slowed her rate to 110-130's. She is currently awake in bed not in acute distress. She takes Eliquis for anticoagulation. She was recently discharged from the hospital and charge medication list did not include her p.o. Cardizem and carvedilol so she did not take them at home. She was seeing Dr. Alfred Britt her spring encaser and was found to have A. fib with RVR and sent to the hospital for further management. She is being started on IV Cardizem and now with better control of her ventricular response rate. Review of Systems All other systems reviewed negative except as stated in HPI PMFSH - History History Provided By: Patient, Medical Record - Medical History Medical History: Medical History (Last Reviewed 03/18/18 @ 18:37 by Fredy Cantrell DO) Pneumonia Asthma Atrial fibrillation Cedillo esophagus COPD (chronic obstructive pulmonary disease) History of hysterectomy Hypertension Sleep apnea - Surgical History Surgical History: Surgical History (Last Reviewed 03/18/18 @ 20:54 by ROSARIO Doan) H/O hysterectomy for benign disease History of section History of shoulder surgery Pacemaker - Family History Family History: Family History (Last Reviewed 03/18/18 @ 20:54 by ROSARIO Doan) Mother Heart disease Father Black lung disease Other Diabetes mellitus - Social History I have reviewed the patient's Social History: Yes - Tobacco History Second Hand Smoke Exposure: No Smoking Status: Former smoker Tobacco Type: Cigarettes (States she quit 40 years ago) - Alcohol History How Often Do You Have a Drink Containing Alcohol: 4 or more times a week - Substance Use History Substance History: No History of Abuse - Travel History Recent Travel in the [place] Within the Last 8 Weeks: No Recent Travel Out of the Country Within the Last 8 Weeks: No - Immunization History Tetanus Immunization: Unsure Medications and Allergies Allergies Allergy/AdvReac Type Severity Reaction Status Date / Time codeine Allergy Severe GI UPSET Verified 03/18/18 15:49 sulfamethoxazole Allergy Severe CONFIRM Verified 03/18/18 15:49 REACTION: SIDE EFFECT VS ALLERGY. trimethoprim Allergy Severe CONFIRM Verified 03/18/18 15:49 REACTION: SIDE EFFECT VS ALLERGY. lansoprazole Allergy Mild DIARRHEA Verified 03/18/18 15:49 Home Medications Medication Instructions Recorded Confirmed Type albuterol sulfate 2.5 mg INHALATION BID 09/07/17 03/18/18 History alendronate [Fosamax] 70 mg PO QWEEK 09/07/17 03/18/18 History bumetanide 2 mg PO DAILY 09/07/17 03/18/18 History carvedilol 6.25 mg PO BID 09/07/17 03/18/18 History cholecalciferol (vitamin D3) 1,000 unit PO DAILY 09/07/17 03/18/18 History [Vitamin D3] fluoxetine 20 mg PO DAILY 09/07/17 03/18/18 History guaifenesin [Mucinex] 600 mg PO Q12H 09/07/17 03/18/18 History multivitamin [Multiple Vitamins] 1 tab PO DAILY 09/07/17 03/18/18 History omeprazole 20 mg PO BID 09/07/17 03/18/18 History diltiazem HCl 180 mg PO DAILY 03/18/18 03/18/18 History Active Medications: Active Medications Apixaban (Eliquis) 5 mg PO BID JEWELS Budesonide/Formoterol Fumarate (Symbicort 160/4.5 Mcg Inh) 2 puff INH BID JEWELS Carvedilol (Coreg) 6.25 mg PO BID JEWELS Diltiazem HCl (Cardizem Cd 24hr) 180 mg PO DAILY JEWELS Fluoxetine HCl (Prozac) 20 mg PO DAILY JEWELS Diltiazem HCl 125 mg/ Sodium (Chloride) 125 mls @ 5 mls/hr IV.CONT TITRATE PRN ; Protocol PRN Reason: Per Protocol Last Titration: 03/18/18 19:23 Dose: 10 mg/hr, 10 mls/hr Multivitamins (Theragran) 1 tab PO DAILY [facility] Pantoprazole Sodium (Protonix) 20 mg PO BID JEWELS Sodium Chloride (Ns Flush) 2 ml IV.FLUSH UNSCH PRN PRN Reason: FLUSH AFTER USING IV ACCESS Last Admin: 03/18/18 15:59 Dose: 2 ml Vitamin D (Vitamin D3) 1,000 unit PO DAILY JEWELS Exam Vital signs: Vital Signs 03/18/18 15:30 03/18/18 15:33 03/18/18 15:45 Temperature 98.0 F Pulse Rate 143 H 138 H 186 H Respiratory Rate 34 H 16 Blood Pressure 137/93 H 141/94 H Pulse Oximetry 87 L 95 03/18/18 16:39 03/18/18 19:05 03/18/18 19:22 Temperature Pulse Rate 119 H 138 H Respiratory Rate 20 18 Blood Pressure 111/56 L 149/61 H Pulse Oximetry 97 97 100 Intake & Output 03/18/18 03/18/18 03/19/18 06:59 18:59 06:59 Weight 70.76 kg - Constitutional no acute distress - Routine HEENT Exam Head: Present: normocephalic, atraumatic Eye: Present: EOMI ENT: Present: mucous membranes moist - Routine Neck Exam Present: supple. Absent: JVD, carotid bruit - Routine Respiratory Exam Present: crackles Comments: few scattered crackles in bases. Diminished air entry bilaterally. - Routine Cardiovascular Exam Present: S1, S2, irregular rhythm, irregularly irregular. Absent: murmur, gallop, rubs Comments: S1-S2 are variable in intensity and irregular. Faint S4 gallop. 1-2/6 systolic murmur at the left sternal border and right second intercostal space. - Routine Abdominal Exam Present: soft, normoactive bowel sounds. Absent: tenderness, organomegaly - Routine Extremities Exam Present: pulses intact, normal capillary refill. Absent: cyanosis, clubbing, edema - Routine Skin Exam Present: intact, warm - Routine Neurological Exam Present: alert, oriented X3 Results 03/18/18 16:00 03/18/18 16:00 Cardiac Enzymes 03/18/18 03/18/18 Range/Units 16:00 16:00 AST 15 (15-37) U/L Troponin I Less than 0.02 L (0.02-0.05) ng/mL B-Natriuretic Peptide 216 H (0-100) pg/mL Coagulation 03/18/18 03/18/18 Range/Units 16:00 16:00 PT 11.3 (9.8-11.6) sec APTT 30.6 (23.4-31.7) sec B-Natriuretic Peptide 216 H (0-100) pg/mL CBC 03/18/18 Range/Units 16:00 WBC 5.4 (4.0-11.0) th/mm3 RBC 3.31 L (4.00-5.30) mil/mm3 Hgb 12.0 (11.6-15.3) gm/dL Hct 34.5 L (35.0-46.0) % Plt Count 302 D (150-450) th/mm3 Neut # (Auto) 3.0 (1.8-7.7) th/mm3 Lymph # (Auto) 1.6 (1.0-4.8) th/mm3 Latimer # (Auto) 0.7 (0.0-0.9) th/mm3 Eos # (Auto) 0.1 (0.0-0.4) th/mm3 Baso # (Auto) 0.0 (0.0-0.2) th/mm3 Comprehensive Metabolic Panel 03/18/18 Range/Units 16:00 Sodium 139 (136-145) meq/L Potassium 3.5 (3.5-5.1) meq/L Chloride 103 (98-107) meq/L Carbon Dioxide 28.3 (21.0-32.0) meq/L BUN 15 (7-18) mg/dL Creatinine 1.10 H (0.50-1.00) mg/dL Calcium 8.1 L (8.5-10.1) mg/dL AST 15 (15-37) U/L ALT 17 (10-53) U/L Alkaline Phosphatase 89 (45-117) U/L Total Protein 6.7 (6.4-8.2) g/dL Albumin 3.1 L (3.4-5.0) g/dL Intake and Output 03/18/18 03/18/18 03/18/18 06:59 14:59 22:59 Other: Weight 70.76 kg Patient Weight 03/19/18 06:59 Weight 70.76 kg - Imaging and Cardiology Imaging: Impressions Chest X-Ray 03/18/18 15:41 CONCLUSION: Cardiac silhouette size is at upper limits of normal and appears more pronounced compared to the prior exam. No focal consolidation or pleural effusion. - EKG Interpretation EKG shows: atrial fibrillation Assessment and Plan - Assessment (1) Atrial fibrillation with RVR Code(s): I48.91 - Unspecified atrial fibrillation Status: Acute (2) Hypertension Code(s): I10 - Essential (primary) hypertension Status: Chronic (3) COPD (chronic obstructive pulmonary disease) Code(s): J44.9 - Chronic obstructive pulmonary disease, unspecified Status: Chronic - Plan 1. A fib with RVR - Give 5 mg Cardizem now then continue cardizem gtt. resume Coreg at 6.25 mg po BID and hold for SBP less than 100. (patient has pacemaker ) She is on eliquis for anticoagulation. Will check labs in am including BMP, Mag, Phos, and TSH, Free T4. Resume her home p.o. Cardizem and wean her off IV drip. Her rapid ventricular response rate to her A. fib is secondary to her not being on her home Coreg and diltiazem [please refer to the history of present illness] Hoping we can wean her off the IV Cardizem and send her home within the next 24- 48 hours, assuming she remains stable. 2. Hypertension- resume home medications. #[address] Alfred Britt. Discussed Condition With: Discussed with patient, RN at bedside (2) Hypertension Qualifiers: (3) COPD (chronic obstructive pulmonary disease) Qualifiers:
[2018-03-18] MEDS: Pantoprazole Sodium 20 MG DR Tablet PO SCH (22:33)
[2018-03-18] MEDS: Carvedilol 6.25 MG Tablet PO SCH (22:34)
[2018-03-18] MEDS: Budesonide-Formoterol 160/4.5 MCG 6 GM Inhaler INH SCH (22:36)
[2018-03-19] MEDS: dilTIAZem Inj 125 MG in Sodium Chlor 0.9% Inj 100 ML IV.CONT PRN (07:15)
[2018-03-19] MEDS ORDERED: FLUoxetine 20 MG Capsule PO SCH (09:00)
[2018-03-19] MEDS ORDERED: Non-Formulary Drug (Bumetanide [Bumetanide] 2 MG) PO SCH (09:00)
[2018-03-19] MEDS ORDERED: dilTIAZem CD 180 MG Capsule PO SCH ×2 (09:00)
--- NOTE | 2018-03-19 09:04 | P.PNCA ---
Subjective Interval history: Feeling better compared to yesterday. Less shaky. Ventricular response rate is better controlled. Currently on 10 mg IV drip of Cardizem. Medications and Allergies Active Medications: Active Medications Apixaban (Eliquis) 5 mg PO BID [facility] Last Admin: 03/18/18 22:34 Dose: 5 mg Budesonide/Formoterol Fumarate (Symbicort 160/4.5 Mcg Inh) 2 puff INH BID [facility] Last Admin: 03/18/18 22:36 Dose: 2 puff Carvedilol (Coreg) 6.25 mg PO BID [facility] Last Admin: 03/18/18 22:34 Dose: 6.25 mg Diltiazem HCl (Cardizem Cd 24hr) 180 mg PO DAILY [facility] Fluoxetine HCl (Prozac) 20 mg PO DAILY [facility] Diltiazem HCl 125 mg/ Sodium (Chloride) 125 mls @ 5 mls/hr IV.CONT TITRATE PRN ; Protocol PRN Reason: Per Protocol Last Admin: 03/19/18 07:15 Dose: 10 mg/hr, 10 mls/hr Multivitamins (Theragran) 1 tab PO DAILY [facility] Pantoprazole Sodium (Protonix) 20 mg PO BID [facility] Last Admin: 03/18/18 22:33 Dose: 20 mg Sodium Chloride (Ns Flush) 2 ml IV.FLUSH UNSCH PRN PRN Reason: FLUSH AFTER USING IV ACCESS Last Admin: 03/18/18 15:59 Dose: 2 ml Vitamin D (Vitamin D3) 1,000 unit PO DAILY [facility] Allergies Allergy/AdvReac Type Severity Reaction Status Date / Time codeine Allergy Severe GI UPSET Verified 03/18/18 15:49 sulfamethoxazole Allergy Severe CONFIRM Verified 03/18/18 15:49 REACTION: SIDE EFFECT VS ALLERGY. trimethoprim Allergy Severe CONFIRM Verified 03/18/18 15:49 REACTION: SIDE EFFECT VS ALLERGY. lansoprazole Allergy Mild DIARRHEA Verified 03/18/18 15:49 Home Medications Medication Instructions Recorded Confirmed Type albuterol sulfate 2.5 mg INHALATION BID 09/07/17 03/18/18 History alendronate [Fosamax] 70 mg PO QWEEK 09/07/17 03/18/18 History bumetanide 2 mg PO DAILY 09/07/17 03/18/18 History carvedilol 6.25 mg PO BID 09/07/17 03/18/18 History cholecalciferol (vitamin D3) 1,000 unit PO DAILY 09/07/17 03/18/18 History [Vitamin D3] fluoxetine 20 mg PO DAILY 09/07/17 03/18/18 History guaifenesin [Mucinex] 600 mg PO Q12H 09/07/17 03/18/18 History multivitamin [Multiple Vitamins] 1 tab PO DAILY 09/07/17 03/18/18 History omeprazole 20 mg PO BID 09/07/17 03/18/18 History diltiazem HCl 180 mg PO DAILY 03/18/18 03/18/18 History Physical Exam Vital signs: Vital Signs 03/18/18 15:30 03/18/18 15:33 03/18/18 15:45 Temperature 98.0 F Pulse Rate 143 H 138 H 186 H Respiratory Rate 34 H 16 Blood Pressure 137/93 H 141/94 H Pulse Oximetry 87 L 95 03/18/18 16:39 03/18/18 19:05 03/18/18 19:22 Temperature Pulse Rate 119 H 138 H Respiratory Rate 20 18 Blood Pressure 111/56 L 149/61 H Pulse Oximetry 97 97 100 03/18/18 20:00 03/18/18 20:30 03/18/18 21:00 Temperature Pulse Rate 120 H 124 H 104 H Respiratory Rate 18 Blood Pressure 120/63 Pulse Oximetry 99 99 03/18/18 21:48 03/18/18 22:00 03/18/18 22:32 Temperature Pulse Rate 104 H Respiratory Rate Blood Pressure 100/57 L 104/58 L Pulse Oximetry 03/18/18 23:00 03/19/18 00:00 03/19/18 01:00 Temperature 98.1 F Pulse Rate 98 H 102 H 92 H Respiratory Rate 16 Blood Pressure 95/43 L Pulse Oximetry 97 03/19/18 02:00 03/19/18 03:00 03/19/18 03:53 Temperature 98.0 F Pulse Rate 75 79 84 Respiratory Rate 16 Blood Pressure 111/55 L Pulse Oximetry 99 03/19/18 04:00 03/19/18 05:00 03/19/18 06:00 Temperature Pulse Rate 75 86 82 Respiratory Rate Blood Pressure Pulse Oximetry 03/19/18 07:58 Temperature 97.9 F Pulse Rate 83 Respiratory Rate 16 Blood Pressure 117/60 Pulse Oximetry 96 Intake & Output 03/18/18 03/19/18 03/19/18 18:59 06:59 18:59 Intake Total 365 / 365 Balance 365 / 365 Weight 70.76 kg 69 kg Intake: IV 125 / 125 Cardizem Inj 125 MG In NS Inj 125 / 125 100 ML @ 5 MG/HR 5 mls/hr IV. CONT TITRATE PRN Rx#:[id number] Oral 240 / 240 Other: # Voids 2 Date of Last Bowel Movement 03/17/18 - Constitutional no acute distress - Routine HEENT Exam Head: Present: normocephalic, atraumatic - Routine Neck Exam Present: supple. Absent: JVD, carotid bruit, thyromegaly - Routine Respiratory Exam Comments: Few crepitations at the bases. Diminished air entry bilaterally. No significant change. - Routine Cardiovascular Exam Comments: S1 and S2 are variable in intensity. Faint S4 gallop. 1/6 to 2/6 systolic murmur at the left sternal border and right second intercostal space [unchanged] - Routine Abdominal Exam Present: soft, normoactive bowel sounds. Absent: tenderness, distended - Routine Extremities Exam Absent: cyanosis, clubbing, edema - Routine Skin Exam Present: intact. Absent: cyanosis - Routine Neurological Exam Present: alert, oriented X3 Results 03/18/18 16:00 03/18/18 16:00 Cardiac Enzymes 03/18/18 03/18/18 Range/Units 16:00 16:00 AST 15 (15-37) U/L Troponin I Less than 0.02 L (0.02-0.05) ng/mL B-Natriuretic Peptide 216 H (0-100) pg/mL Coagulation 03/18/18 03/18/18 Range/Units 16:00 16:00 PT 11.3 (9.8-11.6) sec APTT 30.6 (23.4-31.7) sec B-Natriuretic Peptide 216 H (0-100) pg/mL CBC 03/18/18 Range/Units 16:00 WBC 5.4 (4.0-11.0) th/mm3 RBC 3.31 L (4.00-5.30) mil/mm3 Hgb 12.0 (11.6-15.3) gm/dL Hct 34.5 L (35.0-46.0) % Plt Count 302 D (150-450) th/mm3 Neut # (Auto) 3.0 (1.8-7.7) th/mm3 Lymph # (Auto) 1.6 (1.0-4.8) th/mm3 [place] # (Auto) 0.7 (0.0-0.9) th/mm3 Eos # (Auto) 0.1 (0.0-0.4) th/mm3 Baso # (Auto) 0.0 (0.0-0.2) th/mm3 Comprehensive Metabolic Panel 03/18/18 Range/Units 16:00 Sodium 139 (136-145) meq/L Potassium 3.5 (3.5-5.1) meq/L Chloride 103 (98-107) meq/L Carbon Dioxide 28.3 (21.0-32.0) meq/L BUN 15 (7-18) mg/dL Creatinine 1.10 H (0.50-1.00) mg/dL Calcium 8.1 L (8.5-10.1) mg/dL AST 15 (15-37) U/L ALT 17 (10-53) U/L Alkaline Phosphatase 89 (45-117) U/L Total Protein 6.7 (6.4-8.2) g/dL Albumin 3.1 L (3.4-5.0) g/dL Intake and Output 03/18/18 03/19/18 03/19/18 22:59 06:59 14:59 Intake Total 365 / 365 Balance 365 / 365 Intake: IV 125 / 125 Cardizem Inj 125 MG In NS Inj 125 / 125 100 ML @ 5 MG/HR 5 mls/hr IV. CONT TITRATE PRN Rx#:[id number] Oral 240 / 240 Other: # Voids 2 Date of Last Bowel Movement 03/17/18 03/17/18 Weight 70.76 kg 69 kg - Imaging and Cardiology Imaging: Impressions Chest X-Ray 03/18/18 15:41 CONCLUSION: Cardiac silhouette size is at upper limits of normal and appears more pronounced compared to the prior exam. No focal consolidation or pleural effusion. Assessment and Plan - Assessment (1) Atrial fibrillation with RVR Code(s): I48.91 - Unspecified atrial fibrillation Status: Acute (2) Hypertension Code(s): I10 - Essential (primary) hypertension Status: Chronic (3) COPD (chronic obstructive pulmonary disease) Code(s): J44.9 - Chronic obstructive pulmonary disease, unspecified Status: Chronic - Plan 1. A fib with RVR - She is on eliquis for anticoagulation. Will check labs .Resume her home p.o. Cardizem [was on hold] and wean her off IV drip. Her rapid ventricular response rate to her A. fib is secondary to her not being on her home Coreg and diltiazem [was not on her discharge medication list from her recent hospitalization] Hoping we can wean her off the IV Cardizem and send her home within the next 24 hours, assuming she remains stable. 2. Hypertension- resume home medications. #[address] Alfred Britt. (2) Hypertension Qualifiers: (3) COPD (chronic obstructive pulmonary disease) Qualifiers:
--- NOTE | 2018-03-19 09:25 | P.PNIM ---
Subjective Interval history: Follow-up Freddie ayala. She is doing okay denies any symptoms. Currently controlled ventricular response still on drip discussed with nursing Physical Exam Vital signs: Vital Signs 03/18/18 15:30 03/18/18 15:33 03/18/18 15:45 Temperature 98.0 F Pulse Rate 143 H 138 H 186 H Respiratory Rate 34 H 16 Blood Pressure 137/93 H 141/94 H Pulse Oximetry 87 L 95 03/18/18 16:39 03/18/18 19:05 03/18/18 19:22 Temperature Pulse Rate 119 H 138 H Respiratory Rate 20 18 Blood Pressure 111/56 L 149/61 H Pulse Oximetry 97 97 100 03/18/18 20:00 03/18/18 20:30 03/18/18 21:00 Temperature Pulse Rate 120 H 124 H 104 H Respiratory Rate 18 Blood Pressure 120/63 Pulse Oximetry 99 99 03/18/18 21:48 03/18/18 22:00 03/18/18 22:32 Temperature Pulse Rate 104 H Respiratory Rate Blood Pressure 100/57 L 104/58 L Pulse Oximetry 03/18/18 23:00 03/19/18 00:00 03/19/18 01:00 Temperature 98.1 F Pulse Rate 98 H 102 H 92 H Respiratory Rate 16 Blood Pressure 95/43 L Pulse Oximetry 97 03/19/18 02:00 03/19/18 03:00 03/19/18 03:53 Temperature 98.0 F Pulse Rate 75 79 84 Respiratory Rate 16 Blood Pressure 111/55 L Pulse Oximetry 99 03/19/18 04:00 03/19/18 05:00 03/19/18 06:00 Temperature Pulse Rate 75 86 82 Respiratory Rate Blood Pressure Pulse Oximetry 03/19/18 07:58 Temperature 97.9 F Pulse Rate 83 Respiratory Rate 16 Blood Pressure 117/60 Pulse Oximetry 96 Intake & Output 03/18/18 03/19/18 03/19/18 18:59 06:59 18:59 Intake Total 365 / 365 Balance 365 / 365 Weight 70.76 kg 69 kg Intake: IV 125 / 125 Cardizem Inj 125 MG In NS Inj 125 / 125 100 ML @ 5 MG/HR 5 mls/hr IV. CONT TITRATE PRN Rx#:[id number] Oral 240 / 240 Other: # Voids 2 Date of Last Bowel Movement 03/17/18 Narrative: General: NAD HEENT: NC, AT Cardiac: irregularly irregular Lungs: Scattered rhonchi Abdomen: Soft, NT, ND Extremities: No edema Neuro: No gross deficits Psych: Mood and affect appropriate Results Labs CBC & Chem 7: 03/18/18 16:00 03/19/18 08:20 Imaging Imaging: Impressions Chest X-Ray 03/18/18 15:41 CONCLUSION: Cardiac silhouette size is at upper limits of normal and appears more pronounced compared to the prior exam. No focal consolidation or pleural effusion. Assessment and Plan (1) Atrial fibrillation with RVR: Code(s): I48.91 - Unspecified atrial fibrillation Status: Acute (2) Hypertension: Code(s): I10 - Essential (primary) hypertension Status: Chronic (3) COPD (chronic obstructive pulmonary disease): Code(s): J44.9 - Chronic obstructive pulmonary disease, unspecified Status: Chronic Plan Atrial fibrillation with RVR The pt has a pacemaker. The patient received IV diltiazem and a diltiazem drip was ordered in the emergency department. The patient has been having symptoms of shakiness, dizziness and palpitations over the past few days. Heart rate still elevated between 120s and 140s. -wean Cardizem drip. -Resume home regimen of Coreg and Cardizem p.o. during last discharge, patient was advised to continue Coreg and Cardizem discharge summary reviewed however per patient home health care nurse instructed her to not take Coreg and Cardizem. Patient thinks that nurse reviewed the previous discharge summary incorrectly -telemetry. -consulted cardiology. -continue Eliquis. PNA/COPD/SEBASTIAN Follows with pulmonology, on home oxygen. Recently completed course of antibiotics. -oxygen as needed. -encourage ambulation. -incentive spirometry. Renal insufficiency May be pre-renal. -hold Bumex. Appears euvolemic. PPx: Eliquis Possible discharge tomorrow _ (1) COPD (chronic obstructive pulmonary disease) Qualifiers: COPD type: Chronic bronchitis type: Emphysema type: (2) Hypertension Qualifiers: Hypertension type:
[2018-03-19 09:34] LABS: Phosphorus 2.7 mg/dL (2.5-4.9)
[2018-03-19] MEDS: Budesonide-Formoterol 160/4.5 MCG 6 GM Inhaler INH SCH ×2 (09:37→21:16)
[2018-03-19] MEDS: Pantoprazole Sodium 20 MG DR Tablet PO SCH ×2 (09:37→21:17)
[2018-03-19 09:44] LABS: Free T4 (Free Thyroxine) 0.91 ng/dL (0.76-1.46); Thyroid Stimulating Hormone 1.55 uIU/mL (0.358-3.740)
[2018-03-19] MEDS ORDERED: Carvedilol 6.25 MG Tablet PO SCH ×2 (10:00→21:00)
[2018-03-19 10:34] LABS: Carbon Dioxide 28.8 meq/L (21.0-32.0); Potassium 3.7 meq/L (3.5-5.1)
[2018-03-19] MEDS: Carvedilol 6.25 MG Tablet PO SCH (12:59)
--- NOTE | 2018-03-19 15:02 | P.DIET ---
Nutritional Evaluation Type of nutrition evaluation: initial Nutrition screening: Weight Loss > 10 lbs Objective - Diagnosis AFIB with RVR - Objective Body Mass Index: 30.7 Levan body weight: 43 kg (95lbs) % IBW: 150 Body Weight Used for Calculations: IBW (43) Energy Needs - Lower Range (kCal/kg): 28 Energy Needs - Upper Range (kCal/kg): 32 Lower Limit kCal/kg (kCals): 1,204 Upper Limit kCal/kg (kCals): 1,376 Lower Limit Protein Factor (Grams per Kg): 0.8 Upper Limit Protein Factor (Grams per Kg): 1.0 Lower Protein Needs (Protein): 34 Upper Protein Needs (Protein): 43 Dietitian Reviewed in Medical Record: Current diet, Curent medications, Intake & Output, Labs, Medical history Diet Order: Cardiac Oral Diet Intake Amount: Excellent 90%+ Objective Comments: PMH; AFIB, COPD Labs; GFR 65 Medications; Theragran, Vitamin D Assessment Assessment: Weight loss screen; Pt recently discharged from [facility] with double pneumonia but now returns 2 days later with dizziness and irregular heart palpations. I spoke with pt this afternoon who reportedly has a great appetite while in the hospital and is consuming 100% of meals. Per pt and son she has had decreased appetite at home in relation to dizziness which has caused her to lose a few pounds "here and there." At this time I am not concerned about recent weight loss with this pt and do not feel that she needs a nutritional supplement as she is eating well and does not have any evidence of depleted nutrient stores. Please consult Rd if further complications arise. Recommendations: 1. Continue with regular diet 2. No need for supplement at this time 3. Consult RD if further complications arise Dietitian to Monitor: PO Intake, Medical course
[2018-03-19 20:25] VITALS: PULSE 82
[2018-03-19 20:27] VITALS: RESP 18; TEMP 98.1; O2SAT 97
[2018-03-19 21:49] VITALS: BP 122/67
== END 2018-03-19 21:30 | disposition home or self-care (01) | DRG 310 ==
LOC: NEPE 15:21 → NEDA 18:26 → HCIS 19:50
PROVIDERS: ADMIT Internal Medicine; ATTEND Internal Medicine
DX: I48.91 Unspecified atrial fibrillation; Z88.2 Allergy status to sulfonamides; Z95.0 Presence of cardiac pacemaker; Z82.49 Family history of ischemic heart disease and other diseases of the circulatory system; N28.9 Disorder of kidney and ureter, unspecified; Z87.891 Personal history of nicotine dependence; Z99.81 Dependence on supplemental oxygen; Z79.01 Long term (current) use of anticoagulants; G47.33 Obstructive sleep apnea (adult) (pediatric); J43.9 Emphysema, unspecified; Z88.5 Allergy status to narcotic agent; I10 Essential (primary) hypertension
CPT/HCPCS: 71010; 71045; 80048; 80053; 82550; 83520; 83690; 83735; 83880; 84100; 84439; 84443; 84484; 85025; 85610; 85730; 90774; 90784; 93005; 94150; 96374; 99291; C8952